=== PATIENT | female | born 1990 | race Caucasian/White ===

== ENCOUNTER 2020-03-07 17:12 | Emergency (ER) | payer MEDICAID, SELFPAY ==
--- OUTSIDE RECORDS SUMMARY | 2020-03-07 17:16 | XMS REPORT | Continuity of Care Document ---
:1990 Author Organization [employer] Care Team Providers Name Role Phone [employer] Unavailable Un available Problems Problem Status Onset Classification Date Comments Sourc e Date Reported Other specified 04/02/20 10/11/2018 [facility] diseases and 18 Medical conditions Center complicating , childbirth and the puerperium 24 WKS Active 03/24/20 [facility] /ABDOMINAL 18 M edical PAIN Center Unspecified 03/21/20 10/02/2018 infection of [address] urinary tract in , second trimester 23 weeks gestation 03/15/20 10/02/[address] Urinary tract 03/15/20 10/02/2018 infection, site 18 [place] not specified Patient currently Resolved 03/15/20 Problem 10/11/2018 M Amy [place] (finding) 18 M edical Center, [place] [place] CONTRACTIONS Active 03/15/20 18 [place] 22WKS Active 03/09/20 [facility] PREG-ANXIETY,BREAK 18 [place] DOWN Injury, poisoning 12/30/19 01/01/2018 Amy Swanson and certain other 18 consequences of external causes complicating , unspecified trimester BACK PAIN, 14 Active 12/30/19 [facility] WEEKS 18 [place] Threatened 12/19/19 12/21/2017 [place]a and 18 Other specified 12/19/19 12/21/2017 [place] disorders of 18 amniotic fluid and membranes, unspecified trimester, not applicable or unspecified OTHER Active 12/19/19 [facility] 18 [place] Complete or 10/13/19 01/11/2018 [place] unspecified 18 spontaneous without complication Incomplete 10/06/19 01/11/2018 [place] and spontaneous 18 without complication VAGINAL BLEEDING Active 10/05/19 [facility] orial 18 [place] Diseases of the 09/26/2018 [place] nervous system complicating , second trimester Insomnia, 09/26/[address] [place] unspecified 22 weeks gestation 09/26/2018 [facility] of Diseases of the 10/02/2018 digestive system [place] complicating , second trimester Noninfective 10/02/2018 gastroenteritis [place] and colitis, unspecified Anxiety disorder, 10/02/2018 M unspecified [place] ,[facility] Cannabis use, 10/02/2018 unspecified, [address] uncomplicated Smoking (tobacco) 10/02/2018 M complicating Juliana mejia, , second [place] trimester Nicotine 10/02/2018 dependence, [place] , cigarettes, [place] uncomplicated Bipolar disorder, 10/11/2018 [facility] [place] unspecified Medical Center,[facility] 24 weeks gestation 10/11/2018 [facility] of Medical Center Unspecified 10/11/[place] abdominal pain Medic al Center Other mental 10/11/2018 Leonardo as disorders Medical complicating Center, , second [place], trimester [facility] Bipolar I disorder Active Problem 10/11/2018 [facility] (disorder) [facility] Substance abuse Resolved Problem 10/11/2018 [facility] (disorder) Medical [place],[facility] Medications Medication Details Route Status Patient Ordering Order Source Instructions Provider Date multivitamin, 1 tab, Route: No Longer [facility] PO, Drug Form: Active 2018 Medical TAB, Dosing Center Weight 68.182, kg, Daily, Start date: 03/25/18 9:00:00 CDT, Duration: 30 day, Stop date: 04/23/18 9:00:00 CDT Protonix Notes: Tablet No Longer Leonardoa s should not be Active [facility] Medical chewed or Center crushed. (Same as: Protonix) Omeprazole 20 mg, Route: Inactive Leonardo as PO, Drug form: 2018 Medical CAP, ONCE, Center Dosing Weight 68.182, kg, Priority: STAT, Start date: 03/24/18 21:28:00 CDT, Stop date: 03/24/18 21:28:00 CDT Tylenol Notes: Do not Inactive [facility] exceed 4 2018 Medical gm/day. (Same Center as: Tylenol) Haldol Notes: (Same Inactive [facility] as: Haldol) [address] [place] [address] Center Nitrofurantoin 100 mg = 1 cap, No Longer 100 MG Oral PO, BID, take 2 Active 2018 [place] Capsule times a day, X [Macrobid] 7 day, # 14 cap, 0 Refill(s) Macrobid Notes: Not Inactive recommended for 2017 patients with CrCl<50 ml/min (Same as:Macrobid) With food. Ondansetron Notes: (Same Inactive as: Zofran) 2017 [facility] MEDICATION WASTE Product Size: 4 mg Product Wasted: ___ mg Famotidine Notes: (Same Inactive as: Pepcid) Can 2017 be dilute in 5-10cc NS IVP: Slow IV push over at least 2 minutes. Calcium Chloride 1,000 mL, 1000 Inactive 0.0014 MEQ/ML / ml/hr, Infuse 2017 [place] Potassium Over: 1 hr, Chloride 0.004 Route: IV, MEQ/ML / Sodium 1,000, Drug Chloride 0.103 form: INJ, MEQ/ML / Sodium ONCE, Dosing Lactate 0.028 Weight 80.455 MEQ/ML kg, Start date: Injectable 03/15/18 Solution 18:51:00 CDT, Stop date: 03/15/18 18:51:00 CDT Tylenol 650 mg, Route: Inactive PO, Drug form: 2018 [place] TAB, ONCE, Dosing Weight 81.818, kg, Priority: STAT, Start date: 12/29/17 20:46:00 CDT, Stop date: 12/29/17 20:46:00 CDT Acetaminophen 650 mg, Route: Inactive PO, Drug form: 2018 [place] TAB, ONCE, Dosing Weight 81.818, kg, Priority: STAT, Start date: 12/29/17 13:53:00 CDT, Stop date: 12/29/17 13:53:00 CDT Sodium Chloride 1,000 mL, 2,000 Inactive 0.9% (Bolus) IV ml/hr, Infuse 2017 [place] Over: 0.5 hr, Route: IV, 1,000, Drug form: INJ, ONCE, Priority: STAT, Dosing Weight 81.818 kg, Start date: 12/29/17 13:53:00 CDT, Stop date: 12/29/17 13:53:00 CDT Saline Flush Notes: (Same Inactive 0.9% as: BD 2017 [place] Posiflush) Tylenol 650 mg, Route: Inactive PO, Drug form: 2017 [place] TAB, ONCE, Dosing Weight 81.818, kg, Priority: STAT, Start date: 12/18/17 13:25:00 CDT, Stop date: 12/18/17 13:25:00 CDT Tylenol Notes: Max Inactive acetaminophen = 2018 [facility] 4000 mg/day (4 gm/day). (Same as: Tylenol) Zofran ODT 4 mg, Route: Inactive PO, Drug form: 2017 [place] TABDIS, ONCE, Dosing Weight 81.818, kg, Priority: STAT, Start date: 12/18/17 11:20:00 CDT, Stop date: 12/18/17 11:20:00 CDT Acetaminophen 1 tab, PO, Q6H, No Longer 300 MG / Codeine PRN Pain, X 3 Active 2017 [place] Phosphate 30 MG day, # 12 tab, Oral Tablet 0 Refill(s) [Tylenol with Codeine #3] Acetaminophen 1 tab, PO, Q6H, No Longer 300 MG / Codeine PRN Pain, X 7 Active 2017 [place] Phosphate 30 MG day, # 28 tab, Oral Tablet 0 Refill(s) [Tylenol with Codeine #3] Morphine Notes: (Same Inactive as:MORPhine 2018 [place] Sulfate) Cytotec Notes: (Same Inactive as:Cytotec) 2017 [place] Take with food Ondansetron 4 mg, Route: Inactive IVP, Drug form: 2017 [place] INJ, ONCE, Dosing Weight 81.818, kg, Priority: STAT, Start date: 10/04/17 23:47:00 CDT, Stop date: 10/04/17 23:47:00 CDT Morphine 4 mg, Route: Inactive IVP, ONCE, 2017 [place] Dosing Weight 81.818, kg, Priority: STAT, Start date: 10/04/17 23:15:00 CDT, Stop date: 10/04/17 23:15:00 CDT Saline Flush Notes: (Same No Longer 0.9% as: BD Active 2017 [place] Posiflush) Allergies, Adverse Reactions, Alerts No Known Medication Allergies Immunizations Immunization Date Site Status Last Updated Comments Sour ce Given RhoGam (Sep Right completed [facility] Charting) [facility], [facility] Results Order Name Results Value Reference Date Interpretation Comments Queenie rce Range DRUG LD Confirm Test 03/24 [place] SCREEN Result /2017 Medical Screen Center Cutoff Marijuana carboxy-t hc >400 ng/ml 20 ng/ml Test performed by [facility]. Laboratory DRUG U Propoxyph Negative Negative 03/24 [place] SCREEN Scr *NA* Medical (03/24/18 4:30 PM) Center DRUG U Methadone Negative Negative 03/24 [place] SCREEN Scr *NA Medical (03/24/18 4:30 PM) Center DRUG U Negative Negative 03/24 [place] SCREEN Phencyclidin *NA Medical e Scr (03/24/18 4:30 PM) Center DRUG UDS Note See Note 03/24 [place] SCREEN (03/24/18 4:30 PM) /2017 Medical Center DRUG U Opiate Scr Negative Negative 03/24 [place] SCREEN *NA* /2017 Medical (03/24/18 4:30 PM) Center DRUG U Cannab Scr Positive Negative 03/24 [place] SCREEN *ABN* /2017 Medical (03/24/18 4:30 PM) Center DRUG U Cocaine Negative Negative 03/24 [place] SCREEN Scr *NA Medical (03/24/18 4:30 PM) Center DRUG U Benzodiaz Negative Negative 03/24 [place] SCREEN Scr *NA* Medical (03/24/18 4:30 PM) Center DRUG U Ethanol Negative Negative 03/24 [place] SCREEN Scr *NA Medical (03/24/18 4:30 PM) Center DRUG U Alana Scr Negative Negative 03/24 [place] SCREEN *NA* Medical (03/24/18 4:30 PM) Center DRUG U Amph Scr Positive Negative 03/24 [place] SCREEN *ABN* Medical (03/24/18 4:30 PM) Center DRUG LD Confirm Tests 03/24 [facility] SCREEN Results /[address] [facility] Screen Cutoff Amphetamin e amphetamin e 3291 ng/ml 1000 ng/ml methamphet amine 8820 ng/ml 1000 ng/ml Tests performed by [facility]. Laboratory URINE AND UA Bacteria Few /HPF None Seen 03/[place] /HPF /[address] [facility] URINE AND UA Sq Epi Many /LPF Few /LPF 03/24 [facility] STOOL /[address] [place] [address] URINE AND UA RBC 1 0 - 2 03/24 [facility] STOOL /[address] [facility] URINE AND UA WBC 9 0 - 5 03/24 [facility] STOOL /[address] [place] [address] URINE AND UA Mucus Few /LPF None Seen 03/24 [facility] STOOL /LPF /[address] [facility] URINE AND UA Bili Negative Negative 03/24 [facility] *NA* /2017 [facility] (03/24/18 4:30 PM) [place] URINE AND UA Protein 10 mg/dL Negative 03/24 [facility] mg/dL /[address] [place] [address] URINE AND UA 2.0 0.1 - 1.0 03/24 [facility] Urobilinogen /[address] [place] [address] URINE AND UA Blood Negative Negative 03/24 [facility] (03/24/18 4:30 PM) /[address] [place] [address] URINE AND UA Leuk Est Moderate Negative 03/24 [facility] *ABN* /2017 [facility] (03/24/18 4:30 PM) [place] URINE AND UA Nitrite Negative Negative 03/24 [facility] (03/24/18 4:30 PM) /[address] [place] [address] URINE AND UA Glucose Negative Negative 03/24 [facility] mg/dL mg/dL /[address] [place] [address] URINE AND UA Ketones Negative Negative 03/24 [facility] mg/dL mg/dL /[address] [facility] URINE AND UA pH 6.0 5.0 - 8.0 03/24 [facility] /[address] [place] [address] URINE AND UA Spec Grav 1.013 <=1.030 03/24 [facility] /[address] [place] [address] URINE AND UA Turbidity Clear Clear 03/24 [facility] (03/24/18 4:30 PM) /[address] [place] [address] URINE AND UA Color Yellow Yellow 03/24 [facility] STOOL *NA* /2017 [facility] (03/24/18 4:30 PM) [place] Culture: <10,000 03/24 [facility] Urine CFU/mL /2017 [facility] Skin Jossie Center BLOOD BANK Antibody Negative 03/24 [facility] RESULTS Scrn (03/24/18 3:46 PM) /[address] [facility] BLOOD BANK ABO/Rh O NEG 03/24 [place] RESULTS /[address] [facility] HEMATOLOGY MPV 11.4 7.4 - 10.4 03/24 /[address] [facility] HEMATOLOGY MCHC 32.6 32.0 - 03/24 [place] 36.0 /[address] [facility] HEMATOLOGY MCH 27.4 27.0 - 03/24 [place] 31.0 /[address] [facility] HEMATOLOGY MCV 84.2 80.0 - 03/24 [place] 98.0 /[address] [facility] HEMATOLOGY RDW 15.1 11.5 - 03/24 [place] 14.5 /[address] [facility] HEMATOLOGY Platelet 150 133 - 450 03/24 /[address] [facility] HEMATOLOGY Hgb 10.3 12.0 - 03/24 [place] 16.0 /[address] [facility] HEMATOLOGY Hct 31.5 36.0 - 03/24 [place] 48.0 /[address] [facility] HEMATOLOGY WBC 9.5 3.7 - 10.4 03/[address] [facility] HEMATOLOGY RBC 3.74 4.20 - 03/24 [place] 5.40 /[address] [facility] HEMATOLOGY Segs 78.3 45.0 - 03/24 [place] 75.0 /[address] [facility] HEMATOLOGY Basophils 0.2 0.0 - 1.0 03/24 /[address] [facility] HEMATOLOGY Lymphocytes 1.5 1.0 - 5.5 03/24 [place] # /[address] [facility] HEMATOLOGY Neutrophils 7.4 1.5 - 8.1 03/24 [place] # /[address] [facility] HEMATOLOGY Monocytes # 0.5 0.0 - 0.8 03/[place] /[address] [facility] HEMATOLOGY Eosinophils 0.4 0.0 - 4.0 03/24 [place] /[address] [facility] HEMATOLOGY Monocytes 5.0 2.0 - 12.0 03/[address] [facility] HEMATOLOGY Lymphocytes 16.1 20.0 - 03/24 [place] 40.[address] [facility] IMMUNOLOGY Hep Bs Ag Negative Negative 03/24 [place] *NA* /2017 Medical (03/24/18 3:46 PM) Center IMMUNOLOGY Treponemal Non-Reactive Non 03/24 [place] *NA* Medical (03/24/18 3:46 PM) Center IMMUNOLOGY HIV. Negative Negative 03/24 [facility] *NA* /2017 Medical (03/24/18 3:46 PM) Center CHEM PANEL Amylase Lvl 53 25 - 115 03/15 [facility] CHEM PANEL Lipase Lvl 128 73 - 393 03/15 [facility] CHEM PANEL eGFR 131 03/15 Result Comment: The [facility] eGFR is calculated using the CKD-EPI formula. In most young, healthy individuals the eGFR will be >90 mL/min/1.73m2 . The eGFR declines with age. An eGFR of 60-89 may be normal in some populations, particularly the elderly, for whom the CKD-EPI formula has not been extensively validated. Use of the eGFR is not recommended in the following populations:< br/>
Kaela viduals with unstable creatinine concentration s, including patients and those with serious co-morbid conditions.<b r/>
Patie nts with extremes in muscle mass or diet.

The data above are obtained from the National Kidney Disease Education Program (NKDEP) which additionally recommends that when the eGFR is used in patients with extremes of body mass index for purposes of drug dosing, the eGFR should be multiplied by the estimated BMI. CHEM PANEL CO2 27 24 - 32 03/15 [facility] CHEM PANEL Chloride Lvl 107 95 - 109 03/15 [facility] CHEM PANEL Calcium Lvl 7.8 8.5 - 10.5 03/15 [facility] CHEM PANEL Total 6.6 6.4 - 8.4 03/[address] [facility] CHEM PANEL Creatinine 0.50 0.50 - 03/[address] [facility] CHEM PANEL BUN 6 7 - 22 03/15 [facility] CHEM PANEL Potassium 3.9 3.5 - 5.1 03/[address] [facility] CHEM PANEL Sodium Lvl 140 135 - 145 03/15 [facility] CHEM PANEL Albumin Lvl 2.7 3.5 - 5.0 03/15 [facility] CHEM PANEL ALANINE 18 0 - 65 03/[address] [facility] RASE CHEM PANEL Alk Phos 87 39 - 136 03/15 [facility] CHEM PANEL ASPARTATE 10 0 - 37 03/[address] [facility] CHEM PANEL Bili Total 0.2 0.2 - 1.3 03/15 [facility] CHEM PANEL Glucose Lvl 86 70 - 99 03/15 [facility] CHEM PANEL B/C Ratio 12 6 - 25 03/15 [facility] CHEM PANEL Globulin 3.9 2.7 - 4.2 03/15 [facility] CHEM PANEL A/G Ratio 0.7 0.7 - 1.6 03/15 [facility] CHEM PANEL AGAP 9.9 10.0 - 03/[address] [facility] HEMATOLOGY Platelet 155 133 - 450 03/15 [facility] HEMATOLOGY MPV 12.1 7.4 - 10.4 03/15 /2017 [facility] HEMATOLOGY RDW 15.6 11.5 - 03/15 MH 14.5 /2017 [facility] HEMATOLOGY MCHC 33.9 32.0 - 03/[address] [facility] HEMATOLOGY MCH 27.9 27.0 - 03/[address] [facility] HEMATOLOGY MCV 82.2 80.0 - 03/[address] [facility] HEMATOLOGY WBC 14.5 3.7 - 10.4 03/15 [facility] HEMATOLOGY RBC 3.80 4.20 - 03/[address] [facility] HEMATOLOGY Hgb 10.6 12.0 - 03/[address] [facility] HEMATOLOGY Hct 31.3 36.0 - 03/[address] [facility] HEMATOLOGY Lymphocytes 1.4 1.0 - 5.5 03/15 MH # /2017 [facility] HEMATOLOGY Monocytes # 0.4 0.0 - 0.8 03/15 [facility] HEMATOLOGY Eosinophils 0.0 0.0 - 0.5 03/15 # /2017 [facility] HEMATOLOGY Basophils # 0.0 0.0 - 0.2 03/15 [facility] HEMATOLOGY Segs 86.8 45.0 - 03/[address] [facility] HEMATOLOGY Monocytes 3.0 2.0 - 12.0 03/15 [facility] HEMATOLOGY Eosinophils 0.2 0.0 - 4.0 03/15 [facility] HEMATOLOGY Lymphocytes 9.9 20.0 - 03/[address] [facility] HEMATOLOGY Neutrophils 12.6 1.5 - 8.1 03/15 MH # /2017 [facility] HEMATOLOGY Basophils 0.1 0.0 - 1.0 03/15 [facility] HEMATOLOGY RBC Morph Normal 03/15 (03/15/18 6:56 PM) /2017 [facility] est HEMATOLOGY Plt Morph Normal 03/15 (03/15/18 6:56 PM) [facility] URINE AND UA Hyal Cast 1 0 - 2 03/15 STOOL /2017 [facility] URINE AND UA Color Yellow 03/[address] [facility] URINE AND UA Bacteria Few /HPF None Seen 03/15 STOOL /HPF /2017 [facility] URINE AND UA Mucus Few /LPF None Seen 03/15 STOOL /LPF /2017 [facility] URINE AND UA RBC 3 0 - 2 03/[address] [facility] URINE AND UA <=1.0 0.1 - 1.0 03/15 STOOL Urobilinogen /2017 [facility] URINE AND UA WBC 29 0 - 5 03/[address] [facility] URINE AND UA Leuk Est Moderate Negative 03/15 STOOL *ABN* /2017 [facility] (03/15/18 6:56 PM) URINE AND UA Sq Epi Many /LPF Few /LPF 03/[address] [facility] URINE AND UA Ketones Negative Negative 03/15 STO[place] mg/dL mg/dL [facility] URINE AND UA Bili Negative Negative 03/15 [place] *NA* /2017 [facility] (03/15/18 6:56 PM) URINE AND UA Blood Negative Negative 03/15 STO[place] (03/15/18 6:56 PM) [facility] est URINE AND UA Protein Negative Negative 03/15 STO[place] mg/dL mg/dL [facility] URINE AND UA Glucose Negative Negative 03/15 [place] mg/dL mg/dL [facility] URINE AND UA Nitrite Negative Negative 03/15 STOOL (03/15/18 6:56 PM) [facility] URINE AND UA pH 5.0 5.0 - 8.0 03/[address] [facility] URINE AND UA Spec Grav 1.015 <=1.030 03/[address] [facility] URINE AND UA Turbidity Marked Clear 03/15 STOOL *ABN* /2017 [facility] (03/15/18 6:56 PM) BLOOD BANK Antibody Negative 12/29 RESULTS Scrn (12/29/17 6:51 PM) [facility] BLOOD BANK ABO/Rh O NEG 12/29 RESULTS /2017 [place] BLOOD BANK Rhig Product available 12/29 RESULTS (12/29/17 6:31 PM) [facility] URINE AND UA <=1.0 0.1 - 1.0 12/29 STOOL Urobilinogen mg/dL [place] URINE AND UA Blood Negative Negative 12/29 [place] (12/29/17 4:58 PM) [place] URINE AND UA Leuk Est Large Negative 12/29 STOOL *ABN* /2017 [place] (12/29/17 4:58 PM) URINE AND UA Nitrite Negative Negative 12/29 [place] (12/29/17 4:58 PM) [place] URINE AND UA Ketones Negative Negative 12/29 [place] mg/dL mg/dL [place] URINE AND UA Glucose Negative Negative 12/29 [place] mg/dL mg/dL [place] URINE AND UA Bili Negative Negative 12/29 STOOL *NA* [place] (12/29/17 4:58 PM) URINE AND UA WBC 3 0 - 5 12/29 STOOL [facility] URINE AND UA Sq Epi Moderate Few /LPF 12/29 STOOL /LPF [facility] URINE AND UA Mucus Few /LPF None Seen 12/29 STOOL /LPF [place] URINE AND UA Bacteria Occasional None Seen 12/29 STOOL /HPF /HPF [facility] URINE AND UA RBC 3 0 - 2 12/29 STOOL [facility] URINE AND UA Protein Negative Negative 12/29 STOOL mg/dL mg/dL [facility] URINE AND UA pH 7.0 5.0 - 8.0 12/29 STOOL [facility] URINE AND UA Spec Grav 1.012 <=1.030 12/29 STOOL [facility] URINE AND UA Turbidity Slight Clear 12/29 STOOL *ABN* /2017 [place] (12/29/17 4:58 PM) URINE AND UA Color Yellow Yellow 12/29 STOOL *NA* [place] (12/29/17 4:58 PM) CHEM PANEL Lactic Acid 1.3 0.5 - 2.2 12/29 Lvl [facility] TOXICOLOGY Ethanol Lvl <3 12/29 [facility] TOXICOLOGY Etoh (%) <0.003 12/29 [facility] CHEM PANEL A/G Ratio 0.8 0.7 - 1.6 12/29 [facility] CHEM PANEL Globulin 3.7 2.7 - 4.2 12/29 [facility] CHEM PANEL B/C Ratio 8 6 - 25 12/29 [facility] CHEM PANEL AGAP 13.3 10.0 - 06 MH 20.0 /2017 [place] CHEM PANEL eGFR 120 12/29 [facility] Comment: The [facility] eGFR is calculated using the CKD-EPI formula. In most young, healthy individuals the eGFR will be >90 mL/min/1.73m2 . The eGFR declines with age. An eGFR of 60-89 may be normal in some populations, particularly the elderly, for whom the CKD-EPI formula has not been extensively validated. Use of the eGFR is not recommended in the following populations:< br/>
Kaela viduals with unstable creatinine concentration s, including patients and those with serious co-morbid conditions.<b r/>
Patie nts with extremes in muscle mass or diet.

The data above are obtained from the National Kidney Disease Education Program (NKDEP) which additionally recommends that when the eGFR is used in patients with extremes of body mass index for purposes of drug dosing, the eGFR should be multiplied by the estimated BMI. CHEM PANEL Bili Total 0.2 0.2 - 1.3 12/29 [facility] CHEM PANEL Alk Phos 71 39 - 136 12/29 [facility] CHEM PANEL AST 15 0 - 37 12/29 [facility] CHEM PANEL ALT 19 0 - 65 12/29 [facility] CHEM PANEL Creatinine 0.65 0.50 - 12/29 MH Lvl 1.40 /2017 [facility] CHEM PANEL Total 6.8 6.4 - 8.4 12/29 [facility] CHEM PANEL Chloride Lvl 110 95 - 109 12/29 [facility] CHEM PANEL Sodium Lvl 142 135 - 145 12/29 [facility] CHEM PANEL Potassium 3.3 3.5 - 5.1 12/29 MH Lvl [facility] CHEM PANEL Calcium Lvl 8.4 8.5 - 10.5 12/29 [facility] CHEM PANEL CO2 22 24 - 32 12/29 [facility] CHEM PANEL Albumin Lvl 3.1 3.5 - 5.0 12/29 [facility] CHEM PANEL Glucose Lvl 87 70 - 99 12/29 [facility] CHEM PANEL BUN 5 7 - 22 12/29 [facility] ENDOCRINOL S Preg Positive Negative 12/29 OGY *NA* /2017 [facility] (12/29/17 1:59 PM) HEMATOLOGY PTT 28.1 22.9 - 12/29 MH 35.8 [facility] HEMATOLOGY INR 1.00 0.85 - 12/29 MH 1.17 [facility] HEMATOLOGY PT 13.2 12.0 - 12/29 MH 14.7 [facility] HEMATOLOGY Hct 31.7 36.0 - 12/29 MH 48.0 [facility] HEMATOLOGY MCV 77.2 80.0 - 12/29 MH 98.0 [facility] HEMATOLOGY MCHC 33.7 32.0 - 12/29 MH 36.0 [facility] HEMATOLOGY MCH 26.0 27.0 - 12/29 MH 31.0 [facility] HEMATOLOGY RDW 17.6 11.5 - 12/29 MH 14.5 [facility] HEMATOLOGY Platelet 131 133 - 450 12/29 [facility] HEMATOLOGY WBC 17.4 3.7 - 10.4 12/29 [facility] HEMATOLOGY Hgb 10.7 12.0 - 12/29 MH 16.0 [facility] HEMATOLOGY RBC 4.10 4.20 - 12/29 MH 5.40 [facility] HEMATOLOGY MPV 11.4 7.4 - 10.4 12/29 [facility] HEMATOLOGY Segs 86.5 45.0 - 12/29 MH 75.0 [facility] HEMATOLOGY Lymphocytes 9.3 20.0 - 12/29 MH 40.0 [facility] HEMATOLOGY Monocytes 3.9 2.0 - 12.0 12/29 [facility] HEMATOLOGY Eosinophils 0.1 0.0 - 4.0 12/29 [facility] HEMATOLOGY Microcyte 1+ None Seen 12/29 MH *ABN* /2017 [facility] (12/29/17 1:59 PM) HEMATOLOGY Monocytes # 0.7 0.0 - 0.8 12/29 [facility] HEMATOLOGY Lymphocytes 1.6 1.0 - 5.5 12/29 MH [facility] HEMATOLOGY Segs-Bands # 15.0 1.5 - 8.1 12/29 [facility] HEMATOLOGY Basophils 0.2 0.0 - 1.0 12/29 [facility] BLOOD BANK ABO/Rh O NEG 05/31 MH RESULTS [facility] CHEM PANEL eGFR 119 12/18 Result Comment: The [facility] eGFR is calculated using the CKD-EPI formula. In most young, healthy individuals the eGFR will be >90 mL/min/1.73m2 . The eGFR declines with age. An eGFR of 60-89 may be normal in some populations, particularly the elderly, for whom the CKD-EPI formula has not been extensively validated. Use of the eGFR is not recommended in the following populations:< br/>
Kaela viduals with unstable creatinine concentration s, including patients and those with serious co-morbid conditions.<b r/>
Patie nts with extremes in muscle mass or diet.

The data above are obtained from the National Kidney Disease Education Program (NKDEP) which additionally recommends that when the eGFR is used in patients with extremes of body mass index for purposes of drug dosing, the eGFR should be multiplied by the estimated BMI. CHEM PANEL Total 6.9 6.4 - 8.4 12/18 [facility] CHEM PANEL Chloride Lvl 110 95 - 109 12/18 [facility] CHEM PANEL Calcium Lvl 8.7 8.5 - 10.5 12/18 [facility] CHEM PANEL CO2 24 24 - 32 12/18 [facility] CHEM PANEL Sodium Lvl 141 135 - 145 12/18 [facility] CHEM PANEL Creatinine 0.68 0.50 - 12/18 [facility] Lvl 1.40 [facility] CHEM PANEL Potassium 3.5 3.5 - 5.1 12/18 [facility] Lvl /2017 [facility] CHEM PANEL Alk Phos 69 39 - 136 12/18 [facility] CHEM PANEL Bili Total 0.2 0.2 - 1.3 12/18 [facility] CHEM PANEL Albumin Lvl 3.4 3.5 - 5.0 12/18 [facility] CHEM PANEL AST 10 0 - 37 12/18 [facility] CHEM PANEL ALT 20 0 - 65 12/18 [facility] CHEM PANEL BUN 4 7 - 22 12/18 [facility] CHEM PANEL Glucose Lvl 96 70 - 99 12/18 [facility] CHEM PANEL A/G Ratio 1.0 0.7 - 1.6 12/18 [facility] CHEM PANEL Globulin 3.5 2.7 - 4.2 12/18 /2017 [facility] CHEM PANEL B/C Ratio 6 6 - 25 12/18 /2017 [facility] CHEM PANEL AGAP 10.5 10.0 - 12/18 MH 20.0 [facility] [place]CR[place] [id number] 12/18 MH OGY /2017 [facility] HEMATOLOGY MCV 78.1 80.0 - 12/18 MH 98.0 [facility] HEMATOLOGY Hct 32.1 36.0 - 12/18 MH 48.0 [facility] HEMATOLOGY Hgb 10.8 12.0 - 12/18 MH 16.0 [facility] HEMATOLOGY MPV 11.1 7.4 - 10.4 12/18 [facility] HEMATOLOGY Platelet 114 133 - 450 12/18 [facility] HEMATOLOGY RBC 4.11 4.20 - 12/18 MH 5.40 [facility] HEMATOLOGY WBC 10.9 3.7 - 10.4 12/18 [facility] HEMATOLOGY RDW 17.6 11.5 - 12/18 MH 14.5 [facility] HEMATOLOGY MCHC 33.5 32.0 - 12/18 MH 36.0 [facility] HEMATOLOGY MCH 26.2 27.0 - 12/18 MH 31.0 [facility] HEMATOLOGY Segs 80.2 45.0 - 12/18 MH 75.0 [facility] HEMATOLOGY Lymphocytes 1.6 1.0 - 5.5 12/18 MH # /2017 [facility] HEMATOLOGY Segs-Bands # 8.7 1.5 - 8.1 12/18 [facility] HEMATOLOGY Eosinophils 0.3 0.0 - 4.0 12/18 [facility] HEMATOLOGY Monocytes 4.1 2.0 - 12.0 12/18 [facility] HEMATOLOGY Basophils 0.3 0.0 - 1.0 12/18 [facility] HEMATOLOGY Lymphocytes 15.1 20.0 - 12/18 MH 40.0 [facility] HEMATOLOGY Microcyte 1+ None Seen 12/18 *ABN* /2017 [facility] (12/18/17 1:14 PM) HEMATOLOGY Monocytes # 0.4 0.0 - 0.8 12/18 [facility] URINE AND UA <=1.0 0.1 - 1.0 12/18 STOOL Urobilinogen mg/dL [facility] URINE AND UA Sq Epi Many /LPF Few /LPF 12/18 [facility] URINE AND UA Bacteria Occasional None Seen 12/18 [facility] /HPF /HPF [facility] URINE AND UA Mucus Few /LPF None Seen 12/18 STOOL /LPF [facility] URINE AND UA RBC 11 0 - 2 12/18 [facility] URINE AND UA WBC 78 0 - 5 12/18 [facility] URINE AND UA Protein 30 mg/dL Negative 12/18 [facility] mg/dL [facility] URINE AND UA pH 5.0 5.0 - 8.0 12/18 [facility]OL [facility] URINE AND UA Spec Grav 1.021 <=1.030 12/18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
--- OUTSIDE RECORDS SUMMARY | 2020-03-07 17:17 | XMS REPORT | Continuity of Care Document ---
:[address] [facility] t Address [address] [place] [address] Care Team Providers Name Role Phone Betsy REINALDO Sandra Attending Clinician Belen eRed Attending Clinician Jenny Kruse Attending Clinician Daniel Miranda Attending Clinician Nicol Donohue Attending Clinician Fern Thacker Attending Clinician Deng Parrish Attending Clinician Kirstie Attending Clinician Jenny Kruse Admitting Clinician Payers Payer Name Policy Type Policy Number Effective Date Expiration Date S ource Problems Condition Condition Condition Status Onset Resolution Last Treating Co mments Source Name Details Category Date Date Treatment Clinician Date 24 WKS Diagnosis Active 2018-10-13 Mem oria /A - 18:30:00 l BDOMINAL 24 WKS 00:00: Alvaro june PAIN /A 00 BDOMINAL PAIN Active 03/24/2018 [facility] CONTRACTIO Diagnosis Active 2018-03-15 Memoria NS 8- 20:09:00 l 00:00: Tin CONTRACTIO 00 NS Active 8 [facility] 22WKS Diagnosis Active 2018-03-19 Mem oria PREG-ANXIE 8-20 08:24:00 l TY,BREAKDO 22WKS 00:00: Tiki nn WN PREG-ANXIE 00 TY,BREAKDO WN Active 8 [facility] [place] BACK PAIN, Diagnosis Active 2017-12-29 Memoria 14 WEEKS 6-11 15:04:00 l BACK 00:00: [place] PAIN, 14 00 WEEKS Active 12/29/2017 [facility] OTHER Diagnosis Active 2017-12-18 Mem oria - 11:37:00 l OTHER 00:00: [place] 00 Active 12/18/2017 [facility] Tin VAGINAL Diagnosis Active 2017-10-04 Me moria BLEEDING 3-17 23:49:00 l VAGINAL 00:00: Tin BLEEDING 00 Active 10/04/2017 [facility] [place] Diseases Problem 2018-09-26 Mem oria of the 15:18:23 l nervous Diseases Tiki nn system of the complicati nervous ng system , complicati second ng trimester , second trimester 09/26/2018 [facility] Insomnia, Problem 2018-09-26 Me moria unspecifie 15:18:23 l d [place] Insomnia, unspecifie d 09/26/2018 [facility] 22 weeks Problem 2018-09-26 Mem oria gestation 15:18:23 l of 22 weeks Alvaro n gestation of 09/26/2018 [facility] Diseases Problem 2018-10-02 Mem oria of the 11:54:19 l digestive Diseases Her chacko system of the complicati digestive ng system , complicati second ng trimester , second trimester 10/02/2018 [facility] Noninfecti Problem 2018-10-02 M emoria ve 11:54:19 l gastroente Alvaro n ritis and Noninfecti colitis, ve unspecifie gastroente d ritis and colitis, unspecifie d 10/02/2018 [facility] Anxiety Problem 2018-10-02 Baldo tez disorder, 11:54:19 l unspecifie Anxiety Her chacko d disorder, unspecifie d 10/02/2018 [facility] Cannabis Problem 2018-10-02 Mem oria use, 11:54:19 l unspecifie Cannabis He rmjenny d, use, uncomplica unspecifie fabian d, uncomplica fabian 10/02/2018 [facility] Smoking Problem 2018-10-02 Baldo tez (tobacco) 11:54:19 l complicati Smoking Her chacko ng (tobacco) , complicati second ng trimester , second trimester [facility] Nicotine Problem 2018-10-02 Mem oria dependence 11:54:19 l , Nicotine Alvaro n cigarettes dependence , , uncomplica cigarettes fabian , uncomplica fabian [facility] 2018-10-11 Baldo tez disorder, 14:07:22 l unspecifie Bipolar Her chacko d disorder, unspecifie d 10/11/2018 [facility] 24 weeks Problem 2018-10-11 Mem oria gestation 14:07:22 l of 24 weeks Alvaro n gestation of 10/11/2018 [facility] Unspecifie Problem 2018-10-11 M emoria d 14:07:22 l abdominal [place] pain Unspecifie d abdominal pain 9 [facility] Other Problem 2018-10-11 Memor ia mental 14:07:22 l disorders Other Alvaro n complicati mental ng disorders , complicati second ng trimester , second trimester 10/11/2018 [facility] Substance Problem Resolve 2018-10-11 M emoria abuse d 14:07:22 l (disorder) Alvaro n Substance abuse (disorder) Resolved Problem 10/11/2018 [facility] Bipolar I Problem Active 2018-10-11 Me moria disorder 14:07:22 l (disorder) Bipolar Her chacko I disorder (disorder) Active Problem 10/11/2018 [facility] Other Problem 2018-0 2018-10-11 2018-10-11 M emoria specified 9-13 14:07:22 14:07:22 l diseases Other 03:21: [place] and specified 06 conditions diseases complicati and ng conditions , complicati childbirth ng and the , puerperium childbirth and the puerperium 04/02/2018 10/11/2018 [facility] Unspecifie Problem 2018-10-02 2018-10-02 Memoria d 9- 11:54:19 11:54:19 l infection 04:00: Tin of urinary Unspecifie 44 tract in d , infection second of urinary trimester tract in , second trimester 03/21/2018 10/02/2018 [facility] 23 weeks Problem 2018-10-02 2018-10-02 Memoria gestation 03-15 11:54:19 11:54:19 l of 23 weeks 05:00: Alvaro june gestation 00 of 03/15/2018 10/02/2018 [facility] Urinary Problem 2018-10-02 2018-10-02 Memoria tract 03-15 11:54:19 11:54:19 l infection, Urinary 05:00: Her chacko site not tract 00 specified infection, site not specified 03/15/2018 10/02/2018 [facility] Complete Problem 2018-01-11 2018-01-11 Memoria or 10-12 11:25:58 11:25:58 l unspecifie Complete 02:43: He rmann d or 45 spontaneou unspecifie s d without spontaneou complicati s on without complicati on 10/12/2017 01/11/2018 [facility] Incomplete Problem 2017-2018-01-11 2018-01-11 Memoria spontaneou 10-05 11:25:58 11:25:58 l s 05:00: Alvaro june without Incomplete 00 complicati spontaneou on s without complicati on 10/05/2017 01/11/2018 [facility] Injury, Problem 2017-2018-01-01 2018-01-01 Memoria poisoning 6-11 02:33:12 02:33:12 l and Injury, 05:00: Tin certain poisoning 00 other and consequenc certain es of other external consequenc causes es of complicati external ng causes , complicati unspecifie ng d , trimester unspecifie d trimester 12/29/2017 01/01/2018 [facility] Threatened Problem 2017-12-21 2017-12-21 Memoria 5- 04:24:21 04:24:21 l 05:00: [place] Threatened 00 8 12/21/2017 [facility] Other Problem 2017-2017-12-21 2017-12-21 M emoria specified 12-18 04:24:21 04:24:21 l disorders Other 05:00: Alvaro n of specified 00 amniotic disorders fluid and of membranes, amniotic unspecifie fluid and d membranes, trimester, unspecifie not d applicable trimester, or not unspecifie applicable d or unspecifie d 12/18/2017 12/21/2017 [facility] History of Past Illness Condition Condition Condition Status Onset Resolution Last Treating Co mments Source Name Details Category Date Date Treatment Clinician Date Patient Problem Resolve 2018-10-11 2018-10-11 Memoria currently d 03-15 14:07:22 14:07:22 l Patient 00:00: Tiki nn (finding) currently 00 (finding) Resolved 03/15/2018 Problem 10/11/2018 [facility], [facility] Allergies, Adverse Reactions, Alerts Allergy Allergy Status Severity Reaction(s) Onset Inactive Treating Comm ents Source Name Type Date Date Clinician No Known DA Active U 2017-07 [facility] Allergie 0-04 Clear s 00:00: Alaniz 00 [place] No Known DA Active U 2013- [facility] Allergie 2-19 Clear s 00:00: Alaniz 00 [place] Social History Social Habit Start Date Stop Date Quantity Comments Source Social History 2018-03-24 2018-03-24 [facility] coleen 23:23:23 23:23:23 Medications Ordered Filled Start Stop Current Ordering Indication Dosage Frequency Signature Comments Components Source Medication Medication Date Date Medication? Clinician (SIG) Name Name multivitami No 1 tab, Baldo tez n, 03-25 Route: PO, l 14:00: Drug Form: Tin 00 TAB, Dosing Weight 68.182, kg, Daily, Start date: 03/25/18 9:00:00 CDT, Duration: 30 day, Stop date: 04/23/18 9:00:00 CDT Protonix No Notes: Memoria 03-25 Tablet l 02:48: should not Tin 00 be chewed or crushed. (Same as: Protonix) Omeprazole No 20 mg, Memor ia 03-25 Route: PO, l 02:28: Drug form: Tin 00 CAP, ONCE, Dosing Weight 68.182, kg, Priority: STAT, Start date: 03/24/18 21:28:00 CDT, Stop date: 03/24/18 21:28:00 CDT Tylenol No Notes: Do Memor ia 03-24 not exceed l 22:38: 4 gm/day. [place] 00 (Same as: Tylenol) Haldol No Notes: Memoria 03-24 (Same as: l 22:29: Haldol) Tin 00 Nitrofurant No 100 mg = 1 Memoria oin 100 MG 03-16 cap, PO, l Oral 00:44: BID, take [place] Capsule 00 2 times a [Macrobid] day, X 7 day, # 14 cap, 0 Refill(s) Macrobid No Notes: Not Mem oria 03-16 recommende l 00:42: d for [place] 00 patients with CrCl<50 ml/min (Same as:Macrobi d) With food. Ondansetron No Notes: Baldo tez 03-15 (Same as: l 23:51: Zofran) Tin MEDICATION WASTE Product Size: 4 mg Product Wasted: ___ mg Famotidine No Notes: Memor ia 03-15 (Same as: l 23:51: Pepcid) [place] 00 Can be dilute in 5-10cc NS IVP: Slow IV push over at least 2 minutes. Calcium No 1,000 mL, Memor ia Chloride 03-15 1000 l 0.0014 23:51: ml/hr, [place] MEQ/ML / 00 Infuse Potassium Over: 1 Chloride hr, Route: 0.004 IV, 1,000, MEQ/ML / Drug form: Sodium INJ, ONCE, Chloride Dosing 0.103 Weight MEQ/ML / 80.455 kg, Sodium Start Lactate date: 0.028 03/15/18 MEQ/ML 18:51:00 Injectable CDT, Stop Solution date: 03/15/18 18:51:00 CDT Tylenol No 650 mg, Memoria 612 Route: PO, l 01:46: Drug form: Tin 00 TAB, ONCE, Dosing Weight 81.818, kg, Priority: STAT, Start date: 12/29/17 20:46:00 CDT, Stop date: 12/29/17 20:46:00 CDT Acetaminoph 2017-0 No 650 mg, Mem oria en 12-29 Route: PO, l 18:53: Drug form: Tin 00 TAB, ONCE, Dosing Weight 81.818, kg, Priority: STAT, Start date: 12/29/17 13:53:00 CDT, Stop date: 12/29/17 13:53:00 CDT Sodium 2017-0 No 1,000 mL, Memori a Chloride 12-29 2,000 l 0.9% 18:53: ml/hr, Tin (Bolus) IV 00 Infuse Over: 0.5 hr, Route: IV, 1,000, Drug form: INJ, ONCE, Priority: STAT, Dosing Weight 81.818 kg, Start date: 12/29/17 13:53:00 CDT, Stop date: 12/29/17 13:53:00 CDT Saline 0 No Notes: Memoria Flush 0.9% 12-29 (Same as: l 18:53: BD Tin Posiflush) Tylenol 0 No 650 mg, Memoria 12-18 Route: PO, l 18:25: Drug form: Tin 00 TAB, ONCE, Dosing Weight 81.818, kg, Priority: STAT, Start date: 12/18/17 13:25:00 CDT, Stop date: 12/18/17 13:25:00 CDT Tylenol 0 No Notes: Max Baldo tez 12-18 acetaminop l 17:58: hen = 4000 [place] 00 mg/day (4 gm/day). (Same as: Tylenol) Zofran ODT 0 No 4 mg, Memori a 12-18 Route: PO, l 16:20: Drug form: [place] 00 TABDIS, ONCE, Dosing Weight 81.818, kg, Priority: STAT, Start date: 12/18/17 11:20:00 CDT, Stop date: 12/18/17 11:20:00 CDT Acetaminoph 2017-0 No 1 tab, PO, Memoria en 300 MG / 3-18 Q6H, PRN l Codeine 06:27: Pain, X 3 Tiki nn Phosphate 00 day, # 12 30 MG Oral tab, 0 Tablet Refill(s) [Tylenol with Codeine #3] Acetaminoph 0 No 1 tab, PO, Memoria en 300 MG / 3-18 Q6H, PRN l Codeine 06:25: Pain, X 7 Tiki nn Phosphate 00 day, # 28 30 MG Oral tab, 0 Tablet Refill(s) [Tylenol with Codeine #3] Morphine 2017-0 No Notes: Memoria 3-18 (Same l 06:05: as:MORPhin [place] e Sulfate) Cytotec No Notes: Memoria 3-18 (Same l 06:04: as:Cytotec Tin ) Take with food Ondansetron No 4 mg, Memor ia 18 Route: l 04:47: IVP, Drug form: INJ, ONCE, Dosing Weight 81.818, kg, Priority: STAT, Start date: 10/04/17 23:47:00 CDT, Stop date: 10/04/17 23:47:00 CDT Morphine 2017-0 No 4 mg, Memoria 18 Route: l 04:15: IVP, ONCE, Tin 00 Dosing Weight 81.818, kg, Priority: STAT, Start date: 10/04/17 23:15:00 CDT, Stop date: 10/04/17 23:15:00 CDT Saline No Notes: Memoria Flush 0.9% 10-05 (Same as: l 03:12: BD [place] Posiflush) Vital Signs Vital Name Observation Time Observation Value Comments Source [facility] 2018-03-24 15:34:00 [facility] Calculated 2018-03-24 15:34:00 Chaz Dillon Temperature Oral (F) 2018-03-24 15:34:00 97.9 F [facility] Respitory Rate 2018-03-24 15:34:00 Chaz Dillon Height 2018-03-24 15:34:00 149.86 cm Fatou [place] Systolic (mm Hg) 2018-03-24 15:34:00 Balod [place] Diastolic (mm Hg) 2018-03-24 15:34:00 Mem orial Tin Heart Rate 2018-03-24 15:34:00 [facility] [place] Weight 2018-03-24 15:24:00 [facility] Height 2018-03-24 15:24:00 149.86 cm [facility] BMI Calculated 2018-03-24 15:24:00 Memori al [place] Heart Rate 2018-03-24 15:03:00 [facility] [place] Systolic (mm Hg) 2018-03-24 15:03:00 Baldo rial [place] Diastolic (mm Hg) 2018-03-24 15:03:00 Mem orial [place] Systolic (mm Hg) 2018-03-16 00:44:00 Baldo rial [place] Diastolic (mm Hg) 2018-03-16 00:44:00 Mem orial Tin Systolic (mm Hg) 2018-03-15 23:30:00 Baldo rial [place] Diastolic (mm Hg) 2018-03-15 23:30:00 Mem orial [place] Weight 2018-03-15 23:08:00 [facility] [place] BMI Calculated 2018-03-15 23:08:00 Memori al Tin Height 2018-03-15 23:08:00 152.4 cm [facility] [place] Temperature Oral (F) 2018-03-15 23:08:00 98.1 F [facility] [place] Systolic (mm Hg) 2018-03-15 23:08:00 Baldo rial [place] Diastolic (mm Hg) 2018-03-15 23:08:00 Mem orial [place] Respitory Rate 2018-03-15 23:08:00 Memori al [place] Heart Rate 2018-03-15 23:08:00 [facility] Tin BMI Calculated 2018-03-10 00:47:00 Memori al Tin Weight 2018-03-10 00:47:00 [facility] [place] Systolic (mm Hg) 2018-03-10 00:47:00 Baldo rial [place] Diastolic (mm Hg) 2018-03-10 00:47:00 Mem orial Tin Respitory Rate 2018-03-10 00:47:00 Memori al [place] Heart Rate 2018-03-10 00:47:00 [facility] [place] Temperature Oral (F) 2018-03-10 00:47:00 99.0 F [facility] Height 2018-03-10 00:47:00 152.4 cm [facility] Heart Rate 2017-12-30 01:30:00 [facility] [place] Respitory Rate 2017-12-30 01:30:00 Memori al Itn Temperature Oral (F) 2017-12-30 01:30:00 98.3 F [facility] [place] Systolic (mm Hg) 2017-12-30 01:30:00 Baldo rial [place] Diastolic (mm Hg) 2017-12-30 01:30:00 Mem orial Tin Heart Rate 2017-12-30 00:19:00 [facility] [place] Respitory Rate 2017-12-30 00:19:00 Memori al Tin Temperature Oral (F) 2017-12-30 00:19:00 98.0 F [facility] [place] Systolic (mm Hg) 2017-12-30 00:19:00 Baldo rial Tin Diastolic (mm Hg) 2017-12-30 00:19:00 Mem orial [place] Respitory Rate 2017-12-29 22:14:00 Memori al Tin Heart Rate 2017-12-29 22:14:00 [facility] Temperature Oral (F) 2017-12-29 22:14:00 98.1 F [facility] [place] Systolic (mm Hg) 2017-12-29 22:14:00 Baldo rial Tin Diastolic (mm Hg) 2017-12-29 22:14:00 Mem orial Tin Height 2017-12-29 18:20:00 152.4 cm [facility] BMI Calculated 2017-12-29 18:20:00 Memori al [place] Weight 2017-12-29 18:20:00 [facility] [place] Heart Rate 2017-12-18 21:01:00 [facility] [place] Systolic (mm Hg) 2017-12-18 21:01:00 Baldo rial [place] Diastolic (mm Hg) 2017-12-18 21:01:00 Mem orial Tin Respitory Rate 2017-12-18 21:01:00 Memori al [place] Temperature Oral (F) 2017-12-18 21:01:00 98.1 F [facility] [place] Weight 2017-12-18 16:08:00 [facility] [place] Systolic (mm Hg) 2017-12-18 16:08:00 Baldo rial Tin Diastolic (mm Hg) 2017-12-18 16:08:00 Mem orial Tin Heart Rate 2017-12-18 16:08:00 [facility] Temperature Oral (F) 2017-12-18 16:08:00 98.1 F [facility] [place] Respitory Rate 2017-12-18 16:08:00 Memori al [place] Height 2017-10-05 03:02:00 152.4 cm [facility] [place] Weight 2017-10-05 03:02:00 [facility] [place] BMI Calculated 2017-10-05 03:02:00 Memori al Tin Systolic (mm Hg) 2017-10-05 03:02:00 Baldo rial Tin Diastolic (mm Hg) 2017-10-05 03:02:00 Mem orial Tin Temperature Oral (F) 2017-10-05 03:02:00 98.6 F [facility] [place] Heart Rate 2017-10-05 03:02:00 [facility] Respitory Rate 2017-10-05 03:02:00 Memori al [place] Procedures This patient has no known procedures. Encounters Start End Encounter Admission Attending Care Care Encounter Source Date/Time Date/Time Type Type Clinicians Facility Department ID 2019-08-25 2019-08-25 [place] [id number] 16:23:00 19:17:00 Lisa Flores Liliana [id number] [place] [id number] [place] [id number] 2019-04-03 2019-04-[id number] 18:43:45 19:09:00 Bernard Ford [id number] [place] [id number] [place] [id number] [facility] 2018-03-24 2018-03-24 Outpatient Aixa [facility] [id number] 10:02:00 22:45:00 Kyra 06 2018-03-15 2018-03-15 [id number] 17:53:00 19:51:00 Gunnar Daniel 2018-03-09 2018-03-[address] [id number] 19:20:00 21:17:00 R 04 2017-12-29 2017-12-29 Outpatient Kirstie [facility] [id number] 13:04:00 21:01:00 Hesham Hinson 2017-12-18 2017-12-18 Outpatient Francois, [facility] [id number] 11:03:00 16:03:00 Manjit Vilchis 2017-10-04 2017-10-05 Outpatient Kirstie, [facility] [id number] 22:00:00 00:49:00 Ambica 01 Results Test Description Test Time Test Comments Results Result Sourc e Comments DRUG SCREEN 2018-03-24 Negative [facility] 21:30:00 *NA*(03/24/18 [place] 4:30 PM) DRUG SCREEN 2018-03-24 Negative [facility] 21:30:00 *NA*(03/24/18 Tin 4:30 PM) DRUG SCREEN 2018-03-24 Negative [facility] 21:30:00 *NA*(03/24/18 [place] 4:30 PM) DRUG SCREEN 2018-03-24 See Note [facility] 21:30:00 (03/24/18 4:30 Tin PM) DRUG SCREEN 2018-03-24 Negative [facility] 21:30:00 *NA*(03/24/18 Tin 4:30 PM) DRUG SCREEN 2018-03-24 Positive [facility] 21:30:00 *ABN*(03/24/18 [place] 4:30 PM) DRUG SCREEN 2018-03-24 Negative [facility] 21:30:00 *NA*(03/24/18 [place] 4:30 PM) DRUG SCREEN 2018-03-24 Negative [facility] 21:30:00 *NA*(03/24/18 [place] 4:30 PM) DRUG SCREEN 2018-03-24 Negative [facility] 21:30:00 *NA*(03/24/18 [place] 4:30 PM) DRUG SCREEN 2018-03-24 Negative [facility] 21:30:00 *NA*(03/24/18 [place] 4:30 PM) DRUG SCREEN 2018-03-24 Positive [facility] 21:30:00 *ABN*(03/24/18 Tin 4:30 PM) URINE AND STOOL 2018-03-24 1 [facility] 21:30:00 Tin URINE AND STOOL 2018-03-24 9 [facility] 21:30:00 Tin URINE AND STOOL 2018-03-24 Negative [facility] 21:30:00 *NA*(03/24/18 [place] 4:30 PM) URINE AND STOOL 2018-03-24 2.0 [facility] 21:30:00 Tin URINE AND STOOL 2018-03-24 Negative [facility] 21:30:00 (03/24/18 4:30 Tin PM) URINE AND STOOL 2018-03-24 Moderate [facility] 21:30:00 *ABN*(03/24/18 Tin 4:30 PM) URINE AND STOOL 2018-03-24 Negative [facility] 21:30:00 (03/24/18 4:30 Tin PM) URINE AND STOOL 2018-03-24 21:30:00 Test Item Value Reference Range Interpretation Comme nts UA pH (test code = UA pH) 6.0 1 5.0-8.0 [facility] [id number] 21:30:00 Test Item Value Reference Range Interpretation Comments UA Spec Grav (test code = UA Spec 1.013 1 Grav) [facility] [id number] 21:30:00Clear (03/24/18 4:30 PM)[facility] [id number] 21:30:00Yellow *NA*(03/24/18 4:30 PM)[facility] HermannBLOOD BANK [id number] 20:46:00Negative (03/24/18 3:46 PM)[facility] CuvxbpoVNRORZDFOS3961-39-68 20:46:0011.4[facility] WxigrhjXXPUXYTUFH0254-47-17 20:46:0032.6[facility] DdnsxbgNPYCKKSIIU6662-48-24 20:46:00 Test Item Value Reference Range Interpretation Comments MCH (test code = MCH) 27.4 pg 27.0-31.0 Memorial RblvosxWVMKTBLFBL3990-43-79 20:46:0084.2[facility]ann[facility]MATOLOGY 2018-03-24 20:46:0015.1[facility] WcfoygpQCOCWNROGN8070-65-44 20:46:59414Ssefpijc WanzrvjKLRAOEHWUR4352-07-13 20:46:0010.3[facility] QxosiqtINHXVFJKJR8745-90-23 20:46:0031.5[facility] JczblweXJONMFQYPC6783-34-68 20:46:009.5[facility] [place] KENDAUBKXI0256-94-01 20:46:003.74[facility] VikberjXXWLBGDFGF7450-71-76 20:46:00 78.3[facility] FhyzcueSSEIZOHGAM3071-10-53 20:46:000.2[facility]annHEMATOLOGY 2018-03-24 20:46:001.5[facility] JdfvttsUTQBGWJTDP6580-75-00 20:46:007.4[facility] XtbedqaAMIQJKWCEF0940-70-12 20:46:000.5[facility] TjvaudrGVOBDZOPCL8598-07-51 20:46:000.4[facility] AwlgxdxKIENINRGBJ7216-17-81 20:46:005.0[facility] Tin UYTKEJFKPB9110-54-14 20:46:0016.1[facility] VaxpmoxOSIXGSTRWT4734-22-61 20:46:00 Negative *NA*(03/24/18 3:46 PM)[facility] GpesypyFRVZNMNSFH4732-76-71 20:46:00Non- Reactive *NA*(03/24/18 3:46 PM)[facility] MreheyrGSIKGTFVMW8228-76-56 20:46:00 Negative *NA*(03/24/18 3:46 PM)[facility]annCHEM XWLTF4087-53-36 23:56:0053 [facility]annCHEM XQSYX7659-15-62 23:56:47071Vvfzowyl HermannCHEM PANEL 2018-03-15 23:56:71577Qhuwjdta HermannCHEM FJDUU9004-12-31 23:56:0027[facility] HermannCHEM EBGQU9500-62-86 23:56:94411Vlclnslz HermannCHEM BOIHN5566-20-20 23:56:007.8[facility] HermannCHEM PTHUZ8317-05-56 23:56:006.6[facility] HermannCHEM GFGUK1070-65-45 23:56:000.50[facility] HermannCHEM XXZHW7972-25-39 23:56:006 [facility]annCHEM UWMGQ7220-04-94 23:56:003.9[facility] HermannCHEM PANEL 2018-03-15 23:56:16241Wipfyabo HermannCHEM YOBYY0181-16-89 23:56:002.7[facility] HermannCHEM KHDVT7581-86-27 23:56:0018[facility] HermannCHEM GTXBZ2862-54-59 23:56:0087[facility] HermannCHEM PCLVF2185-83-11 23:56:0010[facility] HermannCHEM WMALY4776-90-19 23:56:000.2[facility] HermannCHEM ZCUUD0546-24-86 23:56:0086 [facility]annCHE[facility] YZXZV9088-53-92 23:56:00 Test Item Value Reference Range Interpretation Comments B/C Ratio (test code = B/C Ratio) 12 1 6-25 [facility] [id number] 23:56:003.9[facility] HermannCHEM PANEL 2018-03-15 23:56:00 Test Item Value Reference Range Interpretation Comments A/G Ratio (test code = A/G Ratio) 0.7 1 0.7-1.6 [facility] HermannCHEM [id number] 23:56:009.9[facility]annHEMATOLOGY 2018-03-15 23:56:46096Ylfshzny XslwfxhMCLUWORNPB0558-03-78 23:56:0012.1[facility] ZeiwbgdTJNUZWWRWW4676-56-53 23:56:0015.6[facility] HcwfmfbUZDSRNKXPV9473-36-65 23:56:0033.9[facility] GkbfoloEMZAZERFED5980-35-88 23:56:00 Test Item Value Reference Range Interpretation Comments MCH (test code = MCH) 27.9 pg 27.0-31.0 [facility] YkorevyJUTBXFKMOX3802-99-76 23:56:0082.2[facility]annHEMATOLOGY 2018-03-15 23:56:0014.5[facility] TbohltuOBVXNHZFBL0631-71-42 23:56:003.80[facility] HgktifpWZZJAKGCBY9821-56-18 23:56:0010.6[facility] JexhnlaYWFMODPDHX2742-65-45 23:56:0031.3[facility] VbbuwecYWEPGXUWEU3434-98-43 23:56:001.4[facility] Tin GLFJKQWZSE3640-00-00 23:56:000.4[facility] AjsavfpKLLPUWGKVG4455-56-86 23:56:000.0 [facility] LyzdolmTSLLBYRGED6648-89-23 23:56:000.0[facility] HermannHEMATOLOGY 2018-03-15 23:56:0086.8[facility] UldkndaIRZPNHPZWG6365-48-33 23:56:003.0[facility] LnlizmnPOUBIQKDWL1524-03-85 23:56:000.2[facility] QzoqyseXMNTYJIGEI4160-61-24 23:56:009.9[facility] MyjnvvrZMORJWSQGB0621-10-91 23:56:0012.6[facility] Tin XJFNXMTXBX1723-43-64 23:56:000.1[facility] FckiipyNXWQKEEMPG5813-00-60 23:56:00 Normal (03/15/18 6:56 PM)[facility] AkstgimYFOONAZSXW0960-48-64 23:56:00Normal (03/15/18 6:56 PM)[facility] MBLHY7776-82-35 23:56:001[facility] YNUCW7655-53-03 23:56:003[facility] STOOL 2018-03-15 23:56:00<=1.0[facility] [id number] 23:56:0029 [facility] [id number] 23:56:00Moderate *ABN*(03/15/18 6:56 PM)[facility] [id number] 23:56:00Negative *NA*(03/15/18 6:56 PM)[facility] [id number] 23:56:00Negative (03/15/18 6:56 PM) [facility] [id number] 23:56:00Negative (03/15/18 6:56 PM) [facility] [id number] 23:56:00 Test Item Value Reference Range Interpretation Comments UA pH (test code = UA pH) 5.0 1 5.0-8.0 [facility] [id number] 23:56:00 Test Item Value Reference Range Interpretation Comments UA Spec Grav (test code = UA Spec 1.015 1 Grav) [facility] [id number] 23:56:00Marked *ABN*(03/15/18 6:56 PM) [facility] [id number] 23:51:00Negative (12/29/17 6:51 PM) [facility] [id number] 23:31:00Product available (12/29/17 6:31 PM)[facility] [id number] 21:58:00Negative (12/29/17 4:58 PM)[facility] [id number] 21:58:00Large *ABN*(12/29/17 4:58 PM)[facility] [id number] 21:58:00Negative (12/29/17 4:58 PM) [facility] [id number] 21:58:00Negative *NA*(12/29/17 4:58 PM) [facility] [id number] 21:58:003[facility] [id number] 21:58:003[facility] [id number] 21:58:00 Test Item Value Reference Range Interpretation Comments UA pH (test code = UA pH) 7.0 1 5.0-8.0 [facility] [id number] 21:58:00 Test Item Value Reference Range Interpretation Comments UA Spec Grav (test code = UA Spec 1.012 1 Grav) [facility] [id number] 21:58:00Slight *ABN*(12/29/17 4:58 PM) [facility] [id number] 21:58:00Yellow *NA*(12/29/17 4:58 PM) [facility] DOBKL7599-19-48 20:14:001.3[facility]annTOXICOLOGY 2017-12-29 20:14:00<3[facility] RpktqqyJUIGBDBCEG1338-74-17 20:14:00<0.003 [facility] LFUKN1398-02-19 18:59:00 Test Item Value Reference Range Interpretation Comments A/G Ratio (test code = A/G Ratio) 0.8 1 0.7-1.6 [facility] [id number] 18:59:003.7[facility] PANEL 2017-12-29 18:59:00 Test Item Value Reference Range Interpretation Comments B/C Ratio (test code = B/C Ratio) 8 1 -25 [facility]annCHEM XYWWB6962-26-48 18:59:0013.3[facility]annCHE[facility] PANEL 2017-12-29 18:59:52129Rndizgaf [facility]annCHEM UHITG8948-49-99 18:59:000.2[facility] NVGXJ5406-79-04 18:59:0071[facility] QNWYP0366-65-68 18:59:0015[facility] WWQVY8674-50-02 18:59:0019[facility] TZHUI7790-55-19 18:59:000.65[facility] EZRKB7934-56-46 18:59:006.8 [facility] FQZSK2797-17-20 18:59:80063Awauvtcx [facility]annCHEM PANEL 2017-12-29 18:59:03784Hineleib [facility]annCHE[facility] MTQIG7256-77-50 18:59:003.3[facility] YVYXV6536-15-25 18:59:008.4[facility] ROXGQ7331-37-48 18:59:0022[facility] MDZRO9968-23-07 18:59:003.1[facility] TFSSD5512-97-25 18:59:0087[facility] MZBWG9089-22-48 18:59:005[facility] UitraazAJPACIVKHQGPX4158-49-59 18:59:00Positive *NA*(12/29/17 1:59 PM)[facility]VIAMBFEKCC0183-47-47 18:59:00 Test Item Value Reference Range Interpretation Comments PTT (test code = PTT) 28.1 s 22.9-35.8 [facility]EedvoilXGVJXXWZDB3229-75-91 18:59:00 Test Item Value Reference Range Interpretation Comments INR (test code = INR) 1.00 1 0.85-1.17 [facility] FqejtwhMLTMZWTDXX1005-77-96 18:59:00 Test Item Value Reference Range Interpretation Comments PT (test code = PT) 13.2 s 12.0-14.7 [facility] ExsaaddUDNTXGYXWS7678-93-22 18:59:0031.7[facility]annHEMATOLOGY 2017-12-29 18:59:0077.2[facility] DhxhoxgWFXRNKKOSN4604-94-48 18:59:0033.7[facility] YcjwrxhRHCFEEOCAJ5851-85-59 18:59:00 Test Item Value Reference Range Interpretation Comments MCH (test code = MCH) 26.0 pg 27.0-31.0 [facility] FrhusouSNXWGJZMJD9296-19-03 18:59:0017.6[facility]annHEMATOLOGY 2017-12-29 18:59:23595Cpfxpwgh NatdykiLGEAKUCKDE5092-40-13 18:59:0017.4[facility] DgnnyhmFROBEMHSUT6158-39-37 18:59:0010.7[facility] NvnoddhWVAQEALIJV1168-61-91 18:59:004.10[facility] XhwpawqFMNSFZZIIG5401-56-99 18:59:0011.4[facility] Tin TOLOKDBEBI1380-58-80 18:59:0086.5[facility] UaqypvvTREUBVTYBK5109-63-85 18:59:00 9.3[facility] DfydxejCNMGLRRILI3879-89-09 18:59:003.9[facility]annHEMATOLOGY 2017-12-29 18:59:000.1[facility] IhwfsulMLFKYIPIMA3921-27-32 18:59:001+ *ABN*(12/29/17 1:59 PM)[facility] KshugtcXIHVDCUZCC2938-29-95 18:59:000.7[facility] RmoksxwGARHVWSDTW1160-14-28 18:59:001.6[facility] DhfdateQCWMNJXSQT0008-40-55 18:59:0015.0[facility] MxggwroAHWANXPYPC2801-41-02 18:59:000.2[facility]annCHE[facility] UIGHW1113-58-22 18:14:11501Erycwzxn [facility]annCHEM NBCTR4971-63-19 18:14:006.9 [facility] AOLHZ7458-41-83 18:14:29874Gxavwyoa HermannCHEM PANEL 2017-12-18 18:14:008.7[facility]annCHEM HIBRA6118-31-44 18:14:0024[facility]annCHEM CRUIZ4404-87-01 18:14:63871Idryuqbi [facility]annCHEM EPOEH3936-35-98 18:14:000.68[facility]annCHE[facility] QBNLA5164-69-06 18:14:003.5[facility]annCHE[facility] HKZKV1466-15-82 18:14:0069[facility] OTTHF7628-38-29 18:14:000.2 [facility] HermannCHEM FODBG3919-77-55 18:14:003.4[facility]annCHEM PANEL 2017-12-18 18:14:0010[facility]annCHE[facility] QVESF8268-85-03 18:14:0020[facility]CHE[facility] UCYNE7281-90-94 18:14:004[facility] KILFD1100-82-33 18:14:0096[facility] PXIMN6598-89-37 18:14:00 Test Item Value Reference Range Interpretation Comments A/G Ratio (test code = A/G Ratio) 1.0 1 0.7-1.6 [facility]CHEM SUQDZ1778-01-19 18:14:003.5[facility]annCHE[facility] PANEL 2017-12-18 18:14:00 Test Item Value Reference Range Interpretation Comments B/C Ratio (test code = B/C Ratio) 6 1 6-25 [facility]annCHEM CGOTT1967-08-25 18:14:0010.5[facility]annENDOCRINOLOGY 2017-12-18 18:14:0201642Bqfnicvf GvfaxstEWGKURDJCQ3072-57-59 18:14:0078.1 [facility] CtoouqqNHYTVPQSXX5386-38-03 18:14:0032.1[facility]annHEMATOLOGY 2017-12-18 18:14:0010.8[facility] MctiktkFDHQNMXVJB2309-96-06 18:14:0011.1[facility] TwjxegoYJERZGNDYA3606-81-59 18:14:19802Mhijdowu CqhaduaGIVLGEMVLN2201-95-62 18:14:004.11[facility] CmbvwfrTSSQHSKBBJ1443-77-42 18:14:0010.9[facility] Tin PNLBQIIQAL7511-45-03 18:14:0017.6[facility] JgjynaxTVVKZZLDJB7441-11-82 18:14:00 33.5[facility] VaobecnXPWUYUPNEG7116-87-93 18:14:00 Test Item Value Reference Range Interpretation Comments MCH (test code = MCH) 26.2 pg 27.0-31.0 [facility] OmgfvndJHNSIHIOKD5172-59-74 18:14:0080.2[facility]annHEMATOLOGY 2017-12-18 18:14:001.6[facility] PwdkatbWFSENYPGZX3669-39-17 18:14:008.7[facility] UgjibvnHTPVAJOCRM1730-35-77 18:14:000.3[facility] WupcgpbFCTFNLTYEJ0184-51-84 18:14:004.1[facility] CyehzlvKUKXFGNYXC1188-50-89 18:14:000.3[facility] NLDMTHTPMD0319-03-01 18:14:0015.1[facility] AytwgtuDCRQKWUEYC8455-52-72 18:14:001+ *ABN*(12/18/17 1:14 PM)[facility] XdskvhwUUIOIEYVPL7740-95-59 18:14:000.4[facility] QSDGB1607-95-42 17:28:0011[facility] STOOL 2017-12-18 17:28:0078[facility] FHWOV0202-13-77 17:28:00 Test Item Value Reference Range Interpretation Comments UA pH (test code = UA pH) 5.0 1 5.0-8.0 [facility] BOAJK0472-71-70 17:28:00 Test Item Value Reference Range Interpretation Comments UA Spec Grav (test code = UA Spec 1.021 1 Grav) [facility] XJRQT6514-72-34 17:28:00Yellow *NA*(12/18/17 12:28 PM) [facility] NLVUM2561-60-85 17:28:00Large *ABN*(12/18/17 12:28 PM) [facility] CLBXO7578-72-72 17:28:00Marked *ABN*(12/18/17 12:28 PM) [facility] SYLBA6904-92-44 17:28:00Negative (12/18/17 12:28 PM) [facility] IJTUW5766-50-41 17:28:00Small *ABN*(12/18/17 12:28 PM) [facility] FGWCR0464-49-45 17:28:00Negative *NA*(12/18/17 12:28 PM)[facility] EUYP6003-20-71 17:28:00Positive *ABN*(12/18/17 12:28 PM) [facility] SGCDP0429-01-29 04:42:70080Uxgvcppu [facility] MJKCM9842-98-78 04:42:00Large *ABN*(10/04/17 11:42 PM)[facility] SXZGY4033-46-14 04:42:00Negative (10/04/17 11:42 PM)[facility] JQCIA2452-74-21 04:42:00Negative (10/04/17 11:42 PM)[facility] FVUBH6947-39-92 04:42:00Negative *NA*(10/04/17 11:42 PM)[facility] LPYXN7698-67-76 04:42:00 Test Item Value Reference Range Interpretation Comments UA Spec Grav (test code = UA Spec 1.017 1 Grav) [facility] XAAZV7902-84-14 04:42:00 Test Item Value Reference Range Interpretation Comments UA pH (test code = UA pH) 6.0 1 5.0-8.0 [facility] IPKDO0824-57-56 04:42:00Yellow *NA*(10/04/17 11:42 PM) [facility] ASGTR3988-84-94 04:42:00Clear (10/04/17 11:42 PM) [facility] PYUEU2363-16-39 04:42:002[facility] HermannELECTROLYTES 2017-10-05 03:34:0010.5[facility] DvqkbogKRLBOTMGQRUQ3845-49-35 03:34:98554 [facility] IsxegvwQVTQVKAIUWST0761-88-07 03:34:008.3[facility] HermannELECTROLYTES 2017-10-05 03:34:003.5[facility] YpxiruzAWVBJKHIDPDQ7605-47-15 03:34:39028Sqkmqvsn AbozholEHCTACXVVPGD3858-40-71 03:34:0027[facility] GaivqhaYYGVWINXHSGH6271-88-03 03:34:008[facility] DwwrcszZSHELZISLCDN5002-16-02 03:34:36798Hfvjcbgp Tin FPNEHMMHMFKN9792-29-12 03:34:000.70[facility] IzelbppFNBKSTMCWWKO4658-94-49 03:34:0096[facility] SmgkmoxXJOUDTENMETAX5145-84-02 03:34:99944Aoebxbis [place] IEUOTEKKCR3975-16-66 03:34:00 Test Item Value Reference Range Interpretation Comments PT (test code = PT) 13.1 s 12.0-14.7 [facility] AvjvuaqSBCDNFCLYI0793-13-95 03:34:00 Test Item Value Reference Range Interpretation Comments INR (test code = INR) 0.99 1 0.85-1.17 [facility] CjobrhyXDRMGJXJVI9369-00-77 03:34:000.8[facility]annHEMATOLOGY 2017-10-05 03:34:0075.1[facility] KjwdobhUTUYUNMXLE9923-05-43 03:34:005.1[facility] WcminndWLHPDRRFJH9253-84-05 03:34:000.5[facility] OrranjdYTTTOELZDR4351-58-23 03:34:008.2[facility] WgpnvvrWYHHFFDZYP1530-43-91 03:34:0018.5[facility] AAUORZJANE0439-06-64 03:34:000.1[facility] NfwsldhANXASQJTDC7358-68-15 03:34:000.1 [facility] KwaqkhaGRCRPDVGQH1161-68-36 03:34:002.0[facility]annHEMATOLOGY 2017-10-05 03:34:000.6[facility] WmtmzkwZJMPDDPSET0301-12-01 03:34:00 Test Item Value Reference Range Interpretation Comments PTT (test code = PTT) 36.1 s 22.9-35.8 [facility] AotucypSOLBPKOMTQ0524-97-96 03:34:0030.6[facility]annHEMATOLOGY 2017-10-05 03:34:0010.9[facility] SnfddghNVYCSGDTZI2997-62-09 03:34:003.79[facility] PltbrjjWQPDRLTIYD9555-42-22 03:34:0080.7[facility] LzpyxofIPYNFKUKQK7568-21-50 03:34:00 Test Item Value Reference Range Interpretation Comments MCH (test code = MCH) 27.3 pg 27.0-31.0 [facility] YkknipkSLQBJFHDCJ8482-42-48 03:34:0010.4[facility]annHEMATOLOGY 2017-10-05 03:34:0010.6[facility] UwdegwnHINUCODNOF7455-49-83 03:34:59853Wshfefea VkwynhaLAUHZYRRII8738-88-00 03:34:0014.0[facility] ZzppcoeHRJYBRHHTF3940-15-45 03:34:0033.8[facility] Tin
--- NOTE | 2020-03-07 18:30 | EDPHYS ---
Physician Documentation [facility] Name: Alma Rosa Odonnell Age: 29 yrs Sex: Female : 1990 Arrival Date: 03/07/2020 Time: 17:13 Bed 5 Private MD: ED Physician Ryan Lewis HPI: 03/07 18:27 This 29 yrs old Female presents to ER via Ambulatory with complaints of jr8 Anxiety. 18:27 The patient presents to the emergency department with anxiety. Onset: The jr8 symptoms/episode began/occurred gradually, 2 week(s) ago, and became worse. Past psychiatric history: Prior diagnosis: bipolar disorder, depression, anxiety. Associated signs and symptoms: The patient has no apparent associated signs or symptoms. Severity of symptoms: At their worst the symptoms were mild in the emergency department the symptoms are unchanged. The patient has experienced similar episodes in the past, several times. The patient has not recently seen a physician. Patient stated that she has been off of her medications for at least a couple of months. Stated that she has not been able to f/u with [facility] yet who she normally sees. Stated that stress in general has been getting to her and now is anxious . Historical: - Allergies: 17:23 No Known Allergies; ca1 - PMHx: 17:23 Anxiety; Depression; Bipolar disorder; ca1 - PSHx: 17:23 None; ca1 - Immunization history:: Adult Immunizations up to date. - Social history:: Smoking status: Patient reports the use of cigarette tobacco products, smokes one pack cigarettes per day. Patient/guardian denies using alcohol, street drugs, IV drugs. ROS: 18:27 Eyes: Negative for injury, pain, redness, and discharge, ENT: Negative for injury, jr8 pain, and discharge, Neck: Negative for injury, pain, and swelling, Cardiovascular: Negative for chest pain, palpitations, and edema, Respiratory: Negative for shortness of breath, cough, wheezing, and pleuritic chest pain, Abdomen/GI: Negative for abdominal pain, nausea, vomiting, diarrhea, and constipation, Back: Negative for injury and pain, MS/Extremity: Negative for injury and deformity, Skin: Negative for injury, rash, and discoloration, Neuro: Negative for headache, weakness, numbness, tingling, and seizure. 18:27 Psych: Positive for anxiety. Exam: 18:27 Eyes: Pupils equal round and reactive to light, extra-ocular motions intact. Lids and jr8 lashes normal. Conjunctiva and sclera are non-icteric and not injected. Cornea within normal limits. Periorbital areas with no swelling, redness, or edema. ENT: Nares patent. No nasal discharge, no septal abnormalities noted. Tympanic membranes are normal and external auditory canals are clear. Oropharynx with no redness, swelling, or masses, exudates, or evidence of obstruction, uvula midline. Mucous membranes moist. Neck: Trachea midline, no thyromegaly or masses palpated, and no cervical lymphadenopathy. Supple, full range of motion without nuchal rigidity, or vertebral point tenderness. No Meningismus. Cardiovascular: Regular rate and rhythm with a normal S1 and S2. No gallops, murmurs, or rubs. Normal PMI, no JVD. No pulse deficits. Respiratory: Lungs have equal breath sounds bilaterally, clear to auscultation and percussion. No rales, rhonchi or wheezes noted. No increased work of breathing, no retractions or nasal flaring. Abdomen/GI: Soft, non-tender, with normal bowel sounds. No distension or tympany. No guarding or rebound. No evidence of tenderness throughout. Back: No spinal tenderness. No costovertebral tenderness. Full range of motion. Skin: Warm, dry with normal turgor. Normal color with no rashes, no lesions, and no evidence of cellulitis. MS/ Extremity: Pulses equal, no cyanosis. Neurovascular intact. Full, normal range of motion. Neuro: Awake and alert, GCS 15, oriented to person, place, time, and situation. Cranial nerves II-XII grossly intact. Motor strength 5/5 in all extremities. Sensory grossly intact. Cerebellar exam normal. Normal gait. Psych: Awake, alert, with orientation to person, place and time. Behavior, mood, and affect are within normal limits.No HI/SI present Vital Signs: 17:21 BP 109 / 86; Pulse 101; Resp 18 S; Temp 97.5(TE); Pulse Ox 100% on R/A; Weight 54.43 kg ca1 (R); Height 5 ft. 0 in. (152.40 cm) (R); 18:26 BP 110 / 75; Pulse 90; Resp 18; Pulse Ox 100% on R/A; Pain 0/10; jr10 17:21 Body Mass Index 23.44 (54.43 kg, 152.40 cm) ca1 MDM: 18:23 Patient medically screened. jr8 18:27 Data reviewed: vital signs, nurses notes, and as a result, I will discharge patient. jr8 Data interpreted: Pulse oximetry: on room air is 100 %. Interpretation: normal. Counseling: I had a detailed discussion with the patient and/or guardian regarding: the historical points, exam findings, and any diagnostic results supporting the discharge/admit diagnosis, the need for outpatient follow up, a psychiatrist, to return to the emergency department if symptoms worsen or persist or if there are any questions or concerns that arise at home. Administered Medications: 18:36 Drug: XANax Tablet 0.5 mg Route: PO; jr10 Disposition: 18:54 Co-signature as Attending Physician, Ryan Lewis MD. rn Disposition: 03/07/20 18:29 Discharged to Home. Impression: Anxiety disorder due to known physiological condition. - Condition is Stable. - Discharge Instructions: Panic Attacks. - Prescriptions for Hydroxyzine HCl 50 mg Oral Tablet - take 1 tablet by ORAL route every 8 hours As needed; 30 tablet. - Medication Reconciliation Form, Thank You Letter, Antibiotic Education, Prescription Opioid Use form. - Follow up: Private Physician; When: 1 - 2 days; Reason: Recheck today's complaints, Continuance of care, Re-evaluation by your physician. - Problem is new. - Symptoms have improved. Signatures: Ryan Lewis MD MD rn Roszak, Josh, PA PA jr8 Naa Pena RN RN [facility] Eliane Tse RN RN jr10 Corrections: (The following items were deleted from the chart) 18:28 18:27 Eyes: Pupils equal round and reactive to light, extra-ocular motions intact. Lids jr8 and lashes normal. Conjunctiva and sclera are non-icteric and not injected. Cornea within normal limits. Periorbital areas with no swelling, redness, or edema. ENT: Nares patent. No nasal discharge, no septal abnormalities noted. Tympanic membranes are normal and external auditory canals are clear. Oropharynx with no redness, swelling, or masses, exudates, or evidence of obstruction, uvula midline. Mucous membranes moist. Neck: Trachea midline, no thyromegaly or masses palpated, and no cervical lymphadenopathy. Supple, full range of motion without nuchal rigidity, or vertebral point tenderness. No Meningismus. Cardiovascular: Regular rate and rhythm with a normal S1 and S2. No gallops, murmurs, or rubs. Normal PMI, no JVD. No pulse deficits. Respiratory: Lungs have equal breath sounds bilaterally, clear to auscultation and percussion. No rales, rhonchi or wheezes noted. No increased work of breathing, no retractions or nasal flaring. Abdomen/GI: Soft, non-tender, with normal bowel sounds. No distension or tympany. No guarding or rebound. No evidence of tenderness throughout. Back: No spinal tenderness. No costovertebral tenderness. Full range of motion. Skin: Warm, dry with normal turgor. Normal color with no rashes, no lesions, and no evidence of cellulitis. MS/ Extremity: Pulses equal, no cyanosis. Neurovascular intact. Full, normal range of motion. Neuro: Awake and alert, GCS 15, oriented to person, place, time, and situation. Cranial nerves II-XII grossly intact. Motor strength 5/5 in all extremities. Sensory grossly intact. Cerebellar exam normal. Normal gait. Psych: Awake, alert, with orientation to person, place and time. Behavior, mood, and affect are within normal limits. jr8 18:38 18:29 03/07/2020 18:29 Discharged to Home. Impression: Anxiety disorder due to known jr10 physiological condition. Condition is Stable. Forms are Medication Reconciliation Form, Thank You Letter, Antibiotic Education, Prescription Opioid Use. Follow up: Private Physician; When: 1 - 2 days; Reason: Recheck today's complaints, Continuance of care, Re-evaluation by your physician. Problem is new. Symptoms have improved. jr8
--- NOTE | 2020-03-07 18:30 | ER ---
Nurse's Notes [facility] Name: Alma Rosa Odonnell Age: 29 yrs Sex: Female : 1990 Arrival Date: 03/07/2020 Time: 17:13 Bed 5 Private MD: Diagnosis: Anxiety disorder due to known physiological condition Presentation: 03/07 17:21 Chief complaint: Patient states: Anxiety since yesterday. Coronavirus screen: Client ca1 denies travel out of the [place] in the last 14 days. At this time, the client does not indicate any symptoms associated with coronavirus-19. Ebola Screen: Patient negative for fever greater than or equal to 101.5 degrees Fahrenheit, and additional compatible Ebola Virus Disease symptoms Patient denies exposure to infectious person. Patient denies travel to an Ebola-affected area in the 21 days before illness onset. No symptoms or risks identified at this time. Initial Sepsis Screen: Does the patient meet any 2 criteria? No. Patient's initial sepsis screen is negative. Does the patient have a suspected source of infection? No. Patient's initial sepsis screen is negative. Risk Assessment: Do you want to hurt yourself or someone else? Patient reports no desire to harm self or others. Onset of symptoms was March 07, 2020. 17:21 Method Of Arrival: Ambulatory ca1 17:21 Acuity: MANDO 3 ca1 17:23 Chief complaint: Patient states: "I am supposed to take anxiety medications but am not ca1 taking any". Historical: - Allergies: 17:23 No Known Allergies; ca1 - PMHx: 17:23 Anxiety; Depression; Bipolar disorder; ca1 - PSHx: 17:23 None; ca1 - Immunization history:: Adult Immunizations up to date. - Social history:: Smoking status: Patient reports the use of cigarette tobacco products, smokes one pack cigarettes per day. Patient/guardian denies using alcohol, street drugs, IV drugs. Screenin:26 Abuse screen: Denies threats or abuse. Denies injuries from another. Nutritional jr10 screening: No deficits noted. Tuberculosis screening: No symptoms or risk factors identified. Fall Risk None identified. Assessment: 18:24 General: Appears in no apparent distress. Behavior is calm, cooperative, appropriate jr10 for age. General: pt reports hx of anxiety, pt reports that she is supposed to be taking anxiolytics but has not. Pt denies any SI/HI, appears in NAD. Ambulatory from triage independently to room with stable and steady gait noted. Pain: Denies pain. Neuro: No deficits noted. Level of Consciousness is awake, alert, obeys commands, Oriented to person, place, time, situation, Appropriate for age. Cardiovascular: No deficits noted. Respiratory: No deficits noted. Airway is patent Respiratory effort is even, unlabored, Respiratory pattern is regular, symmetrical, Breath sounds are clear bilaterally. GI: No deficits noted. No signs and/or symptoms were reported involving the gastrointestinal system. : No deficits noted. No signs and/or symptoms were reported regarding the genitourinary system. EENT: No deficits noted. No signs and/or symptoms were reported regarding the EENT system. Derm: No deficits noted. No signs and/or symptoms reported regarding the dermatologic system. Musculoskeletal: No deficits noted. No signs and/or symptoms reported regarding the musculoskeletal system. Vital Signs: 17:21 BP 109 / 86; Pulse 101; Resp 18 S; Temp 97.5(TE); Pulse Ox 100% on R/A; Weight 54.43 kg ca1 (R); Height 5 ft. 0 in. (152.40 cm) (R); 18:26 BP 110 / 75; Pulse 90; Resp 18; Pulse Ox 100% on R/A; Pain 0/10; jr10 17:21 Body Mass Index 23.44 (54.43 kg, 152.40 cm) ca1 ED Course: 17:13 Patient arrived in ED. ds1 17:22 Triage completed. ca1 17:23 Arm band placed on right wrist. ca1 18:15 Eliane Tse, SONDRA is Primary Nurse. jr10 18:23 Silas Hightower PA is PHCP. jr8 18:23 Ryan eLwis MD is Attending Physician. jr8 18:26 Patient has correct armband on for positive identification. Bed in low position. Call jr10 light in reach. Side rails up X 1. Pulse ox on. NIBP on. 18:37 No provider procedures requiring assistance completed. Patient did not have IV access jr10 during this emergency room visit. Administered Medications: 18:36 Drug: XANax Tablet 0.5 mg Route: PO; jr10 Outcome: 18:29 Discharge ordered by . jr8 18:37 Discharged to home ambulatory. jr10 18:37 Condition: good 18:37 Discharge instructions given to patient, Instructed on discharge instructions, follow up and referral plans. Demonstrated understanding of instructions, follow-up care. 18:38 Patient left the ED. jr10 Signatures: Zeinab Blunt1 Silas Hightower PA PA jr8 aNa Pena RN RN ca1 Eliane Tse RN RN jr10
[2020-03-07] MEDS ORDERED: ALPRAZOLAM 0.5 MG TABLET ONE (18:42)
[2020-03-07 20:28] VITALS: TEMP 97.5; O2SAT 100
[2020-03-07 20:29] VITALS: BP 110/75
== END 2020-03-07 18:38 | disposition home or self-care (01) ==
LOC: ER 17:12
DX: F06.4 Anxiety disorder due to known physiological condition (principal); F31.9 Bipolar disorder, unspecified; F17.210 Nicotine dependence, cigarettes, uncomplicated
CPT/HCPCS: 99283

== ENCOUNTER 2020-04-07 17:39 | Emergency (ER) | payer SELFPAY ==
--- OUTSIDE RECORDS SUMMARY | 2020-04-07 17:42 | XMS REPORT | Continuity of Care Document ---
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 [facility] Center Diastolic (mm Hg) 86 03/24/2018 [facility] Systolic (mm Hg) 124 03/16/2018 [place] Diastolic (mm Hg) 65 03/16/[address] Systolic (mm Hg) 104 03/15/2018 [place] Diastolic (mm Hg) 58 03/15/[address] Weight 80.455 03/15/2018 [facility] BMI Calculated 34.64 03/15/2018 [facility] Height 152.4 cm 03/15/2018 [facility] Temperature Oral (F) 98.1 F 03/15/2018 [facility] Systolic (mm Hg) 104 03/15/2018 [place] Diastolic (mm Hg) 58 03/15/[address] [address] Respitory Rate 18 03/15/2018 [facility] Heart Rate 89 03/15/2018 [facility] BMI Calculated 34.45 [facility]2018 [place] Systolic (mm Hg) 134 03/10/2018 [place] Diastolic (mm Hg) 86 03/10/2018 [place] [facility] Respitory Rate 19 03/10/2018 [place] Heart Rate 133 03/10/2018 [place] Temperature Oral (F) 99.0 F 03/10/2018 [place] Height 152.4 cm 03/10/2018 [place] Heart Rate 79 12/30/2017 [place] Respitory Rate 18 12/30/2017 [place] Temperature Oral (F) 98.3 F 12/30/2017 [place] Systolic (mm Hg) 110 12/30/2017 [place] Diastolic (mm Hg) 64 12/30/2017 [place] Heart Rate 87 12/30/2017 [facility] [place] Respitory Rate 16 12/30/2017 [facility] [place] Temperature Oral (F) 98.0 F 12/30/2017 [facility] [place] Systolic (mm Hg) 112 12/30/2017 [facility] [place] Diastolic (mm Hg) 64 12/30/2017 [facility] [place] Respitory Rate 19 12/29/2017 [place] Heart Rate 86 12/29/2017 [place] Temperature Oral (F) 98.1 F 12/29/2017 [facility] [place] Systolic (mm Hg) 114 12/29/2017 [facility] [place] Diastolic (mm Hg) 81 12/29/2017 [facility] [place] Height 152.4 cm 12/29/[address] [facility] BMI Calculated 35.23 12/29/[address] [facility] Weight 81.818 12/29/2017 [place] Heart Rate 78 12/18/2017 [place] Systolic (mm Hg) 120 12/18/2017 [place] Diastolic (mm Hg) 70 12/18/2017 [place] Respitory Rate 18 12/18/2017 [place] Temperature Oral (F) 98.1 F 12/18/2017 [place] Weight 81.818 12/18/2017 [place] Systolic (mm Hg) 118 12/18/2017 [facility] [place] Diastolic (mm Hg) 71 12/18/2017 [place] Heart Rate 79 12/18/2017 [place] Temperature Oral (F) 98.1 F 12/18/2017 [place] Respitory Rate 18 12/18/[address] [facility] Height 152.4 cm 10/05/2017 [place] Weight 81.818 10/05/[address] [facility] BMI Calculated 35.23 10/05/2017 [place] Systolic (mm Hg) 125 10/05/2017 [place] Diastolic (mm Hg) 75 10/05/2017 [place] Temperature Oral (F) 98.6 F 10/05/2017 [place] Heart Rate 79 10/05/2017 [place] Respitory Rate 18 10/05/[address] [facility] Encounters Location Location Encounter Encounter Reason Attending ADM DC Stat us Source Details Type Number For Provider Date Date [facility] [id number] Guzman 10/05 10/05 Tin Thacker /2017 [facility] [id number] Manjit 12/18 12/18 Tin Parrish /2017 [facility] [id number] Hesham 12/29 12/30 Tin Thacker /2017 [facility] Emergency [id number] Josiah Donohue 03/10 03/10 Tin /2017 [facility] Emergency [id number] Gunnar 03/15 03/16 Tin Miranda /2017 [facility] Inpatient [id number] Kyra 03/24 03/25 Mayda Kruse /2017 [facility] Procedures No Data Provided for This Section Assessment and Plan Assessment and Plan Date Source Extracted from:Title: Clinical Document 03/25/2018 [facility] Author: Monty Pradhan MD Date: 03/25/18 [...] AM. She was also recently discharged from [facility] for a 7 day admission for monitoring after claiming that she had suicidal thoughts. She currently denie s ever having suicidal thoughts and stat es she faked it to get away from her current relationship. Currently denies SI/HI. She endorses FM Denies CTX, LOF, VB, Care: [facility] with regular visits Hospitalizations: None Sono: wnl per pt Labs: wnl pt OBHx: 2008 M TSVD 2010 M TSVD 2012 F TSVD 2016 M TSVD 2018 SAB medically managed [facility] History: / days; Reports h/o chlamydia denies [...] CTAB Abd: gravid SSE: deferred SVE: cl/th/hi [place]: no ctx EFM: 150 / mod / [...] Kruse MD, MPH, Assoc Professor, General Ob, director of programming, and reproductive sciences Extracted from:Title: Progress Note Complex * 12/30/2017 [facility] Author: Aron Fofana MD Date: 12/29/17 Impression and Plan Diagnosis: Traumatic injury during pregn rashad ([id number] O9A.219, Working, Medical), Anogenital herpes simplex virus (HSV) infection. ([id number] A60.9, Working, Medical). Course: Unchanged. Orders I [...] the room during physical exam. Extracted from:Title: [facility] Consult- Early loss 09/18 [facility] Author: Dina [...] with F/U in 2 wks i n [facility]. I explained normal expectations after SAB [...] entered on: 03/24/18 Social History TypeResponse 03/24/2018 [facility] Substance Abuse Use: Current. Type: Marijuana. Recreat ional Drug Route: Oral. Frequency: Daily. Smoking Status Never smoker; Lives with someone who smo kes; Cigarette Smoking Last 365 Days No; Reg Smoking Cessation Counseling Yes entered on: 03/24/18 Social History TypeResponse 03/24/2018 [facility] Substance Abuse Use: Current. Type: Marijuana. Recreat [...]
--- OUTSIDE RECORDS SUMMARY | 2020-04-07 17:45 | XMS REPORT | Summary of Care ---
:1990 Author Organization [facility] - Health Address [address] [place] [address] Care Team Providers Name Role Phone Belen Chan MSN Primary Care Provider Encounter Details Date Type Department Care Team Description 03/23/2020 Orders Only [facility] Doctor Unassigned, No [address] [facility] [place] [address] [address] [place] [address] Allergies No Known Allergiesdocumented as of this encounter (statuses as of 03/23/2020) Medications Medication Sig Dispensed Refills Start Date End Date Status vit Take 1 Packet by 30 Each 6 12/24/2017 Active 67-jaue-kfyhz-dha mouth daily. (SELECT-OB + DHA) 29 mg iron-1 mg -250 mg combo pack valACYclovir (VALTREX) Take 1 tablet by 30 tablet 1 03/06/2018 Active 500 mg tablet mouth 2 (two) times daily. SERTraline 50 mg Take 50 mg by 0 Active tablet mouth daily. vitamin w/FA Take 1 tablet by 100 tablet 3 07/04/2018 Active tablet mouth daily. docusate calcium 240 Take 1 capsule by 60 capsule 1 07/04/2018 Active mg capsule mouth once daily as needed for Constipation. ferrous sulfate 325 mg Take 1 tablet by 60 tablet 2 07/04/2018 Active (65 mg iron) tablet mouth 2 (two) times daily. ibuprofen 600 mg Take 1 tablet by 60 tablet 1 07/04/2018 Active tablet mouth every 6 (six) hours as needed for Pain (scale 1-3) or Pain (scale 4-6) (Pain). Take with food or milk. loratadine 10 mg Take 1 tablet by 30 tablet 0 04/03/2019 Active tabletIndications: mouth daily. Allergic rhinitis with postnasal drip sod Use 1 Bottle in 1 Each 0 04/03/2019 Act james yfkku-jszggk-stifgp each nostril 2 bottle (NEILMED SINUS (two) times RINSE COMPLETE) daily. Use in hot pkdvIndications: shower 1 hour Allergic rhinitis with before bedtime postnasal drip promethazine-codeine Take 5 mL by 60 mL 0 04/03/2019 Active 6.25-10 mg/5 mL mouth 4 (four) syrupIndications: times daily as Allergic rhinitis with needed for Cough. postnasal drip documented as of this encounter (statuses as of 03/23/2020) Active Problems Problem Noted Date Anemia, 07/04/2018 Headache in , antepartum, third trimester HSV-1 (herpes simplex virus 1) infection 12/25/2017 HSV-2 (herpes simplex virus 2) infection 12/25/2017 Supervision of high-risk 09/30/2017 Multiparity 09/30/2017 Morbid obesity 09/30/2017 Drug abuse and dependence 01/16/2017 Rh negative state in antepartum period 08/12/2016 History of depression 08/09/2016 Bipolar 1 disorder 08/09/2016 Overview: Not currently on medication, established with [facility] documented as of this encounter (statuses as of 03/23/2020) Resolved Problems Problem Noted Date Resolved Date Vaginal delivery 07/04/2018 08/04/2018 Shoulder dystocia, delivered 07/03/2018 08/03/2018 Normal (single liveborn) 07/03/2018 019 39 weeks gestation of 07/02/2018 08/04/19 19 Labor and delivery, indication for care 07/02/2018 08/03/2018 Premature cervical dilation in third trimester 06/11/2018 07/02/2018 Threatened labor, third trimester 06/09/2018 07/02/2018 35 weeks gestation of 06/09/2018 07/02/20 18 33 weeks gestation of 05/25/2018 06/01/20 18 Threatened premature labor affecting , less than 37 05/25/2018 07/02/2018 weeks in third trimester, antepartum Inmate in correctional facility 01/22/2018 07/02/20 18 Missed menses 09/30/2017 04/28/2018 Vaginal bleeding in patient at less than 20 weeks 0 09/30/2017 12/24/2017 gestation Vaginitis and vulvovaginitis 01/16/2017 09/30/2017 History of anemia 01/16/2017 09/30/2017 Family planning counseling 01/16/2017 09/30/2017 Normal labor and delivery 11/01/2016 12/27/2016 Obesity (BMI 30-39.9) 11/01/2016 11/06/2016 (spontaneous vaginal delivery) 11/01/201611/01 Placental abruption in third trimester 11/01/2016 0 11/01/2016 Liveborn infant, [place] , born in hospital by 11/01/2016 11/01/2016 vaginal delivery Fall 10/08/2016 11/06/2016 Flu 10/08/2016 11/06/2016 Supervision of high risk , antepartum 08/23/2016 11/06/2016 Chlamydia infection affecting 08/12/2016 11/06/2016 Overview: Needs felix at 29w and 38w Maternal varicella, non-immune 08/12/2016 7 HRP (high risk ) 08/09/2016 10/08/2016 Obesity in 08/09/2016 12/27/2016 Tobacco use affecting , antepartum 08/09/2016 01/16/2017 History of anemia 08/09/2016 01/16/2017 Drug abuse during 08/09/2016 01/16/2017 Ketonuria 08/09/2016 11/06/2016 Family history of congenital anomalies 08/09/2016 0 09/30/2017 documented as of this encounter (statuses as of 03/23/2020) Immunizations Name Administration Dates Next Due Rho (d) Immune Globulin 07/03/2018, 04/28/2018 TDAP 05/19/2018, 08/26/2016 Varicella (varivax)(chicken pox) 11/02/2016 documented as of this encounter Social History Tobacco Use Types Packs/Day Years Used Date Former Smoker Cigarettes 07/21/2004 - 0 11/27/2016 Smokeless Tobacco: Never Used Comments: smokes 1 x per week Alcohol Use Drinks/Week oz/Week Comments No 0 Standard drinks or equivalent 0.0 Sex Assigned at Date Recorded Not on file documented as of this encounter Last Filed Vital Signs Not on filedocumented in this encounter Plan of Treatment Health Maintenance Due Date Last Done Comments Depression Screening 2000 PAP SMEAR 08/09/2019 08/09/2016, 01/18/2010 INFLUENZA VACCINE (#1) 2020 DTaP,Tdap,and Td Vaccines (3 05/19/2028 05/19/2018, - Td) 08/26/2016 PNEUMOCOCCAL 0-64 YEARS Aged Out No longe r eligible based COMBINED SERIES on patient's age to complete this to [facility] documented as of this encounter Procedures Procedure Name Priority Date/Time Associated Diagnosis Comme nts NOTICE OF PRIVACY Routine 03/23/2020 4:27 PM CDT PRACTICES documented in this encounter Results Not on filedocumented in this encounter Insurance Payer Benefit Plan / Subscriber ID Effective Dates Phone Addre ss Type Group CMC-NON TDCJ CMC-NON TDCJ Effective for all [employer] dates documented as of this encounter Advance Directives Name Relationship Healthcare Agent Communication Relationship Randy Aguilera Significant Other Health Care Agent
--- OUTSIDE RECORDS SUMMARY | 2020-04-07 17:45 | XMS REPORT | Summary of Care ---
:1990 Author Organization [facility] - Health Address [address] [place] [address] Care Team Providers Name Role Phone Belen Chan Primary Care Provider Reason for Visit Reason Comments Anxiety Auth/Cert Status Reason Specialty Diagnoses / Referred By Referred To Procedures Contact Contact Emergency Medicine Ad[facility] Em ergency Dept [address] [place] [address] Fax: Encounter Details Date Type Department Care Team Description 03/24/2020 Emergency ADC-Emergency Depart ment Jenna Cook, DO [address] [facility] [address] [place], [place] [id number] [place] [address] [id number] Allergies No Known Allergiesdocumented as of this encounter (statuses as of 03/24/2020) Medications Medication Sig Dispensed Refills Start Date End Date Status vit Take 1 Packet 30 Each 6 12/24/2017 Ac tive 35-eaxt-zvypp-dha by mouth daily. (SELECT-OB + DHA) 29 mg iron-1 mg -250 mg combo pack valACYclovir (VALTREX) Take 1 tablet 30 tablet 1 03/06/2018 Active 500 mg tablet by mouth 2 (two) times daily. SERTraline 50 mg Take 50 mg by 0 Active tablet mouth daily. vitamin w/FA Take 1 tablet 100 tablet 3 07/04/2018 Active tablet by mouth daily. docusate calcium 240 Take 1 capsule 60 capsule 1 07/04/2018 Active mg capsule by mouth once daily as needed for Constipation. ferrous sulfate 325 mg Take 1 tablet 60 tablet 2 07/04/2018 Active (65 mg iron) tablet by mouth 2 (two) times daily. ibuprofen 600 mg Take 1 tablet 60 tablet 1 07/04/2018 Active tablet by mouth every 6 (six) hours as needed for Pain (scale 1-3) or Pain (scale 4-6) (Pain). Take with food or milk. loratadine 10 mg Take 1 tablet 30 tablet 0 04/03/2019 Active tabletIndications: by mouth daily. Allergic rhinitis with postnasal drip sod Use 1 Bottle in 1 Each 0 04/03/2019 Act james loevv-ecieoq-wvqovh each nostril 2 bottle (NEILMED SINUS (two) times RINSE COMPLETE) daily. Use in pkdvIndications: hot shower 1 Allergic rhinitis with hour before postnasal drip bedtime promethazine-codeine Take 5 mL by 60 mL 0 04/03/2019 Active 6.25-10 mg/5 mL mouth 4 (four) syrupIndications: times daily as Allergic rhinitis with needed for postnasal drip Cough. metroNIDAZOLE 500 mg Take 1 tablet 14 tablet 0 03/23/2020 Active tabletIndications: by mouth 2 Left adnexal (two) times tenderness, Urinary daily. tract infection in female cephALEXin 500 mg Take 1 capsule 28 capsule 0 03/23/202003/30 Active capsuleIndications: by mouth 4 Left adnexal (four) times tenderness, Urinary daily for 7 tract infection in days. female documented as of this encounter (statuses as of 03/24/2020) Active Problems Problem Noted Date Anemia, 07/04/2018 Headache in , antepartum, third trimester HSV-1 (herpes simplex virus 1) infection 12/25/2017 HSV-2 (herpes simplex virus 2) infection 12/25/2017 Supervision of high-risk 09/30/2017 Multiparity 09/30/2017 Morbid obesity 09/30/2017 Drug abuse and dependence 01/16/2017 Rh negative state in antepartum period 08/12/2016 History of depression 08/09/2016 Bipolar 1 disorder 08/09/2016 Overview: Not currently on medication, established with [facility] documented as of this encounter (statuses as of 03/24/2020) Resolved Problems Problem Noted Date Resolved Date [...] in third trimester 11/01/2016 0 11/01/2016 Liveborn , [place] , born in hospital by [...] as of this encounter (statuses as of 03/24/2020) Immunizations Name Administration Dates Next Due Rho [...] Assigned at Date Recorded Not on file COVID-19 Exposure Response Date Recorded In the last month, have you been in contact with No / Unsure 03/24/2020 7:35 AM CDT someone who was confirmed or suspected to have Coronavirus / COVID-19? documented as of this encounter Last Filed Vital Signs Vital Sign Reading Time Taken Comments Blood Pressure 116/73 03/24/2020 7:45 AM CDT Pulse 78 03/24/2020 7:45 AM CDT Temperature 36.1 C (96.9 F) 03/24/2020 7:45 AM CDT Respiratory Rate 18 03/24/2020 7:45 AM CDT Oxygen Saturation 100% 03/24/2020 7:45 AM CDT Inhaled Oxygen Concentration - - Weight 59 kg (130 lb) 03/24/2020 7:45 AM CDT Height 149.9 cm (4' 11") 03/24/2020 7:45 AM CDT Body Mass Index 26.26 03/24/2020 7:45 AM CDT documented in this encounter ED Notes Carlota Giordano RN - 03/24/2020 7:43 AM CDTPatient states she has been having anxiety attacks x3 days. She was here for same symptoms yesterdayand discharged. States she made an appointment with [facility] to refill her medications. documented in this encounter Miscellaneous Notes ED Nurse Note - Carlota Giordano RN - 03/24/2020 8:17 AM CDTPt seen by provider and deemed non-emergent. Medical screening completed. Pt declined to stay. Vital signs stable, AO4, no ataxia, gait steady on departure and appears in no distress. Patient given handouts and information on homeless shelters. [place] [employer] accompanying patient out of department as patient "just wanted to sleep in the room". D Provider Screening Note - Jenna Cook DO - 03/24/2020 8:03 AM CDT Patient presents for eval for anxiety and pain to her entire body. Seen here yesterday and had work-up completed. Falls asleep during my examination. Abdomen soft and not tender. Has been drinking and denies being hungry. States she is homeless. BP 116/73 | Pulse 78 | Temp 36.1 C (96.9 F) (Oral) | Resp 18 | Ht 1.499 m (4' 11") | Wt 59 kg (130 lb) | SpO2 100% | BMI 26.26 kg/m Follows with [facility] for [facility] health. Will need to make an appointment for f/u. No emergent medical condition exists. Ok for PCP f/u. documented in this encounter Plan of Treatment Health Maintenance Due Date Last Done Comments Depression Screening 2000 PAP SMEAR 08/09/2019 08/09/2016, 01/18/2010 INFLUENZA VACCINE (#1) 2020 DTaP,Tdap,and Td Vaccines (3 05/19/2028 05/19/2018, - Td) 08/26/2016 PNEUMOCOCCAL 0-64 YEARS Aged Out No longe r eligible based COMBINED SERIES on patient's age to complete this to [facility] documented as of this encounter Procedures Procedure Name Priority Date/Time Associated Diagnosis Comme nts CONSENT/REFUSAL FOR Routine 03/24/2020 7:36 AM CDT DIAGNOSIS AND TREATMENT documented in this encounter Results Not on filedocumented in this encounter
--- OUTSIDE RECORDS SUMMARY | 2020-04-07 17:45 | XMS REPORT | Continuity of Care Document ---
:1990 Author Organization [facility] t Address [address] [place] [address] Care Team Providers Name Role Phone Jean Stone Attending Clinician Doctor Unassigned, Name Attending Clinician Unavailable Adia Cook DO Attending Clinician Nicol Marion Attending Clinician Sandra Quintanilla Attending Clinician Belen Reed Attending Clinician Krupa Kruse Attending Clinician Daniel Miranda Attending Clinician Nicol Donohue Attending Clinician Fern Thacker Attending Clinician Deng Parrish Attending Clinician Kirstie Attending Clinician Krupa Kruse Admitting Clinician Payers Payer Name Policy Type Policy Number Effective Date Expiration Date S ource Problems Condition Condition Condition Status Onset Resolution Last Treating Co mments Source Name Details Category Date Date Treatment Clinician Date 24 WKS Diagnosis Active 2018-10-13 Mem oria /A 9-04 18:30:00 l BDOMINAL 24 WKS 00:00: Alvaro n PAIN /A 00 BDOMINAL PAIN Active 03/24/2018 [facility] CONTRACTIO Diagnosis Active 2018-03-15 Memoria NS 8- 20:09:00 l 00:00: Tin CONTRACTIO 00 NS Active 8 [facility] 22WKS Diagnosis Active 2018-03-19 Mem oria PREG-ANXIE 8- 08:24:00 l TY,BREAKDO 22WKS 00:00: Tiki nn WN PREG-ANXIE 00 TY,BREAKDO WN Active 8 [facility] [place] BACK PAIN, Diagnosis Active 2017-12-29 Memoria 14 WEEKS 6-11 15:04:00 l BACK 00:00: Tin PAIN, 14 00 WEEKS Active 12/29/2017 [facility] [place] OTHER Diagnosis Active 2017-12-18 Mem oria 5-31 11:37:00 l OTHER 00:00: Tin 00 Active 12/18/2017 [facility] [place] VAGINAL Diagnosis Active 2017-10-04 Me moria BLEEDING 3-17 23:49:00 l VAGINAL 00:00: Tin BLEEDING 00 Active 10/04/2017 [facility] [place] Diseases Problem 2018-09-26 Mem oria of the 15:18:23 l nervous Diseases Tiki nn system of the complicati nervous ng system , complicati second ng trimester , second trimester 09/26/2018 [facility] Insomnia, Problem 2018-09-26 Me moria unspecifie 15:18:23 l d Tin Insomnia, unspecifie d 09/26/2018 [place] 22 weeks Problem 2018-09-26 Mem oria gestation 15:18:23 l of 22 weeks Alvaro n gestation of 09/26/2018 [place] Diseases Problem 2018-10-02 Mem oria of the 11:54:19 l digestive Diseases Her chacko system of the complicati digestive ng system , complicati second ng trimester , second trimester 10/02/2018 [facility] Noninfecti Problem 2018-10-02 M emoria ve 11:54:19 l gastroente Alvaro n ritis and Noninfecti colitis, ve unspecifie gastroente d ritis and colitis, unspecifie d 10/02/2018 [facility] Anxiety Problem 2018-10-02 Baldo tez disorder, 11:54:19 l unspecifie Anxiety Her chacko d disorder, unspecifie d 10/02/[facility] Cannabis Problem 2018-10-02 Mem oria use, 11:54:19 l unspecifie Cannabis He rmann d, use, uncomplica unspecifie fabian d, uncomplica fabian 10/02/2018 [facility] Smoking Problem 2018-10-02 Balod tez (tobacco) 11:54:19 l complicati Smoking Her chacko ng (tobacco) , complicati second ng trimester , second trimester 10/02/2018 [facility] Nicotine Problem 2018-10-02 Mem oria dependence 11:54:19 l , Nicotine Alvaro n cigarettes dependence , , uncomplica cigarettes fabian , uncomplica fabian 10/02/2018 [facility] Bipolar Problem 2018-10-11 Baldo tez disorder, 14:07:22 l unspecifie Bipolar Her chacko d disorder, unspecifie d 10/11/2018 [facility] 24 weeks Problem 2018-10-11 Mem oria gestation 14:07:22 l of 24 weeks Alvaro n gestation of 10/11/2018 [facility] Unspecifie Problem 2018-10-11 M emoria d 14:07:22 l abdominal [place] pain Unspecifie d abdominal pain 9 [facility] Other Problem 2018-10-11 Memor ia mental 14:07:22 l disorders Other Alvaro n complicati mental ng disorders , complicati second ng trimester , second trimester 10/11/2018 [facility], [facility] Substance Problem Resolve 2018-10-11 M emoria abuse d 14:07:22 l (disorder) Alvaro n Substance abuse (disorder) Resolved Problem 10/11/2018 [facility], [facility] Bipolar I Problem Active 2018-10-11 Me moria disorder 14:07:22 l (disorder) Bipolar Her chacko I disorder (disorder) Active Problem 10/11/2018 [facility], Kel[facility] Sw[facility] Other Problem 2018-10-11 2018-10-11 M emoria specified 04-02 14:07:22 14:07:22 l diseases Other 03:21: Tin and specified 06 conditions diseases complicati and ng conditions , complicati childbirth ng and the , puerperium childbirth and the puerperium 04/02/2018 10/11/2018 [facility] Unspecifie Problem 2018-10-02 2018-10-02 Memoria d 9 11:54:19 11:54:19 l infection 04:00: Tin of urinary Unspecifie 44 tract in d , infection second of urinary trimester tract in , second trimester 03/21/2018 10/02/2018 [facility] 23 weeks Problem 2018-10-02 2018-10-02 Memoria gestation 03-15 11:54:19 11:54:19 l of 23 weeks 05:00: Alvaro june gestation 00 of 03/15/2018 10/02/2018 [facility] Urinary Problem 2018-10-02 2018-10-02 Memoria tract 03-15 11:54:19 11:54:19 l infection, Urinary 05:00: Her chacko site not tract 00 specified infection, site not specified 03/15/2018 10/02/2018 [facility] Complete Problem 2018-01-11 2018-01-11 Memoria or 10-12 11:25:58 11:25:58 l unspecifie Complete 02:43: He rmann d or 45 spontaneou unspecifie s d without spontaneou complicati s on without complicati on 10/12/2017 01/11/2018 [facility] Incomplete Problem 2018-01-11 2018-01-11 Memoria spontaneou 10-05 11:25:58 11:25:58 l s 05:00: Alvaro june without Incomplete 00 complicati spontaneou on s without complicati on 10/05/2017 01/11/2018 [facility] Injury, Problem 2017-2018-01-01 2018-01-01 Memoria poisoning 6-11 02:33:12 02:33:12 l and Injury, 05:00: Tin certain poisoning 00 other and consequenc certain es of other external consequenc causes es of complicati external ng causes , complicati unspecifie ng d , trimester unspecifie d trimester 12/29/2017 01/01/2018 [place] Threatened Problem 2017-12-21 2017-12-21 Memoria 12-18 04:24:21 04:24:21 l 05:00: [place] Threatened 00 8 12/21/2017 [place] Other Problem 2017-12-21 2017-12-21 M emoria specified 12-18 04:24:21 04:24:21 l disorders Other 05:00: Alvaro n of specified 00 amniotic disorders fluid and of membranes, amniotic unspecifie fluid and d membranes, trimester, unspecifie not d applicable trimester, or not unspecifie applicable d or unspecifie d 12/18/2017 12/21/2017 [place] History of Past Illness Condition Condition Condition Status Onset Resolution Last Treating Co mments Source Name Details Category Date Date Treatment Clinician Date Patient Problem Resolve 2018-10-11 2018-10-11 Memoria currently d 03-15 14:07:22 14:07:22 l Patient 00:00: Tiki nn (finding) currently 00 (finding) Resolved 03/15/2018 Problem 10/11/2018 [facility], Kelton [facility] Allergies, Adverse Reactions, Alerts Allergy Allergy Status Severity Reaction(s) Onset Inactive Treating Comm ents Source Name Type Date Date Clinician No Known DA Active U 2017-07 [facility] Allergie 0-04 Clear s 00:00: Alaniz 00 [facility] No Known DA Active U [facility] Allergie 2-19 Clear s 00:00: Alaniz 00 [facility] Social History Social Habit Start Date Stop Date Quantity Comments Source Social History 2018-03-24 2018-03-24 [facility] Amy horne 23:23:23 23:23:23 Medications Ordered Filled Start Stop Current Ordering Indication Dosage Frequency Signature Comments Components Source Medication Medication Date Date Medication? Clinician (SIG) Name Name multivitami No 1 tab, Baldo tez n, 03-25 Route: PO, l 14:00: Drug Form: [place] 00 TAB, Dosing Weight 68.182, kg, Daily, Start date: 03/25/18 9:00:00 CDT, Duration: 30 day, Stop date: 04/23/18 9:00:00 CDT Protonix No Notes: Memoria 03-25 Tablet l 02:48: should not [place] 00 be chewed or crushed. (Same as: Protonix) Omeprazole No 20 mg, Memor ia 03-25 Route: PO, l 02:28: Drug form: [place] 00 CAP, ONCE, Dosing Weight 68.182, kg, Priority: STAT, Start date: 03/24/18 21:28:00 CDT, Stop date: 03/24/18 21:28:00 CDT Tylenol No Notes: Do Memor ia 03-24 not exceed l 22:38: 4 gm/day. [place] 00 (Same as: Tylenol) Haldol No Notes: Memoria 03-24 (Same as: l 22:29: Haldol) [place] 00 Nitrofurant No 100 mg = 1 Memoria oin 100 MG 03-16 cap, PO, l Oral 00:44: BID, take Tin Capsule 00 2 times a [Macrobid] day, X 7 day, # 14 cap, 0 Refill(s) Macrobid No Notes: Not Mem oria 03-16 recommende l 00:42: d for [place] 00 patients with CrCl<50 ml/min (Same as:Macrobi d) With food. Ondansetron No Notes: Baldo tez 03-15 (Same as: l 23:51: Zofran) [place] 00 MEDICATION WASTE Product Size: 4 mg Product Wasted: ___ mg Famotidine No Notes: Memor ia 03-15 (Same as: l 23:51: Pepcid) [place] 00 Can be dilute in 5-10cc NS IVP: Slow IV push over at least 2 minutes. Calcium 2018 No 1,000 mL, Memor ia Chloride 03-15 1000 l 0.0014 23:51: ml/hr, [place] MEQ/ML / 00 Infuse Potassium Over: 1 Chloride hr, Route: 0.004 IV, 1,000, MEQ/ML / Drug form: Sodium INJ, ONCE, Chloride Dosing 0.103 Weight MEQ/ML / 80.455 kg, Sodium Start Lactate date: 0.028 03/15/18 MEQ/ML 18:51:00 Injectable CDT, Stop Solution date: 03/15/18 18:51:00 CDT Tylenol 2018-0 No 650 mg, Memoria 612 Route: PO, l 01:46: Drug form: [place] 00 TAB, ONCE, Dosing Weight 81.818, kg, [...] Chloride 12-29 2,000 l 0.9% 18:53: ml/hr, [place] (Bolus) IV 00 Infuse Over: 0.5 hr, Route: IV, 1,000, Drug form: INJ, ONCE, Priority: STAT, Dosing Weight 81.818 kg, Start date: 12/29/17 13:53:00 CDT, Stop date: 12/29/17 13:53:00 CDT Saline 2017-0 No Notes: Memoria Flush 0.9% 12-29 (Same as: l 18:53: BD [place] 00 Posiflush) Tylenol 2017-0 No 650 mg, Memoria 12-18 Route: PO, l 18:25: Drug form: [place] 00 TAB, ONCE, Dosing Weight 81.818, kg, Priority: STAT, Start date: 12/18/17 13:25:00 CDT, Stop date: 12/18/17 13:25:00 CDT Tylenol 2017-0 No Notes: Max Baldo tez 12-18 acetaminop l 17:58: hen = 4000 [place] 00 mg/day (4 gm/day). (Same as: Tylenol) Zofran ODT 0 No 4 mg, Memori a 12-18 Route: PO, l 16:20: Drug form: [place] 00 TABDIS, ONCE, Dosing Weight 81.818, kg, [...] Tablet Refill(s) [Tylenol with Codeine #3] Morphine 0 No Notes: Memoria 3-18 (Same l 06:05: as:MORPhin e Sulfate) Cytotec No Notes: Memoria 3-18 (Same l 06:04: as:Cytotec Tin 00 ) Take with food Ondansetron 2018-0 No 4 mg, Memor ia 3-18 Route: l 04:47: IVP, Drug form: INJ, ONCE, Dosing Weight 81.818, kg, Priority: STAT, Start date: 10/04/17 23:47:00 CDT, Stop date: 10/04/17 23:47:00 CDT Morphine 2017-0 No 4 mg, Memoria 3-18 Route: l 04:15: IVP, ONCE, Dosing Weight 81.818, kg, Priority: STAT, Start date: 10/04/17 23:15:00 CDT, Stop date: 10/04/17 23:15:00 CDT Saline 0 No Notes: Memoria Flush 0.9% -18 (Same as: l 03:12: BD [place] 00 Posiflush) Vital Signs Vital Name Observation Time Observation Value Comments Source [facility]24 [facility] 2018-03-24 15:34:00 Chaz Dillon Temperature Oral (F) 2018-03-24 15:34:00 97.9 F [facility] [place] Respitory Rate 2018-03-24 15:34:00 Memori al [place] Height 2018-03-24 15:34:00 149.86 cm [facility] [place] Systolic (mm Hg) 2018-03-24 15:34:00 Baldo rial [place] Diastolic (mm Hg) 2018-03-24 15:34:00 Mem orial Tin Heart Rate 2018-03-24 15:34:00 [facility] [place] Weight 2018-03-24 15:24:00 [facility] [place] Height 2018-03-24 15:24:00 149.86 cm [facility] [place] BMI Calculated 2018-03-24 15:24:00 Memori al [place] Heart Rate 2018-03-24 15:03:00 [facility] [place] Systolic (mm Hg) 2018-03-24 15:03:00 Baldo rial Tin Diastolic (mm Hg) 2018-03-24 15:03:00 Mem orial [place] Systolic (mm Hg) 2018-03-16 00:44:00 Baldo rial Tin Diastolic (mm Hg) 2018-03-16 00:44:00 Mem orial [place] Systolic (mm Hg) 2018-03-15 23:30:00 Baldo rial Tin Diastolic (mm Hg) 2018-03-15 23:30:00 Mem orial [place] Weight 2018-03-15 23:08:00 [facility] [place] BMI Calculated 2018-03-15 23:08:00 Memori al [place] Height 2018-03-15 23:08:00 152.4 cm [facility] [place] Temperature Oral (F) 2018-03-15 23:08:00 98.1 F [facility] [place] Systolic (mm Hg) 2018-03-15 23:08:00 Baldo rial [place] Diastolic (mm Hg) 2018-03-15 23:08:00 Mem orial [place] Respitory Rate 2018-03-15 23:08:00 Memori al [place] Heart Rate 2018-03-15 23:08:00 [facility] [place] BMI Calculated 2018-03-10 00:47:00 Memori al [place] Weight 2018-03-10 00:47:00 [facility] [place] Systolic (mm Hg) 2018-03-10 00:47:00 Baldo rial Tin Diastolic (mm Hg) 2018-03-10 00:47:00 Mem orial [place] Respitory Rate 2018-03-10 00:47:00 Memori al [place] Heart Rate 2018-03-10 00:47:00 [facility] [place] Temperature Oral (F) 2018-03-10 00:47:00 99.0 F [facility] [place] Height 2018-03-10 00:47:00 152.4 cm [facility] [place] Heart Rate 2017-12-30 01:30:00 [facility] [place] Respitory Rate 2017-12-30 01:30:00 Memori al [place] Temperature Oral (F) 2017-12-30 01:30:00 98.3 F [facility] [place] Systolic (mm Hg) 2017-12-30 01:30:00 Baldo rial [place] Diastolic (mm Hg) 2017-12-30 01:30:00 Mem orial [place] Heart Rate 2017-12-30 00:19:00 [facility] [place] Respitory Rate 2017-12-30 00:19:00 Memori al Tin Temperature Oral (F) 2017-12-30 00:19:00 98.0 F [facility] [place] Systolic (mm Hg) 2017-12-30 00:19:00 Baldo rial [place] Diastolic (mm Hg) 2017-12-30 00:19:00 Mem orial [place] Respitory Rate 2017-12-29 22:14:00 Memori al [place] Heart Rate 2017-12-29 22:14:00 [facility] [place] Temperature Oral (F) 2017-12-29 22:14:00 98.1 F [facility] [place] Systolic (mm Hg) 2017-12-29 22:14:00 Baldo rial Tin Diastolic (mm Hg) 2017-12-29 22:14:00 Mem orial [place] Height 2017-12-29 18:20:00 152.4 cm [facility] [place] BMI Calculated 2017-12-29 18:20:00 Memori al [place] Weight 2017-12-29 18:20:00 [facility] [place] Heart Rate 2017-12-18 21:01:00 [facility] [place] Systolic (mm Hg) 2017-12-18 21:01:00 Baldo rial Tin Diastolic (mm Hg) 2017-12-18 21:01:00 Mem orial [place] Respitory Rate 2017-12-18 21:01:00 Memori al [place] Temperature Oral (F) 2017-12-18 21:01:00 98.1 F [facility] [place] Weight 2017-12-18 16:08:00 [facility] [place] Systolic (mm Hg) 2017-12-18 16:08:00 Baldo rial Tin Diastolic (mm Hg) 2017-12-18 16:08:00 Mem orial [place] Heart Rate 2017-12-18 16:08:00 [facility] [place] Temperature Oral (F) 2017-12-18 16:08:00 98.1 F [facility] [place] Respitory Rate 2017-12-18 16:08:00 Memori al [place] Height 2017-10-05 03:02:00 152.4 cm [facility] [place] Weight 2017-10-05 03:02:00 [facility] [place] BMI Calculated 2017-10-05 03:02:00 Memori al [place] Systolic (mm Hg) 2017-10-05 03:02:00 Baldo rial [place] Diastolic (mm Hg) 2017-10-05 03:02:00 Mem orial [place] Temperature Oral (F) 2017-10-05 03:02:00 98.6 F [facility] [place] Heart Rate 2017-10-05 03:02:00 [facility] [place] Respitory Rate 2017-10-05 03:02:00 Memori al [place] Procedures This patient has no known procedures. Encounters Start End Encounter Admission Attending Care Care Encounter Source Date/Time Date/Time Type Type Clinicians Facility Department ID 2020-03-28 2020-03-28 Emergency Griselda [facility] [id number] 20:05:00 20:52:00 Lydia Ford [id number] [place] 4.2.7.2.686 [place] [id number] 2020-03-28 2020-03-28 Orders Doctor FLETCHER [id number] 00:00:00 00:00:00 Only Unassigned, LUIS [id number] [place] [facility] [id number] [id number] 2020-03-24 2020-03-24 Emergency Joey [facility] [id number] 07:46:00 08:18:00 Jenna Ford [id number] [place] 4.2.7.2.686 [place] [id number] 2020-03-23 2020-03-23 Emergency Cop[place], [facility] [id number] 16:33:00 20:42:00 Susan Ford [id number] [place] 4.2.7.2.686 [place] [id number] 2020-03-23 2020-03-23 Orders Doctor FLETCHER [id number] 00:00:00 00:00:00 Only Unassigned, LUIS [id number] [place] [facility] 4.2.7.2.686 [id number] 2019-08-25 2019-08-25 Emergency [facility], [facility] [id number] 16:23:00 19:17:00 Lisa Sandra Liliana [id number] [place] 4.2.7.2.686 [place] [id number] 2019-04-03 2019-04-03 Emergency Marino, [facility] [id number] 18:43:45 19:09:00 Bernard Ford 350.1.13.10 [place] 4.2.7.2.686 [place] [id number] 2018-03-24 2018-03-24 Outpatient Aixa [facility] [id number] 10:02:00 22:45:00 Kyra Luis Krupa 2018-03-15 2018-03-15 Outpatient Ruben [facility] [id number] 17:53:00 19:51:00 Gunnar Sanchez 2018-03-09 2018-03-09 Outpatient Josiah Donohue [facility] [id number] 19:20:00 21:17:00 Nicol 04 2017-12-29 2017-12-29 Outpatient Kirstie, [facility] [id number] 13:04:00 21:01:00 Hesham Shirley 03 2017-12-18 2017-12-18 Outpatient Francois, [facility] [id number] 11:03:00 16:03:00 Manjit Vilchis 2017-10-04 2017-10-05 Outpatient Kirstie, [facility] [id number] 22:00:00 00:49:00 Ambica 01 Results Test Description Test Time Test Comments Results Result Sourc e Comments DRUG SCREEN 2018-03-24 Negative [facility] 21:30:00 *NA*(03/24/18 Tin 4:30 PM) DRUG SCREEN 2018-03-24 Negative [facility] 21:30:00 *NA*(03/24/18 Tin 4:30 PM) DRUG SCREEN 2018-03-24 Negative [facility] 21:30:00 *NA*(03/24/18 [place] 4:30 PM) DRUG SCREEN 2018-03-24 See Note [facility] 21:30:00 (03/24/18 4:30 Tin PM) DRUG SCREEN 2018-03-24 Negative [facility] 21:30:00 *NA*(03/24/18 [place] 4:30 PM) DRUG SCREEN 2018-03-24 Positive [facility] 21:30:00 *ABN*(03/24/18 Tin 4:30 PM) DRUG SCREEN 2018-03-24 Negative [facility] 21:30:00 *NA*(03/24/18 Tin 4:30 PM) DRUG SCREEN 2018-03-24 Negative [facility] 21:30:00 *NA*(03/24/18 [place] 4:30 PM) DRUG SCREEN 2018-03-24 Negative [facility] 21:30:00 *NA*(03/24/18 Tin 4:30 PM) DRUG SCREEN 2018-03-24 Negative [facility] 21:30:00 *NA*(03/24/18 [place] 4:30 PM) DRUG SCREEN 2018-03-24 Positive [facility] 21:30:00 *ABN*(03/24/18 [place] 4:30 PM) URINE AND STOOL 2018-03-24 1 [facility] 21:30:00 [place] URINE AND STOOL 2018-03-24 9 [facility] 21:30:00 Tin URINE AND STOOL 2018-03-24 Negative [facility] 21:30:00 *NA*(03/24/18 Tin 4:30 PM) URINE AND STOOL 2018-03-24 2.0 [facility] 21:30:00 Tin URINE AND STOOL 2018-03-24 Negative [facility] 21:30:00 (03/24/18 4:30 [place] PM) URINE AND STOOL 2018-03-24 Moderate [facility] 21:30:00 *ABN*(03/24/18 Tin 4:30 PM) URINE AND STOOL 2018-03-24 Negative [facility] 21:30:00 (03/24/18 4:30 Tin PM) URINE AND STOOL 2018-03-24 21:30:00 Test Item Value Reference Range Interpretation Comme nts UA pH (test code = UA pH) 6.0 1 5.0-8.0 [facility] [id number] 21:30:00 Test Item Value Reference Range Interpretation Comments UA Spec Grav (test code = UA Spec 1.013 1 Grav) [facility] [id number] 21:30:00Clear (03/24/18 4:30 PM)[facility] [id number] 21:30:00Yellow *NA*(03/24/18 4:30 PM)[id number] 20:46:00Negative (03/24/18 3:46 PM)[facility] PnmyrpzQLKZFQSMYX0849-17-31 20:46:0011.4[facility] SmkhcuaLRIQHUKBNV9563-67-36 20:46:0032.6[facility] OegxmvyFFDCECSZJQ5795-22-86 20:46:00 Test Item Value Reference Range Interpretation Comments MCH (test code = MCH) 27.4 pg 27.0-31.0 [facility] CaigjetFCUEGZGPYJ3262-67-54 20:46:0084.2[facility]annHEMATOLOGY 2018-03-24 20:46:0015.1[facility] HmcbwntOMYOXUSNWV2005-79-15 20:46:55153Hoiyxfpg LglxkzvCUIEYBKSAS3660-10-60 20:46:0010.3[facility] CywutjjAVIWTOMKBX6135-19-92 20:46:0031.5[facility] KwhdaekSWPVYCVPQC5199-69-60 20:46:009.5[facility] Tin DTNCPPRHBS2941-52-31 20:46:003.74[facility] AvcqxayROSCAPMFLT7295-20-93 20:46:00 78.3[facility] BfxqqypLLETYAGRGA8998-51-67 20:46:000.2[facility]annHEMATOLOGY 2018-03-24 20:46:001.5[facility] EdeqvzhNYLSVDRYRR2707-06-51 20:46:007.4[facility] ScasheeDIZOXPCZFV2419-20-32 20:46:000.5[facility] PcashinWRVODVJSZU3153-49-28 20:46:000.4[facility] OxmoqlyKMKZTDIGSX5999-25-42 20:46:005.0[facility] Tin VBBIYYVOYH3983-35-96 20:46:0016.1[facility] FlbjfrzSRCOCTKQPO8287-51-43 20:46:00 Negative *NA*(03/24/18 3:46 PM)[facility] SkafruzKLDLVBHEPF5219-72-85 20:46:00Non- Reactive *NA*(03/24/18 3:46 PM)[facility] NbrpifgVNZSAPAYCA2360-03-66 20:46:00 Negative *NA*(03/24/18 3:46 PM)[facility]annCHEM KYJGX6908-45-09 23:56:0053 [facility]annCHEM SITQL8644-76-55 23:56:53532Zxmrdjag HermannCHEM PANEL 2018-03-15 23:56:09237Fimawirs HermannCHEM PVGMM5045-20-34 23:56:0027[facility] HermannCHEM MRNRR9889-76-00 23:56:00633Euxolbwv HermannCHEM QKHBE1208-56-35 23:56:007.8[facility] HermannCHEM ISWSB4250-96-88 23:56:006.6[facility] HermannCHEM PBQLD2949-96-36 23:56:000.50[facility] HermannCHEM HLNTG0147-72-23 23:56:006 [facility]annCHEM BVGKL9168-27-06 23:56:003.9[facility] HermannCHEM PANEL 2018-03-15 23:56:30499Cegxzphm HermannCHEM NFRHS1234-12-04 23:56:002.7[facility] HermannCHEM KCTHP1744-97-80 23:56:0018[facility] HermannCHEM XLJEE5485-86-85 23:56:0087[facility] HermannCHEM ONQNI5740-47-15 23:56:0010[facility] HermannCHEM XQXDP9842-68-55 23:56:000.2[facility] HermannCHEM GOBUC8609-58-16 23:56:0086 [facility]annCHEM KJJFX2108-58-78 23:56:00 Test Item Value Reference Range Interpretation Comments B/C Ratio (test code = B/C Ratio) 12 1 6-25 [facility]ann[facility] KCDQF8424-58-01 23:56:003.9[facility] HermannCHEM PANEL 2018-03-15 23:56:00 Test Item Value Reference Range Interpretation Comments A/G Ratio (test code = A/G Ratio) 0.7 1 0.7-1.6 [facility]annCHEM [id number] 23:56:009.9[facility] HermannHEMATOLOGY 2018-03-15 23:56:12982Ntkzwyjw HctprfbZSLKWJJEEN1639-53-24 23:56:0012.1[facility] ZegwqdzICJOAWLWVF3074-22-40 23:56:0015.6[facility] AhzrbkyOKABYVODRP2828-24-59 23:56:0033.9[facility] RecodxhLMPSOBBKFQ8600-47-89 23:56:00 Test Item Value Reference Range Interpretation Comments MCH (test code = MCH) 27.9 pg 27.0-31.0 [facility] TesphtfHTPRVRZDGC2011-88-06 23:56:0082.2[facility] HermannHEMATOLOGY 2018-03-15 23:56:0014.5[facility] YsmtvsfOJSQHSQMIC2829-92-94 23:56:003.80[facility] PziwpgwRNGAVGTYWA1668-97-36 23:56:0010.6[facility] ZmhdxufKEBHIDWRFU6000-39-84 23:56:0031.3[facility] NbufjmhLCKYQYUQUK0083-71-93 23:56:001.4[facility] Tin USKMCFWAYR8681-71-90 23:56:000.4[facility] FednlfwAXNTXFUSEG7329-42-02 23:56:000.0 [facility] WfrtqagJVSEIHJXMU1028-21-40 23:56:000.0[facility] HermannHEMATOLOGY 2018-03-15 23:56:0086.8[facility] TrosibaZDNSISHXCX5887-15-29 23:56:003.0[facility] FgziebqGIXEUHTWZH9811-17-59 23:56:000.2[facility] GgvbrqcNQVVFFSWJQ7825-55-43 23:56:009.9[facility] KhxfeluEXPBQXCCRV7196-44-52 23:56:0012.6[facility] Tin VOXTXJTQLB4132-59-34 23:56:000.1[facility] TufblujAWJJYRFQSO8012-36-93 23:56:00 Normal (03/15/18 6:56 PM)[facility] CbvdfmqKEZYRCVOPL6143-76-78 23:56:00Normal (03/15/18 6:56 PM)[facility] [id number] 23:56:001[facility] [id number] 23:56:003[facility] STOOL 2018-03-15 23:56:00<=1.0[facility] [id number] 23:56:0029 [facility] [id number] 23:56:00Moderate *ABN*(03/15/18 6:56 PM)[facility] [id number] 23:56:00Negative *NA*(03/15/18 6:56 PM)[facility] [id number] 23:56:00Negative (03/15/18 6:56 PM) [facility] [id number] 23:56:00Negative (03/15/18 6:56 PM) [facility] [id number] 23:56:00 Test Item Value Reference Range Interpretation Comments UA pH (test code = UA pH) 5.0 1 5.0-8.0 [facility] [id number] 23:56:00 Test Item Value Reference Range Interpretation Comments UA Spec Grav (test code = UA Spec 1.015 1 Grav) [facility] [id number] 23:56:00Marked *ABN*(03/15/18 6:56 PM) [facility] [id number] 23:51:00Negative (12/29/17 6:51 PM) [facility] [id number] 23:31:00Product available (12/29/17 6:31 PM)[facility] [facility] [id number] 21:58:00Negative (12/29/17 4:58 PM)[facility] ADAWK8387-86-73 21:58:00Large *ABN*(12/29/17 4:58 PM)[facility] GJVMR0566-40-30 21:58:00Negative (12/29/17 4:58 PM) [facility] IHJSD3274-46-69 21:58:00Negative *NA*(12/29/17 4:58 PM) [facility] GFYEP5990-38-04 21:58:003[facility] XXHOH5167-28-82 21:58:003[facility] USBHB4642-00-22 21:58:00 Test Item Value Reference Range Interpretation Comments UA pH (test code = UA pH) 7.0 1 5.0-8.0 [facility] DHIEG9902-05-73 21:58:00 Test Item Value Reference Range Interpretation Comments UA Spec Grav (test code = UA Spec 1.012 1 Grav) [facility] DIOVB2850-86-13 21:58:00Slight *ABN*(12/29/17 4:58 PM) [facility] TVKRC2041-84-94 21:58:00Yellow *NA*(12/29/17 4:58 PM) [facility] ISOFY9192-97-68 20:14:001.3[facility]annTOXICOLOGY 2017-12-29 20:14:00<3[facility] VchzpzwVLUUSKCMKL6642-21-88 20:14:00<0.003 [facility]CHE[facility] ZLXSD4469-02-79 18:59:00 Test Item Value Reference Range Interpretation Comments A/G Ratio (test code = A/G Ratio) 0.8 1 0.7-1.6 [facility] TNJKX9290-64-22 18:59:003.7[facility]annCHEM PANEL 2017-12-29 18:59:00 Test Item Value Reference Range Interpretation Comments B/C Ratio (test code = B/C Ratio) 8 1 6-25 [facility] VGDYZ7729-17-94 18:59:0013.3[facility]annCHE[facility] PANEL 2017-12-29 18:59:79238Gtruvsox [facility]CHE[facility] VTUGX2779-43-92 18:59:000.2[facility]annCHE[facility] CCCLF4011-83-30 18:59:0071[facility] ZPNSQ1980-50-22 18:59:0015[facility]CHE[facility] KACWC1041-88-34 18:59:0019[facility]CHE[facility] DMCAJ7945-39-90 18:59:000.65[facility] EMHXV4172-91-77 18:59:006.8 [facility] OTTPZ4285-52-74 18:59:86273Fdebiywx [facility]CHE[facility] PANEL 2017-12-29 18:59:00843Zwdsgsmn [facility] FZGEV6297-10-92 18:59:003.3[facility] BGXVV5458-10-91 18:59:008.4[facility] UIZFT9230-33-45 18:59:0022[facility] NGEJZ5273-00-83 18:59:003.1[facility]CHE[facility] BQZDR8229-54-74 18:59:0087[facility] IEMDX9899-81-69 18:59:005[facility] MkwfrkhWEFYXAPJNWKPE0961-88-09 18:59:00Positive *NA*(12/29/17 1:59 PM)[facility]cxoxzmDBSWAGXFWW0476-20-25 18:59:00 Test Item Value Reference Range Interpretation Comments PTT (test code = PTT) 28.1 s 22.9-35.8 [facility] CenterAavqgfpUXVCVGBRLA0015-28-52 18:59:00 Test Item Value Reference Range Interpretation Comments INR (test code = INR) 1.00 1 0.85-1.17 [facility]HOIJP4464[facility]31-67 18:59:00 Test Item Value Reference Range Interpretation Comments PT (test code = PT) 13.2 s 12.0-14.7 [facility]JpbjsezEDEFEKGAPH4159-91-54 18:59:0031.7[facility]annHEMATOLOGY 2017-12-29 18:59:0077.2[facility] TllyjfrMWCKQFLSVW0721-19-16 18:59:0033.7[facility] VloqgkxSDEZUKXQAE3774-37-17 18:59:00 Test Item Value Reference Range Interpretation Comments MCH (test code = MCH) 26.0 pg 27.0-31.0 [facility] FojpbvhPHGEBDIDVC1441-12-57 18:59:0017.6[facility]annHEMATOLOGY 2017-12-29 18:59:79223Pxwbtsbw KdqjgygLFDUDWUKYW7985-86-23 18:59:0017.4[facility] KgeavqxXPPFIKKSEP8462-26-23 18:59:0010.7[facility] RybewwvSSTBIOGFOV0542-21-35 18:59:004.10[facility] SsbvsuyUSJBZYZDUI9007-27-29 18:59:0011.4[facility] Tin YMIFVFKKAQ8933-73-68 18:59:0086.5[facility] GdasmhcCRSTNDPRLQ7856-33-18 18:59:00 9.3[facility] EcotowkPLWXGYJDOH7819-12-78 18:59:003.9[facility]annHEMATOLOGY 2017-12-29 18:59:000.1[facility] UfwnvggALKJCXIVJH0932-84-39 18:59:001+ *ABN*(12/29/17 1:59 PM)[facility] HutkiwqTSLDLSTOVF2315-44-35 18:59:000.7[facility] GcsefanPXETPFDCPM5283-40-34 18:59:001.6[facility] BqwpqxdQZJYHBJANL6591-32-12 18:59:0015.0[facility] VhwzsmqXKMLNDBWRY3168-70-05 18:59:000.2[facility]annCHEM ZPBUU2593-88-48 18:14:54958Hnsyigpj [facility]CHEM TGSOM6738-73-40 18:14:006.9 [facility]CHE[facility] ZVUWS3406-43-42 18:14:55409Ppvcuuou [facility]annCHEM PANEL 2017-12-18 18:14:008.7[facility]annCHEM MEAAN8517-50-95 18:14:0024[facility]CHE[facility] SXJMW5958-26-77 18:14:66597Ymgrenzm [facility]CHE[facility] QRPWG8579-65-17 18:14:000.68[facility]CHE[facility] YANQV5364-37-22 18:14:003.5[facility]annCHE[facility] GMUFN1679-72-50 18:14:0069[facility]CHE[facility] YEBEG9421-85-60 18:14:000.2 [facility] NBVOB6442-62-15 18:14:003.4[facility]annCHEM PANEL 2017-12-18 18:14:0010[facility]annCHE[facility] SNFZT9476-41-79 18:14:0020[facility]annCHE[facility] NMGFD6063-83-05 18:14:004[facility]CHE[facility] WTCKH3865-47-06 18:14:0096[facility] IBSFY0081-59-61 18:14:00 Test Item Value Reference Range Interpretation Comments A/G Ratio (test code = A/G Ratio) 1.0 1 0.7-1.6 [facility]CHE[facility] XJEWR0255-72-62 18:14:003.5[facility]annCHEM PANEL 2017-12-18 18:14:00 Test Item Value Reference Range Interpretation Comments B/C Ratio (test code = B/C Ratio) 6 1 6-25 [facility]CHEM IINAK9965-62-43 18:14:0010.5[facility]annENDOCRINOLOGY 2017-12-18 18:14:5782902Bgleqlcm WskusgbMRRSYMDFLT5477-20-74 18:14:0078.1 [facility] IbeglhrDUOWRBCJWP1408-85-66 18:14:0032.1[facility]annHEMATOLOGY 2017-12-18 18:14:0010.8[facility] HxxhkabRCUVRPMYTT1021-11-30 18:14:0011.1[facility] GbnmuhuSTPYLEMYON1822-25-90 18:14:07396Esfyyosp CnfohwrGRMCQPOTZH4015-75-32 18:14:004.11[facility] TutrktnPLVDFMWBOL0333-07-88 18:14:0010.9[facility] VQMNLRNOWZ2300-61-18 18:14:0017.6[facility] KmhjhdiKIFXLDTOPN6770-27-19 18:14:00 33.5[facility] MisggehIKAJBCDKPX1248-32-05 18:14:00 Test Item Value Reference Range Interpretation Comments MCH (test code = MCH) 26.2 pg 27.0-31.0 [facility] LgxnjgxTDSKHIWSDK4242-96-12 18:14:0080.2[facility]annHEMATOLOGY 2017-12-18 18:14:001.6[facility] IoobwnxVEJKVSRIED2030-34-14 18:14:008.7[facility] DmigutbCRDDZSYLKC3070-45-91 18:14:000.3[facility] FnedoyrQRXQLFSMKO3603-39-15 18:14:004.1[facility] CdklrifMANJHHRGTI7929-18-78 18:14:000.3[facility] Tin SXESDCCCBY4163-95-69 18:14:0015.1[facility] CkgbsbxFECSFUAJHI3903-51-95 18:14:001+ *ABN*(12/18/17 1:14 PM)[facility] RnagfzbNWOZJQSQFC8083-84-74 18:14:000.4[facility] KGCAT8087-04-90 17:28:0011[facility] STOOL 2017-12-18 17:28:0078[facility] KXNHJ7865-85-98 17:28:00 Test Item Value Reference Range Interpretation Comments UA pH (test code = UA pH) 5.0 1 5.0-8.0 [facility] VTROU3478-59-89 17:28:00 Test Item Value Reference Range Interpretation Comments UA Spec Grav (test code = UA Spec 1.021 1 Grav) [facility] KVWJC6646-59-65 17:28:00Yellow *NA*(12/18/17 12:28 PM) [facility] FRVOH9572-18-60 17:28:00Large *ABN*(12/18/17 12:28 PM) [facility] KNVMF1126-38-34 17:28:00Marked *ABN*(12/18/17 12:28 PM) [facility] SALBZ3264-03-05 17:28:00Negative (12/18/17 12:28 PM) [facility] DZVEY5338-63-09 17:28:00Small *ABN*(12/18/17 12:28 PM) [facility] DKECF5377-74-94 17:28:00Negative *NA*(12/18/17 12:28 PM)[facility] YPCW6774-77-14 17:28:00Positive *ABN*(12/18/17 12:28 PM) [facility] TMRSF8171-39-35 04:42:66109Jjjgsgny [facility] KYZIC8286-01-13 04:42:00Large *ABN*(10/04/17 11:42 PM)[facility] BVPFG7570-85-69 04:42:00Negative (10/04/17 11:42 PM)[facility] JTMRT4438-03-09 04:42:00Negative (10/04/17 11:42 PM)[facility] LHVMH8409-97-58 04:42:00Negative *NA*(10/04/17 11:42 PM)[facility] WKQBZ4772-40-65 04:42:00 Test Item Value Reference Range Interpretation Comments UA Spec Grav (test code = UA Spec 1.017 1 Grav) [facility] KVKUZ8101-53-42 04:42:00 Test Item Value Reference Range Interpretation Comments UA pH (test code = UA pH) 6.0 1 5.0-8.0 [facility] FWDRA4352-51-17 04:42:00Yellow *NA*(10/04/17 11:42 PM) [facility] ISPHH5216-46-84 04:42:00Clear (10/04/17 11:42 PM) [facility] IBRYA2780-02-61 04:42:002[facility] HermannELECTROLYTES 2017-10-05 03:34:0010.5[facility] WygfzjiSLOKPJEPJLWZ0756-86-21 03:34:62300 [facility] BemdxaoHYIVORIKKKRP9955-96-30 03:34:008.3[facility] HermannELECTROLYTES 2017-10-05 03:34:003.5[facility] AobuognYSFIIGNQNJRX5430-85-10 03:34:15336Dvavcybd PiofhasONHWSZKGPXBT4786-97-12 03:34:0027[facility] OgzrrnbPNWGZYOEUAPY0094-99-13 03:34:008[facility] JmpxcpbRVFTJIOHHSOO8971-48-34 03:34:75715Dsioqrxr [place] YFLEUROIUWKN5529-10-16 03:34:000.70[facility] LmlhzcwAWDOWZYCYGOG8173-88-62 03:34:0096[facility] MryvzpxKRNULHBCZNQDT3860-68-45 03:34:73625Omirfcee [place] CXXXVOILEP1240-45-22 03:34:00 Test Item Value Reference Range Interpretation Comments PT (test code = PT) 13.1 s 12.0-14.7 [facility] DyvvcsiUOJCNULHNO9630-07-74 03:34:00 Test Item Value Reference Range Interpretation Comments INR (test code = INR) 0.99 1 0.85-1.17 [facility] InyanxlCJCASPEAWT2569-63-90 03:34:000.8[facility]annHEMATOLOGY 2017-10-05 03:34:0075.1[facility] OxxdntnLJLQTGNIZW6170-68-50 03:34:005.1[facility] ZdglycvNBRUFOMVMB1404-15-01 03:34:000.5[facility] SvmgbhkMRDOVABBWS9628-14-08 03:34:008.2[facility] CncitvlZKGDOXEKAD3776-43-90 03:34:0018.5[facility] VEXABCAJOV9574-75-82 03:34:000.1[facility] NhifpppAGCLEFOYQG5951-40-72 03:34:000.1 [facility] AynmmzgNJHBCFCNJK8750-89-19 03:34:002.0[facility]annHEMATOLOGY 2017-10-05 03:34:000.6[facility] KxwzascBVWGOJDAPP3833-48-46 03:34:00 Test Item Value Reference Range Interpretation Comments PTT (test code = PTT) 36.1 s 22.9-35.8 [facility] KglrbmvIJMIINAXXJ9370-57-41 03:34:0030.6[facility]annHEMATOLOGY 2017-10-05 03:34:0010.9[facility] ZqqwhitYEPNGQXKKN5552-86-05 03:34:003.79[facility] TalfeeyFLUQHYTMGC5943-88-20 03:34:0080.7[facility] VugzaxfZPTMVCYKJZ0246-13-66 03:34:00 Test Item Value Reference Range Interpretation Comments MCH (test code = MCH) 27.3 pg 27.0-31.0 [facility] BkechhrYNDMARJQFN0299-82-80 03:34:0010.4[facility]annHEMATOLOGY 2017-10-05 03:34:0010.6[facility] CqcvysbGBOYVWHUZH1888-92-25 03:34:72801Xtwrjeyb KkmkmasIEXRXUZRBD6311-90-20 03:34:0014.0[facility] MncbvyfGHZTLSXUPG8293-74-66 03:34:0033.8[facility] Tin
--- OUTSIDE RECORDS SUMMARY | 2020-04-07 17:45 | XMS REPORT | Summary of Care ---
:1990 Author Organization [facility] - [facility] Address [address] [place] [address] Care Team Providers Name Role Phone Belen Chan Primary Care Provider Reason for Referral Radiology Services (STAT) Status Reason Specialty Diagnoses / Referred By Referred To Procedures Contact Contact New Request Diagnostic Diagnoses Left adnexal tenderness Susan Copeland Radiology Procedures US PELVIS COMPLETE WITH TRANSVAGINAL R, EMNP [address] [facility] [id number] [place] [address] Reason for Visit Reason Comments Anxiety Abdominal Pain Back Pain Auth/Cert Status Reason Specialty Diagnoses / Referred By Referred To Procedures Contact Contact Emergency Medicine Adc Em ergency Dept [address] [place] [address] Fax: Encounter Details Date Type Department Care Team Description 03/23/2020 Emergency ADC-Emergency Susan Copeland R, Lower abdo noemi pain (Primary Dx); Department EMNP Left adnexal tenderness; [address] [place] [address] Dr ramirez [address] Urinary tract infection in [facility]; [place] [address] [id number] Anxiety; [phone] [place], [place] Anemia, unspec ified type [address] Allergies No Known Allergiesdocumented as of this encounter (statuses as of 03/23/2020) Medications Medication Sig Dispensed Refills Start Date End Date Status vit Take 1 Packet 30 Each 6 12/24/2017 Ac tive 15-tvye-odust-dha by mouth daily. (SELECT-OB + DHA) 29 [...] in 1 Each 0 04/03/2019 Act james ipexg-rrwwwn-iptrxd each nostril 2 bottle (NEILMED SINUS (two) [...] Overview: Not currently on medication, established with [facility] documented as of this encounter (statuses [...] been in contact with No / Unsure 03/23/2020 4:36 PM CDT someone who was confirmed or suspected to have Coronavirus / COVID-19? documented as of this encounter Last Filed Vital Signs Vital Sign Reading Time Taken Comments Blood Pressure 138/87 03/23/2020 6:34 PM CDT Pulse 106 03/23/2020 6:34 PM CDT Temperature 37.2 C (98.9 F) 03/23/2020 4:47 PM CDT Respiratory Rate 18 03/23/2020 6:34 PM CDT Oxygen Saturation 98% 03/23/2020 6:34 PM CDT Inhaled Oxygen Concentration - - Weight 59 kg (130 lb) 03/23/2020 4:51 PM CDT Height 137.2 cm (4' 6") 03/23/2020 4:47 PM CDT Body Mass Index 31.34 03/23/2020 4:47 PM CDT documented in this encounter Discharge Instructions Susan Mathis, ISABELLE - 03/23/2020NO LIFE-THREATENING FINDINGS ON TODAY'S EXAM. SPECIAL INSTRUCTIONS: 1. Increase fluids 2. Follow up with tip cementer for well woman exam 3. Take all antibiotics 4. See attached information FOLLOW-UP RECOMMENDATIONS: RECOMMEND FOLLOW-UP WITH A PRIMARY CARE PROVIDER OR SPECIALIST IN 2-5 DAYS, ESPECIALLY IF NO IMPROVEMENT IN SYMPTOMS. TO FOLLOW-UP WITHIN THE [facility], TRY THESE OPTIONS (CLINIC APPOINTMENTS AVAILABLE ON [id number] BASIS): 1. SCHEDULE AN APPOINTMENT ONLINE AT [email or web address] 2. OR CALL THE [facility]ESS CENTER AT OR 3. OR CALL YOUR [facility] PHYSICIAN'S OFFICE DIRECTLY IF YOU ARE ALREADY AN ESTABLISHED [facility] PATIENT. OR, YOU MAY FOLLOW-UP WITH A PROVIDER OF YOUR CHOICE, SUCH : 1. A PHYSICIAN OF YOUR CHOICE 2. [facility], . LOCATIONS IN [facility] 3. [facility], [address] [place] [address]; [phone] RETURN TO ER FOR WORSENING OF SYMPTOMS. AttachmentsThe following attachments cannot be sent through Care Everywhere. Abdominal Pain, Adult (Mongolian)Pelvic Pain, Unknown Cause (Mongolian)Anemia, Iron- Deficiency (Adult) (Mongolian)Generalized Anxiety Disorder (ELIECER), Understanding (Mongolian)Metronidazole tablets or capsules (Mongolian)Cephalexin tablets or capsules (Mongolian)documented in this encounter ED Notes Chelsey Holley RN - 03/23/2020 4:42 PM CDTPt shown to room two patient states " aren't you suppose to take my vital signs first?" patient informed that VS machine is in the room. Patient states " I am here because of my anxiety" when asking more questions about patient's anxiety patient states " I'm off my meds but that is alright my psychologist can deal with it. I've also have lower stomach pain and back pain for three days. 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 I also have a history of anemia and i haven't been taking my iron pills so I need that checked." Ariela AMARO primary nurse of patient arrived and introduced himself patient states " I don't need two nurses in here I need the doctor in here." patient given a a cup and instructed to on how to give a urinalysis patient states " you can give me as much ativan as you can." At tempted to show patient to the bathroom patient states " I've had three babies I don't need to be shown to the bathroom I can figure it out." documented in this encounter Miscellaneous Notes ED Nurse Note - Ariela Andrew, RN - 03/23/2020 9:01 PM CDTPt given printed and verbal discharge instructions regarding UTI, encouraged hydration. Prescriptions provided. Discussed antibiotic therapy and to take until all completed unless adverse reaction occurs - if occurs, discontinue medication and follow up with pcp/seek medical attention Pt verbalized understanding of instructions, pt awake alert oriented, resp reg unlabored, skin w/d, color appropriate for race, moves all ext well,pt encouraged to follow up with PCP. Advised to seek medical attention for new/prolonged/worsening of symptoms. No adverse reaction to meds given in ER noted upon discharge. PIV d'cd, dressing to site, catheter in tact. Awake, alert oriented, resp reg unlabored, skin w/d, pt leaving amb with steady gait, in no apparent distress. documented in this encounter Plan of Treatment Name Type Priority Associated Diagnoses Date/Ti me GC & CHLAMYDIA AMPLIFIED LAB STAT Lower abdominal pain 03/23/2020 5:16 PM CDT ASSAY Name Type Priority Associated Diagnoses Order S chedule GC & CHLAMYDIA AMPLIFIED LAB Routine Lower abdominal pain ONCE for 1 Occurrences ASSAY starting 2019 until 03/23/2020 Health Maintenance Due Date Last Done Comments Depression Screening 2000 PAP SMEAR 08/09/2019 08/09/2016, 01/18/2010 INFLUENZA VACCINE (#1) 2020 DTaP,Tdap,and Td Vaccines (3 05/19/2028 05/19/2018, - Td) 08/26/2016 PNEUMOCOCCAL 0-64 YEARS Aged Out No longe r eligible based COMBINED SERIES on patient's age to complete this to pic documented as of this encounter Procedures Procedure Name Priority Date/Time Associated Comments Diagnosis US PELVIS COMPLETE STAT 03/23/2020 7:09 Left adnexal Resul ts for this WITH TRANSVAGINAL PM CDT tenderness procedure are in the results section. ADC CLC OR LCC ONLY - STAT 03/23/2020 5:17 Lower abdominal Results for this WET PREP PM CDT pain procedure are i n the results section. CBC WITH DIFF STAT 03/23/2020 5:17 Lower abdominal Results for this PM CDT pain procedure are i n the results section. COMP. METABOLIC PANEL STAT 03/23/2020 5:17 Lower abdominal Results for this (83637) PM CDT pain procedure are i n the results section. URINALYSIS STAT 03/23/2020 5:16 Lower abdominal Results for this PM CDT pain procedure are i n the results section. POCT TEST MARY GRACE 03/23/2020 5:04 Lower abdominal R esults for this PM CDT pain procedure are i n the results section. CONSENT/REFUSAL FOR Routine 03/23/2020 4:28 DIAGNOSIS AND PM CDT TREATMENT documented in this encounter Results US PELVIS COMPLETE WITH TRANSVAGINAL (03/23/2020 7:09 PM CDT) Specimen Impressions Performed At PACS/VR/DOSE Small suspected fibroid in the anterior lower uterine segment. Prominent nabothian cysts. Right ovarian cyst measuring 2.6 cm. Preliminary Report Dictated by Resident: Álvaro Gold I, Deep Laws MD., have review ed this study and agree with the above report. Narrative Performed At EXAM: US PELVIS COMPLETE WITH TRANSVAGIN AL PACS/VR/DOSE HISTORY: 29 years -old Female with tende rness and fullness left adnexa . LMP = 03/04/2020 TECHNIQUE: Transabdominal and transvaginal ultrasound imaging of the pelvis was performed including color Doppler ev aluation. Plant Safety Engineer images were obtained for the record. COMPARISON: None FINDINGS: Uterus: Retroflexed uterus measures 9.5 x 5.0 x 7.7 cm. A hete rogeneous area within the anterior lower uterine segment probably represents a 1.7 cm fibroid. No focal lesion is detected. The endometriu m is trilaminar in appearance. Endometrial thickness measures 13 mm. Na bothian cysts are present at the cervix. Right Adnexa: Ovary size: 3.9 x 2.8 x 3.3 cm Ovary appearance: Few small follicles. Right ovarian s imple cyst measuring 2.6 x 2.6 x 2.3 cm. Other: No mass. Left Adnexa: Ovary size: 3.4 x 3.1 x 2.0 cm Ovary appearance: Few small follicles. Other: No mass. Cul-de-sac: No free fluid. Procedure Note [facility], Radiant Results Inft User - 2019 8:17 PM CDT EXAM: US PELVIS COMPLETE WITH TRANSVAGINAL HISTORY: 29 years -old Female with tende rness and fullness left adnexa . LMP = 03/04/2020 TECHNIQUE: Transabdominal and transvagin al ultrasound imaging of the pelvis was performed including color Doppler ev aluation. Plant Safety Engineer images were obtained for the record. COMPARISON: None FINDINGS: Uterus: Retroflexed uterus measures 9.5 x 5.0 x 7.7 cm. A heterogeneous area within the anterior lower uterine segment proba bert represents a 1.7 cm fibroid. No focal lesion is detected. The endometriu m is trilaminar in appearance. Endometrial thickness measures 13 mm. Na bothian cysts are present at the cervix. Right Adnexa: Ovary size: 3.9 x 2.8 x 3.3 cm Ovary appearance: Few small follicles. R ight ovarian simple cyst measuring 2.6 x 2.6 x 2.3 cm. Other: No mass. Left Adnexa: Ovary size: 3.4 x 3.1 x 2.0 cm Ovary appearance: Few small follicles. Other: No mass. Cul-de-sac: No free fluid. IMPRESSION Small suspected fibroid in the anterior lower uterine segment. Prominent nabothian cysts. Right ovarian cyst measuring 2.6 cm. Preliminary Report Dictated by Resident: Álvaro Gold I, Deep Laws MD., have reviewe d this study and agree with the above report. Performing Organization Address City/State/Zipcode Phone Number PACS/VR/DOSE ADC CLC OR LCC ONLY - WET PREP (03/23/2020 5:17 PM CDT) Pathologist Sig nature Wet Prep No Trichomonas [facility] vaginalis present [facility] Wet Prep No Yeast [facility] Wet Prep No Clue cells present [facility] Wet Prep Numerous WBC per [facility] high-power field [facility] Wet Prep Occasional (Rare) Red [facility] blood cells [facility] Wet Prep Occasional (Rare) [facility] Epithelial cells [facility] Wet Prep Moderate Organisms [facility] seen [facility] Specimen Fluid - CERVIX Performing Organization Address City/State/Zipcode Phone Number [facility] CLIA: [id number] [place] [address] COMP. METABOLIC PANEL ([id number]) (03/23/2020 5:17 PM CDT) Pathologist [facility] nature NA 138 135 - 145 mmol/L [facility] K 3.6 3.5 - 5.0 mmol/L [facility] CL 104 98 - 108 mmol/L [facility] CO2 TOTAL 26 23 - 31 mmol/L [facility] AGAP 8 2 - 16 [facility] BUN 13 7 - 23 mg/dL [facility] GLUCOSE 89 70 - 110 mg/dL [facility] CREATININE 0.86 0.50 - 1.04 [facility] mg/dL [facility] TOTAL BILI 0.4 0.1 - 1.1 mg/dL [facility] CALCIUM 9.3 8.6 - 10.6 mg/dL [facility] T PROTEIN 6.7 6.3 - 8.2 g/dL [facility] ALBUMIN 4.4 3.5 - 5.0 g/dL [facility] ALK PHOS 61 34 - 122 U/L [facility] ALTv 9 5 - 35 U/L [facility] AST(SGOT) 17 13 - 40 U/L [facility] eGFR Calculation 77.0 mL/min/1.73m2 [facility] (Non-) [facility] LABORATOR Y eGFR Calculation 93.3 mL/min/1.73m2 [facility] () [facility] Specimen Blood - VENOUS Narrative Performed At Association of Glomerular Filtration Rate (GFR) [facility] and Staging of Kidney Disease* + + +- + | GFR (mL/min/1.73 m2) | With Kidney Damage | Without Kidney Damage + + +- + | >90 | Stage one | Normal + + +- + | 60-89 | Stage two | Decreased GFR + + +- + | 30-59 | Stage three | Stage three + + +- + | 15-29 | Stage four | Stage four + + +- + | <15 (or dialysis) | Stage five | Stage five + + +- + *Each stage assumes the associated GFR level has been in effect for at least three months. Stages 1 to 5, with or without kidney disease, indicate chronic kidney disease. Notes: Determination of stages one and two (with eGFR >59mL/min/1.73 m2) requires estimation of kidney damage for at least three months as defined by structural or functional abnormalities of the kidney, manifested by either: Pathological abnormalities or Markers of kidney damage (including abnormalities in the composition of the blood or urine or abnormalities in imaging tests). Performing Organization Address City/State/Zipcode Phone Number [facility] CLIA: [id number] [place] [address] CBC WITH DIFF (03/23/2020 5:17 PM CDT) WBC 15.61 (H) 4.30 - 11.10 [facility] 10*3/L [facility] RBC 3.98 3.93 - 5.25 [facility] 10*6/L [facility] HGB 8.2 (L) 11.6 - 15.0 [facility] g/dL [facility] HCT 27.7 (L) 35.7 - 45.2 % [facility] MCV 69.6 (L) 80.6 - 95.5 [facility] MCH 20.6 (L) 25.9 - 32.8 [facility] pg [facility] MCHC 29.6 (L) 31.6 - 35.1 [facility] g/dL [facility] RDW-SD 51.3 (H) 39.0 - 49.9 [facility] RDW-CV 21.0 (H) 12.0 - 15.5 % [facility] PLT 260 166 - 358 [facility] 10*3/L [facility] MPV Comment: Not [facility] Measured [facility] IPF % 10.2 (H)Comment: 1.3 - 7.7 % [facility] Platelet count HOSPITAL measured by LABORATORY fluorescence method. NRBC/100 WBC 0.0 0.0 - 10.0 [facility] /100 WBCs [facility] NRBC x10^3 <0.01 10*3/L [facility] GRAN MAT (NEUT) % 73.3 % [facility] IMM GRAN % 0.40 % [facility] LYMPH % 18.8 % [facility] MONO % 6.5 % [facility] EOS % 0.6 % [facility] BASO % 0.4 % [facility] GRAN MAT 11.45 (H) 1.88 - 7.09 [facility] x10^3(ANC) 10*3/uL [facility] IMM GRAN x10^3 0.07 (H) 0.00 - 0.06 [facility] 10*3/uL [facility] LYMPH x10^3 2.93 1.32 - 3.29 [facility] 10*3/uL [facility] MONO x10^3 1.01 (H) 0.33 - 0.92 [facility] 10*3/uL [facility] EOS x10^3 0.09 0.03 - 0.39 [facility] 10*3/uL [facility] BASO x10^3 0.06 0.01 - 0.07 [facility] 10*3/uL [facility] Specimen Blood - VENOUS Performing Organization Address City/State/Zipcode Phone Number [facility] CLIA: [id number] [place] [address] LABORATORY [address] [facility] URINALYSIS (03/23/2020 5:16 PM CDT) APPEARANCE Hazy (A) Clear [facility] COLOR Jazmin (A) Yellow [facility] PH 5.0 4.8 - 8.0 [facility] SP GRAVITY 1.034 (H) 1.003 - 1.030 [facility] GLU U QUAL Normal Normal [facility] BLOOD NegativeComment: Negative [facility] INTERFERENCE FROM HOSPITAL LABORATORY ASCORBIC ACID MAY CAUSE FALSE NEGATIVE RESULT KETONES 5 mg/dL (A) Negative [facility] PROTEIN 30 mg/dL (A) Negative [facility] UROBILIN 4.0 mg/dL (A) Normal [facility] BILIRUBIN 2 mg/dL (A) Negative [facility] NITRITE Negative Negative [facility] LEUK NORRIS Negative Negative [facility] RBC/HPF 2 0 - 3 HPF [facility] WBC/HPF 9 (H) 0 - 5 HPF [facility] BACTERIA Moderate (A) Negative [facility] MUCOUS Marked (A) Negative LPF [facility] SQ EPITH 15 HPF [facility] HYAL CAST 20 (H) <=2 LPF [facility] Ictotest Positive [facility] Specimen Urine - URINE, CLEAN CATCH Performing Organization Address City/State/Zipcode Phone Number [facility] CLIA: [id number] [place] [address] POCT TEST (03/23/2020 5:04 PM CDT) Pathologist Sig nature POCT PREG negative On board controls acceptable positive with C Line POCT PREG LOT # [id number] POCT PREG TEST DATE 02-17-2021 Specimen Urine - URINE, CLEAN CATCH documented in this encounter Visit Diagnoses Diagnosis Lower abdominal pain - Primary Abdominal pain, other specified site Left adnexal tenderness Unspecified symptom associated with fema le genital organs Urinary tract infection in female Anxiety Anxiety state, unspecified Anemia, unspecified type documented in this encounter Administered Medications Medication Order SEP Action Action Date Dose Rate Site cefTRIAXone (ROCEPHIN) Given 03/23/2020 7:47 PM 250 mg Left Deltoid-IM injection 250 mg CDT 250 mg, Intramuscular, Q24H, First dose on Dena 03/23/20 at 2030, Until Discontinued, MARY GRACE, Reason for Anti-Infective: Documented Infection, Documented Infection Site: Pelvic, Duration of Therapy: Other (see Comments) Medication Order MAR Action Action Date Dose Rate Site azithromycin (ZITHROMAX) tablet Given 03/23/2020 7:45 PM CDT 1, 000 mg 1,000 mg 1,000 mg, Oral, ONCE, 1 dose, Dena 03/23/20 at 2030, MARY GRACE, Reason for Anti-Infective: Documented Infection, Documented Infection Site: Pelvic, Duration of Therapy: Other (see Comments) LORazepam (ATIVAN) tablet 1 mg Given 03/23/2020 5:08 PM CDT 1 mg 1 mg, Oral, ONCE, 1 dose, Dena 03/23/20 at 1800, MARY GRACE documented in this encounter
--- OUTSIDE RECORDS SUMMARY | 2020-04-07 17:46 | XMS REPORT | Summary of Care ---
:1990 Author Organization [facility] - Health Address [address] [place] [address] Care Team Providers Name Role Phone Belen Chan Primary Care Provider Encounter Details Date Type Department Care Team Description 03/28/2020 Orders Only [facility] Doctor Unassigned, No [address] [facility] [place] [address] [address] [place] [address] Allergies No Known Allergiesdocumented as of this encounter (statuses as of 03/28/2020) Medications Medication Sig Dispensed Refills Start Date End Date Status vit Take 1 Packet 30 Each 6 12/24/2017 Ac tive 05-chva-rezri-dha by mouth daily. (SELECT-OB + DHA) 29 [...] in 1 Each 0 04/03/2019 Act james bsvqm-lelmvx-gggrnx each nostril 2 bottle (NEILMED SINUS (two) [...] as of this encounter (statuses as of 03/28/2020) Active Problems Problem Noted Date Anemia, 07/04/2018 [...] currently on medication, established with [facility] documented as of this encounter (statuses as of 03/28/2020) Resolved Problems Problem Noted Date Resolved Date [...] as of this encounter (statuses as of 03/28/2020) Immunizations Name Administration Dates Next Due Rho [...] on patient's age to complete [facility] to [facility] documented as of this encounter Procedures Procedure Name Priority Date/Time Associated Diagnosis Comme nts CONSENT/REFUSAL FOR Routine 03/28/2020 7:26 PM CDT DIAGNOSIS AND TREATMENT documented in this encounter Results Not on filedocumented in this encounter Insurance Payer Benefit Plan / Subscriber ID Effective Dates Phone Addre ss Type Group CMC-NON TDCJ CMC-NON TDCJ Effective for all [employer] dates documented as of this encounter
--- OUTSIDE RECORDS SUMMARY | 2020-04-07 17:46 | XMS REPORT | Summary of Care ---
:1990 Author Organization [facility] - Health Address [address] [place] [address] Care Team Providers Name Role Phone Belen Chan Primary Care Provider Reason for Visit Reason Comments Anxiety Auth/Cert Status Reason Specialty Diagnoses / Referred By Referred To Procedures Contact Contact Emergency Medicine Adc Em ergency Dept [address] [place] [address] Fax: Encounter Details Date Type Department Care Team Description 03/28/2020 Emergency ADC-Emergency Depart ment Lydia Villalobos, PAC [address] [facility] [address] ramirez [address] [facility] [place] [id number] [place] [address] [phone] Allergies No Known Allergiesdocumented as of this encounter (statuses as of 03/28/2020) Medications Medication Sig Dispensed Refills Start Date End Date Status vit Take 1 Packet 30 Each 6 12/24/2017 Ac tive 63-qajb-bzgdb-dha by mouth daily. (SELECT-OB + DHA) 29 [...] in 1 Each 0 04/03/2019 Act james jlpjh-ujfrvq-xmsvuy each nostril 2 bottle (NEILMED SINUS (two) [...] Overview: Not currently on medication, established with [facility] documented as of this encounter (statuses as [...] been in contact with No / Unsure 03/28/2020 7:35 PM CDT someone who was confirmed or suspected to have Coronavirus / COVID-19? documented as of this encounter Last Filed Vital Signs Vital Sign Reading Time Taken Comments Blood Pressure 134/93 03/28/2020 7:38 PM CDT Pulse 78 03/28/2020 7:38 PM CDT Temperature 37.2 C (98.9 F) 03/28/2020 7:38 PM CDT Respiratory Rate 14 03/28/2020 7:38 PM CDT Oxygen Saturation 100% 03/28/2020 7:38 PM CDT Inhaled Oxygen Concentration - - Weight 59 kg (130 lb) 03/28/2020 7:38 PM CDT Height 152.4 cm (5') 03/28/2020 7:38 PM CDT Body Mass Index 25.39 03/28/2020 7:38 PM CDT documented in this encounter ED Notes Eliane Frost, SONDRA - 03/28/2020 7:36 PM CDTCC: Patient states that she has been having anxiety turning into anger. She is not cooperating during triage, using derogatory terms about having to keep her mask on and laughing. PMHx: Anxiety and anger PSH: none MEDS: none LMP: unk (refuses to answer Tetanus: yes Awake, alert, oriented, resp reg unlabored, skin warm and dry, color appropriate for race, moves allext without difficulty, amb with no assistance Appears in no distress documented in this encounter Miscellaneous Notes ED Nurse Note - Eliane Frost RN - 03/28/2020 8:50 PM CDTPT LEFT AMA. AMA PAPERS not signed due to patient leaving from the [facility]. LEFT ambulatory. Patient notified PFS that she was leaving, NO ATAXIA, GCS 15, AO4. D Nurse Note - Eliane Frost RN - 03/28/2020 8:47 PM CDTPatient called from [facility] no answer. D Nurse Note - Thelma Rodriguez RN - 03/28/2020 8:24 PM CDTPt called from [facility],no answer documented in this encounter Plan of Treatment Health Maintenance Due Date Last Done Comments Depression Screening 2000 PAP SMEAR 08/09/2019 08/09/2016, 01/18/2010 INFLUENZA VACCINE (#1) 2020 DTaP,Tdap,and Td Vaccines (3 05/19/2028 05/19/2018, - Td) 08/26/2016 PNEUMOCOCCAL 0-64 YEARS Aged Out No longe r eligible based COMBINED SERIES on patient's age to complete this to pic documented as of this encounter Results Not on filedocumented in this encounter
[2020-04-07] MEDS ORDERED: NA CHLORIDE 0.9% 1,000 ML ONE (20:12)
[2020-04-07] MEDS ORDERED: FENTANYL CITR 100 MCG/2 ML ONE (20:12)
[2020-04-07 20:13] LABS: Absolute Lymphocytes (CBC) 2.1 K/uL (0.7-4.9); Basophils % 1.1 % (0-1.3); Lymphocytes % 22.6 % (15.3-44.8); MPV 10.3 fL (7.6-11.3); RBC Red Blood Cell Count 3.88 M/uL (3.86-4.86)
[2020-04-07 20:16] LABS: Protime INR 1.11
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
[2020-04-07 20:41] LABS: Platelet Estimate ADEQ; White Blood Cell Scan OK (OK)
[2020-04-07 20:42] LABS: Anisocytosis 1+; Blood Morphology Comment NOTED (NOT SEEN); Hypochromasia 1+; Platelets, Giant PRESENT
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
[2020-04-07] MEDS ORDERED: POTASSIUM 25 MEQ EFFERV TAB ONE (21:13)
[2020-04-07 21:28] LABS: Urine Blood NEGATIVE (NEG); Urine Glucose NEGATIVE (NEG); Urine Protein NEGATIVE (NEG)
[2020-04-07] MEDS ORDERED: CYCLOBENZAPRINE 10 MG TAB ONE (21:37)
[2020-04-07] MEDS ORDERED: HYDROCODONE/APAP 5/325 MG TAB ONE (21:37)
[2020-04-07 22:14] VITALS: BP 121/76; TEMP 98.5; O2SAT 99
== END 2020-04-07 21:39 | disposition home or self-care (01) ==
LOC: ER 17:39
DX: E87.6 Hypokalemia (principal); D50.9 Iron deficiency anemia, unspecified; Y04.2XXA Assault by strike against or bumped into by another person, initial encounter; Y93.9 Activity, unspecified; Y92.009 Unspecified place in unspecified non-institutional (private) residence as the place of occurrence of the external cause
CPT/HCPCS: 36415; 70450; 71046; 72125; 80048; 81003; 81025; 85025; 85610; 85730; 86850; 86900; 86901; 96361; 96374; 99284; J3010; J7030

== ENCOUNTER 2020-09-09 13:27 | Emergency (ER) | payer SELFPAY ==
--- OUTSIDE RECORDS SUMMARY | 2020-09-09 13:30 | XMS REPORT | Continuity of Care Document ---
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 BMI Calculated 30.36 03/24/2018 [facility] Temperature Oral (F) 97.9 F 03/24/2018 [facility] Respitory Rate 20 03/24/2018 [facility] Height 149.86 cm 03/24/2018 [facility] Systolic (mm Hg) 122 03/24/2018 [facility] Diastolic (mm Hg) 82 03/24/2018 [facility] Heart Rate 116 03/24/2018 [facility] Weight 68.182 03/24/2018 [facility] Height 149.86 cm 03/24/2018 [facility] BMI Calculated 30.36 03/24/2018 [facility] Heart Rate 122 03/24/2018 [facility] Systolic (mm Hg) 123 03/24/2018 [facility] Diastolic (mm Hg) 86 03/24/2018 [facility] Systolic (mm Hg) 124 03/16/2018 [place] Diastolic (mm Hg) 65 03/16/[address] Systolic (mm Hg) 104 03/15/2018 [place] Diastolic (mm Hg) 58 03/15/[address] Weight 80.455 03/15/2018 [facility] BMI Calculated 34.64 03/15/2018 [facility] Height 152.4 cm 03/15/2018 [facility] Temperature Oral (F) 98.1 F 03/15/2018 [place] Systolic (mm Hg) 104 03/15/2018 [place] Diastolic (mm Hg) 58 03/15/[address] [place] [address] Respitory Rate 18 03/15/2018 [facility] Heart Rate 89 03/15/2018 [facility] BMI Calculated 34.45 03/10/2018 [facility] Weight 80.006 03/10/2018 [place] Systolic (mm Hg) 134 03/10/2018 [place] Diastolic (mm Hg) 86 03/10/2018 [place] Respitory Rate 19 03/10/2018 [place] Heart Rate 133 03/10/2018 [place] Temperature Oral (F) 99.0 F 03/10/2018 [place] Height 152.4 cm 03/10/2018 [place] Heart Rate 79 12/30/2017 [place] Respitory Rate 18 12/30/2017 [place] Temperature Oral (F) 98.3 F 12/30/2017 [place] Systolic (mm Hg) 110 12/30/2017 [place] Diastolic (mm Hg) 64 12/30/2017 [place] Heart Rate 87 12/30/2017 [facility] [place] Respitory Rate 16 12/30/2017 [place] Temperature Oral (F) 98.0 F 12/30/2017 [facility] [place] Systolic (mm Hg) 112 12/30/2017 [facility] [place] Diastolic (mm Hg) 64 12/30/2017 [facility] [place] Respitory Rate 19 12/29/2017 [place] Heart Rate 86 12/29/2017 [place] Temperature Oral (F) 98.1 F 12/29/2017 [facility] [place] Systolic (mm Hg) 114 12/29/2017 [facility] [place] Diastolic (mm Hg) 81 12/29/2017 [facility] [place] Height 152.4 cm 12/29/2017 [facility] BMI Calculated 35.23 12/29/2017 [facility] Weight 81.818 12/29/2017 [place] Heart Rate 78 12/18/2017 [place] Systolic (mm Hg) 120 12/18/2017 [place] Diastolic (mm Hg) 70 12/18/2017 [place] Respitory Rate 18 12/18/2017 [place] Temperature Oral (F) 98.1 F 12/18/2017 [place] Weight 81.818 12/18/2017 [place] Systolic (mm Hg) 118 12/18/2017 [facility] [place] Diastolic (mm Hg) 71 12/18/2017 [place] Heart Rate 79 12/18/2017 [place] Temperature Oral (F) 98.1 F 12/18/2017 [place] Respitory Rate 18 12/18/2017 [facility] Height 152.4 cm 10/05/2017 [place] Weight 81.818 10/05/2017 [facility] BMI Calculated 35.23 10/05/2017 [place] Systolic (mm Hg) 125 10/05/2017 [place] Diastolic (mm Hg) 75 10/05/2017 [place] Temperature Oral (F) 98.6 F 10/05/2017 [place] Heart Rate 79 10/05/2017 [place] Respitory Rate 18 10/05/2017 [facility] Encounters Location Location Encounter Encounter Reason Attending ADM DC Stat us Source Details Type Number For Provider Date Date [facility] [id number] Guzman 10/05 10/05 Tin Wagonermar /2017 [facility] Emergency [id number] Manjit 12/18 12/18 Tin Parrish /2017 [facility] Emergency [id number] Hesham 12/29 12/30 Tin Thacker /2017 [facility] Emergency [id number] Josiah Donohue 03/10 03/10 Tin /2017 [facility] Emergency [id number] Gunnar 03/15 03/16 Tin Miranda /2017 [facility] Inpatient [id number] Kyra 03/24 03/25 Mayda Kruse /2017 [facility] Procedures No Data Provided for This Section Assessment and Plan Assessment and Plan Date Source Extracted from:Title: Clinical Document 03/25/2018 [facility] Author: Monty Pradhan MD Date: 03/25/18 R3 [...] AM. She was also recently discharged from [facility] for a 7 day admission for monitoring after claiming that she had suicidal thoughts. She currently denie s ever having suicidal thoughts and stat es she faked it to get away from her current relationship. Currently denies SI/HI. She endorses FM Denies CTX, LOF, VB, Care: [facility] with regular visits Hospitalizations: None Sono: wnl per pt Labs: wnl pt OBHx: 2008 M TSVD 2010 M TSVD 2012 F TSVD 2016 M TSVD 2018 SAB medically managed [employer] History: k/6 days; Reports h/o chlamydia denies h/o Abn [...] CTAB Abd: gravid SSE: deferred SVE: cl/th/hi [place]: no ctx EFM: 150 / mod / [...] saw and evaluated the patient - patien t is hysterically crying, shouting, irate. Psych response called given her previous statement of SI and her current state. Samia Lombardi M.D. Maternal Medicine Addendum by Kyra Kruse MD on 04/06/2018 17:28 Staff. I also saw pt who was calm when I saw her but agreed to psychiatric evaluation. reassuring status and no evidence of labor. ALEXANDRE Kruse MD, MPH, Assoc Professor, General Ob, obstetrics gyn physician, and reproductive sciences Extracted from:Title: Progress Note Complex * 12/30/2017 [place] Author: Aron Fofana MD Date: 12/29/17 Impression and Plan Diagnosis: Traumatic injury during pregn rashad ([id number] O9A.219, Working, Medical), Anogenital herpes simplex virus (HSV) infection. ([id number] A60.9, Working, Medical). Course: Unchanged. Orders I [...] Counseled: Patient. Discharge Planning: Plan to dischar jim ( To home ), RN was in the room during physical exam. Extracted from:Title: Scaffold Setter Consult- Early loss 09/18 [place] Author: Dina [...] with F/U in 2 wks i n [facility]. I explained normal expectations after SAB [...] entered on: 03/24/18 Social History TypeResponse 03/24/2018 [facility] Substance Abuse Use: Current. Type: Marijuana. Recreat ional Drug Route: Oral. Frequency: Daily. Smoking Status Never smoker; Lives with someone who smo kes; Cigarette Smoking Last 365 Days No; Reg Smoking Cessation Counseling Yes entered on: 03/24/18 Social History TypeResponse 03/24/2018 [facility] Substance Abuse Use: Current. Type: Marijuana. Recreat [...]
--- OUTSIDE RECORDS SUMMARY | 2020-09-09 13:33 | XMS REPORT | Continuity of Care Document ---
:1990 Author Organization [facility] t Address [address] [place] [address] [place] [address] Care Team Providers Name Role Phone Kelton Carrillo Attending Clinician Unavailable Kelton Carrillo Attending Clinician Unavailable Kelton Carrillo MD Attending Clinician Doctor Unassigned, Name Attending Clinician Unavailable Griselda RAMON S Attending Clinician Adia Cook DO Attending Clinician Nicol Marion Attending Clinician Sandra Quintanilla Attending Clinician Belen Reed Attending Clinician Krupa Kruse Attending Clinician Daniel Miranda Attending Clinician Nicol Donohue Attending Clinician Fern Thacker Attending Clinician Deng Parrish Attending Clinician Kirstie Attending Clinician Kelton Carrillo Admitting Clinician Unavailable Krupa Kruse Admitting Clinician Payers Payer Name Policy Type Policy Number Effective Date Expiration Date S silverio Problems Condition Condition Condition Status Onset Resolution Last Treating Co mments Source Name Details Category Date Date Treatment Clinician Date 24 WKS Diagnosis Active 2018-10-13 Mem oria /A 9-04 18:30:00 l BDOMINAL 24 WKS 00:00: Alvaro n PAIN /A 00 BDOMINAL PAIN Active 03/24/2018 [facility] CONTRACTIO Diagnosis Active 2018-03-15 Memoria NS 8- 20:09:00 l 00:00: [place] CONTRACTIO 00 NS Active 8 [facility] 22WKS Diagnosis Active 2018-03-19 Mem oria PREG-ANXIE 8- 08:24:00 l TY,BREAKDO 22WKS 00:00: Tiki nn WN PREG-ANXIE 00 TY,BREAKDO WN Active 8 [facility] Tin BACK PAIN, Diagnosis Active 2017-12-29 Memoria 14 WEEKS 6-11 15:04:00 l BACK 00:00: [place] PAIN, 14 00 WEEKS Active 12/29/2017 [facility] [place] OTHER Diagnosis Active 2017-12-18 Mem oria 5-31 11:37:00 l OTHER 00:00: [place] 00 Active 12/18/2017 [facility] [place] VAGINAL Diagnosis Active 2017-10-04 Me moria BLEEDING 3-17 23:49:00 l VAGINAL 00:00: Tin BLEEDING 00 Active 10/04/2017 [facility] Tin Diseases Problem 2018-09-26 Mem oria of the 15:18:23 l nervous Diseases Tiki nn system of the complicati nervous ng system , complicati second ng trimester , second trimester 09/26/2018 [facility] Insomnia, Problem 2018-09-26 Me moria unspecifie 15:18:23 l d [place] Insomnia, unspecifie d 09/26/2018 [place] 22 weeks Problem 2018-09-26 Mem oria gestation 15:18:23 l of 22 weeks Alvaro n gestation of [facility] 2018[facility]02 Mem [facility] of the 11:54:19 l digestive Diseases Her chacko system of the complicati digestive ng system , complicati second ng trimester , second trimester 10/02/2018 [facility] Noninfecti Problem 2018-10-02 M emoria ve 11:54:19 l gastroente Alvaro n ritis and Noninfecti colitis, ve unspecifie gastroente d ritis and colitis, unspecifie d 10/02/2018 [facility] Anxiety Problem 2018-10-02 Baldo tez disorder, 11:54:19 l unspecifie Anxiety Her chacko d disorder, unspecifie d 10/02/2018 [facility] Cannabis Problem 2018-10-02 Mem oria use, 11:54:19 l unspecifie Cannabis He rmann d, use, uncomplica unspecifie fabian d, uncomplica fabian 10/02/2018 [facility] Smoking Problem 2018-10-02 Baldo tez (tobacco) 11:54:19 l complicati Smoking Her chakco ng (tobacco) , complicati second ng trimester , second trimester 10/02/2018 [facility] Nicotine Problem 2018-10-02 Mem oria dependence 11:54:19 l , Nicotine Alvaro n cigarettes dependence , , uncomplica cigarettes fabian , uncomplica fabian 10/02/2018 [facility] Bipolar Problem 2018-10-11 Baldo tez disorder, 14:07:22 l unspecifie Bipolar Her chacko d disorder, unspecifie d 10/11/2018 [facility] 24 weeks Problem 2018-10-11 Mem oria gestation 14:07:22 l of 24 weeks Alvaro n gestation of 10/11/2018 [facility] Unspecifie Problem 2018-10-11 M emoria d 14:07:22 l abdominal Tin pain Unspecifie d abdominal pain 9 [facility] Other Problem 2018-10-11 Memor ia mental 14:07:22 l disorders Other Alvaro n complicati mental ng disorders , complicati second ng trimester , second trimester 10/11/2018 [facility], [facility] Substance Problem Resolve 2018-10-11 M emoria abuse d 14:07:22 l (disorder) Alvaro n Substance abuse (disorder) Resolved Problem 10/11/2018 [facility], [facility] Bipolar I Problem Active 2018-10-11 Me moria disorder 14:07:22 l (disorder) Bipolar Her chacko I disorder (disorder) Active Problem 10/11/2018 [facility], Kelton Swanson [facility] Patient Problem Resolve 2018-10-11 2018-10-11 Memoria currently d 03-15 14:07:22 14:07:22 l Patient 00:00: Tiki nn (finding) currently 00 (finding) Resolved 03/15/2018 Problem 10/11/2018 [facility], Ketlon Swanson [facility] History of Past Illness Condition Condition Condition Status Onset Resolution Last Treating Co mments Source Name Details Category Date Date Treatment Clinician Date Other Problem 2018-10-11 2018-10-11 M emoria specified 04-02 14:07:22 14:07:22 l diseases Other 03:21: Tin and specified 06 conditions diseases complicati and ng conditions , complicati childbirth ng and the , puerperium childbirth and the puerperium 04/02/2018 10/11/2018 [facility] Unspecifie Problem 2018-10-02 2018-10-02 Memoria d 03-21 11:54:19 11:54:19 l infection 04:00: Tin of urinary Unspecifie 44 tract in d , infection second of urinary trimester tract in , second trimester 03/21/2018 10/02/2018 [facility] 23 weeks Problem 2018-10-02 2018-10-02 Memoria gestation 8 11:54:19 11:54:19 l of 23 weeks 05:00: Alvaro n gestation 00 of 03/15/2018 10/02/2018 [facility] Urinary Problem 2018-10-02 2018-10-02 Memoria tract 03-15 11:54:19 11:54:19 l infection, Urinary 05:00: Her chacok site not tract 00 specified infection, site not specified 03/15/2018 10/02/2018 [facility] Complete Problem 2018-01-11 2018-01-11 Memoria or 10-12 11:25:58 11:25:58 l unspecifie Complete 02:43: He rmann d or 45 spontaneou unspecifie s d without spontaneou complicati s on without complicati on 10/12/2017 01/11/2018 [facility] Incomplete Problem 2017-2018-01-11 2018-01-11 Memoria spontaneou 3-18 11:25:58 11:25:58 l s 05:00: Alvaro n without Incomplete 00 complicati spontaneou on s without complicati on 10/05/2017 01/11/2018 [facility] Injury, Problem 2017-2018-01-01 2018-01-01 Memoria poisoning 6-11 02:33:12 02:33:12 l and Injury, 05:00: Tin certain poisoning 00 other and consequenc certain es of other external consequenc causes es of complicati external ng causes , complicati unspecifie ng d , trimester unspecifie d trimester 12/29/2017 01/01/2018 [facility] Threatened Problem 2017-12-21 2017-12-21 Memoria 12-18 04:24:21 04:24:21 l 05:00: Tin Threatened 00 8 12/21/2017 [facility] Other Problem 2017-12-21 2017-12-21 M emoria specified 12-18 04:24:21 04:24:21 l disorders Other 05:00: Alvaro n of specified 00 amniotic disorders fluid and of membranes, amniotic unspecifie fluid and d membranes, trimester, unspecifie not d applicable trimester, or not unspecifie applicable d or unspecifie d 12/18/2017 12/21/2017 [facility] Allergies, Adverse Reactions, Alerts Allergy Allergy Status Severity Reaction(s) Onset Inactive Treating Comm ents Source Name Type Date Date Clinician No Known DA Active U 2017-07 [facility] Allergie 0-04 Clear s 00:00: Alaniz 00 [facility] No Known DA Active U [facility] Allergie 2- Clear s 00:00: Alaniz 00 [facility] Social History Social Habit Start Date Stop Date Quantity Comments Source Social History 2018-03-24 2018-03-24 Fatou horne 23:23:23 23:23:23 Medications Ordered Filled Start [...] 04/23/18 9:00:00 CDT Protonix No Notes: Memoria 9-05 Tablet l 02:48: should not Tin 00 be chewed or crushed. (Same as: Protonix) Omeprazole No 20 mg, Memor ia 03-25 Route: PO, l 02:28: Drug form: Tin 00 CAP, ONCE, Dosing Weight 68.182, kg, Priority: STAT, Start date: 03/24/18 21:28:00 CDT, Stop date: 03/24/18 21:28:00 CDT Tylenol No Notes: Do Memor ia - not exceed l 22:38: 4 gm/day. Tin 00 (Same as: Tylenol) Haldol No Notes: Memoria 9-04 (Same as: l 22:29: Haldol) [place] 00 Nitrofurant No 100 mg = 1 Memoria oin 100 MG 03-16 cap, PO, l Oral 00:44: BID, take [place] Capsule 00 2 times a [Macrobid] day, X 7 day, # 14 cap, 0 Refill(s) Macrobid No Notes: Not Mem oria 8-27 recommende l 00:42: d for Tin 00 patients with CrCl<50 ml/min (Same as:Macrobi d) With food. Ondansetron No Notes: Baldo tez 8- (Same as: l 23:51: Zofran) [place] 00 MEDICATION WASTE Product Size: 4 mg Product Wasted: ___ mg Famotidine No Notes: Memor ia 8-26 (Same as: l 23:51: Pepcid) [place] 00 Can be dilute in 5-10cc NS IVP: Slow IV push over at least 2 minutes. Calcium No 1,000 mL, Memor ia Chloride 8-26 1000 l 0.0014 23:51: ml/hr, [place] MEQ/ML / 00 Infuse Potassium Over: 1 Chloride hr, Route: 0.004 IV, 1,000, MEQ/ML / Drug form: Sodium INJ, ONCE, Chloride Dosing 0.103 Weight MEQ/ML / 80.455 kg, Sodium Start Lactate date: 0.028 03/15/18 MEQ/ML 18:51:00 Injectable CDT, Stop Solution date: 03/15/18 18:51:00 CDT Tylenol 2017-0 No 650 mg, Memoria 12-30 Route: PO, l 01:46: Drug form: Tin [...] Chloride 12-29 2,000 l 0.9% 18:53: ml/hr, [place] (Bolus) IV 00 Infuse Over: 0.5 hr, Route: IV, 1,000, Drug form: INJ, ONCE, Priority: STAT, Dosing Weight 81.818 kg, Start date: 12/29/17 13:53:00 CDT, Stop date: 12/29/17 13:53:00 CDT Saline 0 No Notes: Memoria Flush 0.9% 12-29 (Same as: l 18:53: BD Tin 00 Posiflush) Tylenol 0 No 650 mg, Memoria 12-18 Route: PO, l 18:25: Drug form: [place] 00 TAB, ONCE, Dosing Weight 81.818, kg, Priority: STAT, Start date: 12/18/17 13:25:00 CDT, Stop date: 12/18/17 13:25:00 CDT Tylenol 2017-0 No Notes: Max Baldo tez 12-18 acetaminop l 17:58: hen = 4000 Tin 00 mg/day (4 gm/day). (Same as: Tylenol) Leta ODT 0 No 4 mg, Memori a 5-31 Route: PO, l 16:20: Drug form: [place] 00 TABDIS, ONCE, Dosing Weight 81.818, kg, [...] Tablet Refill(s) [Tylenol with Codeine #3] Morphine No Notes: Memoria 3-18 (Same l 06:05: as:MORPhin e Sulfate) Cytotec No Notes: Memoria 3-18 (Same l 06:04: as:Cytotec ) Take with food Ondansetron 2017-0 No 4 mg, Memor ia 3-18 Route: [...] CDT Saline No Notes: Memoria Flush 0.9% 3-18 (Same as: l 03:12: BD Posiflush) Vital Signs Vital Name Observation Time Observation Value Comments Source Weight 2018-03-24 15:34:00 [facility] BMI Calculated 2018-03-24 15:34:00 Memori al Tin Temperature Oral (F) 2018-03-24 15:34:00 97.9 F [facility] [place] Respitory Rate 2018-03-24 15:34:00 Memori al [place] Height 2018-03-24 15:34:00 149.86 cm [facility] [place] Systolic (mm Hg) 2018-03-24 15:34:00 Baldo rial Tin Diastolic (mm Hg) 2018-03-24 15:34:00 Mem orial [place] Heart Rate 2018-03-24 15:34:00 [facility] [place] Weight 2018-03-24 15:24:00 [facility] [place] Height 2018-03-24 15:24:00 149.86 cm [facility] [place] BMI Calculated 2018-03-24 15:24:00 Memori al [place] Heart Rate 2018-03-24 15:03:00 [facility] [place] Systolic (mm Hg) 2018-03-24 15:03:00 Baldo rial [place] Diastolic (mm Hg) 2018-03-24 15:03:00 Mem orial [place] Systolic (mm Hg) 2018-03-16 00:44:00 Baldo rial Tin Diastolic (mm Hg) 2018-03-16 00:44:00 Mem orial [place] Systolic (mm Hg) 2018-03-15 23:30:00 Baldo rial [place] Diastolic (mm Hg) 2018-03-15 23:30:00 Mem orial [place] Weight 2018-03-15 23:08:00 [facility] [place] BMI Calculated 2018-03-15 23:08:00 Memori al [place] Height 2018-03-15 23:08:00 152.4 cm [facility] [place] Temperature Oral (F) 2018-03-15 23:08:00 98.1 F [facility] [place] Systolic (mm Hg) 2018-03-15 23:08:00 Baldo rial [place] Diastolic (mm Hg) 2018-03-15 23:08:00 Mem orial [place] Respitory Rate 2018-03-15 23:08:00 Memori al [place] Heart Rate 2018-03-15 23:08:00 [facility] [place] BMI Calculated 2018-03-10 00:47:00 Memori al [place] Weight 2018-03-10 00:47:00 [facility] [place] Systolic (mm Hg) 2018-03-10 00:47:00 Baldo rial [place] Diastolic (mm Hg) 2018-03-10 00:47:00 Mem orial [place] Respitory Rate 2018-03-10 00:47:00 Memori al [place] Heart Rate 2018-03-10 00:47:00 [facility] [place] Temperature Oral (F) 2018-03-10 00:47:00 99.0 F [facility] [place] Height 2018-03-10 00:47:00 152.4 cm [facility] [place] Heart Rate 2017-12-30 01:30:00 [facility] [place] Respitory Rate 2017-12-30 01:30:00 Memori al [place] Temperature Oral (F) 2017-12-30 01:30:00 98.3 F [facility] [place] Systolic (mm Hg) 2017-12-30 01:30:00 Baldo rial [place] Diastolic (mm Hg) 2017-12-30 01:30:00 Mem orial [place] Heart Rate 2017-12-30 00:19:00 [facility] [place] Respitory Rate 2017-12-30 00:19:00 Memori al Tin Temperature Oral (F) 2017-12-30 00:19:00 98.0 F [facility] [place] Systolic (mm Hg) 2017-12-30 00:19:00 Baldo rial [place] Diastolic (mm Hg) 2017-12-30 00:19:00 Mem orial [place] Respitory Rate 2017-12-29 22:14:00 Memori al [place] Heart Rate 2017-12-29 22:14:00 [facility] [place] Temperature Oral (F) 2017-12-29 22:14:00 98.1 F [facility] [place] Systolic (mm Hg) 2017-12-29 22:14:00 Baldo rial [place] Diastolic (mm Hg) 2017-12-29 22:14:00 Mem orial [place] Height 2017-12-29 18:20:00 152.4 cm [facility] [place] BMI Calculated 2017-12-29 18:20:00 Memori al [place] Weight 2017-12-29 18:20:00 [facility] [place] Heart Rate 2017-12-18 21:01:00 [facility] [place] Systolic (mm Hg) 2017-12-18 21:01:00 Baldo rial [place] Diastolic (mm Hg) 2017-12-18 21:01:00 Mem orial [place] Respitory Rate 2017-12-18 21:01:00 Memori al Tin Temperature Oral (F) 2017-12-18 21:01:00 98.1 F [facility] [place] Weight 2017-12-18 16:08:00 [facility] [place] Systolic (mm Hg) 2017-12-18 16:08:00 Baldo rial [place] Diastolic (mm Hg) 2017-12-18 16:08:00 Mem orial [place] Heart Rate 2017-12-18 16:08:00 [facility] [place] Temperature Oral (F) 2017-12-18 16:08:00 98.1 F [facility] [place] Respitory Rate 2017-12-18 16:08:00 Memori al Tin Height 2017-10-05 03:02:00 152.4 cm [facility] [place] Weight 2017-10-05 03:02:00 [facility] [place] BMI Calculated 2017-10-05 03:02:00 Memori al [place] Systolic (mm Hg) 2017-10-05 03:02:00 Baldo rial [place] Diastolic (mm Hg) 2017-10-05 03:02:00 Mem orial [place] Temperature Oral (F) 2017-10-05 03:02:00 98.6 F [facility] [place] Heart Rate 2017-10-05 03:02:00 [facility] [place] Respitory Rate 2017-10-05 03:02:00 Memori al [place] Procedures This patient has no known procedures. Encounters Start End Encounter Admission Attending Care Care Encounter Source Date/Time Date/Time Type Type Clinicians Facility Department ID 2020-04-27 Inpatient Sunday Carrillo [facility] PSY [id number] [facility] 10:43:00 Sunday Carrillo -[id number] 2020-04-27 2020-05-24 Inpatient 3 Sunday Carrillo [facility] PSY 1 [id number] [facility] 10:43:00 13:30:00 Sunday Carrillo 2020-04-27 2020-04-27 [facility] Gerardo [facility] [id number] 11:31:00 23:59:00 Encounter Sunday KWAN [id number] [facility] [id number] [place] [id number] 2020-04-27 2020-04-27 Orders Doctor FLETCHER [id number] 00:00:00 00:00:00 Only UnassignedLUIS [id number] [facility] [id number] [id number] 2020-03-28 2020-03-28 Emergency Reagan, [facility] [id number] 20:05:00 20:52:00 Lydia Ford [id number] [place] [id number] [place] [id number] 2020-03-28 2020-03-28 Orders Doctor FLETCHER [id number] 00:00:00 00:00:00 Only Unassigned, LUIS [id number] [facility] [id number] [id number] 2020-03-24 2020-03-24 Emergency [facility] [id number] 07:46:00 08:18:00 Jenna Ford [id number] [place] [id number] [place] [id number] 2020-03-23 2020-03-23 Emergency [facility] [id number] 16:33:00 20:42:00 Susan Ford [id number] [place] 4.2.7.2.686 [place] [id number] 2020-03-23 2020-03-23 Orders Doctor BYNUM [id number] 00:00:00 00:00:00 Only Unassigned, LUIS [id number] [facility] 4.2.7.2.686 [id number] 2019-08-25 2019-08-25 Emergency [facility] [id number] 16:23:00 19:17:00 Lisa Ford [id number] [place] [id number] [place] [id number] 2019-04-03 2019-04-03 Emergency [facility] [id number] 18:43:45 19:09:00 Bernard Ford [id number] [place] [id number] [place] [id number] 2018-03-24 2018-03-24 Outpatient Aixa [facility] [id number] 10:02:00 22:45:00 Kyra 06 Krupa 2018-03-15 2018-03-15 Outpatient Ruben, [facility] [id number] 17:53:00 19:51:00 Gunnar Sanchez 2018-03-09 2018-03-09 Outpatient Josiah Donohue [facility] [id number] 19:20:00 21:17:00 R 2017-12-29 2017-12-29 Outpatient Kirstie, [facility] [id number] 13:04:00 21:01:00 Hesham Fern 2017-12-18 2017-12-18 Outpatient Francois, [facility] [id number] 11:03:00 16:03:00 Manjitpaula Vilchis 2017-10-04 2017-10-05 Outpatient Kirstie, [facility] [id number] 22:00:00 00:49:00 Ambica 01 Results Test Description Test Time Test Comments Results Result Comments Source Lipid 2020-05-12 09:56:39 Test Item Value Reference Range Interpretation Comme nts Cholesterol Total (test code = 124 mg/dL N Low-risk level (desirable) - <200 Cholesterol Total) mg/dlMode rate-risk level (borderline) - 200-239 mg/dlHigh-risk level - ?240 mg/dl Triglycerides (test code = 59 mg/dL N N ormal - <150 mg/dlBorderline high Triglycerides) - 150-199 mg/ dlHigh - 200-499 mg/dlVery high - ?500 mg/dl HDL (test code = HDL) 51.20 mg/dL N Low-ri sk level (desirable) - ?60 mg/dlHigh-risk level (undesirable) - <40 mg/dl LDL (test code = LDL) 61 mg/dL N The eq uation being used in this calculation is LDL = (Chol - HDL) - (Trig / 5) VLDL (test code = VLDL) 12 mg/dL 5-40 The equation being used in this calculation is VLDL = Trig / 5 Chol/HDL (test code = 2.4 ratio <=5.0 Chol/HDL) LDL/HDL Ratio (test code = 2 N T he equation being used in this LDL/HDL Ratio) calculation i s LDL/HDL Ratio=LDL Calc/HDL Chol [id number] 09:56:39 Test Item Value Reference Range Interpretation Comments TSH (test code = TSH) 1.610 mcIU/mL 0.550-4.780 HCG Ql [id number] 09:56:39 Test Item Value Reference Range Interpretation Comments HCG, Serum Qual (test code = HCG, Negative Negative Serum Qual) DRUG [id number] 21:30:00Negative *NA*(03/24/18 4:30 PM)[facility] [id number] 21:30:00Negative *NA*(03/24/18 4:30 PM)[facility] [id number] 21:30:00Negative *NA*(03/24/18 4:30 PM)[facility] [id number] 21:30:00See Note (03/24/18 4:30 PM)[facility] S[facility]EN 2018-03-24 21:30:00Negative *NA*(03/24/18 4:30 PM)[facility] 2018-03-24 21:30:00Positive *ABN*(03/24/18 4:30 PM)[facility] 2018-03-24 21:30:00Negative *NA*(03/24/18 4:30 PM)[facility] 2018-03-24 21:30:00Negative *NA*(03/24/18 4:30 PM)[facility] 2018-03-24 21:30:00Negative *NA*(03/24/18 4:30 PM)[facility] 2018-03-24 21:30:00Negative *NA*(03/24/18 4:30 PM)[facility] 2018-03-24 21:30:00Positive *ABN*(03/24/18 4:30 PM)[facility] 2018-03-24 21:30:001[facility] [id number] 21:30:009[facility] [id number] 21:30:00Negative *NA*(03/24/18 4:30 PM)[facility] [id number] 21:30:002.0[facility] ST[facility]OL 2018-03-24 21:30:00Negative (03/24/18 4:30 PM)[facility] 2018-03-24 21:30:00Moderate *ABN*(03/24/18 4:30 PM)[facility] 2018-03-24 21:30:00Negative (03/24/18 4:30 PM)[facility] 2018-03-24 21:30:00 Test Item Value Reference Range Interpretation Comments UA pH (test code = UA pH) 6.0 1 5.0-8.0 [facility] [id number] 21:30:00 Test Item Value Reference Range Interpretation Comments UA Spec Grav (test code = UA Spec 1.013 1 Grav) [facility] [id number] 21:30:00Clear (03/24/18 4:30 PM)[facility] [id number] 21:30:00Yellow *NA*(03/24/18 4:30 PM)[facility] HfuumzwKWJDRNCEPT9987-93-25 20:46:0032.6[facility] IldlzfdNIJGUEIMOA0381-26-15 20:46:00 Test Item Value Reference Range Interpretation Comments MCH (test code = MCH) 27.4 pg 27.0-31.0 [facility] [id number] 20:46:0084.2[facility] 2018-03-24 20:46:0015.1[facility] [id number] 20:46:83756Zxtikbqm LrlpsyfRBDPZDMOFQ6671-03-48 20:46:0010.3[facility] TjgvhmnMOOLNUADYH2772-26-43 20:46:0031.5[facility] XytevloURSAKYOKPU8908-38-23 20:46:009.5[facility] [place] NRJXLKKHCL3440-76-84 20:46:003.74[facility] JcsqvrsDCRBNNSMGR8791-12-38 20:46:00 78.3[facility] IiidpnxZAQDVGXMXE9332-60-83 20:46:000.2[facility] 2018-03-24 20:46:001.5[facility] QmmqtsjXXDKMQJQUQ6488-25-46 20:46:007.4[facility] MjadfxiAKXUUQEEBY5070-26-78 20:46:000.5[facility] LnvxguaENCBQRIWCT7352-78-02 20:46:000.4[facility] XtefmzqQDUTRUPFWB6614-86-00 20:46:005.0[facility] Tin LJODOBIWZP4798-45-96 20:46:0016.1[facility] XmthmtlEZTHCPBSQX0572-56-25 20:46:00 Negative *NA*(03/24/18 3:46 PM)[facility] AqrwnnhLWNBQVWRYL3218-52-24 20:46:00Non- Reactive *NA*(03/24/18 3:46 PM)[facility] LvokcrlCXLCUOUJOD6810-68-73 20:46:00 Negative *NA*(03/24/18 3:46 PM)[facility] HermannBLOOD BANK [id number] 20:46:00Negative (03/24/18 3:46 PM)[facility] VfhxtseDKYOKDTTQJ0552-71-56 20:46:00 11.4[facility]annCHEM [id number] 23:56:0053[facility]annCHEM PANEL 2018-03-15 23:56:89798Aefzpoqc HermannCHEM [id number] 23:56:49173Hiivthib HermannCHEM VYSHJ2188-83-15 23:56:0027[facility]annCHEM [id number] 23:56:17345Uwbrahfq HermannCHEM BVHOX4109-03-00 23:56:007.8[facility]annCHEM XXWIJ0572-17-97 23:56:006.6[facility]annCHEM [id number] 23:56:000.50 [facility]ann[facility] [id number] 23:56:006[facility]annCHEM PANEL 2018-03-15 23:56:003.9[facility] HermannCHEM [id number] 23:56:59409Tnfkoddf HermannCHEM HGQGT0267-34-11 23:56:002.7[facility] HermannCHEM [id number] 23:56:0018[facility]annCHEM [id number] 23:56:0087[facility]annCHEM WMJWI1735-54-01 23:56:0010[facility]annCHE[facility] [id number] 23:56:000.2 [facility]annCHE[facility] [id number] 23:56:0086[facility]annCHEM PANEL 2018-03-15 23:56:00 Test Item Value Reference Range Interpretation Comments B/C Ratio (test code = B/C Ratio) 12 1 6-25 [facility] HermannCHEM [id number] 23:56:003.9[facility]annCHEM PANEL 2018-03-15 23:56:00 Test Item Value Reference Range Interpretation Comments A/G Ratio (test code = A/G Ratio) 0.7 1 0.7-1.6 [facility] HermannCHEM [id number] 23:56:009.9[facility]annHEMATOLOGY 2018-03-15 23:56:25372Iqjxdrzx FpvykixLOYORWLHDA8913-48-65 23:56:0012.1[facility] VvpzteyBDDHZKUIPP8640-95-71 23:56:0015.6[facility] ZdjseiuVOLLQTUHLT6213-06-78 23:56:0033.9[facility] MfurpxrSLUKFQJDJT1011-83-08 23:56:00 Test Item Value Reference Range Interpretation Comments MCH (test code = MCH) 27.9 pg 27.0-31.0 [facility] DvrdldqIQPVCLXAGE4812-15-48 23:56:0082.2[facility]annHEMATOLOGY 2018-03-15 23:56:0014.5[facility] JhhweehVSEIBCSLDA1537-49-78 23:56:003.80[facility] YvcltyfACGUCZYRSU2560-72-18 23:56:0010.6[facility] ZvcvdycFYTWEWQXNK6385-07-59 23:56:0031.3[facility] NdrplpwLDPRUSFELX1547-63-99 23:56:001.4[facility] [place] ISQZLXZKMQ1677-50-13 23:56:000.4[facility] AdfbjbuARHOQNGBUV6404-90-95 23:56:000.0 [facility] SvenyllCCDSPUBBPH1835-30-94 23:56:000.0[facility]annHEMATOLOGY 2018-03-15 23:56:0086.8[facility] OjfikcpVFDXRPHKAO6891-16-06 23:56:003.0[facility] HmndbgmUBTNECNEAF8471-42-08 23:56:000.2[facility] BczjtsaGYTFIMLFJE6664-82-98 23:56:009.9[facility] AhesvzlBJKPXOJOCS4489-36-91 23:56:0012.6[facility] Tin OAWOSYTQRS6434-13-18 23:56:000.1[facility] XibkqnhKHQSAIUASH5930-51-86 23:56:00 Normal (03/15/18 6:56 PM)[facility] QbjwgxhUKMQKABQXC0314-73-82 23:56:00Normal (03/15/18 6:56 PM)[facility] OFCOG8006-20-40 23:56:001[facility] AARCE4668-04-83 23:56:003[facility] STOOL 2018-03-15 23:56:00<=1.0[facility] JUVBW3331-52-86 23:56:0029 [facility] RLNDL5300-67-96 23:56:00Moderate *ABN*(03/15/18 6:56 PM)[facility] TANOF7186-86-65 23:56:00Negative *NA*(03/15/18 6:56 PM)[facility] VNWJO5561-96-51 23:56:00Negative (03/15/18 6:56 PM) [facility] CFNLB1227-55-60 23:56:00Negative (03/15/18 6:56 PM) [facility] BTSIK4813-02-65 23:56:00 Test Item Value Reference Range Interpretation Comments UA pH (test code = UA pH) 5.0 1 5.0-8.0 [facility] XMQTB5616-80-27 23:56:00 Test Item Value Reference Range Interpretation Comments UA Spec Grav (test code = UA Spec 1.015 1 Grav) [facility] MNNKX1372-44-84 23:56:00Marked *ABN*(03/15/18 6:56 PM) [facility] OJUKQGM2031-32-70 23:51:00Negative (12/29/17 6:51 PM) [facility] ZCQMRHO5763-52-76 23:31:00Product available (12/29/17 6:31 PM)[facility] QKHUY7954-69-09 21:58:00Negative (12/29/17 4:58 PM)[facility] TTJNR7537-14-57 21:58:00Large *ABN*(12/29/17 4:58 PM)[facility] RWSSO6381-61-62 21:58:00Negative (12/29/17 4:58 PM) [facility] SFWFD5657-19-71 21:58:00Negative *NA*(12/29/17 4:58 PM) [facility] JAPLN8351-14-44 21:58:003[facility] ORUWL1693-10-08 21:58:003[facility] XEOKZ9507-39-47 21:58:00 Test Item Value Reference Range Interpretation Comments UA pH (test code = UA pH) 7.0 1 5.0-8.0 [facility] [id number] 21:58:00 Test Item Value Reference Range Interpretation Comments UA Spec Grav (test code = UA Spec 1.012 1 Grav) [facility] JJQJH1239-20-50 21:58:00Slight *ABN*(12/29/17 4:58 PM) [facility] RVSZJ6553-15-02 21:58:00Yellow *NA*(12/29/17 4:58 PM) [facility]annCHE[facility] EDNBS2542-27-73 20:14:001.3[facility] HermannTOXICOLOGY 2017-12-29 20:14:00<3[facility] UerefheKLZMLRLGVF7146-39-41 20:14:00<0.003 [facility]annCHEM QWVVH1217-40-63 18:59:00 Test Item Value Reference Range Interpretation Comments A/G Ratio (test code = A/G Ratio) 0.8 1 0.7-1.6 [facility]annCHE[facility] QOLRD3585-53-15 18:59:003.7[facility] HermannCHEM PANEL 2017-12-29 18:59:00 Test Item Value Reference Range Interpretation Comments B/C Ratio (test code = B/C Ratio) 8 1 6-25 [facility]annCHE[facility] CQQRN7292-69-55 18:59:0013.3[facility] HermannCHEM PANEL 2017-12-29 18:59:76023Mlnenefw HermannCHEM NDQDI7016-33-99 18:59:000.2[facility]annCHEM CGVPR3253-29-88 18:59:0071[facility]annCHE[facility] ZQPJJ4225-90-09 18:59:0015[facility]annCHEM ZUOKQ4984-69-66 18:59:0019[facility] HermannCHEM EDGOP1290-79-93 18:59:000.65[facility]annCHEM WAGYK4992-38-62 18:59:006.8 [facility]annCHE[facility] ZHMTO0763-67-62 18:59:04602Cgvmppdk HermannCHEM PANEL 2017-12-29 18:59:42606Cyvgldtz HermannCHEM QNSHD5956-70-30 18:59:003.3[facility]annCHE[facility] YPASG2423-49-68 18:59:008.4[facility]annCHEM GCRIR6127-22-15 18:59:0022[facility]annCHEM ZBIHI1284-82-09 18:59:003.1[facility]annCHEM QIHXW6436-54-49 18:59:0087[facility]annCHEM KQDHY2335-90-82 18:59:005[facility] NdhocriXKIWPNQMMDWJV7027-00-90 18:59:00Positive *NA*(12/29/17 1:59 PM)[facility] ChildrenYhnfnciNYWCCMAMRI9531-87-94 18:59:00 Test Item Value Reference Range Interpretation Comments PTT (test code = PTT) 28.1 s 22.9-35.8 [facility] DwurzmdNPNWJXUZVR3029-65-11 18:59:00 Test Item Value Reference Range Interpretation Comments INR (test code = INR) 1.00 1 0.85-1.17 [facility] WmqadjjKKIAJOYPXJ4750-91-93 18:59:00 Test Item Value Reference Range Interpretation Comments PT (test code = PT) 13.2 s 12.0-14.7 [facility] ZbehdixDPOCMPVLJB4095-75-61 18:59:0031.7[facility] HermannHEMATOLOGY 2017-12-29 18:59:0077.2[facility] WirzaryHOFQYCGYAS9366-39-45 18:59:0033.7[facility] ZwfvcodPJTVOXZEHR0667-26-41 18:59:00 Test Item Value Reference Range Interpretation Comments MCH (test code = MCH) 26.0 pg 27.0-31.0 [facility] LcwvfvvIHRTYJPNMA1502-08-46 18:59:0017.6[facility] HermannHEMATOLOGY 2017-12-29 18:59:61369Urzhqpnt QcfxzpmZTFJZTRLOU9339-56-96 18:59:0017.4[facility] DlbhulwCQFXADQVWF0299-78-07 18:59:0010.7[facility] UufnkqmAFXPTFDZVQ3750-97-60 18:59:004.10[facility] HfzrldlDXEKAVFLDZ2787-54-00 18:59:0011.4[facility] [place] UWGSVVBDRG8392-64-15 18:59:0086.5[facility] TwvjmsjMMHJNTHPRN2997-29-56 18:59:00 9.3[facility] ZbtwkbgMRPANDZGFI7436-44-97 18:59:003.9[facility] HermannHEMATOLOGY 2017-12-29 18:59:000.1[facility] CrrmpyuIDTJLIXQCI9107-82-09 18:59:001+ *ABN*(12/29/17 1:59 PM)[facility] LubrfvmVYEMAOUMYI0680-59-61 18:59:000.7[facility] OcaznqkYGSTRQCNVI0110-16-80 18:59:001.6[facility] KgyuazqAILIRYORHV7237-69-42 18:59:0015.0[facility] XbotuyeQVEFLVEMPP0538-90-04 18:59:000.2[facility] HermannCHEM FWRPZ1821-65-66 18:14:89600Irtrhzjw HermannCHEM ZESCP0708-81-84 18:14:006.9 [facility]annCHEM TKSZL6231-96-05 18:14:84028Zioiyyrh HermannCHEM PANEL 2017-12-18 18:14:008.7[facility] HermannCHEM NMKVK6640-15-33 18:14:0024[facility] HermannCHEM GMUWD3702-39-48 18:14:35723Ylzehbmv HermannCHEM HEHZN2059-52-94 18:14:000.68[facility] HermannCHEM GYVJL2798-25-61 18:14:003.5[facility] HermannCHEM DFIAG3381-61-14 18:14:0069[facility] HermannCHEM LTVPD1303-43-52 18:14:000.2 [facility]annCHEM LPZXD4282-32-79 18:14:003.4[facility] HermannCHEM PANEL 2017-12-18 18:14:0010[facility] HermannCHEM CJBJU4494-91-88 18:14:0020[facility] HermannCHEM OIJUE4447-47-72 18:14:004[facility] HermannCHEM BSDXZ2359-71-14 18:14:0096[facility] HermannCHEM FNSMR8171-28-91 18:14:00 Test Item Value Reference Range Interpretation Comments A/G Ratio (test code = A/G Ratio) 1.0 1 0.7-1.6 [facility] HermannCHEM AICBN5581-09-29 18:14:003.5[facility] HermannCHEM PANEL 2017-12-18 18:14:00 Test Item Value Reference Range Interpretation Comments B/C Ratio (test code = B/C Ratio) 6 1 6-25 [facility] HermannCHEM TDKDG4632-22-68 18:14:0010.5[facility] HermannENDOCRINOLOGY 2017-12-18 18:14:5624726Skordnpt UjzqosjDMMCKEHCCY5039-35-22 18:14:0078.1 [facility] UvzplnzXMYFSPOXYI3785-26-05 18:14:0032.1[facility] HermannHEMATOLOGY 2017-12-18 18:14:0010.8[facility] LwkzzuhFUKMTSHGGJ0212-20-83 18:14:0011.1[facility] EylyanuLMWJFRIFHL2883-10-67 18:14:25835Ekwvqywx KzxfyxaXPXAWZVQFY5416-98-01 18:14:004.11[facility] JzuqdjgCREVLCQGBI1884-40-99 18:14:0010.9[facility] [place] USHRNWTOHQ0878-10-30 18:14:0017.6[facility] BvtffwoFAKBHIVKND1389-86-12 18:14:00 33.5[facility] NkwrykaZRPDWRZSLV4155-06-18 18:14:00 Test Item Value Reference Range Interpretation Comments MCH (test code = MCH) 26.2 pg 27.0-31.0 [facility] BgjpmxqXBFEWPZZLI9205-42-85 18:14:0080.2[facility] HermannHEMATOLOGY 2017-12-18 18:14:001.6[facility] TqyuzeuHTFFPDHVJY8647-94-48 18:14:008.7[facility] TdyloyhOPQVTRPRAE0883-05-58 18:14:000.3[facility] LwemlltMLOETNLGLB1535-12-65 18:14:004.1[facility] BjclkgjLQGURRWUKF9977-34-88 18:14:000.3[facility] Tin KMCTREKYRX2024-30-36 18:14:0015.1[facility] WuklbdyBLQNHGCCMH8588-47-93 18:14:001+ *ABN*(12/18/17 1:14 PM)[facility] VaeduyaLOJSLNZDJZ7158-03-91 18:14:000.4[facility] WHIIO8484-18-86 17:28:0011[facility] STOOL 2017-12-18 17:28:0078[facility] HLGEP9995-35-77 17:28:00 Test Item Value Reference Range Interpretation Comments UA pH (test code = UA pH) 5.0 1 5.0-8.0 [facility] BZIRD1417-33-21 17:28:00 Test Item Value Reference Range Interpretation Comments UA Spec Grav (test code = UA Spec 1.021 1 Grav) [facility] FMGVK5507-62-97 17:28:00Yellow *NA*(12/18/17 12:28 PM) [facility] TAOVY8086-70-80 17:28:00Large *ABN*(12/18/17 12:28 PM) [facility] TLGIN3217-87-31 17:28:00Marked *ABN*(12/18/17 12:28 PM) [facility] OLLLY2891-61-31 17:28:00Negative (12/18/17 12:28 PM) [facility] CGIYX0297-28-09 17:28:00Small *ABN*(12/18/17 12:28 PM) [facility] JUGJY4460-87-54 17:28:00Negative *NA*(12/18/17 12:28 PM)[facility] UGKY2949-92-88 17:28:00Positive *ABN*(12/18/17 12:28 PM) [facility] VLHUC1173-99-07 04:42:46365Thcnmvhv HermannUR[facility] AND QUNTQ1431-06-13 04:42:00Large *ABN*(10/04/17 11:42 PM)[facility] BFDWW4569-61-22 04:42:00Negative (10/04/17 11:42 PM)[facility] VXWYH4701-69-52 04:42:00Negative (10/04/17 11:42 PM)[facility] BJELU1048-27-43 04:42:00Negative *NA*(10/04/17 11:42 PM)[facility] XNGUI1314-10-36 04:42:00 Test Item Value Reference Range Interpretation Comments UA Spec Grav (test code = UA Spec 1.017 1 Grav) [facility] UCRBR5101-45-76 04:42:00 Test Item Value Reference Range Interpretation Comments UA pH (test code = UA pH) 6.0 1 5.0-8.0 [facility] FKLJF9793-63-29 04:42:00Yellow *NA*(10/04/17 11:42 PM) [facility] GROLR0426-66-98 04:42:00Clear (10/04/17 11:42 PM) [facility] IYMBO9879-50-86 04:42:002[facility] HermannELECTROLYTES 2017-10-05 03:34:0010.5[facility] SmpgrpsDLNDHCQGJVFF8515-70-77 03:34:67491 [facility] FeidozsVOZXSIWTMMNS9533-68-97 03:34:008.3[facility] HermannELECTROLYTES 2017-10-05 03:34:003.5[facility] WthjxolFAGWCVJPTFDG2007-50-98 03:34:93121Bnjmmicp CpshixeAKNYVKGTFIWD8523-92-10 03:34:0027[facility] FqlabnkZHYMQAWCLEXH6820-96-30 03:34:008[facility] ClriaedDUSPSYBPYKPX5460-32-79 03:34:55572Uigbjmhp Tin NABKRUFAPUSC9592-80-35 03:34:000.70[facility] LfsiuxnNUACEHYBHJGI9091-59-83 03:34:0096[facility] BkpjodnFVZNPSEVOVNAB3476-83-63 03:34:86125Jzicaxvt [place] NFKMAGFVBT1933-25-71 03:34:00 Test Item Value Reference Range Interpretation Comments PT (test code = PT) 13.1 s 12.0-14.7 [facility] WkzqyakZJXRCZOCZR8112-96-22 03:34:00 Test Item Value Reference Range Interpretation Comments INR (test code = INR) 0.99 1 0.85-1.17 [facility] XysqleuJLLAAAPXAG5982-31-75 03:34:000.8[facility] HermannHEMATOLOGY 2017-10-05 03:34:0075.1[facility] BjokpvfJKIRBGBEDX7198-81-78 03:34:005.1[facility] GkeiqdbOYOVYDVLYB5958-66-81 03:34:000.5[facility] BanicfbCQPKYGOHMZ9013-44-96 03:34:008.2[facility] YcxytlbAZCVGKOEOE4512-93-59 03:34:0018.5[facility] Tin HIPAYTQQYO3971-30-79 03:34:000.1[facility] OqkiwheVDAAEUYUMM9212-72-98 03:34:000.1 [facility] WgjhssbVSZGEBYHEC2183-21-54 03:34:002.0[facility] HermannHEMATOLOGY 2017-10-05 03:34:000.6[facility] KslbhchLJCWOAAVPU1380-87-84 03:34:00 Test Item Value Reference Range Interpretation Comments PTT (test code = PTT) 36.1 s 22.9-35.8 [facility] UdmluznMSMUDKKQPF7549-11-88 03:34:0030.6[facility] HermannHEMATOLOGY 2017-10-05 03:34:0010.9[facility] RzvpcusEKFJNATKLO2441-63-99 03:34:003.79[facility] JmqbdqxCWZQZUJXLI4758-33-17 03:34:0080.7[facility] YzpzkukYLLQTWACII3219-48-61 03:34:00 Test Item Value Reference Range Interpretation Comments MCH (test code = MCH) 27.3 pg 27.0-31.0 [facility] LbcaocrCWEYMBRGQY7794-91-68 03:34:0010.4[facility] HermannHEMATOLOGY 2017-10-05 03:34:0010.6[facility] PpknuncLKNOARZVLD2217-21-52 03:34:65943Eupiryxq HrrilnnPUTYMPASVH9220-94-04 03:34:0014.0[facility] EmrcrtyLLYFDNRIAN6158-89-28 03:34:0033.8[facility] Tin
[2020-09-09] MEDS ORDERED: LORAZEPAM 1 MG TABLET ONE (14:47)
--- NOTE | 2020-09-09 15:01 | ER ---
Nurse's Notes [facility] Name: Alma Rosa Odonnell Age: 29 yrs Sex: Female : 1990 Arrival Date: 09/09/2020 Time: 13:28 Bed 14 Private MD: Diagnosis: Anxiety disorder, unspecified Presentation: 09/09 13:32 Chief complaint: Patient states: "I am having some anxiety and depression. I am having jd3 thoughts of suicide.". Coronavirus screen: At this time, the client does not indicate any symptoms associated with coronavirus-19. Ebola Screen: Patient negative for fever greater than or equal to 101.5 degrees Fahrenheit, and additional compatible Ebola Virus Disease symptoms. Initial Sepsis Screen: Does the patient meet any 2 criteria? No. Patient's initial sepsis screen is negative. Does the patient have a suspected source of infection? No. Patient's initial sepsis screen is negative. Risk Assessment: Do you want to hurt yourself or someone else? Patient reports desire/thoughts of hurting themselves or someone else. Provider notified. Onset of symptoms was September 07, 2020. 13:32 Method Of Arrival: Ambulatory jd3 13:32 Acuity: MANOD 2 jd3 14:20 Risk Assessment: Do you want to hurt yourself or someone else? Patient reports no bp desire to harm self or others. Triage Assessment: 13:34 General: Appears in no apparent distress. comfortable, Behavior is cooperative, bp appropriate for age, agitated, anxious. Pain: Denies pain. EENT: No deficits noted. Neuro: Level of Consciousness is awake, alert, obeys commands, Oriented to person, place, time, situation, Appropriate for age. Cardiovascular: No deficits noted. Respiratory: No deficits noted. GI: No signs and/or symptoms were reported involving the gastrointestinal system. : No signs and/or symptoms were reported regarding the genitourinary system. Derm: No deficits noted. Musculoskeletal: No deficits noted. 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 - Social history:: Smoking status: Patient denies any tobacco usage or history of. Screenin:45 Abuse screen: Denies threats or abuse. Denies injuries from another. Nutritional bp screening: No deficits noted. Tuberculosis screening: No symptoms or risk factors identified. Fall Risk None identified. Assessment: 13:35 General: SEE TRIAGE NOTE. bp 14:19 Reassessment: PT RE-EVAL BY PROVIDER. PT DENIES SI, REFUSING MEDICAL TREATMENT. bp 15:12 Reassessment: UNABLE TO OBTAIN PT HOME MEDICATION INFORMATION, MX ATTEMPTS BY STAFF AND bp PROVIDER. 15:37 Reassessment: PT D/C AMBULATORY, DX WITH ANXIETY. bp Psych: 13:37 [place] Suicide Severity Screening: In the past month, have you wished you were jd3 or wished you could go to sleep and not wake up? Patient responds "yes." "In the past month, have you actually had any thoughts of killing yourself?" Patient responds "yes." "In your lifetime, have you ever done anything, started to do anything, or prepared to do anything to end your life?" Patient responds "yes." Patient reports suicidal intent within 3 past months. Subjective: Patient's mood is sad, Delusions are denied, Hallucinations are denied Having thoughts of suicide. Denies suicidal plan. Objective: Patient is cooperative, Speech is soft, Affect is appropriate. Vital Signs: 13:35 BP 131 / 91; Pulse 101; Resp 18 S; Temp 98.6(TE); Pulse Ox 99% on R/A; Pain 10/10; jd3 15:13 bp 15:13 REFUSED bp ED Course: 13:28 Patient arrived in ED. as 13:34 Triage completed. jd3 13:36 [facility] King [facility]-C [facility] kb 13:36 Ryan Lewis MD is Attending Physician. kb 13:37 Arm band placed on. jd3 13:50 Patient has correct armband on for positive identification. Bed in low position. Call [facility] light in reach. Side rails up X 1. Warm blanket given. Pulse ox on. NIBP on. 14:16 Michael Boyd, RN is Primary Nurse. bp 14:23 PATIENT REFUSED ANY DIAGNOSTICS . 5 14:36 called the [facility] Crisis Line at [phone]/ Romina from dispatch will page out eb the screener office assistant receptionist and someone will call us back. 14:52 Jc from [facility] returned call/ he says the client had an appointment with them the eb first week of July and never showed up or called to reschedule. According to his records the patient was prescribed Buspirone then discontinued it in 2017/ She then was prescribed Zoloft in 2019/ She may receive her meds from their clinic but he does not have access to their records to obtain a med list for us. 15:13 No provider procedures requiring assistance completed. Patient did not have IV access bp during this emergency room visit. Administered Medications: 14:21 CANCELLED (Other Intervention Used): Ativan 1 mg IVP once kb 14:31 Drug: Ativan 1 mg Route: PO; bp 15:12 Follow up: Response: Anxiety decreased bp Outcome: 15:00 Discharge ordered by . kb 15:37 Discharged to home ambulatory. bp 15:37 Condition: stable 15:37 Discharge instructions given to patient, Instructed on discharge instructions, follow up and referral plans. Demonstrated understanding of instructions, follow-up care. 15:38 Patient left the ED. bp Signatures: Anai King, REFLESHER-C REFLESHER-Janet Edwards Maria [facility] Stalin Gomes RN RN Michael Delaney RN RN Radha Villarreal
--- NOTE | 2020-09-09 15:01 | EDPHYS ---
Physician Documentation [facility] Name: Alma Rosa Odonnell Age: 29 yrs Sex: Female : 1990 Arrival Date: 09/09/2020 Time: 13:28 Bed 14 Private MD: ED Physician Ryan Lewis HPI: 09/09 14:36 This 29 yrs old Female presents to ER via Ambulatory with complaints of kb Anxiety, Depression. 14:36 The patient presents to the emergency department with anxiety, over unknown kb circumstances, depression, over unknown circumstances. Onset: The symptoms/episode began/occurred chronic. Past psychiatric history: Prior diagnosis: depression. Associated signs and symptoms: Pertinent positives; anxiety, depression, Pertinent negatives: abdominal pain, chest pain, homicidal ideation, shortness of breath, substance abuse, suicide ideation. Severity of symptoms: At their worst the symptoms were moderate in the emergency department the symptoms are unchanged. The patient has experienced similar episodes in the past, chronically. The patient has not recently seen a physician. Pt states she has anxiety and depression. States she has been out of her meds for a few months and needs some ativan. Denies suicidal and homicidal ideations. States she normally gets her medications from [facility], but hasn't called them. . CASER IN: 13:35 LMP 09/09/2020 jd3 Historical: - Allergies: 13:34 No Known Allergies; jd3 - Home Meds: 13:34 None [Active]; jd3 - PMHx: 13:34 Anxiety; Bipolar disorder; Depression; jd3 - PSHx: 13:34 None; jd3 - Immunization history:: Adult Immunizations up to date. - Social history:: Smoking status: Patient denies any tobacco usage or history of. ROS: 14:34 Constitutional: Negative for fever, chills, and weight loss, Cardiovascular: Negative kb for chest pain, palpitations, and edema, Respiratory: Negative for shortness of breath, cough, wheezing, and pleuritic chest pain, Abdomen/GI: Negative for abdominal pain, nausea, vomiting, diarrhea, and constipation, MS/Extremity: Negative for injury and deformity, Skin: Negative for injury, rash, and discoloration, Neuro: Negative for headache, weakness, numbness, tingling, and seizure. 14:34 Psych: Positive for anxiety, depression, Negative for drug dependence, alcohol dependence, auditory hallucinations, visual hallucinations, homicidal ideation, suicide gesture, suicidal ideation. Exam: 14:35 Constitutional: This is a well developed, well nourished patient who is awake, alert, kb and in no acute distress. Head/Face: Normocephalic, atraumatic. Skin: Warm, dry with normal turgor. Normal color with no rashes, no lesions, and no evidence of cellulitis. MS/ Extremity: Pulses equal, no cyanosis. Neurovascular intact. Full, normal range of motion. 14:35 Psych: Behavior/mood is angry, Affect is calm, Oriented to person, place, time, Patient has no thoughts/intents to harm self or others. Judgement / Insight is normal. Memory is normal. Delusions/hallucinations are not present. Vital Signs: 13:35 BP 131 / 91; Pulse 101; Resp 18 S; Temp 98.6(TE); Pulse Ox 99% on R/A; Pain 10/10; jd3 15:13 bp 15:13 REFUSED bp MDM: 13:37 Patient medically screened. kb 14:30 Data reviewed: vital signs, nurses notes. Data interpreted: Pulse oximetry: on room air kb is 99 %. Interpretation: normal. Counseling: I had a detailed discussion with the patient and/or guardian regarding: the historical points, exam findings, and any diagnostic results supporting the discharge/admit diagnosis, the need for outpatient follow up, a psychiatrist, to return to the emergency department if symptoms worsen or persist or if there are any questions or concerns that arise at home. ED course: Pt continues to deny SI or HI. States she does not want to hurt herself or anyone else. . 14:59 ED course: Unable to obtain most recent medication that pt was given at [facility]. gudelia Discussed follow up with pt. She will call [facility] on Friday for appt to get back on regular medication. 09/09 13:36 Order name: Acetaminophen gudelia 09/09 13:36 Order name: EKG; Complete Time: 13:37 gudelia Administered Medications: 14:21 CANCELLED (Other Intervention Used): Ativan 1 mg IVP once kb 14:31 Drug: Ativan 1 mg Route: PO; bp 15:12 Follow up: Response: Anxiety decreased bp Disposition: 16:21 Co-signature as Attending Physician, Ryan Lewis MD. rn Disposition: 09/09/20 15:00 Discharged to Home. Impression: Anxiety disorder, unspecified. - Condition is Stable. - Discharge Instructions: Panic Attacks, Xfzr-hj-Dkky, Generalized Anxiety Disorder. - Prescriptions for Hydroxyzine HCl 25 mg Oral Tablet - take 1 tablet by ORAL route every 6 hours As needed; 10 tablet. - Medication Reconciliation Form, Thank You Letter, Antibiotic Education, Prescription Opioid Use form. - Follow up: Emergency Department; When: As needed; Reason: Worsening of condition. Follow up: Private Physician; When: 2 - 3 days; Reason: Recheck today's complaints, Continuance of care, Re-evaluation by your physician. Signatures: Dispatcher [employer] EDAnai Mccracken, REINALDO-Susie NAJERA-Ryan Taylor MD MD rn Davies, Jonathon, RN RN Michael Delaney RN RN bp Corrections: (The following items were deleted from the chart) 14:21 13:52 Ativan 1 mg IVP once ordered. kb kb 14:24 13:36 Urine Test ordered. kb kb 14:24 13:37 EKG - Nurse/Tech ordered. kb kb 14:24 13:37 IV Saline Lock ordered. kb kb 14:24 13:37 Labs collected and sent ordered. kb kb 14:24 13:37 Urine Dipstick-Ancillary ordered. kb kb 14:32 13:37 PROTIME (+INR)+COAG.LAB.BRZ ordered. EDMS EDMS 14:32 13:37 PTT, ACTIVATED+COAG.LAB.BRZ ordered. EDMS EDMS 14:32 13:37 URINE DRUG SCREEN+CHEM UR.LAB.BRZ ordered. EDMS EDMS 14:33 13:37 Acetaminophen Level ordered. EDMS EDMS 14:33 13:37 BASIC METABOLIC PANEL+C.LAB.BRZ ordered. EDMS EDMS 14:33 13:37 CBC+H.LAB.BRZ ordered. EDMS EDMS 14:33 13:37 ETHANOL+C.LAB.BRZ ordered. EDMS EDMS 14:33 13:37 HEPATIC FUNCTION+C.LAB.BRZ ordered. EDMS EDMS 14:33 13:37 SALICYLATE+C.LAB.BRZ ordered. EDMS EDMS 15:38 15:00 09/09/2020 15:00 Discharged to Home. Impression: Anxiety disorder, unspecified. bp Condition is Stable. Forms are Medication Reconciliation Form, Thank You Letter, Antibiotic Education, Prescription Opioid Use. Follow up: Emergency Department; When: As needed; Reason: Worsening of condition. Follow up: Private Physician; When: 2 - 3 days; Reason: Recheck today's complaints, Continuance of care, Re-evaluation by your physician. kb
[2020-09-09 15:53] VITALS: BP 131/91; TEMP 98.6; O2SAT 99
== END 2020-09-09 15:38 | disposition home or self-care (01) ==
LOC: ER 13:27
DX: F41.8 Other specified anxiety disorders (principal)
CPT/HCPCS: 99284

== ENCOUNTER 2020-10-30 16:38 | Emergency (ER) | payer SELFPAY ==
--- OUTSIDE RECORDS SUMMARY | 2020-10-30 16:43 | XMS REPORT | Continuity of Care Document ---
:1990 Author Organization [facility] t Address [address] [place] [address] Care Team Providers Name Role Phone Kelton [...] PAIN /A 00 BDOMINAL PAIN Active 03/24/2018 [facility] CONTRACTIO Diagnosis Active 2018-03-15 Memoria NS 8- 20:09:00 l 00:00: Ladd CONTRACTIO 00 NS Active 8 [facility] 22WKS Diagnosis Active 2018-03-19 Mem oria PREG-ANXIE 8- 08:24:00 l TY,BREAKDO 22WKS 00:00: Tiki nn WN PREG-ANXIE 00 TY,BREAKDO WN Active 8 [facility] Tin BACK PAIN, Diagnosis Active 2017-12-29 Memoria 14 WEEKS 6-11 15:04:00 l BACK 00:00: Ladd PAIN, 14 00 WEEKS Active 12/29/2017 [facility] Tin OTHER Diagnosis Active 2017-12-18 Mem oria 5-31 [...] second ng trimester , second trimester 09/26/2018 [facility] Insomnia, Problem 2018-09-26 Me moria unspecifie 15:18:23 l d Ladd Insomnia, unspecifie d 09/26/2018 [place] 22 weeks Problem 2018-09-26 Mem oria gestation 15:18:23 l of 22 weeks Alvaro n gestation of [facility] Problem 2018-10-02 Mem oria of the 11:54:19 l digestive Diseases Her chacko system of the complicati digestive ng system , complicati second ng trimester , second trimester 10/02/2018 [facility] Noninfecti Problem 2018-10-02 M emoria ve 11:54:19 l gastroente Alvaro n ritis and Noninfecti colitis, ve unspecifie gastroente d ritis and colitis, unspecifie d 10/02/2018 [facility] Anxiety Problem 2018-10-02 Baldo tez disorder, 11:54:19 l unspecifie Anxiety Her chacko d disorder, unspecifie d 10/02/2018 [facility] Cannabis Problem 2018-10-02 Mem oria use, 11:54:19 l unspecifie Cannabis He rmann d, use, uncomplica unspecifie fabian d, uncomplica fabian 10/02/2018 [facility] Smoking Problem 2018-10-02 Baldo tez (tobacco) 11:54:19 l complicati Smoking Her chacko ng (tobacco) , complicati second ng trimester , second trimester 10/02/2018 [facility] Nicotine Problem 2018-10-02 Mem oria dependence 11:54:19 l , Nicotine Alvaro n cigarettes dependence , , uncomplica cigarettes fabian , uncomplica fabian 10/02/2018 [facility] Bipolar Problem 2018-10-11 Baldo tez disorder, 14:07:22 l unspecifie Bipolar Her chacko d disorder, unspecifie d 10/11/2018 [facility] 24 weeks Problem 2018-10-11 Mem oria gestation 14:07:22 l of 24 weeks Alvaro n gestation of 10/11/2018 [facility] Unspecifie Problem 2018-10-11 M emoria d 14:07:22 l abdominal Ladd pain Unspecifie d abdominal pain 9 [facility] Other Problem 2018-10-11 Memor ia mental 14:07:22 l disorders Other Alvaro n complicati mental ng disorders , complicati second ng trimester , second trimester 10/11/2018 [facility], [facility] Substance Problem Resolve 2018-10-11 M emoria abuse d 14:07:22 l (disorder) Alvaro n Substance abuse (disorder) Resolved Problem 10/11/2018 [facility], [facility] Bipolar I Problem Active 2018-10-11 Me moria disorder 14:07:22 l (disorder) Bipolar Her chacko I disorder (disorder) Active Problem 10/11/2018 [facility], Kelton Swanson [facility] Patient Problem Resolve 2018-10-11 2018-10-11 Memoria currently d 03-15 14:07:22 14:07:22 l Patient 00:00: Tiki nn (finding) currently 00 (finding) Resolved 03/15/2018 Problem 10/11/2018 [facility], Kelton Swanson [facility] History of Past Illness Condition Condition Condition Status Onset Resolution Last Treating Co mments Source Name Details Category Date Date Treatment Clinician Date Other Problem 2018-10-11 2018-10-11 M emoria specified 04-02 14:07:22 14:07:22 l diseases Other 03:21: Ladd and specified 06 conditions diseases complicati and ng conditions , complicati childbirth ng and the , puerperium childbirth and the puerperium 04/02/2018 10/11/2018 [facility] Unspecifie Problem 2018-10-02 2018-10-02 Memoria d 03-21 11:54:19 11:54:19 l infection 04:00: Tin of urinary Unspecifie 44 tract in d , infection second of urinary trimester tract in , second trimester 03/21/2018 10/02/2018 [facility] 23 weeks Problem 2018-10-02 2018-10-02 Memoria gestation 8 11:54:19 11:54:19 l of 23 weeks 05:00: Alvaro n gestation 00 of 03/15/2018 10/02/2018 [facility] Urinary Problem 2018-10-02 2018-10-02 Memoria tract 03-15 11:54:19 11:54:19 l infection, Urinary 05:00: Her chacko site not tract 00 specified infection, site not specified 03/15/2018 10/02/2018 [facility] Complete Problem 2018-01-11 2018-01-11 Memoria or 10-12 11:25:58 11:25:58 l unspecifie Complete 02:43: He rmann d or 45 spontaneou unspecifie s d without spontaneou complicati s on without complicati on 10/12/2017 01/11/2018 [facility] Incomplete Problem 2017-2018-01-11 2018-01-11 Memoria spontaneou 3-18 11:25:58 11:25:58 l s 05:00: Alvaro n without Incomplete 00 complicati spontaneou on s without complicati on 10/05/2017 01/11/2018 [facility] Injury, Problem 2017-2018-01-01 2018-01-01 Memoria poisoning 6-11 02:33:12 02:33:12 l and Injury, 05:00: Tin certain poisoning 00 other and consequenc certain es of other external consequenc causes es of complicati external ng causes , complicati unspecifie ng d , trimester unspecifie d trimester 12/29/2017 01/01/2018 [facility] Threatened Problem 2017-12-21 2017-12-21 Memoria 12-18 04:24:21 04:24:21 l 05:00: Tin Threatened 00 8 12/21/2017 [facility] Other Problem 2017-12-21 2017-12-21 M emoria specified 12-18 04:24:21 04:24:21 l disorders Other 05:00: Alvaro n of specified 00 amniotic disorders fluid and of membranes, amniotic unspecifie fluid and d membranes, trimester, unspecifie not d applicable trimester, or not unspecifie applicable d or unspecifie d 12/18/2017 12/21/2017 [facility] Allergies, Adverse Reactions, Alerts Allergy Allergy Status Severity Reaction(s) Onset Inactive Treating Comm ents Source Name Type Date Date Clinician No Known DA Active U 2017-07 [facility] 0-04 Clear s 00:00: Alaniz 00 [facility] No Known DA Active U [facility] Allergie 2- Clear s 00:00: Alaniz 00 [facility] Social History Social Habit Start Date Stop Date Quantity Comments Source Social History 2018-03-24 2018-03-24 Fatou horne 23:23:23 23:23:23 Medications Ordered Filled Start Stop Current Ordering Indication Dosage Frequency Signature Comments Components Source Medication Medication Date Date Medication? Clinician (SIG) Name Name multivitami No 1 tab, Baldo tez n, 03-25 Route: PO, l 14:00: Drug Form: Ladd 00 TAB, Dosing Weight 68.182, kg, Daily, Start date: 03/25/18 9:00:00 CDT, Duration: 30 day, Stop date: 04/23/18 9:00:00 CDT Protonix No Notes: Memoria 9-05 Tablet l 02:48: should not Ladd 00 be chewed or crushed. (Same as: [...] Memoria 9-04 (Same as: l 22:29: Haldol) Ladd 00 Nitrofurant No 100 mg = 1 Memoria oin 100 MG 03-16 cap, PO, l Oral 00:44: BID, take Ladd Capsule 00 2 times a [Macrobid] day, X 7 day, # 14 cap, 0 Refill(s) Macrobid No Notes: Not Mem oria 8-27 recommende l 00:42: d for Ladd 00 patients with CrCl<50 ml/min (Same as:Macrobi d) With food. Ondansetron No Notes: Baldo tez 8- (Same as: l 23:51: Zofran) Tin 00 MEDICATION WASTE Product Size: 4 mg Product Wasted: ___ mg Famotidine No Notes: Memor ia 8-26 (Same as: l 23:51: Pepcid) Tin 00 Can be dilute in 5-10cc NS IVP: Slow IV push over at least 2 minutes. Calcium No 1,000 mL, Memor ia Chloride 8-26 1000 l 0.0014 23:51: ml/hr, Tin MEQ/ML / 00 Infuse Potassium Over: 1 Chloride hr, Route: 0.004 IV, 1,000, MEQ/ML / Drug form: Sodium INJ, ONCE, Chloride Dosing 0.103 Weight MEQ/ML / 80.455 kg, Sodium Start Lactate date: 0.028 03/15/18 MEQ/ML 18:51:00 Injectable CDT, Stop Solution date: 03/15/18 18:51:00 CDT Tylenol 2017-0 No 650 mg, Memoria 12-30 Route: PO, l 01:46: Drug form: Ladd 00 TAB, ONCE, Dosing Weight 81.818, kg, [...] 0.9% 12-29 (Same as: l 18:53: BD Ladd 00 Posiflush) Tylenol 0 No 650 mg, Memoria 12-18 Route: PO, l 18:25: Drug form: Ladd 00 TAB, ONCE, Dosing Weight 81.818, kg, Priority: STAT, Start date: 12/18/17 13:25:00 CDT, Stop date: 12/18/17 13:25:00 CDT Tylenol 2017-0 No Notes: Max Baldo tez 12-18 acetaminop l 17:58: hen = 4000 Ladd 00 mg/day (4 gm/day). (Same as: Tylenol) Leta ODT 0 No 4 mg, Memori a 5-31 Route: PO, l 16:20: Drug form: Tin 00 TABDIS, ONCE, Dosing Weight 81.818, kg, [...] Observation Value Comments Source Weight 2018-03-24 15:34:00 [facility] BMI Calculated 2018-03-24 15:34:00 Memori al Tin Temperature Oral (F) 2018-03-24 15:34:00 97.9 F [facility] Tin Respitory Rate 2018-03-24 15:34:00 Memori al Tin Height 2018-03-24 15:34:00 149.86 cm [facility] [place] Systolic (mm Hg) 2018-03-24 15:34:00 Baldo rial Tin Diastolic (mm Hg) 2018-03-24 15:34:00 Mem orial Tin Heart Rate 2018-03-24 15:34:00 [facility] Tin Weight 2018-03-24 15:24:00 [facility] [place] Height 2018-03-24 15:24:00 149.86 cm [facility] Tin BMI Calculated 2018-03-24 15:24:00 Memori al Tin Heart Rate 2018-03-24 15:03:00 Memorial Tni Systolic (mm Hg) 2018-03-24 15:03:00 Baldo rial Ladd Diastolic (mm Hg) 2018-03-24 15:03:00 Mem orial [place]add Systolic (mm Hg) 2018-03-16 00:44:00 Baldo rial Ladd Diastolic (mm Hg) 2018-03-16 00:44:00 Mem orial Tin Systolic (mm Hg) 2018-03-15 23:30:00 Baldo rial Tin Diastolic (mm Hg) 2018-03-15 23:30:00 Mem orial Ladd Weight 2018-03-15 23:08:00 [facility] Tin BMI Calculated 2018-03-15 23:08:00 Memori al Tin Height 2018-03-15 23:08:00 152.4 cm [facility] Tin Temperature Oral (F) 2018-03-15 23:08:00 98.1 F [facility] Tin Systolic (mm Hg) 2018-03-15 23:08:00 Baldo rial Ladd Diastolic (mm Hg) 2018-03-15 23:08:00 Mem orial Ladd Respitory Rate 2018-03-15 23:08:00 Memori al Ladd Heart Rate 2018-03-15 23:08:00 [facility] BMI Calculated 2018-03-10 00:47:00 Memori al Tin Weight 2018-03-10 00:47:00 [facility] Systolic (mm Hg) 2018-03-10 00:47:00 Baldo rial Ladd Diastolic (mm Hg) 2018-03-10 00:47:00 Mem orial Tin Respitory Rate 2018-03-10 00:47:00 Memori al Tin Heart Rate 2018-03-10 00:47:00 [facility] Tin Temperature Oral (F) 2018-03-10 00:47:00 99.0 F [facility] Tin Height 2018-03-10 00:47:00 152.4 cm [facility] Heart Rate 2017-12-30 01:30:00 [facility] Tin Respitory Rate 2017-12-30 01:30:00 Memori al Ladd Temperature Oral (F) 2017-12-30 01:30:00 98.3 F [facility] Tin Systolic (mm Hg) 2017-12-30 01:30:00 Baldo rial Ladd Diastolic (mm Hg) 2017-12-30 01:30:00 Mem orial Tin Heart Rate 2017-12-30 00:19:00 [facility] Respitory Rate 2017-12-30 00:19:00 Memori al Ladd Temperature Oral (F) 2017-12-30 00:19:00 98.0 F [facility] Systolic (mm Hg) 2017-12-30 00:19:00 Baldo rial Ladd Diastolic (mm Hg) 2017-12-30 00:19:00 Mem orial Tin Respitory Rate 2017-12-29 22:14:00 Memori al Tin Heart Rate 2017-12-29 22:14:00 [facility] [place] Temperature Oral (F) 2017-12-29 22:14:00 98.1 F [facility] Tin Systolic (mm Hg) 2017-12-29 22:14:00 Baldo rial Tin Diastolic (mm Hg) 2017-12-29 22:14:00 Mem orial Ladd Height 2017-12-29 18:20:00 152.4 cm [facility] Tin BMI Calculated 2017-12-29 18:20:00 Memori al Tin Weight 2017-12-29 18:20:00 [facility] Heart Rate 2017-12-18 21:01:00 [facility] Tin Systolic (mm Hg) 2017-12-18 21:01:00 Baldo rial Tin Diastolic (mm Hg) 2017-12-18 21:01:00 Mem orial Ladd Respitory Rate 2017-12-18 21:01:00 Memori al Ladd Temperature Oral (F) 2017-12-18 21:01:00 98.1 F [facility] Tin Weight 2017-12-18 16:08:00 [facility] [place] Systolic (mm Hg) 2017-12-18 16:08:00 Baldo rial Ladd Diastolic (mm Hg) 2017-12-18 16:08:00 Mem orial Tin Heart Rate 2017-12-18 16:08:00 [facility] Tin Temperature Oral (F) 2017-12-18 16:08:00 98.1 F [facility] Tin Respitory Rate 2017-12-18 16:08:00 Memori al Tin Height 2017-10-05 03:02:00 152.4 cm [facility] [place] Weight 2017-10-05 03:02:00 [facility] Tin BMI Calculated 2017-10-05 03:02:00 Memori al Tin Systolic (mm Hg) 2017-10-05 03:02:00 Baldo rial Tin Diastolic (mm Hg) 2017-10-05 03:02:00 Mem orial Tin Temperature Oral (F) 2017-10-05 03:02:00 98.6 F [facility] Tin Heart Rate 2017-10-05 03:02:00 [facility] Tin Respitory Rate 2017-10-05 03:02:00 Memori al L[place] Procedures This patient has no known procedures. Encounters Start End Encounter Admission Attending Care Care Encounter Source Date/Time Date/Time Type Type Clinicians Facility Department ID 2020-04-27 Inpatient Sunday Carrillo [facility] [id number] 10:43:00 Sunday Carrillo -[id number] [facility] 2020-04-27 2020-05-24 Inpatient 3 Sunday Carrillo [facility] [id number] 10:43:00 13:30:00 Sunday Carrillo [facility] 2020-04-27 2020-04-27 [facility] [id number] 11:31:00 23:59:00 Encounter Sunday [facility].1.13.10 MEDICAL 4.2.7.2.686 [place] [id number] 2020-04-27 2020-04-27 Orders Doctor BYNUM [id number] 00:00:00 00:00:00 Only Unassigned, LUIS [id number] [facility] .2.7.2.686 [id number] 2020-03-28 2020-03-28 Emergency Villalobos, [facility] [id number] 20:05:00 20:52:00 Lydia Ford [id number] [place] 4.2.7.2.686 [place] [address] [id number] 2020-03-28 2020-03-28 Orders Doctor FLETCHER [id number] 00:00:00 00:00:00 Only Unassigned, LUIS [id number] [facility] .2.7.2.686 [id number] 2020-03-24 2020-03-24 Emergency [facility] [id number] 07:46:00 08:18:00 Jenna Ford [id number] [place] 4.2.7.2.686 [place] [id number] 2020-03-23 2020-03-23 Emergency [facility] [id number] 16:33:00 20:42:00 Susan Ford [id number] [place] 4.2.7.2.686 [place] [address] [id number] 2020-03-23 2020-03-23 Orders Doctor BYNUM 1.2.840.114 [id number] 00:00:00 00:00:00 Only Unassigned, LUIS [id number] [place] 4.2.7.2.686 [id number] 2019-08-25 2019-08-25 Emergency [facility], [facility] [id number] 16:23:00 19:17:00 Lisa Ford [id number] [place] 4.2.7.2.686 [place] [id number] 2019-04-03 2019-04-03 Emergency [place], [facility] [id number] 18:43:45 19:09:00 Bernard Ford [id number] [place] 4.2.7.2.686 [place] [id number] 2018-03-24 2018-03-24 Outpatient Aixa [facility] [id number] 10:02:00 22:45:00 Kyra Smith Krupa 2018-03-15 2018-03-15 Outpatient Ruben, [facility] [id number] 17:53:00 19:51:00 Gunnarslade Sanchez 2018-03-09 2018-03-09 Outpatient Josiah Donohue [facility] [id number] 19:20:00 21:17:00 R 2017-12-29 2017-12-29 Outpatient Kirstie, [facility] [id number] 13:04:00 21:01:00 Hesham P 2017-12-18 2017-12-18 Outpatient Francois, [facility] [id number] 11:03:00 16:03:00 Manjit Josesito Deng 2017-10-04 2017-10-05 Outpatient Kirstie, [facility] [id number] 22:00:00 00:49:00 Ambica 01 Results Test [...] calculation i s LDL/HDL Ratio=LDL Calc/HDL Chol [id number] 09:56:39 Test Item Value Reference Range Interpretation Comments TSH (test code = TSH) 1.610 mcIU/mL 0.550-4.780 HCG Ql [id number] 09:56:39 Test Item Value Reference Range Interpretation Comments HCG, Serum Qual (test code = HCG, Negative Negative Serum Qual) DRUG [id number] 21:30:00Negative *NA*(03/24/18 4:30 PM)[facility] [id number] 21:30:00Negative *NA*(03/24/18 4:30 PM)[facility] [id number] 21:30:00Negative *NA*(03/24/18 4:30 PM)[facility] [id number] 21:30:00See Note (03/24/18 4:30 PM)[facility] 2018-03-24 21:30:00Negative *NA*(03/24/18 4:30 PM)[facility] 2018-03-24 21:30:00Positive *ABN*(03/24/18 4:30 PM)[facility] 2018-03-24 21:30:00Negative *NA*(03/24/18 4:30 PM)[facility] 2018-03-24 21:30:00Negative *NA*(03/24/18 4:30 PM)[facility] 2018-03-24 21:30:00Negative *NA*(03/24/18 4:30 PM)[facility] 2018-03-24 21:30:00Negative *NA*(03/24/18 4:30 PM)[facility] 2018-03-24 21:30:00Positive *ABN*(03/24/18 4:30 PM)[facility] 2018-03-24 21:30:001[facility] [id number] 21:30:009[facility] [id number] 21:30:00Negative *NA*(03/24/18 4:30 PM)[facility] [id number] 21:30:002.0[facility] STOOL 2018-03-24 21:30:00Negative (03/24/18 4:30 PM)[facility] 2018-03-24 21:30:00Moderate *ABN*(03/24/18 4:30 PM)[facility] 2018-03-24 21:30:00Negative (03/24/18 4:30 PM)[facility] 2018-03-24 21:30:00 Test Item Value Reference Range Interpretation Comments UA pH (test code = UA pH) 6.0 1 5.0-8.0 [facility] [id number] 21:30:00 Test Item Value Reference Range Interpretation Comments UA Spec Grav (test code = UA Spec 1.013 1 Grav) [facility] [id number] 21:30:00Clear (03/24/18 4:30 PM)[facility] [id number] 21:30:00Yellow *NA*(03/24/18 4:30 PM)[facility] OllscrnOSBFHNPUOU6106-95-39 20:46:0032.6[facility] BzweyxvLQQCGVEEXP7819-31-91 20:46:00 Test Item Value Reference Range Interpretation Comments MCH (test code = MCH) 27.4 pg 27.0-31.0 Memorial IqbtjxwXCQHLRAMHX5499-94-84 20:46:0084.2[facility]OLOG[facility] 2018-03-24 20:46:0015.1[facility] BhfddsjGRCAVJWGPM2339-25-96 20:46:51791Bvmkyliw EwhezfvGFNOXPNDVP1688-67-11 20:46:0010.3[facility] UjuvgoaXHROAJCRSD0983-60-84 20:46:0031.5[facility] LkdszoiTUYMHAOUXP1942-99-85 20:46:009.5[facility] Tin OZOQBWOVJE0997-36-05 20:46:003.74[facility] XapzhzqSJVLQIFAXK4438-39-10 20:46:00 78.3[facility] QfpygsiJEJRZFUORF6456-94-27 20:46:000.2[facility]ann[facility]OLOGY 2018-03-24 20:46:001.5[facility] ZrfgozrNQAPCSWYFZ2999-62-05 20:46:007.4[facility] JyekhjbVHLATGBXJB2532-48-68 20:46:000.5[facility] TeqtdpyMZADYHCOCG9591-45-20 20:46:000.4[facility] SwiluhrQTRUAEQWWH5057-45-28 20:46:005.0[facility] FKQUOPRBNQ2041-48-61 20:46:0016.1[facility] IlsjhyvYULKJSDTUU9716-23-34 20:46:00 Negative *NA*(03/24/18 3:46 PM)[facility] XpiubxvTHOCHXEQJL3110-96-32 20:46:00Non- Reactive *NA*(03/24/18 3:46 PM)[facility] PpcnigeLRJVCVGZDR4997-53-24 20:46:00 Negative *NA*(03/24/18 3:46 PM)[facility]ann[facility] BANK [id number] 20:46:00Negative (03/24/18 3:46 PM)[facility] XbxqgzhHYEMUOLOEL7717-92-31 20:46:00 11.4[facility] HermannCHEM IEGBK9334-93-66 23:56:0053[facility] HermannCHEM PANEL 2018-03-15 23:56:64674Lmhiooxv HermannCHEM DDXCE9230-78-56 23:56:62759Jasrzuoc HermannCHEM NFKOP3284-03-91 23:56:0027[facility] HermannCHEM JYQCK7112-59-01 23:56:99709Hjuomnrp HermannCHEM WENXM2089-55-61 23:56:007.8[facility] HermannCHEM BZMSM3387-29-71 23:56:006.6[facility] HermannCHEM WNLHC8768-07-91 23:56:000.50 [facility]annCHE[facility] LPEUB8145-53-48 23:56:006[facility] HermannCHEM PANEL 2018-03-15 23:56:003.9[facility] HermannCHEM PEFHH3447-21-43 23:56:67219Aemmgzoc HermannCHEM HXXES0588-01-30 23:56:002.7[facility] HermannCHEM IYFCI1126-24-04 23:56:0018[facility] HermannCHEM DLLNJ0717-76-75 23:56:0087[facility]annCHEM QVZPG4992-39-93 23:56:0010[facility]annCHE[facility] BFNAQ1646-39-48 23:56:000.2 [facility] HermannCHEM CZWVI0651-20-16 23:56:0086[facility]annCHEM PANEL 2018-03-15 23:56:00 Test Item Value Reference Range Interpretation Comments B/C Ratio (test code = B/C Ratio) 12 1 6-25 [facility] HermannCHEM [id number] 23:56:003.9[facility]annCHE[facility] PANEL 2018-03-15 23:56:00 Test Item Value Reference Range Interpretation Comments A/G Ratio (test code = A/G Ratio) 0.7 1 0.7-1.6 [facility] HermannCHEM [id number] 23:56:009.9[facility]annHEMATOLOGY 2018-03-15 23:56:57743Ilntrxvu RedzizxPHNUGZOXPB8946-72-78 23:56:0012.1[facility] NlljlfnUEULDDVZFC2212-64-16 23:56:0015.6[facility] AghvuymHPNGMYVVEY5485-48-23 23:56:0033.9[facility] LvvwlkeSWKZSGVCJB7815-71-57 23:56:00 Test Item Value Reference Range Interpretation Comments MCH (test code = MCH) 27.9 pg 27.0-31.0 [facility] EaveqqdFKQWSMFZKX0403-90-47 23:56:0082.2[facility]annHEMATOLOGY 2018-03-15 23:56:0014.5[facility] IovhdxyRNRALRJZKK7775-85-14 23:56:003.80[facility] PuttqyvVKDUYAHCDP8711-04-17 23:56:0010.6[facility] HrtlmkbSXOGCUVXQX4674-92-63 23:56:0031.3[facility] EhrnsrjDASCVOOJBD4135-21-42 23:56:001.4[facility] BDMNYFDTXF0486-56-30 23:56:000.4[facility] TjqojilFHMEYPSEFZ1663-72-90 23:56:000.0 [facility] MntxeigBPPQJNTSEV4072-22-35 23:56:000.0[facility]annHEMATOLOGY 2018-03-15 23:56:0086.8[facility] DwdhoceIZZHTBRVLT5221-75-70 23:56:003.0[facility] JqevwqxAOPUHWDIJJ6042-06-38 23:56:000.2[facility] YtqncqfWKYPUKQKCU4952-73-17 23:56:009.9[facility] FfiqypwMSGKYMEJYN4821-01-87 23:56:0012.6[facility] RKJLUENVMU1119-11-10 23:56:000.1[facility] DlnwcsbKNLRPNTOTU6630-98-73 23:56:00 Normal (03/15/18 6:56 PM)[facility] XvquklyFSNXHIJZOI8288-82-91 23:56:00Normal (03/15/18 6:56 PM)[facility] TVUBA7874-24-27 23:56:001[facility] AYCYT4564-63-48 23:56:003[facility] STOOL 2018-03-15 23:56:00<=1.0[facility] PJUNE9858-17-38 23:56:0029 [facility] ACUXK2577-85-38 23:56:00Moderate *ABN*(03/15/18 6:56 PM)[facility] [id number] 23:56:00Negative *NA*(03/15/18 6:56 PM)[facility] [id number] 23:56:00Negative (03/15/18 6:56 PM) [facility] [id number] 23:56:00Negative (03/15/18 6:56 PM) [facility] [id number] 23:56:00 Test Item Value Reference Range Interpretation Comments UA pH (test code = UA pH) 5.0 1 5.0-8.0 [facility] [id number] 23:56:00 Test Item Value Reference Range Interpretation Comments UA Spec Grav (test code = UA Spec 1.015 1 Grav) [facility] [id number] 23:56:00Marked *ABN*(03/15/18 6:56 PM) [facility] [id number] 23:51:00Negative (12/29/17 6:51 PM) [facility] [id number] 23:31:00Product available (12/29/17 6:31 PM)[facility] [id number] 21:58:00Negative (12/29/17 4:58 PM)[facility] [id number] 21:58:00Large *ABN*(12/29/17 4:58 PM)[facility] [id number] 21:58:00Negative (12/29/17 4:58 PM) [facility] [id number] 21:58:00Negative *NA*(12/29/17 4:58 PM) [facility] [id number] 21:58:003[facility] [id number] 21:58:003[facility] [id number] 21:58:00 Test Item Value Reference Range Interpretation Comments UA pH (test code = UA pH) 7.0 1 5.0-8.0 [facility] [id number] 21:58:00 Test Item Value Reference Range Interpretation Comments UA Spec Grav (test code = UA Spec 1.012 1 Grav) [facility] [id number] 21:58:00Slight *ABN*(12/29/17 4:58 PM) [facility] [id number] 21:58:00Yellow *NA*(12/29/17 4:58 PM) [facility] [id number] 20:14:001.3[facility]annTOXICOLOG[facility] 2017-12-29 20:14:00<3[facility] [id number] 20:14:00<0.003 [facility] HermannCHE[facility] [id number] 18:59:00 Test Item Value Reference Range Interpretation Comments A/G Ratio (test code = A/G Ratio) 0.8 1 0.7-1.6 [facility] [id number] 18:59:003.7[facility] PAN[facility] 2017-12-29 18:59:00 Test Item Value Reference Range Interpretation Comments B/C Ratio (test code = B/C Ratio) 8 1 6-25 [facility]CHE[facility] [id number] 18:59:0013.3[facility]ann[facility] PANEL 2017-12-29 18:59:23516[facility]zyhxtek HermannCHEM [id number] 18:59:000.2[facility]annCHEM WJCQZ4030-77-95 18:59:0071[facility]annCHEM RUAKW8418-35-09 18:59:0015[facility]annCHE[facility] FRAYG0005-55-27 18:59:0019[facility]annCHEM LQAZW9105-15-79 18:59:000.65[facility]annCHE[facility] BKHEQ7574-13-81 18:59:006.8 [facility] HermannCHEM BZKGN1693-57-26 18:59:06231Yunbwmoe HermannCHEM PANEL 2017-12-29 18:59:61579Yoosglxw HermannCHEM PRJLG2491-22-33 18:59:003.3[facility]ann[facility] HJSKU4706-43-63 18:59:008.4[facility]ann[facility] JBOYC1162-28-30 18:59:0022[facility]annCHEM QEOCE8246-28-48 18:59:003.1[facility]annCHE[facility] BTYSD7414-55-97 18:59:0087[facility]annCHEM TSVIG4996-93-96 18:59:005[facility] VbmrykiUVERUPFXMUPCC6432-37-91 18:59:00Positive *NA*(12/29/17 1:59 PM)[facility]98[facility]62-66 18:59:00 Test Item Value Reference Range Interpretation Comments PTT (test code = PTT) 28.1 s 22.9-35.8 [facility] KwsfuaiKGYHRVZXOB7260-29-85 18:59:00 Test Item Value Reference Range Interpretation Comments INR (test code = INR) 1.00 1 0.85-1.17 [facility] NvmvidpYRAQMOIVVA6185-09-97 18:59:00 Test Item Value Reference Range Interpretation Comments PT (test code = PT) 13.2 s 12.0-14.7 [facility] PqamytkAAIUCDPKQR4096-07-80 18:59:0031.7[facility]annHEMATOLOGY 2017-12-29 18:59:0077.2[facility] JmdqxgbNHESOXYRRY2014-30-20 18:59:0033.7[facility] GqfvzyqSZDAEAKLGO1096-10-55 18:59:00 Test Item Value Reference Range Interpretation Comments MCH (test code = MCH) 26.0 pg 27.0-31.0 [facility] RkvyoduGDZTKWJEII8302-04-91 18:59:0017.6[facility]annHEMATOLOGY 2017-12-29 18:59:13772Gbkmtowj QkmfpjrDWRLBHAKAO3144-34-61 18:59:0017.4[facility] UnvvvidPDHFAHGXDH7316-62-97 18:59:0010.7[facility] FhyhojrJJKAZUNLPZ2795-83-48 18:59:004.10[facility] ChiokhaYLCLAHWLIX6301-63-18 18:59:0011.4[facility] UMSICDCYFT8613-86-88 18:59:0086.5[facility] RmeqnzlVROMHSETFZ9945-90-66 18:59:00 9.3[facility] OumgowqFHJODGVQHL8692-95-21 18:59:003.9[facility]annHEMATOLOGY 2017-12-29 18:59:000.1[facility] EsxupskFUIZVBPLEE0265-68-23 18:59:001+ *ABN*(12/29/17 1:59 PM)[facility] XmcqkldQFACSJRDQQ3005-93-40 18:59:000.7[facility] BorrabnLYJKHJWANF5800-07-79 18:59:001.6[facility] CjizrvjJLGCSOZKCQ3270-33-10 18:59:0015.0[facility] NganjgdQJDANITSKV4521-49-05 18:59:000.2[facility]annCHEM HHZPM4291-78-34 18:14:64088Hvibsmrb HermannCHEM ZWFVC5042-51-37 18:14:006.9 [facility] JPBJD1010-92-69 18:14:74385Fbvchjjv HermannCHEM PANEL 2017-12-18 18:14:008.7[facility]annCHEM LTOOK9926-86-50 18:14:0024[facility]annCHE[facility] DQTTE1324-84-92 18:14:79128Bfrxlefv HermannCHEM WDTYT7221-19-81 18:14:000.68[facility]annCHE[facility] NZRRP9203-05-64 18:14:003.5[facility] YCYAV9850-05-88 18:14:0069[facility]annCHE[facility] DBKVR5004-54-11 18:14:000.2 [facility] JOAWU4458-64-46 18:14:003.4[facility]annCHEM PANEL 2017-12-18 18:14:0010[facility]annCHEM JGRYB6451-36-72 18:14:0020[facility]annCHE[facility] DICHE0428-61-24 18:14:004[facility]CHE[facility] WYWMS9849-00-99 18:14:0096[facility]annCHE[facility] QONEK8338-77-06 18:14:00 Test Item Value Reference Range Interpretation Comments A/G Ratio (test code = A/G Ratio) 1.0 1 0.7-1.6 [facility] HermannCHEM QJADC4117-99-15 18:14:003.5[facility]annCHEM PANEL 2017-12-18 18:14:00 Test Item Value Reference Range Interpretation Comments B/C Ratio (test code = B/C Ratio) 6 1 6-25 [facility] HermannCHEM SITXR5068-19-70 18:14:0010.5[facility] HermannENDOCRINOLOGY 2017-12-18 18:14:9632746Qonxnjyn OkbxesvXXQBHULQLZ4734-88-88 18:14:0078.1 [facility] UfpqjkwFIHTIVRLLZ7056-81-47 18:14:0032.1[facility] HermannHEMATOLOGY 2017-12-18 18:14:0010.8[facility] WvmscdtLFXLVHRIEM2149-18-46 18:14:0011.1[facility] TbzpbahJUKZKKKWWU1047-40-60 18:14:35574Fxhpamfe BkcwqutFRBDOOHGGI0709-97-00 18:14:004.11[facility] UnzkfkkZVXZJCGTQH1196-33-81 18:14:0010.9[facility] Tin SRQQMCTHVI3742-06-51 18:14:0017.6[facility] ZjagobxOKHDCFVNVY8477-67-47 18:14:00 33.5[facility] PhdjtjaBBXSXJDXUJ4011-30-46 18:14:00 Test Item Value Reference Range Interpretation Comments MCH (test code = MCH) 26.2 pg 27.0-31.0 [facility] UneydsqFIXYALMCFG0298-22-08 18:14:0080.2[facility] HermannHEMATOLOGY 2017-12-18 18:14:001.6[facility] JrdvsfgRHDDTSNUKU4246-48-75 18:14:008.7[facility] TrxvqglUIBPQTUYWB6948-24-44 18:14:000.3[facility] VvshawcHIFNBWBVYH1904-12-51 18:14:004.1[facility] TclwgfvTBXHEOZAYY4654-79-75 18:14:000.3[facility] Tin PWZDHOQZDY5709-27-77 18:14:0015.1[facility] XnjdobhWVNODJMIBX8780-39-70 18:14:001+ *ABN*(12/18/17 1:14 PM)[facility] VapnpyzEFGTLBHDKX2969-54-72 18:14:000.4[facility]annURINE AND EPSEI2172-13-57 17:28:0011[facility] AND STOOL 2017-12-18 17:28:0078[facility] CHTXX0010-23-76 17:28:00 Test Item Value Reference Range Interpretation Comments UA pH (test code = UA pH) 5.0 1 5.0-8.0 [facility] GIVAZ8024-69-73 17:28:00 Test Item Value Reference Range Interpretation Comments UA Spec Grav (test code = UA Spec 1.021 1 Grav) [facility] FSEXL5362-94-33 17:28:00Yellow *NA*(12/18/17 12:28 PM) [facility] HTQIF8043-54-77 17:28:00Large *ABN*(12/18/17 12:28 PM) [facility] QWEZI7521-09-72 17:28:00Marked *ABN*(12/18/17 12:28 PM) [facility] MAFTH6972-68-44 17:28:00Negative (12/18/17 12:28 PM) [facility] LQFJP9177-16-88 17:28:00Small *ABN*(12/18/17 12:28 PM) [facility] QOAUZ0829-69-59 17:28:00Negative *NA*(12/18/17 12:28 PM)[facility] CZIX3587-74-25 17:28:00Positive *ABN*(12/18/17 12:28 PM) [facility] LATUC1181-99-94 04:42:68917Oisgqevu HermannURINE AND DDZGL9084-29-55 04:42:00Large *ABN*(10/04/17 11:42 PM)[facility] ZTRNS6987-78-41 04:42:00Negative (10/04/17 11:42 PM)[facility] PWWRQ9709-06-36 04:42:00Negative (10/04/17 11:42 PM)[facility] XXOTC3648-30-55 04:42:00Negative *NA*(10/04/17 11:42 PM)[facility] HHAWR5036-91-22 04:42:00 Test Item Value Reference Range Interpretation Comments UA Spec Grav (test code = UA Spec 1.017 1 Grav) [facility] MVGHH4697-93-40 04:42:00 Test Item Value Reference Range Interpretation Comments UA pH (test code = UA pH) 6.0 1 5.0-8.0 [facility] FRODR0773-51-87 04:42:00Yellow *NA*(10/04/17 11:42 PM) [facility] LLNLP6527-79-85 04:42:00Clear (10/04/17 11:42 PM) [facility] CQJKD5917-79-59 04:42:002[facility] HermannELECTROLYTES 2017-10-05 03:34:0010.5[facility] QhqcstvBUVDQGJOMDZZ2704-40-22 03:34:11452 [facility] IkcafakHRRZEIJZSTUA9763-35-09 03:34:008.3[facility] HermannELECTROLYTES 2017-10-05 03:34:003.5[facility] UwcvaazMKFUHILFUDKZ6194-72-60 03:34:02300Bdarfmaq QojncpmCIWIHNKPCDAH4236-80-50 03:34:0027[facility] RpelzweNJBRPWFETAZZ5562-25-62 03:34:008[facility] OqzzzfnTBCSOAEWVXOR4328-92-26 03:34:36833Seknkwdd Tin VCTCNKIYFQMZ4501-31-86 03:34:000.70[facility] GtpiouvHHUVQHVXJRVU8362-95-16 03:34:0096[facility] UxqgiuiGDQZVKIQBWSAX6299-89-10 03:34:34709Tnmwzulb Tin FIVUIUZEQP2593-05-69 03:34:00 Test Item Value Reference Range Interpretation Comments PT (test code = PT) 13.1 s 12.0-14.7 [facility] AjpkqglJMHMIHVYJR0076-97-23 03:34:00 Test Item Value Reference Range Interpretation Comments INR (test code = INR) 0.99 1 0.85-1.17 [facility] HggrvhcOYXPRAXDYM9025-09-92 03:34:000.8[facility] HermannHEMATOLOGY 2017-10-05 03:34:0075.1[facility] TrvkeuqHGJWOCHMCO3822-03-79 03:34:005.1[facility] CqfzineMBBDPXKDBR7896-33-64 03:34:000.5[facility] XbvikfuTHPYPUOEZZ3443-52-72 03:34:008.2[facility] QzjpaxvOKDBUALGKZ7015-39-72 03:34:0018.5[facility] Tin MJNWCUCKAN6474-77-18 03:34:000.1[facility] MzmauwuTGPGBYIDNO3652-07-05 03:34:000.1 [facility] JecyhvsLIOPJUOGSP0299-90-04 03:34:002.0[facility]annHEMATOLOGY 2017-10-05 03:34:000.6[facility] RhfnvsuNDFERRFGLE4158-88-15 03:34:00 Test Item Value Reference Range Interpretation Comments PTT (test code = PTT) 36.1 s 22.9-35.8 [facility] UpemsxiNQHKCSCUWL4126-55-19 03:34:0030.6[facility]annHEMATOLOGY 2017-10-05 03:34:0010.9[facility] IypcvaaOKQXDTONSI6513-24-59 03:34:003.79[facility] YchynkwATBCLTDRMR6836-04-75 03:34:0080.7[facility] GxdxjanNOCMPCFEPV3461-17-42 03:34:00 Test Item Value Reference Range Interpretation Comments MCH (test code = MCH) 27.3 pg 27.0-31.0 [facility] QwtljswKBTQQIBUMN2843-04-45 03:34:0010.4[facility]annHEMATOLOGY 2017-10-05 03:34:0010.6[facility] BfymktmSYNEQSNTXR0046-20-44 03:34:67105Uhrhiqpv OcwtckoVNQMIFYCTB6538-17-08 03:34:0014.0[facility] EsiyliyWCHRJORKWU5435-31-93 03:34:0033.8[facility]
--- NOTE | 2020-10-30 18:50 | ER ---
Nurse's Notes [facility] Name: Alma Rosa Odonnell Age: 29 yrs Sex: Female : 1990 Arrival Date: 10/30/2020 Time: 16:39 Bed 16 Private MD: Diagnosis: Anxiety disorder, unspecified Presentation: 10/30 17:12 Chief complaint: Spouse and/or significant other states: Anxiety x 1 week. ca1 uncontrollable crying for 1 week. Coronavirus screen: Client denies travel out of the [place] in the last 14 days. At this time, the client does not indicate any symptoms associated with coronavirus-19. Ebola Screen: Patient negative for fever greater than or equal to 101.5 degrees Fahrenheit, and additional compatible Ebola Virus Disease symptoms Patient denies exposure to infectious person. Patient denies travel to an Ebola-affected area in the 21 days before illness onset. No symptoms or risks identified at this time. Initial Sepsis Screen: Does the patient meet any 2 criteria? No. Patient's initial sepsis screen is negative. Does the patient have a suspected source of infection? No. Patient's initial sepsis screen is negative. Risk Assessment: Do you want to hurt yourself or someone else? Patient reports no desire to harm self or others. Onset of symptoms was October 30, 2020. 17:12 Method Of Arrival: Ambulatory ca1 17:12 Acuity: MANDO 3 ca1 Triage Assessment: 18:20 General: Appears in no apparent distress. comfortable, Behavior is cooperative, bp appropriate for age, flat. Pain: Denies pain. EENT: No deficits noted. Neuro: No deficits noted. Cardiovascular: No deficits noted. Respiratory: No deficits noted. GI: No signs and/or symptoms were reported involving the gastrointestinal system. : No signs and/or symptoms were reported regarding the genitourinary system. Derm: No deficits noted. Musculoskeletal: No deficits noted. 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 - Social history:: Smoking status: Patient denies any tobacco usage or history of. Screenin:21 Abuse screen: Denies threats or abuse. Denies injuries from another. Nutritional bp screening: No deficits noted. Tuberculosis screening: No symptoms or risk factors identified. Fall Risk None identified. Assessment: 18:21 General: SEE TRIAGE NOTE. bp 18:55 Reassessment: PT D/C HOME AMBULATORY, DX WITH ANXIETY D/O. bp Vital Signs: 17:12 BP 111 / 88; Pulse 67; Resp 18 S; Temp 97.4(TE); Pulse Ox 97% on R/A; Height 4 ft. 11 ca1 in. (149.86 cm); Pain 0/10; 18:54 BP 117 / 81; Pulse 72; Resp 17; Temp 97.5; Pulse Ox 98% ; bp ED Course: 16:39 Patient arrived in ED. as 17:14 Triage completed. ca1 17:15 Arm band placed on right wrist. ca1 18:19 Michael Boyd, RN is Primary Nurse. bp 18:20 Zachariah Hayden MD is Attending Physician. rodrigo 18:21 Patient has correct armband on for positive identification. Bed in low position. Call bp light in reach. Side rails up X2. Adult w/ patient. 18:50 Jak Lentz MD is Referral Physician. rodrigo 18:55 No provider procedures requiring assistance completed. Patient did not have IV access bp during this emergency room visit. Administered Medications: 18:50 Drug: Ativan 1 mg Route: IM; Site: right gluteus; bp 18:54 Follow up: Response: Anxiety decreased bp 18:50 Drug: Atarax (hydrOXYzine) 25 mg Route: PO; bp 18:54 Follow up: Response: Anxiety decreased bp Outcome: 18:50 Discharge ordered by . rodrigo 18:55 Discharged to home ambulatory, with family. bp 18:55 Condition: stable 18:55 Discharge instructions given to patient, family, Instructed on discharge instructions, follow up and referral plans. medication usage, Demonstrated understanding of instructions, follow-up care, medications, Prescriptions given X 1. 19:00 Patient left the ED. bp Signatures: Zachariah Hayden MD MD cha Martinez, Amelia as Michael Boyd, RN RN bp AcNaa vidal RN RN ca1 Corrections: (The following items were deleted from the chart) 18:56 18:55 Discharge instructions given to patient, family, Instructed on discharge bp instructions, follow up and referral plans. medication usage, Demonstrated understanding of instructions, follow-up care, medications, Prescriptions given X 2, bp
--- NOTE | 2020-10-30 18:51 | EDPHYS ---
Physician Documentation [facility] Name: Alma Rosa Odonnell Age: 29 yrs Sex: Female : 1990 Arrival Date: 10/30/2020 Time: 16:39 Bed 16 Private MD: ED Physician Zachariah Hayden HPI: 10/30 18:44 This 29 yrs old Female presents to ER via Ambulatory with complaints of rodrigo Anxiety. 18:44 The patient presents to the emergency department with anxiety, over unknown rodrigo circumstances. Onset: The symptoms/episode began/occurred 2 day(s) ago. Past psychiatric history: Prior diagnosis: bipolar disorder, depression. Associated signs and symptoms: Pertinent positives; anxiety. Severity of symptoms: At their worst the symptoms were mild in the emergency department the symptoms are unchanged. The patient has not experienced similar symptoms in the past. 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 - Social history:: Smoking status: Patient denies any tobacco usage or history of. ROS: 18:46 Constitutional: Negative for fever, chills, and weight loss, Eyes: Negative for injury, rodrigo pain, redness, and discharge, ENT: Negative for injury, pain, and discharge, Neck: Negative for injury, pain, and swelling, Cardiovascular: Negative for chest pain, palpitations, and edema, Respiratory: Negative for shortness of breath, cough, wheezing, and pleuritic chest pain, Abdomen/GI: Negative for abdominal pain, nausea, vomiting, diarrhea, and constipation, Back: Negative for injury and pain, : Negative for injury, bleeding, discharge, and swelling, MS/Extremity: Negative for injury and deformity, Skin: Negative for injury, rash, and discoloration, Neuro: Negative for headache, weakness, numbness, tingling, and seizure, Allergy/Immunology: Negative for hives, rash, and allergies, Endocrine: Negative for neck swelling, polydipsia, polyuria, polyphagia, and marked weight changes. 18:46 Psych: Positive for anxiety, depression. Exam: 18:46 Constitutional: This is a well developed, well nourished patient who is awake, alert, rodrigo and in no acute distress. Head/Face: Normocephalic, atraumatic. Eyes: Pupils equal round and reactive to light, extra-ocular motions intact. Lids and lashes normal. Conjunctiva and sclera are non-icteric and not injected. Cornea within normal limits. Periorbital areas with no swelling, redness, or edema. ENT: Nares patent. No nasal discharge, no septal abnormalities noted. Tympanic membranes are normal and external auditory canals are clear. Oropharynx with no redness, swelling, or masses, exudates, or evidence of obstruction, uvula midline. Mucous membranes moist. Neck: Trachea midline, no thyromegaly or masses palpated, and no cervical lymphadenopathy. Supple, full range of motion without nuchal rigidity, or vertebral point tenderness. No Meningismus. Chest/axilla: Normal chest wall appearance and motion. Nontender with no deformity. No lesions are appreciated. Cardiovascular: Regular rate and rhythm with a normal S1 and S2. No gallops, murmurs, or rubs. Normal PMI, no JVD. No pulse deficits. Respiratory: Lungs have equal breath sounds bilaterally, clear to auscultation and percussion. No rales, rhonchi or wheezes noted. No increased work of breathing, no retractions or nasal flaring. Abdomen/GI: Soft, non-tender, with normal bowel sounds. No distension or tympany. No guarding or rebound. No evidence of tenderness throughout. Back: No spinal tenderness. No costovertebral tenderness. Full range of motion. Skin: Warm, dry with normal turgor. Normal color with no rashes, no lesions, and no evidence of cellulitis. MS/ Extremity: Pulses equal, no cyanosis. Neurovascular intact. Full, normal range of motion. Neuro: Awake and alert, GCS 15, oriented to person, place, time, and situation. Cranial nerves II-XII grossly intact. Motor strength 5/5 in all extremities. Sensory grossly intact. Cerebellar exam normal. Normal gait. Psych: Awake, alert, with orientation to person, place and time. Behavior, mood, and affect are within normal limits. Vital Signs: 17:12 BP 111 / 88; Pulse 67; Resp 18 S; Temp 97.4(TE); Pulse Ox 97% on R/A; Height 4 ft. 11 ca1 in. (149.86 cm); Pain 0/10; 18:54 BP 117 / 81; Pulse 72; Resp 17; Temp 97.5; Pulse Ox 98% ; bp MDM: 18:20 Patient medically screened. rodrigo 18:48 Differential diagnosis: acute psychotic break, depression, psychosis secondary to rodrigo non-compliance. Data reviewed: vital signs, nurses notes. Data interpreted: quality assurance monitor chassis: not applicable for this patient encounter. rate is 67 beats/min, rhythm is regular, Pulse oximetry: on room air is 97 %. Counseling: I had a detailed discussion with the patient and/or guardian regarding: the historical points, exam findings, and any diagnostic results supporting the discharge/admit diagnosis, lab results. Administered Medications: 18:50 Drug: Ativan 1 mg Route: IM; Site: right gluteus; bp 18:54 Follow up: Response: Anxiety decreased bp 18:50 Drug: Atarax (hydrOXYzine) 25 mg Route: PO; bp 18:54 Follow up: Response: Anxiety decreased bp Disposition: 10/30/20 18:50 Discharged to Home. Impression: Anxiety disorder, unspecified. - Condition is Stable. - Discharge Instructions: Generalized Anxiety Disorder. - Prescriptions for Hydroxyzine HCl 25 mg Oral Tablet - take 2 tablet by ORAL route every 6 hours As needed; 35 tablet. - Medication Reconciliation Form, Thank You Letter, Antibiotic Education, Prescription Opioid Use form. - Follow up: Private Physician; When: 2 - 3 days; Reason: Recheck today's complaints, Continuance of care, Re-evaluation by your physician. Follow up: Jak Lentz MD; When: 2 - 3 days; Reason: Recheck today's complaints, Re-evaluation by your physician. - Problem is new. - Symptoms have improved. Signatures: Zachariah Hayden MD MD cha Peltier, Brian, RN RN bp Naa Pena RN RN ca1 Corrections: (The following items were deleted from the chart) 19:00 18:50 10/30/2020 18:50 Discharged to Home. Impression: Anxiety disorder, unspecified. bp Condition is Stable. Forms are Medication Reconciliation Form, Thank You Letter, Antibiotic Education, Prescription Opioid Use. Follow up: Private Physician; When: 2 - 3 days; Reason: Recheck today's complaints, Continuance of care, Re-evaluation by your physician. Follow up: Jak Lentz; When: 2 - 3 days; Reason: Recheck today's complaints, Re-evaluation by your physician. Problem is new. Symptoms have improved. rodrigo
[2020-10-30] MEDS ORDERED: hydrOXYzine HCL 25 MG TAB ONE (19:07)
[2020-10-30] MEDS ORDERED: LORazepam 2 MG/ML VIAL ONE (19:07)
[2020-10-30 19:20] VITALS: BP 117/81; TEMP 97.5; O2SAT 98
== END 2020-10-30 19:00 | disposition home or self-care (01) ==
LOC: ER 16:38
DX: F41.8 Other specified anxiety disorders (principal)
CPT/HCPCS: 96372; 99283

== ENCOUNTER 2021-01-01 23:02 | Emergency (ER) | payer SELFPAY ==
[2021-01-01 23:54] LABS: Urine Blood Negative (Negative); Urine Glucose Negative (Negative); Urine Protein Negative (Negative); Urine Specific Gravity >=1.030 (1.005-1.030); Urine pH 5.5 (5.0-7.0)
[2021-01-02 00:25] LABS: Absolute Lymphocytes (CBC) 2.2 K/uL (0.7-4.9); Basophils % 0.6 % (0-1.3); Hematocrit 22.4 % (36.0-45.0); Lymphocytes % 19.6 % (15.3-44.8); MPV 9.9 fL (7.6-11.3); RBC Red Blood Cell Count 3.79 M/uL (3.86-4.86)
[2021-01-02 00:34] LABS: ALT/SGPT 13 U/L (12-78); AST/SGOT 8 U/L (15-37); Albumin 3.1 g/dL (3.4-5.0); Alkaline Phosphatase 57 U/L (45-117); BUN Blood Urea Nitrogen 5 mg/dL (7-18); Bicarbonate 21 mmol/L (21-32); Bilirubin Direct < 0.1 mg/dL (0-0.2); Bilirubin Total 0.1 mg/dL (0.2-1.0); Glucose Level 96 mg/dL (74-106); Lipase 68 U/L (73-393); Potassium 3.6 mmol/L (3.5-5.1); Protein, Total 6.6 g/dL (6.4-8.2); Sodium Level 141 mmol/L (136-145)
[2021-01-02 01:22] LABS: Urine Specific Gravity/Preg >1.030 (1.005-1.030)
[2021-01-02 01:30] LABS: Anisocytosis 2+; Blood Morphology Comment NOTED (NOT SEEN); Hypochromasia 2+; Ovalocytes 2+; Platelet Estimate ADEQ; White Blood Cell Scan OK (OK)
[2021-01-02 04:00] LABS: Barbiturates NEGATIVE (NEGATIVE); Benzodiazepines NEGATIVE (NEGATIVE); Cocaine NEGATIVE (NEGATIVE); METHAMPHETAM NEGATIVE (NEGATIVE); Methadone NEGATIVE (NEGATIVE); Opiates NEGATIVE (NEGATIVE); Phencyclidine NEGATIVE (NEGATIVE); THC Cannibis NEGATIVE (NEGATIVE)
[2021-01-02 04:15] LABS: Protime INR 1.03
[2021-01-02] MEDS ORDERED: NA CHLORIDE 0.9% 250 ML ONE ×2 (04:59→08:00)
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
--- NOTE | 2021-01-02 08:13 | EDPHYS ---
Physician Documentation [facility] Name: Alma Rosa Odonnell Age: 30 yrs Sex: Female : 1990 Arrival Date: 01/01/2021 Time: 23:04 Bed 16 Private MD: ED Physician Zachariah Hayden HPI: 01/02 00:57 This 30 yrs old Female presents to ER via EMS with complaints of Abdominal tw4 Cramping, Abdominal Pain, Vaginal Bleeding, + Preg <12wks. 00:57 The patient presents to the emergency department with vaginal bleeding, that is light. tw4 course: care: none. Previous pregnancies: in previous pregnancies patient has had. Associated signs and symptoms: The patient has no apparent associated signs or symptoms. 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 - Social history:: Smoking status: Patient denies any tobacco usage or history of. ROS: 01/02 00:57 Constitutional: Negative for fever, chills, and weight loss, Eyes: Negative for injury, tw4 pain, redness, and discharge, Cardiovascular: Negative for chest pain, palpitations, and edema, Respiratory: Negative for shortness of breath, cough, wheezing, and pleuritic chest pain, Abdomen/GI: Negative for abdominal pain, nausea, vomiting, diarrhea, and constipation, Back: Negative for injury and pain, Skin: Negative for injury, rash, and discoloration, Neuro: Negative for headache, weakness, numbness, tingling, and seizure. : Positive for vaginal bleeding. Exam: 00:57 Constitutional: This is a well developed, well nourished patient who is awake, alert, tw4 and in no acute distress. Head/Face: Normocephalic, atraumatic. Chest/axilla: Normal chest wall appearance and motion. Nontender with no deformity. No lesions are appreciated. Cardiovascular: Regular rate and rhythm with a normal S1 and S2. No gallops, murmurs, or rubs. Normal PMI, no JVD. No pulse deficits. Respiratory: Lungs have equal breath sounds bilaterally, clear to auscultation and percussion. No rales, rhonchi or wheezes noted. No increased work of breathing, no retractions or nasal flaring. Abdomen/GI: Soft, non-tender, with normal bowel sounds. No distension or tympany. No guarding or rebound. No evidence of tenderness throughout. Back: No spinal tenderness. No costovertebral tenderness. Full range of motion. Skin: Warm, dry with normal turgor. Normal color with no rashes, no lesions, and no evidence of cellulitis. MS/ Extremity: Pulses equal, no cyanosis. Neurovascular intact. Full, normal range of motion. Neuro: Awake and alert, GCS 15, oriented to person, place, time, and situation. Cranial nerves II-XII grossly intact. Motor strength 5/5 in all extremities. Sensory grossly intact. Cerebellar exam normal. Normal gait. 07:17 : Pelvic Exam: External exam: is normal, Speculum exam: no bleeding is noted, no tw4 cervicitis, os that is closed, Gravid exam: 08:18 ECG was reviewed by the Attending Physician. rodrigo Vital Signs: 01/01 23:22 BP 119 / 68; Pulse 80; Resp 16 S; Temp 98.3(O); Pulse Ox 97% on R/A; Weight 70.31 kg bb (R); Height 4 ft. 11 in. (149.86 cm) (R); Pain 8/10; 01/02 00:48 BP 121 / 61; Pulse 79; Resp 16 S; Pulse Ox 98% on R/A; ad5 01:58 BP 102 / 70; Pulse 76; Resp 16 S; Pulse Ox 100% on R/A; ad5 03:18 BP 118 / 73; Pulse 86; Resp 16 S; Pulse Ox 100% on R/A; ad5 04:03 BP 127 / 74; Pulse 77; Resp 16 S; Pulse Ox 100% on R/A; ad5 05:33 BP 117 / 79; Pulse 90; Resp 18 S; Pulse Ox 100% on R/A; ad5 01/01 23:22 Body Mass Index 31.31 (70.31 kg, 149.86 cm) bb MDM: 01/01 23:35 Patient medically screened. tw01/02 08:17 Differential diagnosis: retained Ab. Data reviewed: vital signs, nurses notes, lab test rodrigo result(s), EKG, radiologic studies, ultrasound. 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 rate is 90 beats/min, Pulse oximetry: is not applicable for this patient encounter. Counseling: I had a detailed discussion with the patient and/or guardian regarding: the historical points, exam findings, and any diagnostic results supporting the discharge/admit diagnosis, lab results, radiology results, the need for outpatient follow up, for definitive care, a family practitioner, an OB/Gyne specialist, a psychiatrist. 01/01 23:17 Order name: Basic Metabolic Panel; Complete Time: 07:28 4 01/01 23:17 Order name: CBC with Diff; Complete Time: 07:28 [facility] 01/01 23:17 Order name: Hepatic Function; Complete Time: 07:28 [facility] 01/01 23:17 Order name: Lipase; Complete Time: 07:28 [facility] 01/01 23:55 Order name: Urine Dipstick-Ancillary; Complete Time: 07:28 [facility] 01/02 00:13 Order name: Urine --Ancillary (enter results); Complete Time: 07:28 [facility] 01/02 00:29 Order name: CBC Smear Scan; Complete Time: 07:28 [facility] 01/02 00:39 Order name: Type And Screen 01/02 01:35 Order name: Packed RBC Leukored [facility]OR 01/02 03:35 Order name: Acetaminophen; Complete Time: 07:28 01/02 03:35 Order name: ETOH Level; Complete Time: 07:28 01/02 03:35 Order name: PT-INR; Complete Time: 07:28 01/02 03:35 Order name: Ptt, Activated; Complete Time: 07:28 01/02 03:35 Order name: Salicylate; Complete Time: 07:28 [facility] 01/01 23:17 Order name: IV Saline Lock; Complete Time: 23:57 4 01/01 23:17 Order name: Labs collected and sent; Complete Time: 23:57 4 01/02 00:43 Order name: Transvaginal OB [facility]OR 01/02 03:35 Order name: Urine Drug Screen; Complete Time: 07:28 4 01/02 03:35 Order name: EKG; Complete Time: 03:35 01/02 07:14 Order name: Diet Finger Food; Complete Time: 07:14 jd3 01/02 08:30 Order name: Rh Typing EDOR 01/02 08:30 Order name: Rhogam [facility] 01/01 23:20 Order name: Urine Dipstick-Ancillary (obtain specimen); Complete Time: 23:57 01/01 23:20 Order name: Urine Test (obtain specimen); Complete Time: 23:57 4 01/02 01:27 Order name: Transfuse; Complete Time: 09:48 01/02 03:35 Order name: EKG - Nurse/Tech; Complete Time: 04:01 01/02 03:35 Order name: Suicide Screening ([place]); Complete Time: 03:36 tw4 EC:50 Rate is 66 beats/min. Rhythm is regular. QRS [place] is Normal. FL interval is normal. QRS tw4 interval is normal. QT interval is normal. No Q waves. T waves are Normal. No ST changes noted. Clinical impression: Normal ECG. Interpreted by me. Reviewed by me. 08:18 Rate is 66 beats/min. Rhythm is regular. QRS [place] is Normal. FL interval is normal. QRS rodrigo interval is normal. QT interval is normal. No Q waves. T waves are Normal. No ST changes noted. Clinical impression: Normal ECG and No evidence of ischemia. Interpreted by me. Reviewed by me. Administered Medications: 09:47 Not Given (Patient Refused; aware. pt educated. ): RhoGAM (Human) 300 mcg IM once tr6 Disposition: 01/02/21 08:11 Discharged to Home. Impression: Missed - 9 weeks, Anemia, unspecified, Iron deficiency anemia, Bipolar disorder. - Condition is Stable. - Discharge Instructions: Iron Deficiency Anemia, Adult, Anemia, Nonspecific, Blood Transfusion, Adult, Iron-Rich Diet, Bipolar Disorder, Miscarriage, Blood Transfusion, [id number], Miscarriage, [id number], Blood Transfusion, Care After, Epcd-[id number]-[id number], Blood Transfusion, Adult, Care After. - Prescriptions for Ferrous Sulfate 325 mg (65 mg Iron) Oral Tablet - take 1 tablet by ORAL route every 8 hours; 90 tablet. - Medication Reconciliation Form, Thank You Letter, Antibiotic Education, Prescription Opioid Use form. - Follow up: Private Physician; When: 2 - 3 days; Reason: Recheck today's complaints, Continuance of care, Re-evaluation by your physician. Follow up: Santiago Finch MD; When: 2 - 3 days; Reason: Recheck today's complaints, Continuance of care, Re-evaluation by your physician. Follow up: Jak Lentz MD; When: 2 - 3 days; Reason: Recheck today's complaints, Re-evaluation by your physician. - Problem is new. - Symptoms have improved. Signatures: Dispatcher [employer] [facility] Zachariah Hayden MD MD cha Ballard, Brenda, RN RN bb Dilip Saunders MD MD tw4 Samra Osorio RN RN tr6 Corrections: (The following items were deleted from the chart) 00:43 00:08 OB Limited+US.RAD.BRZ ordered. [facility] 08:12 08:11 01/02/2021 08:11 Discharged to Home. Impression: Missed - 9 weeks; rodrigo Anemia, unspecified; Iron deficiency anemia. Condition is Stable. Forms are Medication Reconciliation Form, Thank You Letter, Antibiotic Education, Prescription Opioid Use. Follow up: Private Physician; When: 2 - 3 days; Reason: Recheck today's complaints, Continuance of care, Re-evaluation by your physician. Follow up: Santiago Finch; When: 2 - 3 days; Reason: Recheck today's complaints, Continuance of care, Re-evaluation by your physician. Problem is new. Symptoms have improved. rodrigo 08:12 08:12 01/02/2021 08:11 Discharged to Home. Impression: Missed - 9 weeks; rodrigo Anemia, unspecified; Iron deficiency anemia; Bipolar disorder. Condition is Stable. Forms are Medication Reconciliation Form, Thank You Letter, Antibiotic Education, Prescription Opioid Use. Follow up: Private Physician; When: 2 - 3 days; Reason: Recheck today's complaints, Continuance of care, Re-evaluation by your physician. Follow up: Santiago Finch; When: 2 - 3 days; Reason: Recheck today's complaints, Continuance of care, Re-evaluation by your physician. Problem is new. Symptoms have improved. [facility] 08:31 07:30 ABO/RH TYPING+BB.LAB.BRZ ordered. [facility] 08:31 08:15 RHOGAM+BB.LAB.BRZ ordered. [facility] 08:31 08:15 Rh Typing ordered. [facility] 08:31 08:15 Antibody Screen ordered. [facility] 08:31 08:15 Fetalscreen ordered. [facility] 08:31 08:15 Cord Rh type ordered. [facility] 12:29 08:12 01/02/2021 08:11 Discharged to Home. Impression: Missed - 9 weeks; tr6 Anemia, unspecified; Iron deficiency anemia; Bipolar disorder. Condition is Stable. Forms are Medication Reconciliation Form, Thank You Letter, Antibiotic Education, Prescription Opioid Use. Follow up: Private Physician; When: 2 - 3 days; Reason: Recheck today's complaints, Continuance of care, Re-evaluation by your physician. Follow up: Santiago Finch; When: 2 - 3 days; Reason: Recheck today's complaints, Continuance of care, Re-evaluation by your physician. Follow up: Jak Lentz; When: 2 - 3 days; Reason: Recheck today's complaints, Re-evaluation by your physician. Problem is new. Symptoms have improved. rodrigo
--- NOTE | 2021-01-02 10:26 | EKG ---
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
[2021-01-02 12:34] VITALS: TEMP 98.3
[2021-01-02 12:38] VITALS: O2SAT 100
[2021-01-02 12:43] VITALS: BP 117/79
--- NOTE | 2021-01-02 12:58 | RAD REPORT ---
EXAM DESCRIPTION: US - Transvaginal OB - 01/02/2021 12:44 am CLINICAL HISTORY: VAGINAL BLEEDING, Preliminary findings provided at the time of the study. COMPARISON: OB Complete dated 08/06/2016 FINDINGS: A slightly misshaped single intrauterine gestational sac is identified. A pole measu ring 9 weeks 0 days is identified. However, prolonged evaluation failed to identify any cardiac activ ity. Yolk sac is visible. A small amount of hemorrhagic debris is seen within the endometrial cavity. Both ovaries are identified and show normal blood flow in the stroma. No adnexal abnormality. IMPRESSION: Intrauterine demise.
== END 2021-01-02 12:29 | disposition home or self-care (01) ==
LOC: ER 23:02
DX: O02.1 Missed abortion (principal); O99.011 Anemia complicating pregnancy, first trimester; O99.341 Other mental disorders complicating pregnancy, first trimester; F31.9 Bipolar disorder, unspecified; Z3A.09 9 weeks gestation of pregnancy
CPT/HCPCS: 36415; 76817; 80048; 80076; 80307; 80320; 80329; 81003; 81025; 83690; 85025; 85610; 85730; 86850; 86900; 86901; 93005; J2790; J7050; P9016

== ENCOUNTER 2021-10-29 06:35 | Emergency (ER) | payer OTHER ==
--- OUTSIDE RECORDS SUMMARY | 2021-10-29 06:38 | XMS REPORT | Continuity of Care Document ---
:1990 Author Organization [facility] t Address [address] [place] [address] Care Team Providers Name Role Phone Asked, Pcp Primary Care Physician Unavailable Kelton Carrillo Attending Clinician Unavailable Kelton Carrillo Attending Clinician Unavailable Yas BREAUX Attending Clinician Clint Randall DO Attending Clinician Reggie Mckinney MD Attending Clinician Maddie BREAUX Attending Clinician Kelton Carrillo MD Attending Clinician Kelton CARRILLO Attending Clinician Unavailable Doctor Unassigned, Name Attending Clinician Unavailable Griselda RAMON S Attending Clinician Adia Cook DO Attending Clinician Nicol Marion Attending Clinician Sandra Quintanilla Attending Clinician Belen Reed Attending Clinician Kelton Carrillo Admitting Clinician Unavailable Payers Payer Name Policy Type Policy Number Effective Date Expiration Date S ource [employer] [place] [id number] 2020 00:00:00 Problems This patient has no known problems. Allergies, Adverse Reactions, Alerts Allergy Allergy Status Severity Reaction(s) Onset Inactive Treating Comm ents Source Name Type Date Date Clinician No Known DA Active U 2017-07 [facility] 0-04 Clear s 00:00: Alaniz 00 [facility] No Known DA Active U [facility] Allergie 2-19 Clear s 00:00: Alaniz 00 [facility] NO KNOWN Drug Active [facility]ERG Class [facility] No Known Drug Active [facility] Social History Social Habit Start Date Stop Date Quantity Comments Source Sex Assigned At [birth year] [facility] 00:00:00 00:00:00 Smoking Status Start Date Stop Date Source Tobacco smoking consumption unknown [facility] Medications Ordered Filled Start Stop Current Ordering Indication Dosage Frequency Signature Comments Components Source Medication Medication Date Date Medication? Clinician (SIG) Name Name citalopram 2020-07 No 10mg QD Take 1 Meth sacha (CeleXA) 11-15 tablet (10 s t MG tablet 00:00: 05:59 mg total) Ho spita 00 :00 by mouth l daily for 14 days. propranoloL Yes 20mg Q.5D Take 1 Meth sacha (INDERAL) 03-16 tablet (20 st 20 MG 00:00: mg total) [facility]osp[facility] tablet 00 by mouth 2 l (two) times a day. sertraline No 1/2 tab po [facility] (Zoloft) 03-[address] 100 MG 00:00: 00:00 days, then Hosp tk tablet 00 :00 1 tab po l qam ARIPiprazol 2020- No 2mg QD Take 1 Met hodi e (Abilify) 03-16 tablet (2 st 2 MG tablet 00:00: 04:59 mg total) [facility]ospita 00 :00 by mouth l daily for 30 days. doxepin No 25mg QD Take 1 [facility] (SINEquan) 03-[address] 25 MG 00:00: 04:59 (25 mg [facility]osp[facility] capsule 00 :00 total) by l mouth nightly for 30 days. Vital Signs Vital Name Observation Time Observation Value Comments Source Height/Length Dosing 2020-04-27 10:46:44 Height/Length 2021-08-07 13:15:25 152 cm Measured Height/Length Dosing 2021-08-07 13:15:25 149.8 cm Weight Dosing 2021-08-07 13:15:25 61.00 kg Height/Length 2021-08-07 13:13:35 152 cm Measured Height/Length Dosing 2021-08-07 13:13:35 149.8 cm Weight Dosing 2021-08-07 13:13:35 61.00 kg Height/Length 2021-08-07 13:08:53 152 cm Measured Height/Length Dosing 2021-08-07 13:08:53 149.8 cm Weight Dosing 2021-08-07 13:08:53 61.00 kg Height/Length 2021-08-07 13:06:36 152 cm Measured Height/Length Dosing 2021-08-07 13:06:36 149.8 cm Weight Dosing 2021-08-07 13:06:36 61.00 kg Height/Length 2021-08-07 12:56:02 152 cm Measured Height/Length Dosing 2021-08-07 12:56:02 149.8 cm Weight Dosing 2021-08-07 12:56:02 61.00 kg Height/Length 2021-08-07 12:51:40 152 cm Measured Height/Length Dosing 2021-08-07 12:51:40 149.8 cm Weight Dosing 2021-08-07 12:51:40 61.00 kg Height/Length 2021-08-07 12:50:15 152 cm Measured Height/Length Dosing 2021-08-07 12:50:15 149.8 cm Weight Dosing 2021-08-07 12:50:15 61.00 kg Height/Length 2021-08-07 12:48:21 152 cm Measured Height/Length Dosing 2021-08-07 12:48:21 149.8 cm Weight Dosing 2021-08-07 12:48:21 61.00 kg Height/Length 2021-08-07 12:48:12 152 cm Measured Height/Length Dosing 2021-08-07 12:48:12 149.8 cm Weight Dosing 2021-08-07 12:48:12 61.00 kg Height/Length 2021-08-07 12:47:22 152 cm Measured Height/Length Dosing 2021-08-07 12:47:22 149.8 cm Weight Dosing 2021-08-07 12:47:22 61.00 kg Height/Length 2021-08-07 12:47:14 152 cm Measured Height/Length Dosing 2021-08-07 12:47:14 149.8 cm Weight Dosing 2021-08-07 12:47:14 61.00 kg Height/Length 2021-08-07 12:47:09 152 cm Measured Height/Length Dosing 2021-08-07 12:47:09 149.8 cm Weight Dosing 2021-08-07 12:47:09 61.00 kg Height/Length 2021-08-07 12:47:08 152 cm Measured Height/Length Dosing 2021-08-07 12:47:08 149.8 cm Weight Dosing 2021-08-07 12:47:08 61.00 kg Systolic blood 2021-05-20 23:20:54 118 mm[Hg] [facility] pressure Diastolic blood 2021-05-20 23:20:54 75 mm[Hg] [facility] pressure Heart rate 2021-05-20 23:20:54 89 /min [facility] Body temperature 2021-05-20 23:20:54 36.67 Makenna [facility] Respiratory rate 2021-05-20 23:20:54 20 /min [facility] Oxygen saturation in 2021-05-20 23:20:54 100 /min [facility] Arterial blood by Pulse oximetry Body height 2021-03-16 01:44:00 154.9 cm [facility] Body weight 2021-03-16 01:44:00 63.504 kg [facility] BMI 2021-03-16 01:44:00 26.45 kg/m2 [facility] Procedures Procedure Date / Time Performing Clinician Source Performed URINE DRUGS OF ABUSE 2021-03-16 06:14:[address] [facility] SCREEN URINALYSIS SCREEN AND 2021-03-16 06:14:00 Michael Walker [facility] MICROSCOPY, WITH REFLEX TO CULTURE COVID-19 QUALITATIVE 2021-03-16 06:13:00 [facility] RT-PCR ECG ED PRELIMINARY 2021-03-16 06:05:54 Dalton Randall [facility] INTERPRETATION Clint [facility] COMPLETE BLD COUNT 2021-03-16 03:42:00 [place] [facility] W/AUTO DIFF COMPREHENSIVE METABOLIC 2021-03-16 03:42:00 [facility] PANEL CREATINE KINASE, TOTAL 2021-03-16 03:42:00 [facility] ([facility]) THYROID STIMULATING 2021-03-16 03:42:00 [facility] HORMONE T4, FREE 2021-03-16 03:42[facility] AL[facility]HOL LEV[facility], BLOOD 2021-03-16 03:42:00 [facility] ACETAMINOPHEN LEVEL 2021-03-16 03:42:00 [facility] SALICYLATE LEVEL 2021-03-16 03:42:00 [facility] ESTIMATED GFR 2021-03-16 03:42[facility] ECG 12-LEAD 2021-03-16 03:23:09 [facility] HC COMPLETE BLD COUNT 2021-03-15 05:54:00 Torres Mckinney [facility] W/AUTO DIFF COMPREHENSIVE METABOLIC 2021-03-15 05:54:00 Torres Mckinney [facility] PANEL CREATINE KINASE, TOTAL 2021-03-15 05:54:00 Torres Mckinney [facility] ([facility]) THYROID STIMULATING 2021-03-15 05:54:00 Torres Mckinney [facility] HORMONE T4, FREE 2021-03-15 05:54:00 Torres Mckinney [facility] ALCOHOL LEVEL, BLOOD 2021-03-15 05:54:00 Torres Mckinney [facility] ACETAMINOPHEN LEVEL 2021-03-15 05:54:00 Torres Mckinney [facility] SALICYLATE LEVEL 2021-03-15 05:54:[address] [facility] ESTIMATED GFR 2021-03-15 05:54:00 Torres Mckinney [facility] ECG ED PRELIMINARY 2021-03-15 05:39:48 Torres Mckinney [facility] INTERPRETATION ECG 12-LEAD 2021-03-15 05:12:19 Torres Mckinney [facility] Encounters Start End Encounter Admission Attending Care Care Encounter Source Date/Time Date/Time Type Type Clinicians Facility Department ID 2021-05-20 Emergency [facility] [id number] Univers 20:09:23 ity [facility] 2021-05-18 Emergency [facility] [id number] Univers 16:29:02 ity [facility] 2021-05-18 Emergency [facility] [id number] Univers 15:53:57 ity [facility] 2021-05-18 Emergency [facility] [id number] [facility] Inpatient Chan Carrillo [facility] PSY [id number] 10:43:00 Chan Carrillo -[id number] [facility] 2021-05-20 2021-05-20 Emergency Malik Sorenson 1.2.840.1 [id number] [facility] 18:56:00 19:37:[address] 3.430.2.7 Hospit a .3.524084 l .8 2021-05-20 2021-05-20 Travel 1.2.840.1 1.2.413.021 [id number] [facility] 00:00:00 00:00:[address] 3.430.2.7 0.2.7.3.698 Ho spita .3.644341 084.8 l .8 2021-03-15 2021-03-16 Emergency Prakash, 1.2.840.1 [id number] [facility] 23:48:00 06:39:[address] Clint 3.430.2.7 Hosp tk .3.702694 l .8 2021-03-15 2021-03-15 Emergency Hank, 1.2.840.1 [id number] [facility] 00:15:00 05:29:[address] Reggie 3.430.2.7 Hospit a .3.371510 l .8 2021-03-15 2021-03-15 Travel 1.2.840.1 1.2.318.873 [id number] [facility] 00:00:00 00:00:[address] 3.430.2.7 0.2.7.3.698 Ho spita .3.469408 084.8 l .8 2021-01-18 2021-01-18 EXT [facility] OP [place], EXT MSRDP 1.2.840.114 1 [id number] [place] 00:00:00 00:00:00 Vicente LOCATION 350.1.13.58 Health 9.2.7.2.686 [id number] 2021-01-08 2021-01-08 Outpatient R [facility] [id number] Univers 12:30:00 12:30:00 [id number] [facility] 2021-01-08 2021-01-08 Outpatient R [facility] [id number] Univers 12:30:00 12:30:00 [facility] 2021-01-03 2021-01-03 Outpatient R [facility] [id number] Univers 12:45:00 12:45:00 [id number] [facility] 2020-04-27 2020-05-24 Inpatient 3 Chan Carrillo [facility] PSY [id number] 10:43:00 13:30:00 [facility] 2020-04-27 2020-04-27 [facility] Stone, ST. 1.2.840.114 [id number] 11:31:00 23:59:00 Encounter Chan ROSAS 350.1.13.10 MEDICAL 4.2.7.2.686 [place] [id number] 2020-04-27 2020-04-27 [id number] Univers 00:00:00 00:00:00 CHAN [facility] 2020-04-27 2020-04-27 Orders Doctor BYNUM 1.2.840.114 [id number] 00:00:00 00:00:00 Only Unassigned, LUIS 350.1.13.10 [facility] .2.7.2.686 [id number] [id number] 2020-03-28 2020-03-28 Emergency Villalobos, [facility] 1.2.672.862 [id number] 20:05:00 20:52:00 Lydia Ford 350.1.13.10 [place] 4.2.7.2.686 [place] [id number] 2020-03-28 2020-03-28 Orders Doctor BYNUM 1.2.840.114 [id number] 00:00:00 00:00:00 Only Unassigned, LUIS 350.1.13.10 [facility] 4.2.7.2.686 [id number] 2020-03-24 2020-03-24 Emergency [facility] 1.2.840.114 [id number] 07:46:00 08:18:00 Jenna Ford 350.1.13.10 [place] 4.2.7.2.686 [place] [id number] 2020-03-23 2020-03-23 Emergency [facility] 1.2.880.817 [id number] 16:33:00 20:42:00 Susan Ford 350.1.13.10 [place] 4.2.7.2.686 [place] [id number] 2020-03-23 2020-03-23 Orders Doctor BYNUM 1.2.840.114 [id number] 00:00:00 00:00:00 Only Unassigned, LUIS 350.1.13.10 [facility] 4.2.7.2.686 [id number] 2019-08-25 2019-08-25 [facility] 1.2.840.114 [id number] 16:23:00 19:17:00 Lisa Ford 350.1.13.10 [place] 4.2.7.2.686 [place] [id number] 2019-04-03 2019-04-03 Emergency [facility] 1.2.526.351 [id number] 18:43:45 19:09:00 Bernard Ford 350.1.13.10 [place] 4.2.7.2.686 [place] [id number] [id number] Results Test Description Test Time Test Comments Results Result Comments Source ECG 12 lead 2021-04-24 20:37:17 Test Item Value Reference Range Interpretation Comme nts Ventricular rate (test code = 253) Atrial rate (test code = 255) NV interval (test code = 266) QRSD interval (test code = 260) QT interval (test code = 264) QTC interval (test code = 265) P axis 1 (test code = 267) QRS axis 1 (test code = 268) T wave axis (test code = 270) EKG impression (test code = 273) Normal sinus rhythm with sinus arr hythmia-In automated comparison with ECG of 15-MAR-2021 00:12,-No significant change was found- [facility]2020-10-23 09:56:39 Test Item Value Reference Range Interpretation Comments Cholesterol Total 124 mg/dL N Low-risk l evel (test code = (desirable) - < 200 Cholesterol Total) mg/dlMode rate-risk level (borderli ne) - 200-239 mg/dlHigh-risk level - ?240 mg/dl Triglycerides (test 59 mg/dL N Normal - <150 code = Triglycerides) mg/dlB orderline high - 150-199 mg/dl High - 200-499 mg/dl Very high - ?500 mg/ dl HDL (test code = HDL) 51.20 mg/dL N Low-ri sk level (desirable) - ? 60 mg/dlHigh-risk level (undesirable) - <40 mg/dl LDL (test code = LDL) 61 mg/dL N The eq uation being used in this calculation is LDL = (Chol - HDL) - (Trig / 5) VLDL (test code = 12 mg/dL 5-40 The equati on being VLDL) used in this calculation is VLDL = Trig / 5 Chol/HDL (test code = 2.4 ratio <=5.0 Chol/HDL) LDL/HDL Ratio (test 2 N The equa tion being code = LDL/HDL Ratio) used i n this calculation is LDL/HDL Ratio=L DL Calc/HDL Chol [id number] 09:56:39 Test Item Value Reference Range Interpretation Comments TSH (test code = TSH) 1.610 mcIU/mL 0.550-4.780 HCG Ql [id number] 09:56:39 Test Item Value Reference Range Interpretation Comments HCG, Serum Qual (test code = HCG, Negative Negative Serum Qual)
--- NOTE | 2021-10-29 07:45 | ER ---
Nurse's Notes [facility] Name: Alma Rosa Odonnell Age: 30 yrs Sex: Female : 1990 Arrival Date: 10/29/2021 Time: 06:36 Bed 14 Private MD: Diagnosis: Major depressive disorder, recurrent, moderate;Dehydration Presentation: 10/29 06:49 Chief complaint: Patient states: Reports feeling weak, nausea, anxious, cannot breathe; lp1 "I'm not here for a mental health evaluation, I have [facility]"; Reports feeling generalized weakness, feels like she is going to pass out, reports recent life stressors, has not eaten in 2 days; Reports homelessness since May. Coronavirus screen: At this time, the client does not indicate any symptoms associated with coronavirus-19. Ebola Screen: No symptoms or risks identified at this time. Note Reports [facility]. Onset of symptoms was October 29, 2021. 06:49 Method Of Arrival: Ambulatory lp1 06:50 Acuity: MANDO 3 lp1 06:54 Risk Assessment: Do you want to hurt yourself or someone else? Patient reports no lp1 desire to harm self or others. 06:54 Initial Sepsis Screen: Does the patient meet any 2 criteria? No. Patient's initial lp1 sepsis screen is negative. Does the patient have a suspected source of infection? No. Patient's initial sepsis screen is negative. Triage Assessment: 07:00 General: Appears in no apparent distress. comfortable, Behavior is calm, cooperative, bp appropriate for age. General: PT STATES DEPRESSION 2/2 HOMELESSNESS. DENIES SI/HI. Pain: Denies pain. EENT: No deficits noted. Neuro: Level of Consciousness is awake, alert, obeys commands, Oriented to Appropriate for age. Cardiovascular: No deficits noted. Respiratory: Reports shortness of breath Onset: The symptoms/episode began/occurred at an unknown time. the patient reports symptoms have resolved. GI: No signs and/or symptoms were reported involving the gastrointestinal system. : No signs and/or symptoms were reported regarding the genitourinary system. Derm: No deficits noted. Musculoskeletal: No deficits noted. 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 - Social history:: Smoking status: Patient reports the use of cigarette tobacco products, smokes one pack cigarettes per day. Patient/guardian denies using alcohol, street drugs. - Family history:: not pertinent. - Hospitalizations: : No recent hospitalization is reported. Screenin:00 Abuse screen: Denies threats or abuse. Denies injuries from another. Nutritional bp screening: No deficits noted. Tuberculosis screening: No symptoms or risk factors identified. Fall Risk None identified. Assessment: 07:00 General: SEE TRIAGE NOTE. bp 08:00 Reassessment: D/C ON HOLD FOR FOOD FROM [place]. bp 08:27 Reassessment: MEAL TRAY AT B/S. bp 09:36 Reassessment: PT D/C WITH BUS PASS. DX WITH DEHYDRATION. bp Vital Signs: 06:54 BP 117 / 91; Pulse 103; Resp 18; Temp 98.9(O); Pulse Ox 98% on R/A; Weight 77.11 kg; lp1 Height 5 ft. 1 in. (154.94 cm); Pain 7/10; 06:54 Body Mass Index 32.12 (77.11 kg, 154.94 cm) lp1 ED Course: 06:36 Patient arrived in ED. kz 06:49 Arm band placed on left wrist. lp1 06:52 Triage completed. lp1 07:00 Patient has correct armband on for positive identification. Bed in low position. Call bp light in reach. Side rails up X2. 07:08 Ryan Lewis MD is Attending Physician. rn 08:00 No provider procedures requiring assistance completed. Patient did not have IV access bp during this emergency room visit. 08:05 Michael Boyd, SONDRA is Primary Nurse. bp Administered Medications: No medications were administered Outcome: 07:44 Discharge ordered by . rn 09:36 Discharged to home ambulatory. bp 09:36 Condition: stable 09:36 Discharge instructions given to patient, Instructed on discharge instructions, follow up and referral plans. Demonstrated understanding of instructions, follow-up care. 09:37 Patient left the ED. bp Signatures: Ryan Lewis MD MD rn Pena, Laura, RN RN lp1 Michael Boyd RN RN bp Gail Auguste Corrections: (The following items were deleted from the chart) 06:53 06:49 Chief complaint: Patient states: Reports feeling weak, nausea, anxious, cannot lp1 breathe lp1 06:58 06:49 Chief complaint: Patient states: Reports feeling weak, nausea, anxious, cannot lp1 breathe; "I'm not here for a mental health evaluation, [facility] have [facility]"; Reports feeling generalized weakness, feels like she is going to pass out, reports recent life stressors lp1
--- NOTE | 2021-10-29 07:45 | EDPHYS ---
Physician Documentation [facility] Name: Alma Rosa Odonnell Age: 30 yrs Sex: Female : 1990 Arrival Date: 10/29/2021 Time: 06:36 Bed 14 Private MD: ED Physician Ryan Lewis HPI: 10/29 07:38 This 30 yrs old Female presents to ER via Ambulatory with complaints of Depression. rn 07:38 The patient presents to the emergency department with depression. Onset: The rn symptoms/episode began/occurred at an unknown time. Associated signs and symptoms: Pertinent positives; anxiety, depression, Pertinent negatives: hallucinations, homicidal ideation, substance abuse, suicide ideation. Severity of symptoms: At their worst the symptoms were moderate in the emergency department the symptoms are unchanged. The patient has experienced similar episodes in the past, chronically. The patient has not recently seen a physician. Pt reports long-standing depression and anxiety, is homeless, staying with friends and going from place to place lately, not on meds, has [facility] appointment this next week. Denies suicidal/homicidal ideations. Reports tired of staying with friends and can't get into group home so came here. No fever. Does not feel ill. No drug use. . 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 - Social history:: Smoking status: Patient reports the use of cigarette tobacco products, smokes one pack cigarettes per day. Patient/guardian denies using alcohol, street drugs. - Family history:: not pertinent. - Hospitalizations: : No recent hospitalization is reported. ROS: 07:38 Constitutional: Negative for fever, chills, and weight loss, Eyes: Negative for injury, rn pain, redness, and discharge, Neck: Negative for injury, pain, and swelling, Cardiovascular: Negative for chest pain, palpitations, and edema, Respiratory: Negative for shortness of breath, cough, wheezing, and pleuritic chest pain, Abdomen/GI: Negative for abdominal pain, nausea, vomiting, diarrhea, and constipation, Back: Negative for injury and pain, MS/Extremity: Negative for injury and deformity, Skin: Negative for injury, rash, and discoloration, Neuro: Negative for headache, weakness, numbness, tingling, and seizure, Psych: Negative for suicide ideation, homicidal ideation, and hallucinations. Exam: 07:38 Constitutional: This is a well developed, well nourished patient who is awake, alert, rn and in no acute distress. Head/Face: Normocephalic, atraumatic. Eyes: Periorbital areas with no swelling, redness, or edema. ENT: dry MM Respiratory: No increased work of breathing, no retractions or nasal flaring. Skin: No rash MS/ Extremity: No cyanosis. Neuro: Awake and alert, GCS 15 Psych: Awake, alert, with orientation to person, place and time. Vital Signs: 06:54 BP 117 / 91; Pulse 103; Resp 18; Temp 98.9(O); Pulse Ox 98% on R/A; Weight 77.11 kg; lp1 Height 5 ft. 1 in. (154.94 cm); Pain 7/10; 06:54 Body Mass Index 32.12 (77.11 kg, 154.94 cm) lp1 MDM: 07:08 Patient medically screened. rn 07:42 Differential diagnosis: depression. Data reviewed: vital signs, nurses notes, and as a rn result, I will discharge patient. Counseling: I had a detailed discussion with the patient and/or guardian regarding: the historical points, exam findings, and any diagnostic results supporting the discharge/admit diagnosis, the need for outpatient follow up, to return to the emergency department if symptoms worsen or persist or if there are any questions or concerns that arise at home. Special discussion: I discussed with the patient/guardian in detail that at this point there is no indication for admission to the hospital. It is understood, however, that if the symptoms persist or worsen the patient needs to return immediately for re-evaluation. Based on the history and exam findings, there is no indication for further emergent testing or inpatient evaluation. I discussed with the patient/guardian the need to see the psychiatrist for further evaluation of the symptoms. ED course: Pt with depression, long-standing, but denies suicidal or homicidal ideations. Patient states has not had anything to eat lately and is thirsty, has appt with [facility] coming up, no acute medical complaints. Gave information for shelters, food, and water. She is thankful.. 10/29 07:52 Order name: Diet Regular; Complete Time: 07:52 aa5 10/29 07:19 Order name: PO challenge; Complete Time: 08:27 rn Administered Medications: No medications were administered Disposition Summary: 10/29/21 07:44 Discharge Ordered Location: Home rn Problem: chronic rn Symptoms: are unchanged rn Condition: Stable rn Diagnosis - Major depressive disorder, recurrent, moderate rn - Dehydration rn Followup: rn - With: Private Physician - When: As needed - Reason: Recheck today's complaints, Re-evaluation by your physician Discharge Instructions: - Discharge Summary Sheet rn - Dehydration, Adult rn - Managing Depression, Adult rn Forms: - Medication Reconciliation Form rn - Thank You Letter rn - Antibiotic furnace converter - Prescription Opioid Use rn Signatures: Ryan Lewis MD MD rn Pena, Laura, RN RN lp1
[2021-10-29 09:58] VITALS: BP 117/91; TEMP 98.9; O2SAT 98
== END 2021-10-29 09:37 | disposition home or self-care (01) ==
LOC: ER 06:35
DX: F33.1 Major depressive disorder, recurrent, moderate (principal); E86.0 Dehydration; F17.210 Nicotine dependence, cigarettes, uncomplicated
CPT/HCPCS: 99281

== ENCOUNTER 2022-01-08 20:23 | Inpatient (IN) | payer OTHER ==
--- OUTSIDE RECORDS SUMMARY | 2022-01-08 20:26 | XMS REPORT | Continuity of Care Document ---
:[address] [facility] t Address [address] [place] [address] Care Team Providers Name Role Phone Asked, Pcp Primary Care Physician Unavailable Kelton Carrillo Attending Clinician Unavailable Kelton Carrillo Attending Clinician Unavailable Yas BREAUX Attending Clinician Isrrael Randall DO Attending Clinician DO ISRRAEL RANDALL Attending Clinician Unavailable Reggie Mckinney MD Attending Clinician Maddie BREAUX Attending Clinician Kelton Carrillo MD Attending Clinician Kelton CARRILLO Attending Clinician Unavailable Doctor Unassigned, Name Attending Clinician Unavailable Jean Stone Attending Clinician Adia Cook DO Attending Clinician Nicol Marion Attending Clinician Sandra Quintanilla Attending Clinician Belen Reed Attending Clinician Kelton Carrillo Admitting Clinician Unavailable MD PJ Admitting Clinician Unavailable Payers Payer Name Policy Type Policy Number Effective Date Expiration Date Jean sawyer [employer] [place] [id number] 2020 00:00:00 Problems This patient has no known problems. Allergies, Adverse Reactions, Alerts Allergy Allergy Status Severity Reaction(s) Onset Inactive Treating Comm ents Source Name Type Date Date Clinician No Known DA Active U 2017-07 [facility]-04 Clear s 00:00: Alaniz 00 [facility] No Known DA Active U [facility] Allergie 2-19 Clear s 00:00: Alaniz 00 [facility] No Known Drug Active [facility] NO KNOWN Drug Active [facility] Social History Social Habit Start Date Stop Date Quantity Comments Source Sex Assigned At [birth year] [facility] 00:00:00 00:00:00 Smoking Status Start Date Stop Date Source Tobacco smoking consumption unknown [facility] Medications Ordered Filled Start Stop Current Ordering Indication Dosage Frequency Signature Comments Components Source Medication Medication Date Date Medication? Clinician (SIG) Name Name citalopram 2020-07 No 10mg QD Take 1 Meth sacha (CeleXA) 10 0-31 11-15 tablet (10 s t MG tablet 00:00: 05:59 mg total) Ho spita 00 :00 by mouth l daily for 14 days. citalopram 2020-07 No 10mg QD Take 1 Meth sacha (CeleXA) 10 0-31 11-15 tablet (10 s t MG tablet 00:00: 05:59 mg total) Ho spita 00 :00 by mouth l daily for 14 days. propranoloL Yes 20mg Q.5D Take 1 Meth sacha (INDERAL) 8-27 tablet (20 st 20 MG 00:00: mg total) [facility]osp[facility] tablet 00 by mouth 2 l (two) times a day. propranoloL 0 Yes 20mg Q.5D Take 1 Meth sacha (INDERAL) 8-27 tablet (20 st 20 MG 00:00: mg total) [facility]osp[facility] tablet 00 by mouth 2 l (two) times a day. sertraline No 1/2 tab po [facility] (Zoloft) - 10-[address] 100 MG 00:00: 00:00 days, then Hosp tk tablet 00 :00 1 tab po l qam sertraline No 1/2 tab po [facility] (Zoloft) [...] by l mouth nightly for 30 days. ARIPiprazol No 2mg QD Take 1 Met hodi [...] kg Systolic blood 2021-05-20 23:20:54 118 mm[Hg] [facility] pressure Diastolic blood 2021-05-20 23:20:54 75 mm[Hg] [facility] pressure Heart rate 2021-05-20 23:20:54 89 /min [facility] Body temperature 2021-05-20 23:20:54 36.67 Makenna [facility] Respiratory rate 2021-05-20 23:20:54 20 /min [facility] Oxygen saturation in 2021-05-20 23:20:54 100 /min [facility] Arterial blood by Pulse oximetry Body height 2021-03-16 01:44:00 154.9 cm [facility] Body weight 2021-03-16 01:44:00 63.504 kg [facility] BMI 2021-03-16 01:44:00 26.45 kg/m2 [facility] Procedures Procedure Date / Time Performing Clinician Source Performed URINE DRUGS OF ABUSE 2021-03-16 06:14:00 [facility] SCREEN URINALYSIS SCREEN AND 2021-03-16 06:14:00 [facility] MICROSCOPY, WITH REFLEX TO CULTURE COVID-19 QUALITATIVE 2021-03-16 06:13:00 [facility] RT-PCR ECG ED PRELIMINARY 2021-03-16 06:05:54 Dalton Randall [facility] INTERPRETATION Isrrael HC COMPLETE BLD COUNT 2021-03-16 03:42:00 [facility] W/AUTO DIFF COMPREHENSIVE METABOLIC 2021-03-16 03:42:00 [facility] PANEL CREATINE KINASE, TOTAL 2021-03-16 03:42:00 [facility] ([facility] THYROID STIMULATING 2021-03-16 03:42:00 [facility] HORMONE T4, FREE 2021-03-16 03:42:00 [facility] spital ALCOHOL LEVEL, BLOOD 2021-03-16 03:42:00 [facility] 2021-03-16 03:42:00 Walker Michael [facility] SALICYLATE LEVEL 2021-03-16 03:42:00 Michael Walker H ospital ESTIMATED GFR 2021-03-16 03:42:00 Michael Walker Ho spital ECG 12-LEAD 2021-03-16 03:23:09 Michael Walker spital ACETAMINOPHEN LEVEL 2021-03-15 05:54:00 Torres Mckinney [facility] SALICYLATE LEVEL 2021-03-15 05:54:00 Torres Mckinney [facility] ESTIMATED GFR 2021-03-15 05:54:00 Torres Mckinney [facility] HC COMPLETE BLD COUNT 2021-03-15 05:54:00 Torres Mckinney [facility] W/AUTO DIFF COMPREHENSIVE METABOLIC 2021-03-15 05:54:00 [facility] PAN[facility] CREATINE KINASE, TOTAL 2021-03-15 05:54:00 Torres Mckinney [facility] ([facility]) THYROID STIMULATING 2021-03-15 05:54:00 Torres Mckinney [facility] HORMONE T4, FREE 2021-03-15 05:54:00 Torres Mckinney [facility] ALCOHOL LEVEL, BLOOD 2021-03-15 05:54:00 Torres Mckinney [facility] ECG ED PRELIMINARY 2021-03-15 05:39:48 Torres Mckinney [facility] INTERPRETATION ECG 12-LEAD 2021-03-15 05:12:19 Torres Mckinney [facility] Encounters Start End Encounter Admission Attending Care Care Encounter Source Date/Time Date/Time Type Type Clinicians Facility Department ID 2021-05-[address] [facility] [id number] [facility] [facility] [id number] Univers 16:29:02 ity [facility] 2021-05-[address] [facility] [id number] [facility] 15:53[facility]57 [facility] [facility] [id number] [facility]:51[facility]-04-27 Inpatient Chan Carrillo [facility] PSY [id number] 10:43:00 Chan Carrillo -[id number] [facility] 2021-05-20 2021-05-20 Emergency Malik Sorenson 1.2.840.1 [id number] [facility] 18:56:00 19:37:[address] 3.430.2.7 Hospit a .3.318754 l .8 2021-05-20 2021-05-20 Travel 1.2.840.1 1.2.783.741 [id number] [facility] 00:00:00 00:00:[address] 3.430.2.7 0.2.7.3.698 Ho spita .3.128008 084.8 l .8 2021-03-15 2021-03-16 Emergency Prakash, 1.2.840.1 [id number] Methodi 23:48:00 06:39:[address] Isrrael 3.430.2.7 Hosp tk .3.407370 l .8 2021-03-15 2021-03-15 Emergency Hank, 1.2.840.1 [id number] Method[facility] 00:15:00 05:29:[address] Reggie 3.430.2.7 Hospit a .3.146252 l .8 2021-03-15 2021-03-15 Travel 1.2.840.1 1.2.047.355 [id number] Methodi 00:00:00 00:00:[address] 3.430.2.7 0.2.7.3.698 Ho spita .3.674596 084.8 l .8 2021-01-18 2021-01-18 EXT [facility] OP [place], EXT MSRDP 1.2.840.114 1 [id number] [place] 00:00:00 00:00:00 Vicente LOCATION 350.1.13.58 [facility] 9.2.7.2.686 [id number] 2021-01-08 2021-01-[address] [facility] [id number] Univers 12:30:00 12:30:00 [id number] [facility] 2021-01-08 2021-01-[address] [facility] [id number] Univers 12:30:00 12:30:00 ity [facility] 2021-01-03 2021-01-[address] [facility] [id number] Univers 12:45:00 12:45:00 [id number] [facility] 2020-04-27 2020-05-24 Inpatient 3 Chan Carrillo [facility] PSY [id number] 10:43:00 13:30:00 Stone Chan [facility] 2020-04-27 2020-04-27 [facility] Stone, ST 1.2.840.114 [id number] 11:31:00 23:59:00 Encounter Chan Kelton KATIA 350.1.13.10 [facility] 4.2.7.2.686 [place] [id number] 2020-04-27 2020-04-27 Outpatient R DEMETRIA [facility] NUT [id number] Univers 00:00:00 00:00:00 CHAN mingo [facility] 2020-04-27 2020-04-27 Orders Doctor BYNUM 1.2.840.114 [id number] 00:00:00 00:00:00 Only UnassignedLUIS 350.1.13.10 [place] [facility] 4.2.7.2.686 [id number] 2020-03-28 2020-03-28 [facility] 1.2.135.635 [id number] 20:05:00 20:52:00 Lydia Ford 350.1.13.10 [place] 4.2.7.2.686 Dora [id number] 2020-03-28 2020-03-28 Orders Doctor BYNUM 1.2.840.114 [id number] 00:00:00 00:00:00 Only UnassignedLUIS 350.1.13.10 [place] [facility] 4.2.7.2.686 [id number] 2020-03-24 2020-03-24 Emergency [facility] 1.2.840.114 [id number] 07:46:00 08:18:00 Jenna Adia Ford 350.1.13.10 [place] 4.2.7.2.686 Dora [id number] 2020-03-23 2020-03-23 Emergency [facility] 1.2.624.830 [id number] 16:33:00 20:42:00 Susan Ford 350.1.13.10 [place] 4.2.7.2.686 Dora [id number] 2020-03-23 2020-03-23 Orders Doctor FLETCHER 1.2.840.114 [id number] 00:00:00 00:00:00 Only Unassigned, LUIS 350.1.13.10 [place] [facility] 4.2.7.2.686 [id number] 2019-08-25 2019-08-25 [facility] 1.2.840.114 [id number] 16:23:00 19:17:00 Lisa Flores Liliana 350.1.13.10 [place] 4.2.7.2.686 Dora [id number] 2019-04-03 2019-04-03 [facility] 1.2.853.464 [id number] 18:43:45 19:09:00 Bernard Belen Liliana 350.1.13.10 [place] 4.2.7.2.686 [place] [address] [id number] Results Test Description Test Time Test Comments Results Result Comments Source ECG 12 lead 2021-04-24 20:37:17 Test Item Value Reference Range Interpretation Comme nts Ventricular rate (test code = 253) Atrial rate (test code = 255) MA interval (test code = 266) QRSD interval [...] of 15-MAR-2021 00:12,-No significant change was found- [facility] 12 [id number] 20:37:17 Test Item Value Reference Range Interpretation Comments Ventricular rate (test code = 253) Atrial rate (test code = 255) MA interval (test code = 266) QRSD interval (test code = 260) QT interval (test code = 264) QTC interval (test code = 265) P axis 1 (test code = 267) QRS axis 1 (test code = 268) T wave axis (test code = 270) EKG impression (test Normal sinus rhythm code = 273) with sinus arrhythmia-In automated comparison with ECG of 15-MAR-2021 00:12,-No significant change was found- [facility] [Presence] in Respiratory specimen by SAIGE with probe [id number] 06:16:38 Test Item Value Reference Range Interpretation Comments SARS-CoV-2 (COVID-19) RNA Not detected Not-Detected [Presence] in Respiratory specimen by SAIGE with probe detection (test code = 25371-1) Whether patient is employed in a healthcare setting (test code = 93973-1) Whether the patient has symptoms related to condition of interest (test code = 65404-0) Patient was hospitalized because of this condition (test code = 93628-5) Whether the patient was admitted to intensive care unit (ICU) for condition of interest (test code = 30050-0) Whether patient resides in a congregate care setting (test code = 28834-6) [id number] 09:56:39 Test Item Value Reference Range Interpretation [...] calculation is LDL/HDL Ratio=L DL Calc/HDL Chol [id number] 09:56:39 Test Item Value Reference Range Interpretation Comments TSH (test code = TSH) 1.610 mcIU/mL 0.550-4.780 HCG Ql [id number] 09:56:39 Test Item Value Reference Range Interpretation Comments HCG, Serum Qual (test code = HCG, Negative Negative Serum Qual)
[2022-01-08] MEDS ORDERED: NA CHLORIDE 0.9% 1,000 ML ONE (21:32)
[2022-01-08] MEDS ORDERED: MORPHINE 4 MG/ML SYR ONE (21:32)
[2022-01-08] MEDS ORDERED: ONDANSETRON 4 MG/2 ML VIAL ONE (21:32)
[2022-01-08 22:03] LABS: Albumin 3.5 g/dL (3.4-5.0); Alkaline Phosphatase 69 U/L (45-117); BUN Blood Urea Nitrogen 11 mg/dL (7-18); Bicarbonate 27 mmol/L (21-32); Bilirubin Total 0.4 mg/dL (0.2-1.0); Glomerular Filtration Rate 91 ml/min (=/>90); Glucose Level 98 mg/dL (74-106); Lipase 69 U/L (73-393); Protein, Total 6.9 g/dL (6.4-8.2); Sodium Level 141 mmol/L (136-145)
[2022-01-08 22:04] LABS: ALT/SGPT < 10 U/L (12-78); AST/SGOT < 3 U/L (15-37)
[2022-01-08 22:33] LABS: Urine Blood 2+ (Negative); Urine Glucose Negative (Negative); Urine Protein Negative (Negative); Urine Specific Gravity 1.025 (1.005-1.030)
[2022-01-08] MEDS ORDERED: MORPHINE 2 MG/ML SYR ONE (22:45)
[2022-01-08 22:59] LABS: Absolute Lymphocytes (CBC) 1.5 K/uL (0.7-4.9); Lymphocytes % 20.1 % (15.3-44.8); MCV < 50.0 fL (80-100); MPV 9.8 fL (7.6-11.3); RBC Red Blood Cell Count 3.58 M/uL (3.86-4.86)
[2022-01-08 23:04] LABS: Hematocrit 17.8 % (36.0-45.0)
[2022-01-08 23:16] LABS: Urine Specific Gravity/Preg 1.025 (1.005-1.030)
[2022-01-08 23:18] LABS: Urine Bacteria <20 /HPF (<20); Urine RBC 20-50 /HPF (NONE SEEN)
[2022-01-08] MEDS ORDERED: POTASSIUM 25 MEQ EFFERV TAB ONE (23:39)
[2022-01-08] MEDS ORDERED: FENTANYL CITR 100 MCG/2 ML ONE (23:39)
[2022-01-08 23:43] LABS: Blood Morphology Comment NOTED (NOT SEEN); Hypochromasia 3+; Platelet Estimate ADEQ; Polychromasia 1+; White Blood Cell Scan OK (OK)
[2022-01-09] MEDS ORDERED: DIPHENHYDRAMINE 50 MG/ML VIAL ONE (00:12)
--- NOTE | 2022-01-09 00:25 | EDPHYS ---
Physician Documentation [facility] Name: Alma Rosa Odonnell Age: 31 yrs Sex: Female : 1990 Arrival Date: 01/08/2022 Time: 20:25 Bed 15 Private MD: ED Physician Ant Ceron HPI: 01/08 21:05 This 31 yrs old Female presents to ER via EMS with complaints of Abdominal cp Pain. 21:05 The patient presents with abdominal pain in the lower abdomen. cp 21:05 Onset: The symptoms/episode began/occurred today. cp 21:05 The symptoms radiate to low back. Associated signs and symptoms: Pertinent positives: cp vaginal bleeding, Pertinent negatives: nausea and vomiting, blood in stools, chest pain, constipation, diarrhea, dysuria, fever, hematuria. The symptoms are described as constant. 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 - Social history:: Smoking status: Patient denies any tobacco usage or history of. ROS: 21:10 Constitutional: Negative for body aches, chills, fever, poor PO intake. cp 21:10 Eyes: Negative for injury, pain, redness, and discharge. cp 21:10 ENT: Positive for dental pain, Negative for drainage from ear(s), ear pain, sore throat, difficulty swallowing, difficulty handling secretions. 21:10 Abdomen/GI: Positive for abdominal pain, of the right lower quadrant and left lower quadrant, Negative for vomiting, diarrhea, constipation. 21:10 : Positive for vaginal bleeding. 21:10 Neuro: Negative for altered mental status, dizziness, headache, syncope, weakness. cp 21:10 All other systems are negative. Exam: 21:15 Constitutional: The patient appears in no acute distress, alert, awake, non-toxic, well cp developed, well nourished. 21:15 Head/Face: Normocephalic, atraumatic. cp 21:15 Eyes: Periorbital structures: appear normal, Conjunctiva: normal, no exudate, no injection, Sclera: no appreciated abnormality, Lids and lashes: appear normal, bilaterally. 21:15 ENT: External ear(s): are unremarkable, Nose: is normal, Mouth: Lips: moist, Oral mucosa: pink and intact, moist, Posterior pharynx: Airway: no evidence of obstruction, patent, Tonsils: are normal in appearance, swelling, is not appreciated, erythema, is not appreciated, exudate, is not appreciated, Dental exam: abscess, is not appreciated, dental caries, that is mild, diffusely, fractured teeth are noted, specifically the upper right third molar (#1), gum swelling, not appreciated, pain, that is moderate, specifically in the upper right third molar (#1). 21:15 Neck: ROM/movement: is normal, is supple, without pain, no range of motions limitations. 23:00 : Pelvic Exam: External exam: is normal, Speculum exam: mild bleeding, no cervicitis, cp os that is closed, no tissue in cervix is seen, no tissue in vagina is seen, no blood clots observed. Vital Signs: 20:45 BP 110 / 74; Pulse 89; Resp 20 S; Temp 98.4(TE); Pulse Ox 100% on R/A; Weight 72.57 kg as6 (R); Height 4 ft. 11 in. (149.86 cm) (R); Pain 10/10; 23:46 BP 117 / 67; ke1 01/09 02:23 BP 99 / 55; Pulse 69; Resp 15; Pulse Ox 100% ; ke1 01/08 20:45 Body Mass Index 32.32 (72.57 kg, 149.86 cm) as6 MDM: 01/08 20:50 Patient medically screened. cp 23:35 Physician consultation: Santiago Finch MD was called at 23:35, was contacted at 23:35, regarding admission, to labor and delivery, patient's condition. 01/09 00:30 Data reviewed: vital signs, nurses notes, lab test result(s), radiologic studies, CT cp scan. 00:30 Counseling: I had a detailed discussion with the patient and/or guardian regarding: the cp historical points, exam findings, and any diagnostic results supporting the discharge/admit diagnosis, lab results, radiology results, the need for further work-up and treatment in the hospital. 01/08 21:00 Order name: CBC with Diff 01/08 23:10 Interpretation: Normal except: RBC 3.58; HGB 4.7; HCT 17.8; MCV < 50.0; MCH 13.0; MCHC cp 26.1; RDW 21.0. 01/08 21:00 Order name: CMP; Complete Time: 22:15 01/08 22:15 Interpretation: Normal except: K 3.0; CL 108; AST < 3; ALT < 10; A/G 1.0. cp 01/08 21:00 Order name: Lipase; Complete Time: 22:15 cp 01/08 22:15 Interpretation: Abnormal: LIP 69. 01/08 21:00 Order name: Urine Microscopic Only; Complete Time: 23:26 01/08 23:26 Interpretation: URBC 20-50; Reviewed. 01/08 22:34 Order name: Urine Dipstick-Ancillary; Complete Time: 23:04 EDWY 01/08 22:36 Order name: Urine --Ancillary (enter results); Complete Time: 23:26 [facility] 01/08 23:06 Order name: CBC Smear Scan EDWY 01/08 23:28 Order name: Type And Screen 01/08 23:28 Order name: PT-INR 01/08 23:38 Order name: COVID-19 SARS RT PCR (Document "Date of Onset" if Symptomatic) 01/09 00:23 Order name: Ferritin: please draw prior to transfusion 01/09 00:23 Order name: TIBC: please draw prior to transfusion 01/09 00:23 Order name: Iron Level: please draw prior to transfusion 01/09 00:36 Order name: Packed RBC Leukored EDWY 01/08 21:00 Order name: CT Abd/Pelvis - IV Contrast Only cp 01/09 00:36 Order name: Hematocrit EDWY 01/09 00:36 Order name: Hemoglobin EDWY 01/09 00:36 Order name: Basic Metabolic Panel EDWY 01/09 00:36 Order name: Basic Metabolic Panel EDWY 01/09 00:36 Order name: Basic Metabolic Panel EDMS 01/09 00:36 Order name: CBC with Automated Diff EDWY 01/09 00:36 Order name: CBC with Automated Diff EDMS 01/09 00:36 Order name: CBC with Automated Diff EDMS 01/09 00:37 Order name: ABO/RH typing EDMS 01/09 00:37 Order name: Antibody Screen EDMS 01/08 21:00 Order name: IV Saline Lock; Complete Time: 21:26 cp 01/08 21:01 Order name: Labs collected and sent; Complete Time: 21:26 cp 01/08 21:01 Order name: Urine Dipstick-Ancillary (obtain specimen); Complete Time: 22:36 cp 01/08 21:01 Order name: Urine Test (obtain specimen); Complete Time: 22:36 cp 01/08 21:01 Order name: NPO; Complete Time: 21:37 cp 01/09 00:36 Order name: Regular EDMS Administered Medications: 01/08 21:36 Drug: NS 0.9% 1000 ml Route: IV; Rate: 1 bolus; Site: right antecubital; ke1 22:40 Follow up: IV Status: Completed infusion ke1 21:36 Drug: Zofran (Ondansetron) 4 mg Route: IVP; Site: right antecubital; ke1 21:50 Follow up: Response: Marked relief of symptoms ke1 21:36 Drug: morphine 2 mg Route: IVP; Infused Over: 4 mins; Site: right antecubital; ke1 21:45 Follow up: Response: Marked relief of symptoms ke1 22:50 Drug: morphine 2 mg Route: IVP; Infused Over: 4 mins; Site: right antecubital; ke1 23:05 Follow up: Response: Marked relief of symptoms ke1 23:11 CANCELLED (Physician Discretion): Tylenol 1000 mg PO once cp 23:13 Not Given (Physician Discretion): HYDROcodone-acetaminophen 5 mg-325 mg 1 tabs PO once cp 23:13 CANCELLED (Physician Discretion): HYDROcodone-acetaminophen 5 mg-325 mg 1 tabs PO once cp 23:47 Drug: Potassium Effervescent Tablet 50 mEq Route: PO; ke1 01/09 00:30 Follow up: Response: No adverse reaction ke1 01/08 23:47 Drug: fentaNYL (PF) 25 mcg Route: IVP; Site: left antecubital; ke1 01/09 00:30 Follow up: Response: Marked relief of symptoms ke1 00:13 Drug: Benadryl (diphenhydrAMINE) 25 mg Route: IVP; Site: right antecubital; ke1 00:20 Follow up: Response: Marked relief of symptoms ke1 Disposition: 02:25 Co-signature as Attending Physician, Ant Ceron MD I agree with the assessment and kdr plan of care. Disposition Summary: 01/09/22 00:24 Hospitalization Ordered Hospitalization Status: Observation cp Provider: Santiago Finch cp [facility] cp Condition: Stable cp Problem: new cp Symptoms: are unchanged cp Bed/Room Type: Standard Room Assignment: [facility]-(01/09/22 01:58) Diagnosis - Iron deficiency anemia secondary to blood loss (chronic) cp - Abnormal uterine and vaginal bleeding, unspecified cp Discharge Instructions: - Discharge Summary Sheet cp Forms: - Medication Reconciliation Form cp - SBAR form cp Prescriptions: - Amoxicillin 875 mg Oral Tablet - take 1 tablet by ORAL route every 12 hours for 10 days; 20 tablet; Refills: 0, cp Product Selection Permitted Signatures: Dispatcher [employer] EDWY Iwona Snyder RN RN Ant Ceron MD MD [facility] Zachariah Blake PA PA cp Vincent Iglesias RN RN as6 Chris Randle RN RN ke1 Corrections: (The following items were deleted from the chart) 01/08 23:11 23:10 Tylenol 1000 mg PO once ordered. cp cp 23:13 23:12 HYDROcodone-acetaminophen 5 mg-325 mg 1 tabs PO once ordered. cp cp 01/09 01:58 00:24 cp mw
--- NOTE | 2022-01-09 00:25 | ER ---
Nurse's Notes [facility] Name: Alma Rosa Odonnell Age: 31 yrs Sex: Female : 1990 Arrival Date: 01/08/2022 Time: 20:25 Bed 15 Private MD: Diagnosis: Iron deficiency anemia secondary to blood loss (chronic);Abnormal uterine and vaginal bleeding, unspecified Presentation: 01/08 20:45 Chief complaint: Patient states: "My tooth hurts and it's making my whole body hurt". as6 Coronavirus screen: At this time, the client does not indicate any symptoms associated with coronavirus-19. Ebola Screen: No symptoms or risks identified at this time. Initial Sepsis Screen: Does the patient meet any 2 criteria? No. Patient's initial sepsis screen is negative. Does the patient have a suspected source of infection? No. Patient's initial sepsis screen is negative. Risk Assessment: Do you want to hurt yourself or someone else? Patient reports no desire to harm self or others. Onset of symptoms was January 07, 2022. 20:45 Method Of Arrival: EMS: [facility] as6 20:45 Acuity: MANDO 4 as6 Triage Assessment: 21:27 General: Appears in no apparent distress. Behavior is fussy, patient very disrespectful ke1 using words like " I need strong pain meds, i don;t need shit like tylenol". Pain: Complains of pain in tooth. 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 - Social history:: Smoking status: Patient denies any tobacco usage or history of. Screenin:26 Abuse screen: Denies threats or abuse. Nutritional screening: No deficits noted. ke1 Tuberculosis screening: No symptoms or risk factors identified. Fall Risk None identified. Assessment: 21:30 Reassessment: Patient very disrespectful and aggressive communication style. ke1 22:18 Reassessment: Patient states symptoms have not improved. c/o tooth pain . GI: Bowel ke1 sounds present X 4 quads. Abd is soft and non tender. 23:46 Pain: Complains of pain in tooth right side of mouth Quality of pain is described as ke1 aching. 23:55 Neuro: Reports itching post fentanyl administration. ke1 01/09 02:22 Reassessment: report given to wilberto AMARO. ke1 Vital Signs: 01/08 20:45 BP 110 / 74; Pulse 89; Resp 20 S; Temp 98.4(TE); Pulse Ox 100% on R/A; Weight 72.57 kg as6 (R); Height 4 ft. 11 in. (149.86 cm) (R); Pain 10/10; 23:46 BP 117 / 67; ke1 01/09 02:23 BP 99 / 55; Pulse 69; Resp 15; Pulse Ox 100% ; ke1 01/08 20:45 Body Mass Index 32.32 (72.57 kg, 149.86 cm) as6 ED Course: 01/08 20:25 Patient arrived in ED. bp1 20:36 Zachariah Blake PA is PHCP. cp 20:36 Ant Ceron MD is Attending Physician. cp 20:47 Triage completed. as6 20:47 Arm band placed on. as6 20:48 Vincent Iglesias RN is Primary Nurse. as6 21:26 Bed in low position. Call light in reach. Side rails up X2. ke1 21:26 Inserted saline lock: 20 gauge in right antecubital area, using aseptic technique. ke1 21:26 No provider procedures requiring assistance completed. ke1 23:00 CT Abd/Pelvis - IV Contrast Only In Process Unspecified. EDMS 01/09 00:24 Santiago Finch MD is Hospitalizing Provider. cp 02:50 Patient admitted, IV remains in place. ke1 Administered Medications: 01/08 21:36 Drug: NS 0.9% 1000 ml Route: IV; Rate: 1 bolus; Site: right antecubital; ke1 22:40 Follow up: IV Status: Completed infusion ke1 21:36 Drug: Zofran (Ondansetron) 4 mg Route: IVP; Site: right antecubital; ke1 21:50 Follow up: Response: Marked relief of symptoms ke1 21:36 Drug: morphine 2 mg Route: IVP; Infused Over: 4 mins; Site: right antecubital; ke1 21:45 Follow up: Response: Marked relief of symptoms ke1 22:50 Drug: morphine 2 mg Route: IVP; Infused Over: 4 mins; Site: right antecubital; ke1 23:05 Follow up: Response: Marked relief of symptoms ke1 23:11 CANCELLED (Physician Discretion): Tylenol 1000 mg PO once cp 23:13 Not Given (Physician Discretion): HYDROcodone-acetaminophen 5 mg-325 mg 1 tabs PO once cp 23:13 CANCELLED (Physician Discretion): HYDROcodone-acetaminophen 5 mg-325 mg 1 tabs PO once cp 23:47 Drug: Potassium Effervescent Tablet 50 mEq Route: PO; ke1 01/09 00:30 Follow up: Response: No adverse reaction ke1 01/08 23:47 Drug: fentaNYL (PF) 25 mcg Route: IVP; Site: left antecubital; ke1 01/09 00:30 Follow up: Response: Marked relief of symptoms ke1 00:13 Drug: Benadryl (diphenhydrAMINE) 25 mg Route: IVP; Site: right antecubital; ke1 00:20 Follow up: Response: Marked relief of symptoms ke1 Outcome: 00:24 Decision to Hospitalize by Provider. cp 02:23 Admitted to L \\T\\ D, accompanied by tech. ke1 02:23 Condition: stable 02:23 Instructed on the need for admit. 02:50 Patient left the ED. ke1 Signatures: Dispatcher [employer] EDMS Zachariah Blake PA PA cp Paniauga, Brittany bp1 Slawson, Ashby, RN RN as6 Chris Randle RN RN ke1 Corrections: (The following items were deleted from the chart) 01/08 23:11 21:27 General: Appears in no apparent distress. Behavior is fussy, ke1 ke1
[2022-01-09 00:28] LABS: Protime INR 1.25
[2022-01-09] MEDS ORDERED: ONDANSETRON 4 MG (ODT) TAB PO PRN (00:28)
[2022-01-09] MEDS ORDERED: DIPHENHYDRAMINE 50 MG/ML VIAL IV ONE (00:28)
[2022-01-09] MEDS ORDERED: ACETAMINOPHEN 500 MG TAB PO ONE (00:28)
[2022-01-09 00:55] LABS: Ferritin 1.2 ng/mL (8-388)
[2022-01-09] MEDS ORDERED: MEDROXYPROGEST ACET 150 MG/ML IM SCH (01:00)
[2022-01-09] MEDS: HYDROCODONE/APAP 5/325 MG TAB PO PRN ×3 (03:23→18:41)
[2022-01-09 03:36] VITALS: BMI 33.3
[2022-01-09 04:20] LABS: Absolute Lymphocytes (CBC) 2.1 K/uL (0.7-4.9); Lymphocytes % 25.9 % (15.3-44.8); MPV 9.4 fL (7.6-11.3); RBC Red Blood Cell Count 3.77 M/uL (3.86-4.86)
[2022-01-09 04:27] LABS: Hematocrit 18.7 % (36.0-45.0); MCV 49.5 fL (80-100)
[2022-01-09 04:35] LABS: Potassium 3.3 mmol/L (3.5-5.1)
--- NOTE | 2022-01-09 08:12 | PREOPHP ---
Date of Admission: 01/09/2022 History Of Present Illness: A 31-year-old female, came into the emergency room for toothaches. She is noted to have a hemoglobin of 4.8, hematocrit of 18. Her bipolar apparently extremely argumentati ve and very uncooperative. I was told last night she would be admitted and given blood. This mornin g, the patient still has not had blood. Apparently, she has antibody that prevents the blood we have from being given. Now, timeframe that we are aware of when we will get the blood. When I initially spoke to the patient, she says she is not leaving the hospital. She is not letting me transfer her to another facility because she will get stuck there. I told her she could even from the blood l oss. She has DICTATION ENDS HERE FALGUNI/RICCO Voice ID: [id number]
[2022-01-09] MEDS ORDERED: ZIPRASIDONE MESYLA 20 MG/VIAL IM PRN ×2 (08:14→17:51)
[2022-01-09] MEDS ORDERED: WATER FOR INJ,STERILE 10 ML IM PRN ×2 (08:14→18:00)
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
--- NOTE | 2022-01-09 08:48 | PREOPHP ---
Date of Admission: 01/09/2022 History Of Present Illness: Alma Rosa Odonnell is a 31-year-old female with severe anemia. The patient came into the emergency room yesterday with a toothache, was noted to have a hemoglobin of 4.8, hematocrit of about 18. She is apparently bipolar and extremely uncooperative. I was told she would be admitted and given blood transfusion. The patient was transferred up to our Labor and Delivery area, but has had no blood given and apparently has antibodies that are making it difficult for them to find a match. I have talked with Shady Guzman. I have talked with Dr. Lewis and Dr. Tarango. The patient does not need to be on Labor and Delivery area. She needs to be in ICU or down in the ER so that if she codes, they can have a crash team readily available. I have talked to the patient, extremely uncooperative patient, getting the history is very difficult, but apparently she has had no children. She says she does not do anything for control because she does not need to. She says she did start bleeding a little bit yesterday, which is totally incompatible with her clinical picture here. She is bleeding minimal at this point, but she is very pale. Family History: We cannot get. Allergies: NO ALLERGIES REPORTED. Past Surgical History: She says she has had no surgery. Physical Examination: She will not allow and is hostile and aggressive. By just looking at the patient, she is extremely pale. When told that we might need to transfer her so that we can get her to a hospital with a good blood bank, she adamantly refused. She says there is no F way that she is going to [place] because she would get stuck there. As I said, very uncooperative patient who is very ill at this point with anemia. I talked to the hospital people. We will either move her to ICU or back down to ER, which she is more appropriate until she gets blood and stable, then she can be transferred back here. FALGUNI/RICCO Voice ID: [id number] MTDD
[2022-01-09] MEDS: MORPHINE 4 MG/ML SYR IV PRN ×3 (09:43→20:45)
[2022-01-09] MEDS: BENZOCAINE 20% 5.25 GM JAR TOP PRN ×2 (09:44→18:39)
[2022-01-09] MEDS: AMOXICILLIN TRIHYDR 250 MG CAP PO SCH ×3 (10:10→20:00)
[2022-01-09] MEDS: NA CHLORIDE 0.9% 250 ML IV SCH ×2 (10:11→14:48)
--- NOTE | 2022-01-09 13:21 | RAD REPORT ---
EXAM DESCRIPTION: CT - Abdomen Pelvis W Contrast - 01/09/2022 6:35 am CLINICAL HISTORY: 31 years, Female, RLQ abdominal pain COMPARISON: 04/25/2020 TECHNIQUE: Contrast-enhanced images of the abdomen and pelvis were performed utilizing 5 mm slice th ickness at 5 mm interval reconstruction from the lung bases to the ischial tuberosities after the adm inistration IV contrast. In addition multiplanar reformats in the coronal and sagittal plane were obtained and reviewed. This exam was performed according to our departmental dose-optimization protocol, which includes auto mated exposure control, adjustment of the mA and/or kV according to patient size and/or use of iterat james reconstruction technique. FINDINGS: The lung bases demonstrate to be clear. The liver, gallbladder, pancreas, spleen and adrenal glands demonstrate to be unremarkable, no focal lesions are noted. The kidneys demonstrate normal uptake of contrast media. No evidence for nephrolithiasis and/or hydro nephrosis. Grossly the unopacified stomach, small bowel and large bowel demonstrate to be within normal limits. There is no evidence for bowel dilatation and/or free air. The appendix is normal. The urinary bladder demonstrate to be unremarkable. The uterus demonstrate to be within normal limi ts. Uterine cervix demonstrate the presence of several cystic structures corresponding most likely to a nabothian cysts. The aorta demonstrate to be normal. There is no retroperitoneal lymphadenopat hy. There is no ascites. The rest of the soft tissue and bony structures are within normal limits. IMPRESSION: No acute intra-abdominal or pelvic process. Normal appendix. Several cystic structures within the cervix of the uterus corresponding to nabothian cysts. Electronically signed by: Steve Vazquez MD 01/08/2022 11:23 PM CDT Due to temporary technical issues with the PACS/Fluency reporting system, reports are being signed by the in house radiologist without review as a courtesy to ensure prompt reporting. The interpreting r adiologist is fully responsible for the content of the report.
[2022-01-09] MEDS ORDERED: NA CHLORIDE 0.9% 250 ML ONE (14:53)
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
[2022-01-09] MEDS ORDERED: DIPHENHYDRAMINE 25 MG TAB/CAP PO ONE (19:10)
[2022-01-09] MEDS: ZIPRASIDONE 20 MG CAP PO SCH (20:00)
[2022-01-09] MEDS: TRAZODONE 50 MG TABLET PO SCH (20:00)
[2022-01-09 23:32] LABS: Hematocrit 24.5 % (36.0-45.0)
[2022-01-10] MEDS: MORPHINE 4 MG/ML SYR IV PRN ×4 (05:55→23:59)
[2022-01-10 06:16] LABS: Absolute Lymphocytes (CBC) 1.7 K/uL (0.7-4.9); Hematocrit 24.6 % (36.0-45.0); Lymphocytes % 28.7 % (15.3-44.8); MPV 8.8 fL (7.6-11.3); RBC Red Blood Cell Count 4.09 M/uL (3.86-4.86)
[2022-01-10 06:30] LABS: Potassium 3.4 mmol/L (3.5-5.1)
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
[2022-01-10 08:02] LABS: Anisocytosis 2+; Blood Morphology Comment NOTED (NOT SEEN); Platelet Estimate ADEQ; Platelets, Giant FEW
[2022-01-10 08:03] LABS: Hypochromasia 3+
--- NOTE | 2022-01-10 08:05 | PN ---
The patient has apparently had 2 units of blood. She does not even have an IV this morning. She is very again unresponsive to questions. Says she is feeling better. Apparently, she has had no bleedi ng. From ECONOMICS FACULTY MEMBER standpoint, I think she is stable. I will turn her over to the hospitalist or Dr. Jd edwards, who are trying to arrange some psychiatric care for this patient, which she desperately needs. Chai fleming has been given Depo-Provera, which might control her bleeding for a while. I doubt she will follow up, but she probably needs to be on control pills to try to prevent this further bleeding epis odes, but I do not think she will comply. Followup according to respond. FALGUNI/RICCO Voice ID: [id number] Report ID: [id number]
[2022-01-10] MEDS: AMOXICILLIN TRIHYDR 250 MG CAP PO SCH ×3 (08:51→20:40)
[2022-01-10] MEDS: ZIPRASIDONE 20 MG CAP PO SCH ×2 (08:51→20:40)
[2022-01-10] MEDS ORDERED: DIVALPROEX DR 250 MG TAB PO ONE (09:00)
[2022-01-10] MEDS ORDERED: DIVALPROEX DR 250 MG TAB PO SCH (09:00)
--- NOTE | 2022-01-10 09:41 | P.PN ---
Subjective Date of Service: 01/10/22 Primary Care Provider: None Chief Complaint: anemia Subjective: Improving Review of Systems 10-point ROS is otherwise unremarkable (patient is a bit more coperative today) Physical Examination - Vital Signs Temperature: 99.2 F Blood Pressure: 101/59 Pulse: 79 Respirations: 16 Pulse Ox (%): 96 - Physical Exam General: Alert, In no apparent distress HEENT: Atraumatic, PERRLA, EOMI Neck: Supple, JVD not distended Respiratory: Clear to auscultation bilaterally, Normal air movement Cardiovascular: Regular rate/rhythm, Normal S1 S2 Gastrointestinal: Normal bowel sounds, No tenderness Musculoskeletal: No tenderness Integumentary: No rashes Neurological: Normal speech, Normal tone, Normal affect Lymphatics: No axilla or inguinal lymphadenopathy Assessment And Plan - Current Problems (Diagnosis) (1) Anemia Current Visit: Yes Status: Chronic Plan: Patient needs a transfusion. due to her autoantibodies will need to get it from [place] [facility]. Which will take some time 01/10 She received 2 units. Now is above 7. Which is a safe area. Will start her on oral iron. We can discharge her on this. No plans for any obgyn interventions. Qualifiers: Anemia type: iron deficiency Iron deficiency anemia type: chronic blood loss Qualified Code(s): D50.0 - Iron deficiency anemia secondary to blood loss (chronic) (2) Bipolar disorder with psychotic features Current Visit: Yes Status: Acute Plan: Patient is most likely in a manic episode. Have called the mental health deputy. She most likely will need inpatient treatment. We can start with sedation and geodan,. Her tooth examination is not significant. She may be seeking pain meds. Will give benzocaine and occasional morphine. More for the sedative properties. Will await evaluation by a mental health professional 01/10 Patient was seen by Dr. Umaña. She is much more stable on depakote and trazodone Not a candidate for inpatient rehab. We can discharge her on these medications. Will await Dr. Maza follow up. Have tried to discuss follow up and compliance with her medications. The patient did not seem very motivated to follow up. Discharge Plan: Home Plan to discharge in: 24 Hours - Code Status/Comfort Care Code Status Assessed: No Physician Review: Patient Assessed, Agree with Above Assessment and Plan Critical Care: No Time Spent Managing PTS Care (In Minutes): 25
[2022-01-10 12:34] LABS: Hematocrit 24.4 % (36.0-45.0)
--- NOTE | 2022-01-10 13:34 | CON ---
Date of Consultation: 01/09/2022 Type Of Service: Consult. Reason For Consultation: Evaluate the patient for possible manic episode. History Of Present Illness: Ms. Alma Rosa Odonnell is a 31-year-old female with a psychiatric history significant for bipolar disorder, history of past admission at [facility] about 3 years ago for bipolar, depression. The patient has not been medicated. She was admitted via the ER on the Dec on account of severe anemia with hemoglobin of 4.8 and hematocrit of 18. The patient now presented to the ER by herself on account of severe tooth ache and due to subsequent examination and last investigation shows her to be severely anemia. Also during the process, the patient was noted t o be hyperverbal with pressured speech, combative and verbally aggressive. Hence, the consult. On i nterview on the unit, the patient states she was diagnosed with bipolar . She stated that she has not been on medication for a while, but has been on Depakote, citalopram, and trazodone. Sta sienna that last time she was on any medication was following her admission to [facility] 3 yea rs ago. The patient was observed loud during the interview, shows poor historian, although admits th at she has not been sleeping, but denying suicidal or homicidal ideation. She states she lives in [facility] herself, never , has 5 kids. Denies alcohol or substance abuse. She also denies psychotic symptoms. The patient currently denies depressive symptoms, stating that she has not depre ssed, rather she is frustrated, not irritable. At times, questioning to the questions. T he patient also denies delusional thoughts. She denies being , states that she did have a boy friend, but states that they are no longer together. She denies history of sexual or physical abuse. States she completed high school. Currently not working. attempt to get a collaborativ e information from . The patient's mother contacted during examination, is currently out o f service. Physical Examination: Vital Signs: Blood pressure 110/70, pulse rate is 75, respiratory rate is 18, temperature is 97.8 an d pain sensitivity is 7. Mental Status Examination: The patient dressed in a hospital attire, not in any obvious acute respir atory distress. The patient was not very cooperative. She is otherwise alert and oriented x3. Spee ch was loud. There are no preservation noted. Volume is hyper. Agitation was observed. Mood is de scribed as good. Affect is irritable, normal congruent. Thought process is linear, circumstantial. No flight of ideas noted. Thought content, no delusional thinking. No suicidal or homicidal ideati on. No rumination observed. The patient denies auditory or visual hallucination. Insight and judgm ent impulse control are limited. Suicidal ideation/homicidal ideation negative. Fund of knowledge a verage. Language skill is fair. Impression: A 31-year-old female with psychiatric history of bipolar disorder, , severely anemic with hemoglobin of 4.8, currently admitted for blood transfusion, noted to be hyperm anic. No significant psycho social support. Noncompliant with . Diagnoses: 1.Bipolar disorder, current episode, hypermanic. 2.Anxiety disorder, unspecified. Plan: 1.We will start Geodon 20 mg p.o. b.i.d. for mood stabilization. 2.Start Depakote 250 mg p.o. q.a.m. and 500 mg p.o. at bedtime for mood stabilization, aggressive be havior. 3.Start trazodone 50 mg p.o. at bedtime for sleep. 4.Change Geodon 10 mg . 5.Follow up outpatient. 6.Discussed medication with treatment team. KO/MODL Voice ID: [id number] Report ID: [id number]
[2022-01-10 15:14] VITALS: O2SAT 96
[2022-01-10] MEDS: BENZOCAINE 20% 5.25 GM JAR TOP PRN (15:36)
[2022-01-10] MEDS: FERROUS SULFATE 325 MG TAB PO SCH (20:40)
[2022-01-10] MEDS: TRAZODONE 50 MG TABLET PO SCH (20:40)
[2022-01-10] MEDS ORDERED: DIVALPROEX DR 500MG TAB PO SCH (21:00)
[2022-01-11] MEDS: MORPHINE 4 MG/ML SYR IV PRN (04:24)
[2022-01-11 05:17] VITALS: BP 123/58; TEMP 97.8
[2022-01-11 06:44] LABS: Absolute Lymphocytes (CBC) 1.9 K/uL (0.7-4.9); Hematocrit 23.8 % (36.0-45.0); Lymphocytes % 30.8 % (15.3-44.8); MPV 9.3 fL (7.6-11.3); RBC Red Blood Cell Count 3.96 M/uL (3.86-4.86)
[2022-01-11] MEDS: ZIPRASIDONE 20 MG CAP PO SCH (07:56)
[2022-01-11] MEDS: AMOXICILLIN TRIHYDR 250 MG CAP PO SCH (07:56)
[2022-01-11] MEDS: FERROUS SULFATE 325 MG TAB PO SCH (07:56)
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
== END 2022-01-11 10:47 | disposition home or self-care (01) | DRG 812 ==
LOC: ER 20:23 → ERHOLD 01-09 00:37 → 2ND-WC 01-09 02:19 → 3RD-ICU 01-09 07:45 → OBSVTOIN 01-09 07:50 → 2ND 01-09 17:20
PROVIDERS: ADMIT Internal Medicine; ATTEND Internal Medicine
PROC: 30233N1 Transfusion of Nonautologous Red Blood Cells into Peripheral Vein, Percutaneous Approach (ICD-10-PCS; principal; 2022-01-08)
DX: D50.0 Iron deficiency anemia secondary to blood loss (chronic) (principal); F31.0 Bipolar disorder, current episode hypomanic; F41.9 Anxiety disorder, unspecified; F17.210 Nicotine dependence, cigarettes, uncomplicated; Z20.822 Contact with and (suspected) exposure to COVID-19
CPT/HCPCS: 36415; 74177; 80048; 80053; 81003; 81015; 81025; 82728; 83540; 83690; 84466; 85014; 85018; 85025; 85610; 86850; 86870; 86900; 86901; 86902; 86922; 99285; G0378; J1050; J1200; J2270; J2405; J3010; J7030; J7050; P9016; Q9967; U0003

== ENCOUNTER 2022-03-11 09:06 | Emergency (ER) | payer OTHER ==
--- OUTSIDE RECORDS SUMMARY | 2022-03-11 09:09 | XMS REPORT | Continuity of Care Document ---
:1990 Author Organization [facility] t Address [address] [place] [address] Care Team Providers Name Role Phone Asked, No Pcp Primary Care Physician Unavailable Chan Carrillo Attending Clinician Unavailable Chan Carrillo Attending Clinician Unavailable Malik Sorenson MD Attending Clinician Ayesha Randall DO Attending Clinician [phone] DO AYESHA RANDALL Attending Clinician Unavailable Torres Mckinney MD Attending Clinician Vicente Perkins MD Attending Clinician Chan Carrillo MD Attending Clinician CHAN CARRILLO Attending Clinician Unavailable Doctor Unassigned, [place] Attending Clinician Unavailable Lydia Stone Attending Clinician Jenna Cook DO Attending Clinician Susan Marion Attending Clinician Lisa Quintanilla Attending Clinician Bernard Reed Attending Clinician Chan Carrillo Admitting Clinician Unavailable MD SRINI OLIVA Admitting Clinician Unavailable Payers Payer Name Policy Type Policy Number Effective Date Expiration Date S silverio [place] [place] [id number] 2020 00:00:00 Problems This patient has no known problems. Allergies, Adverse Reactions, Alerts Allergy Allergy Status Severity Reaction(s) Onset Inactive Treating Comm ents Source Name Type Date Date Clinician No Known DA Active U 2017-07 [facility] 0-04 Clear s 00:00: Alaniz 00 [facility] No Known DA Active U [facility] Allergie 2-19 Clear s 00:00: Alaniz 00 [facility] No Known Drug Active [facility] NO KNOWN Drug Active [facility] Social History Social Habit Start Date Stop Date Quantity Comments Source Sex Assigned At [birth year] [facility] 00:00:00 00:00:00 Smoking Status Start Date Stop Date Source Tobacco smoking consumption unknown [facility] Medications Ordered Filled Start Stop Current Ordering Indication Dosage Frequency Signature Comments Components Source Medication Medication Date Date Medication? Clinician (SIG) Name Name citalopram 2020-07 No 10mg QD Take 1 Meth sacha (CeleXA) 10 0- 11-15 tablet (10 s t MG tablet [...] 2 l (two) times a day. propranoloL Yes 20mg Q.5D Take 1 Meth sacha (INDERAL) 8-27 tablet (20 st 20 MG 00:00: mg total) [facility]osp[facility] tablet 00 by mouth 2 l (two) times a day. sertraline 2020- No 1/2 tab po [facility] (Zoloft) 03-[address] 100 MG 00:00: 00:00 days, then Hosp tk tablet 00 :00 1 tab po l qam sertraline 2020- No 1/2 tab po [facility] (Zoloft) 03-16 [...] kg Systolic blood 2021-05-20 23:20:54 118 mm[Hg] [facility] pressure Diastolic blood 2021-05-20 23:20:54 75 mm[Hg] [facility] pressure Heart rate 2021-05-20 23:20:54 89 /min [facility] Body temperature 2021-05-20 23:20:54 36.67 [facility] Respiratory rate 2021-05-20 23:20:54 20 /min [facility] Oxygen saturation in 2021-05-20 23:20:54 100 /min [facility] Arterial blood by Pulse oximetry Body height 2021-03-16 01:44:00 154.9 cm [facility] Body weight 2021-03-16 01:44:00 63.504 kg [facility] BMI 2021-03-16 01:44:00 26.45 kg/m2 [facility] Procedures Procedure Date / Time Performing Clinician Source Performed URINE DRUGS OF ABUSE 2021-03-16 06:14:00 [facility] SCREEN URINALYSIS SCREEN AND 2021-03-16 06:14:00 [facility] MICROSCOPY, WITH REFLEX TO CULTURE COVID-19 QUALITATIVE 2021-03-16 06:13:00 [facility] RT-PCR ECG ED PRELIMINARY 2021-03-16 06:05:54 Ayesha Randall [facility] INTERPRETATION [facility] COMPLETE BLD COUNT 2021-03-16 03:42:00 [facility] W/AUTO DIFF COMPREHENSIVE METABOLIC 2021-03-16 03:42:00 [facility] PANEL CREATINE KINASE, TOTAL 2021-03-16 03:42:00 [facility] ([facility]) THYROID STIMULATING 2021-03-16 03:42:00 [facility] Srini [facility] HORMONE T4, FREE 2021-03-16 03:42:00 Srini Oliva [facility]ital ALCOHOL LEVEL, BLOOD 2021-03-16 03:42:00 [facility] ACETAMINOPHEN LEVEL 2021-03-16 03:42:00 [facility] SALICYLATE LEVEL 2021-03-16 03:42:00 Srini [facility] ESTIMATED GFR 2021-03-16 03:42:00 Srini Oliva spital ECG 12-LEAD 2021-03-16 03:23:09 [facility] COMPLETE BLD COUNT 2021-03-15 05:54:00 Torres Mckinney [facility] W/AUTO DIFF COMPREHENSIVE METABOLIC 2021-03-15 05:54:00 Torres Mckinney [facility] PANEL CREATINE KINASE, TOTAL 2021-03-15 05:54:00 Torres Mckinney [facility] ([facility]) THYROID STIMULATING 2021-03-15 05:54:00 Torres Mckinney [facility] HORMONE T4, FREE 2021-03-15 05:54:00 Torres Mckinney [facility] ALCOHOL LEVEL, BLOOD 2021-03-15 05:54:[address] [facility] ACETAMINOPHEN LEVEL 2021-03-15 05:54:00 Torres Mckinney [facility] SALICYLATE LEVEL 2021-03-15 05:54:00 Torres Mckinney [facility] ESTIMATED GFR 2021-03-15 05:54:00 Torres Mckinney [facility] ECG ED PRELIMINARY 2021-03-15 05:39:48 Torres Mckinney [facility] INTERPRETATION ECG 12-LEAD 2021-03-15 05:12:19 [facility] Start End Encounter Admission Attending Care Care Encounter Source Date/Time Date/Time Type Type Clinicians Facility Department ID 2021-05-20 Emergency [facility] [id number] Univers 20:09:23 [facility] 2021-05-18 Emergency [facility] [id number] Univers 16:29:02 [facility] 2021-05-18 Emergency [facility] [id number] Univers 15:53:57 ity [facility] 2021-05-18 Emergency [facility] [id number] Univers 15:51:32 ity [facility] 2020-04-27 Inpatient Chan Carrillo [facility] PSY [id number] 10:43:00 Chan Carrillo -[id number] [facility] 2021-05-20 2021-05-20 Emergency Yas Malik 1.2.840.1 [id number] [facility] 18:56:00 19:37:[address] 3.430.2.7 Hospit a .3.484030 l .8 2021-05-20 2021-05-20 Travel 1.2.840.1 1.2.603.070 [id number] [facility]i 00:00:00 00:00:[address] 3.430.2.7 0.2.7.3.698 Ho spita .3.848109 084.8 l .8 2021-03-15 2021-03-16 Emergency Kendig, 1.2.840.1 [id number] Methodi 23:48:00 06:39:[address] Clint 3.430.2.7 Hosp tk .3.894506 l .8 2021-03-15 2021-03-15 Emergency Hank, 1.2.840.1 [id number] [facility]i 00:15:00 05:29:[address] Reggie 3.430.2.7 Hospit a .3.083710 l .8 2021-03-15 2021-03-15 Travel 1.2.840.1 1.2.867.306 [id number] Methodi 00:00:00 00:00:[address] 3.430.2.7 0.2.7.3.698 Ho spita .3.099682 084.8 l .8 2021-01-18 2021-01-[address] [facility] [place], EXT MSRDP 1.2.840.114 1 [id number] [place] 00:00:00 00:00:00 Vicente LOCATION 350.1.13.58 Health 9.2.7.2.686 [id number] 2021-01-18 2021-01-18 EXT [facility] OP [place], EXT MSRDP 1.2.840.114 1 [id number] [place] 00:00:00 00:00:00 Vicente LOCATION 350.1.13.58 Health 9.2.7.2.686 [id number] 2021-01-08 2021-01-08 Outpatient R [facility] [id number] Univers 12:30:00 12:30:00 [id number] [facility] 2021-01-08 2021-01-08 Outpatient R [facility] [id number] Univers 12:30:00 12:30:00 [facility] 2021-01-03 2021-01-03 Outpatient R [facility] [id number] Univers 12:45:00 12:45:00 [id number] [facility] 2020-04-27 2020-05-24 Inpatient 3 Chan Carrillo [facility] PS[facility] [id number] 10:43:00 13:30:00 Stone Chan [facility] 2020-04-27 2020-04-27 [facility] Stone, ST. 1.2.840.114 [id number] 11:31:00 23:59:00 Encounter Chan MONTALVO 350.1.13.10 [facility] 4.2.7.2.686 ANTIOCH [id number] 2020-04-27 2020-04-27 [facility] [id number] Univers 00:00:00 00:00:00 [facility] 2020-04-27 2020-04-27 Orders Doctor BYNUM 1.2.840.114 [id number] 00:00:00 00:00:00 Only Unassigned, LUIS 350.1.13.10 [place] [facility] 4.2.7.2.686 [id number] 2020-03-28 2020-03-28 Emergency Villalobos, [facility] 1.2.687.877 [id number] 20:05:00 20:52:00 Lydia Ford 350.1.13.10 [place] 4.2.7.2.686 [place] [id number] 2020-03-28 2020-03-28 Orders Doctor FLETCHER 1.2.840.114 [id number] 00:00:00 00:00:00 Only Unassigned, LUIS 350.1.13.10 [place] [facility] 4.2.7.2.686 [id number] 2020-03-24 2020-03-24 Emergency [facility] 1.2.840.114 [id number] 07:46:00 08:18:00 Jenna Ford 350.1.13.10 [place] 4.2.7.2.686 [place] [id number] 2020-03-23 2020-03-23 Emergency [facility] 1.2.836.139 [id number] 16:33:00 20:42:00 Susan Fodr 350.1.13.10 [place] 4.2.7.2.686 [place] [id number] 2020-03-23 2020-03-23 Orders Doctor FLETCHER 1.2.840.114 [id number] 00:00:00 00:00:00 Only Unassigned, LUIS 350.1.13.10 [place] [facility] 4.2.7.2.686 [id number] 2019-08-25 2019-08-25 [facility] 1.2.840.114 [id number] 16:23:00 19:17:00 Lisa Ford 350.1.13.10 [place] 4.2.7.2.686 [place] [id number] 2019-04-03 2019-04-03 Emergency [facility] 1.2.125.131 [id number] 18:43:45 19:09:00 Bernard Ford 350.1.13.10 [place] 4.2.7.2.686 [place] [id number] 084 Results Test Description Test Time Test Comments Results Result Comments Source ECG 12 lead 2021-04-24 20:37:17 Test Item Value Reference Range Interpretation Comme nts Ventricular rate (test code = 253) Atrial rate (test code = 255) RI interval (test code = 266) QRSD interval [...] of 15-MAR-2021 00:12,-No significant change was found- [facility] 12 [id number] 20:37:17 Test Item Value Reference Range Interpretation Comments Ventricular rate (test code = 253) Atrial rate (test code = 255) RI interval (test code = 266) QRSD interval [...] of 15-MAR-2021 00:12,-No significant change was found- [facility] RNA [Presence] in Respiratory specimen by SAIGE with probe [id number] 06:16:38 Test Item Value Reference Range Interpretation Comments SARS-CoV-2 (COVID-19) RNA Not detected Not-Detected [Presence] in Respiratory specimen by SAIGE with probe detection (test code = 88955-7) Whether patient is employed in a healthcare setting (test code = 99464-9) Whether the patient has symptoms related to condition of interest (test code = 70056-2) Patient was hospitalized because of this condition (test code = 91313-8) Whether the patient was admitted to intensive care unit (ICU) for condition of interest (test code = 48860-0) Whether patient resides in a congregate care setting (test code = 27567-2) [id number] 09:56:39 Test Item Value Reference Range Interpretation [...] calculation is LDL/HDL Ratio=L DL Calc/HDL Chol [id number] 09:56:39 Test Item Value Reference Range Interpretation Comments TSH (test code = TSH) 1.610 mcIU/mL 0.550-4.780 HCG Ql [id number] 09:56:39 Test Item Value Reference Range Interpretation Comments HCG, Serum Qual (test code = HCG, Negative Negative Serum Qual)
--- NOTE | 2022-03-11 09:40 | ER ---
Nurse's Notes [facility] Name: Alma Rosa Odonnell Age: 31 yrs Sex: Female : 1990 Arrival Date: 03/11/2022 Time: 09:08 Bed 12 Private MD: Diagnosis: Encounter for screening for dental disorders Presentation: 03/11 09:19 Chief complaint: Patient states: dental pain that began this morning. Coronavirus ss screen: Client denies travel out of the [place] in the last 14 days. Ebola Screen: Patient denies exposure to infectious person. Patient denies travel to an Ebola-affected area in the 21 days before illness onset. Initial Sepsis Screen: Does the patient meet any 2 criteria? No. Patient's initial sepsis screen is negative. Does the patient have a suspected source of infection? No. Patient's initial sepsis screen is negative. Risk Assessment: Do you want to hurt yourself or someone else? Patient reports no desire to harm self or others. Onset of symptoms was March 11, 2022. 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 - Social history:: Smoking status: Patient denies any tobacco usage or history of. Assessment: 09:48 Reassessment: sandwich given to patient upon request. ss Vital Signs: 09:19 BP 137 / 108; Pulse 68; Resp 16; Temp 97.1(TE); Pulse Ox 100% on R/A; Height 4 ft. 11 ss in. (149.86 cm); Pain 10/10; ED Course: 09:08 Patient arrived in ED. mr 09:12 Diaz Steve is PHCP. jl9 09:12 Ryan Lewis MD is Attending Physician. jl9 09:20 Triage completed. ss 09:20 Arm band placed on right wrist. ss 09:30 Ariella Graham, SONDRA is Primary Nurse. ss 09:49 No provider procedures requiring assistance completed. Patient did not have IV access ss during this emergency room visit. Administered Medications: 09:34 Drug: Squires (HYDROcodone-acetaminophen) 10 mg-325 mg 1 tabs Route: PO; 09:50 Follow up: Response: Medication administered at discharge. ss 09:34 Not Given (Other Intervention Used): Amoxicillin 875 mg PO once ss 09:34 Drug: Augmentin (Amoxicillin-Clavulanate) 875 mg Route: PO; 09:50 Follow up: Response: Medication administered at discharge. Outcome: 09:39 Discharge ordered by jl9 09:49 Discharged to home ambulatory. 09:49 Condition: good 09:49 Discharge instructions given to patient, Instructed on discharge instructions, follow up and referral plans. medication usage, Demonstrated understanding of instructions, follow-up care, medications, Prescriptions given X 2. 09:49 Patient left the ED. Signatures: Beatris Tse [place], RN RN Steve Davey jl9
--- NOTE | 2022-03-11 09:40 | EDPHYS ---
Physician Documentation [facility] Name: Alma Rosa Odonnell Age: 31 yrs Sex: Female : 1990 Arrival Date: 03/11/2022 Time: 09:08 Bed 12 Private MD: ED Physician Ryan Lewis HPI: 03/11 09:24 This 31 yrs old Female presents to ER via Ambulatory with complaints of jl9 Toothache. 09:24 The patient presents with broken tooth/teeth, pain, redness. The problem is located in jl9 the mouth. Onset: The symptoms/episode began/occurred this morning. Duration: The symptoms are intermittent. Modifying factors: The symptoms are alleviated by nothing, the symptoms are aggravated by chewing, cold fluids. Severity of symptoms: in the emergency department the symptoms a " 8" out of "10". 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 - Social history:: Smoking status: Patient denies any tobacco usage or history of. ROS: 09:25 Constitutional: Negative for fever, chills, and weight loss, Eyes: Negative for injury, jl9 pain, redness, and discharge. 09:25 Neck: Negative for injury, pain, and swelling, Cardiovascular: Negative for chest pain, palpitations, and edema, Respiratory: Negative for shortness of breath, cough, wheezing, and pleuritic chest pain, Abdomen/GI: Negative for abdominal pain, nausea, vomiting, diarrhea, and constipation, Back: Negative for injury and pain, MS/Extremity: Negative for injury and deformity, Skin: Negative for injury, rash, and discoloration, Neuro: Negative for headache, weakness, numbness, tingling, and seizure, Psych: Negative for depression, anxiety, suicide ideation, homicidal ideation, and hallucinations, Allergy/Immunology: Negative for hives, rash, and allergies, Endocrine: Negative for neck swelling, polydipsia, polyuria, polyphagia, and marked weight changes, Hematologic/Lymphatic: Negative for swollen nodes, abnormal bleeding, and unusual bruising. 09:25 ENT: Positive for Teeth pain Exam: 09:26 Constitutional: This is a well developed, well nourished patient who is awake, alert, jl9 and in no acute distress. 09:26 Head/Face: Normocephalic, atraumatic. Eyes: Pupils equal round and reactive to light, extra-ocular motions intact. Lids and lashes normal. Conjunctiva and sclera are non-icteric and not injected. Cornea within normal limits. Periorbital areas with no swelling, redness, or edema. 09:26 Neck: Trachea midline, no thyromegaly or masses palpated, and no cervical lymphadenopathy. Supple, full range of motion without nuchal rigidity, or vertebral point tenderness. No Meningismus. Chest/axilla: Normal chest wall appearance and motion. Nontender with no deformity. No lesions are appreciated. Cardiovascular: Regular rate and rhythm with a normal S1 and S2. No gallops, murmurs, or rubs. Normal PMI, no JVD. No pulse deficits. Respiratory: Lungs have equal breath sounds bilaterally, clear to auscultation and percussion. No rales, rhonchi or wheezes noted. No increased work of breathing, no retractions or nasal flaring. Abdomen/GI: Soft, non-tender, with normal bowel sounds. No distension or tympany. No guarding or rebound. No evidence of tenderness throughout. Back: No spinal tenderness. No costovertebral tenderness. Full range of motion. Skin: Warm, dry with normal turgor. Normal color with no rashes, no lesions, and no evidence of cellulitis. MS/ Extremity: Pulses equal, no cyanosis. Neurovascular intact. Full, normal range of motion. Neuro: Awake and alert, GCS 15, oriented to person, place, time, and situation. Cranial nerves II-XII grossly intact. Motor strength 5/5 in all extremities. Sensory grossly intact. Cerebellar exam normal. Normal gait. Psych: Awake, alert, with orientation to person, place and time. Behavior, mood, and affect are within normal limits. 09:26 Head/face: Exam is negative for Noted is 09:26 ENT: Mouth: Dental exam: dental caries, that is moderate, specifically in the upper right third molar (#1), gum swelling, that is moderate, missing teeth, diffusely. Vital Signs: 09:19 BP 137 / 108; Pulse 68; Resp 16; Temp 97.1(TE); Pulse Ox 100% on R/A; Height 4 ft. 11 ss in. (149.86 cm); Pain 10/10; MDM: 09:18 Patient medically screened. jl9 09:27 Data reviewed: vital signs, nurses notes. jl9 09:28 Counseling: I had a detailed discussion with the patient and/or guardian regarding: the jl9 historical points, exam findings, and any diagnostic results supporting the discharge/admit diagnosis, the need for outpatient follow up, a dentist, to return to the emergency department if symptoms worsen or persist or if there are any questions or concerns that arise at home. Administered Medications: 09:34 Drug: Millen (HYDROcodone-acetaminophen) 10 mg-325 mg 1 tabs Route: PO; ss 09:50 Follow up: Response: Medication administered at discharge. ss 09:34 Not Given (Other Intervention Used): Amoxicillin 875 mg PO once ss 09:34 Drug: Augmentin (Amoxicillin-Clavulanate) 875 mg Route: PO; ss 09:50 Follow up: Response: Medication administered at discharge. Disposition: 10:04 Co-signature as Attending Physician, Ryan Lewis MD. rn Disposition Summary: 03/11/22 09:39 Discharge Ordered Location: Home jl9 Condition: Stable jl9 Diagnosis - Encounter for screening for dental disorders jl9 Followup: jl9 - With: Private Physician - When: 1 - 2 days - Reason: Recheck today's complaints, Continuance of care, Re-evaluation by your physician Discharge Instructions: - Discharge Summary Sheet jl9 - Dental Pain, [id number] jl9 Forms: - Medication Reconciliation Form jl9 - Thank You Letter jl9 - Antibiotic Education jl9 - Prescription Opioid Use jl9 Prescriptions: - Amoxicillin 875 mg Oral Tablet - take 1 tablet by ORAL route every 12 hours for 10 days; 20 tablet; Refills: 0, jl9 Product Selection Permitted - Tramadol 50 mg Oral Tablet - take 1 tablet by ORAL route every 8 hours as needed; 12 tablet; Refills: 0, jl9 Product Selection Permitted Signatures: Ryan Lewis MD MD rn Smirch, Shelby, RN RN ss Linares, John jl9
[2022-03-11] MEDS ORDERED: HYDROCODONE/APAP 10/325 TAB ONE (09:41)
[2022-03-11] MEDS ORDERED: AMOX/K CLAV 875 MG TAB ONE (09:41)
[2022-03-11 09:56] VITALS: BP 137/108; TEMP 97.1; O2SAT 100
== END 2022-03-11 09:49 | disposition home or self-care (01) ==
LOC: ER 09:06
DX: K08.89 Other specified disorders of teeth and supporting structures (principal)
CPT/HCPCS: 99283

== ENCOUNTER 2022-07-07 19:51 | Emergency (ER) | payer OTHER ==
--- OUTSIDE RECORDS SUMMARY | 2022-07-07 19:56 | XMS REPORT | Continuity of Care Document ---
:1990 Author Organization [facility] t Address [address] [place] [address] Care Team Providers Name Role Phone Asked, No Pcp Primary Care Physician Unavailable Sunday Carrillo Attending Clinician Unavailable Sunday Carrillo Attending Clinician Unavailable Malik Sorenson MD Attending Clinician Ayesha Jain DO Attending Clinician [phone] DO AYESHA JAIN Attending Clinician Unavailable Torres Mckinney MD Attending Clinician Vicente Perkins MD Attending Clinician Sunday Carrillo Admitting Clinician Unavailable MD SRINI OLIVA Admitting Clinician Unavailable Payers Payer Name Policy Type Policy Number Effective Date Expiration Date S ource Problems This patient has no known problems. Allergies, Adverse Reactions, Alerts Allergy Allergy Status Severity Reaction(s) Onset Inactive Treating Comm ents Source Name Type Date Date Clinician No Known DA Active U 2017-07 [facility] 0-04 Clear s 00:00: Alaniz 00 [facility] No Known DA Active U [facility] Allergie 2- Clear s 00:00: Alaniz 00 [facility] No Known Drug Active [facility] Social History Social Habit Start Date Stop Date Quantity Comments Source Sex Assigned At [birth year] [facility] 00:00:00 00:00:00 Smoking Status Start Date Stop Date Source Tobacco smoking consumption unknown [facility] Medications Ordered Filled Start Stop Current Ordering Indication Dosage Frequency Signature Comments Components Source Medication Medication Date Date Medication? Clinician (SIG) Name Name citalopram 2020-07 No 10mg QD Take 1 Meth sacha (CeleXA) 10 11-15 tablet (10 s t MG tablet 00:00: 05:59 mg total) Ho spita 00 :00 by mouth l daily for 14 days. citalopram 2020-07 No 10mg QD Take 1 Meth sacha (CeleXA) 10 11-15 tablet (10 s t MG tablet [...] 2020- No 1/2 tab po [facility] (Zoloft) 03-16-[address] 100 MG 00:00: 00:00 days, then Hosp tk tablet 00 :00 1 tab po l qam ARIPiprazol No 2mg QD Take 1 Met [facility] e (Abilify) 03-16-27 tablet (2 st 2 MG tablet 00:00: [...] kg Systolic blood 2021-05-20 23:20:54 118 mm[Hg] [facility] pressure Diastolic blood 2021-05-20 23:20:54 75 mm[Hg] [facility] pressure Heart rate 2021-05-20 23:20:54 89 /min [facility] Body temperature 2021-05-20 23:20:54 36.67 [facility] Respiratory rate 2021-05-20 23:20:54 20 /min [facility] Oxygen saturation in 2021-05-20 23:20:54 100 /min [facility] Arterial blood by Pulse oximetry Body height 2021-03-16 01:44:00 154.9 cm [facility] Body weight 2021-03-16 01:44:00 63.504 kg [facility] BMI 2021-03-16 01:44:00 26.45 kg/m2 [facility] Procedures Procedure Date / Time Performing Clinician Source Performed URINE DRUGS OF ABUSE 2021-03-16 06:14:[address] [facility] SCREEN URINALYSIS SCREEN AND 2021-03-16 06:14:00 [facility] MICROSCOPY, WITH REFLEX TO CULTURE COVID-19 QUALITATIVE 2021-03-16 06:13:[address] [facility] RT-PCR ECG ED PRELIMINARY 2021-03-16 06:05:54 Ayesha Jain [facility] INTERPRETATION [facility] COMPLETE BLD COUNT 2021-03-16 03:42:00 [facility] W/AUTO DIFF COMPREHENSIVE METABOLIC 2021-03-16 03:42:00 [facility] PANEL CREATINE KINASE, TOTAL 2021-03-16 03:42:00 [facility] THYROID STIMULATING 2021-03-16 03:42:00 [facility] HORMONE T4, FREE 2021-03-16 03:42:00 [facility]ital ALCOHOL LEVEL, BLOOD 2021-03-16 03:42:[address] [facility] ACETAMINOPHEN LEVEL 2021-03-16 03:42:00 [facility] SALICYLATE LEVEL 2021-03-16 03:42:00 [facility] ESTIMATED GFR 2021-03-16 03:42:00 BreaSrini spital ECG 12-LEAD 2021-03-16 03:23:09 [facility] ACETAMINOPHEN LEVEL 2021-03-15 05:54:00 Torres Mckinney [facility] SALICYLATE LEVEL 2021-03-15 05:54:00 Torres Mckinney [facility] ESTIMATED GFR 2021-03-15 05:54:00 Hank Torres [facility] HC COMPLETE BLD COUNT 2021-03-15 05:54:00 Torres Mckinney [facility] W/AUTO DIFF COMPREHENSIVE METABOLIC 2021-03-15 05:54:00 [facility] CREATINE KINASE, TOTAL 2021-03-15 05:54:00 Torres Mckinney [facility] ([facility]) THYROID STIMULATING 2021-03-15 05:54:00 [facility] T4, FREE 2021-03-15 05:54:00 [facility] ALCOHOL LEVEL, BLOOD 2021-03-15 05:54:[address] [facility] ECG ED PRELIMINARY 2021-03-15 05:39:48 Torres Mckinney [facility] INTERPRETATION ECG 12-LEAD 2021-03-15 05:12:19 Torres Mckinney [facility] Encounters Start End Encounter Admission Attending Care Care Encounter Source Date/Time Date/Time Type Type Clinicians Facility Department ID 2020-04-27 Inpatient Sunday Carrillo [facility] [id number] 10:43:00 Sunday Carrillo -[id number] [facility] 2021-07-30 2021-07-[address] [facility] 00:00:00 00:00:00 [facility]-2021-07-24 2021-07-[address] [facility] 00:00:00 00:00:00 [facility] 04 2021-05-20 2021-05-20 Emergency Yas Malik 1.2.840.1 [id number] [facility] 18:56:00 19:37:[address] 3.430.2.7 Hospit a .3.003223 l .8 2021-05-20 2021-05-20 Travel 1.2.840.1 [id number] [id number] [facility] 00:00:00 00:00:[address] 3.430.2.7 0.2.7.3.698 Ho spita .3.732188 084.8 l .8 2021-03-15 2021-03-16 Emergency Kendig, 1.2.840.1 [id number] [facility] 23:48:00 06:39:[address] Clint 3.430.2.7 Hosp tk .3.772560 l .8 2021-03-15 2021-03-15 Emergency Hank, 1.2.840.1 [id number] [facility] 00:15:00 05:29:[address] Reggie 3.430.2.7 Hospit a .3.827192 l .8 2021-03-15 2021-03-15 Travel 1.2.840.1 1.2.051.560 [id number] [facility] 00:00:00 00:00:[address] 3.430.2.7 0.2.7.3.698 Ho spita .3.491070 084.8 l .8 2021-01-18 2021-01-18 EXT [facility] [place], EXT MSRDP 1.2.840.114 1 [id number] [place] 00:00:00 00:00:00 Vicente LOCATION 350.1.13.58 Health 9.2.7.2.686 [id number] 2021-01-18 2021-01-18 EXT [facility] OP [place], EXT MSRDP 1.2.840.114 1 [id number] [place] 00:00:00 00:00:00 Vicente LOCATION 350.1.13.58 Health 9.2.7.2.686 [id number] 2020-04-27 2020-05-24 Inpatient 3 Sunday Carrillo [facility] PSY [id number] 10:43:00 13:30:00 Sunday Carrillo [facility] Results Test Description Test Time Test Comments Results Result Comments Source ECG 12 lead 2021-04-24 20:37:17 Test Item Value Reference Range Interpretation Comme nts Ventricular rate (test code = 253) Atrial rate (test code = 255) ND interval (test code = 266) QRSD interval [...] of 15-MAR-2021 00:12,-No significant change was found- [facility] 12 [id number] 20:37:17 Test Item Value Reference Range Interpretation Comments Ventricular rate (test code = 253) Atrial rate (test code = 255) ND interval (test code = 266) QRSD interval [...] of 15-MAR-2021 00:12,-No significant [facility] found[facility] [Presence] in Respiratory specimen by SAIGE with probe [id number] 06:16:38 Test Item Value Reference Range Interpretation Comments SARS-CoV-2 (COVID-19) RNA Not detected Not-Detected [Presence] in Respiratory specimen by SAIGE with probe detection (test code = 75823-8) Whether patient is employed in a healthcare setting (test code = 94268-7) Whether the patient has symptoms related to condition of interest (test code = 90568-6) Patient was hospitalized because of this condition (test code = 65443-8) Whether the patient was admitted to intensive care unit (ICU) for condition of interest (test code = 43112-0) Whether patient resides in a congregate care setting (test code = 05307-0) [facility] Test Item Value Reference Range Interpretation [...] calculation is LDL/HDL Ratio=L DL Calc/HDL Chol [id number] 09:56:39 Test Item Value Reference Range Interpretation Comments TSH (test code = TSH) 1.610 mcIU/mL 0.550-4.780 HCG Ql [id number] 09:56:39 Test Item Value Reference Range Interpretation Comments HCG, Serum Qual (test code = HCG, Negative Negative Serum Qual)
[2022-07-07] MEDS ORDERED: FLUCONAZOLE 100 MG TAB ONE (20:31)
[2022-07-07] MEDS ORDERED: metroNIDAZOLE 500 MG TABLET ONE (20:31)
[2022-07-07] MEDS ORDERED: CEFTRIAXONE 250 MG/VIAL ONE (20:32)
[2022-07-07] MEDS ORDERED: LORAZEPAM 1 MG TABLET ONE (20:32)
[2022-07-07] MEDS ORDERED: AZITHROMYCIN 250 MG TAB ONE (20:32)
[2022-07-07] MEDS ORDERED: WATER FOR INJ,STERILE 10 ML ONE (20:32)
--- NOTE | 2022-07-07 23:53 | ER ---
Nurse's Notes [facility] Name: Alma Rosa Odonnell Age: 31 yrs Sex: Female : 1990 Arrival Date: 07/07/2022 Time: 19:54 Bed 13 Private MD: Diagnosis: Person with feared health complaint in whom no diagnosis is made Presentation: 07/07 19:57 Chief complaint: Pt reports being homeless, unable to sleep for the last 4 days, and hb increased vaginal disharge, concerned about STI. Coronavirus screen: At this time, the client does not indicate any symptoms associated with coronavirus-19. Ebola Screen: No symptoms or risks identified at this time. Initial Sepsis Screen: Does the patient meet any 2 criteria? No. Patient's initial sepsis screen is negative. Does the patient have a suspected source of infection? No. Patient's initial sepsis screen is negative. Risk Assessment: Do you want to hurt yourself or someone else? Patient reports no desire to harm self or others. 19:57 Method Of Arrival: Ambulatory hb 19:57 Acuity: MANDO 4 hb 20:00 Onset of symptoms was July 07, 2022. hb Historical: - Allergies: 20:00 No Known Allergies; hb - PMHx: 20:00 Anxiety; Bipolar disorder; Depression; hb - Family history:: not pertinent. - Hospitalizations: : No recent hospitalization is reported. Screenin:00 [facility] ED Fall Risk Assessment (Adult) History of falling in the last 3 months, jb4 including since admission No falls in past 3 months (0 pts) Confusion or Disorientation No (0 pts) Intoxicated or Sedated No (0 pts) Impaired Gait No (0 pts) Mobility Assist Device Used No (0 pt) Altered Elimination No (0 pt) Score/Fall Risk Level 0 - 2 = Low Risk. Abuse screen: Denies threats or abuse. Nutritional screening: No deficits noted. Tuberculosis screening: No symptoms or risk factors identified. Fall Risk No fall in past 12 months (0 pts). No secondary diagnosis (0 pts). No IV (0 pts). Ambulatory Aid- None/Bed Rest/Nurse Assist (0 pts). Gait- Normal/Bed Rest/Wheelchair (0 pts) Mental Status- Oriented to own ability (0 pts). Total Frausto Fall Scale indicates No Risk (0-24 pts). Assessment: 20:00 General: Appears in no apparent distress. comfortable, Behavior is cooperative, jb4 agitated, restless. Pain: Denies pain. Neuro: Level of Consciousness is awake, alert, obeys commands, Oriented to person, place, time, situation, Reports Auditory hallucinations.. Cardiovascular: Patient's skin is warm and dry. Respiratory: Airway is patent Respiratory effort is even, unlabored, Respiratory pattern is regular, symmetrical. GI: No signs and/or symptoms were reported involving the gastrointestinal system. : Reports discharge, from vagina that is. EENT: No signs and/or symptoms were reported regarding the EENT system. Derm: Skin is intact, Skin is pink, warm \T\ dry. 21:00 Reassessment: Patient appears in no apparent distress at this time. Patient and/or jb4 family updated on plan of care and expected duration. Pain level reassessed. Patient is alert, oriented x 3, equal unlabored respirations, skin warm/dry/pink. 22:37 Reassessment: Pt is resting in bed with eyes closed, respirations are even and jb4 unlabored with no s/s of pain or distress noted. 23:42 Reassessment: Patient appears in no apparent distress at this time. No changes from jb4 previously documented assessment. Patient and/or family updated on plan of care and expected duration. Pain level reassessed. Vital Signs: 20:02 BP 148 / 80; Pulse 87; Resp 16; Temp 98.2(TE); Pulse Ox 100% ; Weight 68.04 kg; Height hb 5 ft. 1 in. (154.94 cm); Pain 0/10; 23:44 BP 96 / 52; Pulse 100; Resp 18; Pulse Ox 100% ; kb3 20:02 Body Mass Index 28.34 (68.04 kg, 154.94 cm) hb ED Course: 19:54 Patient arrived in ED. rg4 19:55 Ryan Lewis MD is Attending Physician. rn 20:00 Triage completed. hb 20:00 Arm band placed on. hb 20:00 No provider procedures requiring assistance completed. Patient did not have IV access jb4 during this emergency room visit. 21:15 Jose Elias Taylor, RN is Primary Nurse. jb4 Administered Medications: 20:59 Drug: Ativan (LORazepam) 2 mg Route: PO; jb4 23:48 Follow up: Response: No adverse reaction; Marked relief of symptoms jb4 20:59 Drug: Rocephin (cefTRIAXone) 250 mg Route: IM; Site: left deltoid; jb4 23:48 Follow up: Response: No adverse reaction jb4 20:59 Drug: Flagyl (metroNIDAZOLE) 2 grams Route: PO; jb4 23:48 Follow up: Response: No adverse reaction jb4 23:48 Follow up: Response: No adverse reaction jb4 20:59 Drug: AZITHromycin 1 grams Route: PO; jb4 23:48 Follow up: Response: No adverse reaction jb4 20:59 Drug: Fluconazole 200 mg Route: PO; jb4 23:48 Follow up: Response: No adverse reaction jb4 Outcome: 23:53 Discharge ordered by . rn 23:57 Discharged to home ambulatory. jb4 23:57 Condition: stable 23:57 Discharge instructions given to patient, Instructed on discharge instructions, follow up and referral plans. Demonstrated understanding of instructions, follow-up care. 23:57 Patient left the ED. jb4 Signatures: Ryan Lewis MD MD rn Baxter, Heather, RN RN hb Garcia, Rubi rg4 Jose Elias Taylor RN RN jb4 Gail Jacques, RN RN kb3
--- NOTE | 2022-07-07 23:53 | EDPHYS ---
Physician Documentation [facility] Name: Alma Rosa Odonnell Age: 31 yrs Sex: Female : 1990 Arrival Date: 07/07/2022 Time: 19:54 Bed 13 Private MD: ED Physician Ryan Lewis HPI: 07/07 20:07 This 31 yrs old Female presents to ER via Ambulatory with complaints of STD rn Exposure. 20:07 The patient presents with vaginal discharge. Onset: The symptoms/episode began/occurred rn 3 month(s) ago. Modifying factors: The symptoms are alleviated by nothing, the symptoms are aggravated by nothing. Associated signs and symptoms: Pertinent negatives: dysuria, fever, hematuria, nausea, vaginal bleeding, vomiting. Severity of symptoms: At their worst the symptoms were mild, in the emergency department the symptoms are unchanged. The patient has not experienced similar symptoms in the past. The patient has not recently seen a physician. Pt reports vaginal discharge, white, for 3 months. NO fever. No abd pain. Pt reports being homeless and that this area is "not homeless friendly location", came in for rest and would like treatment for a yeast infection and possible STD. . Historical: - Allergies: 20:00 No Known Allergies; hb - PMHx: 20:00 Anxiety; Bipolar disorder; Depression; hb - Family history:: not pertinent. - Hospitalizations: : No recent hospitalization is reported. ROS: 20:07 Constitutional: Negative for fever, chills, and weight loss, Eyes: Negative for injury, rn pain, redness, and discharge, ENT: Negative for injury, pain, and discharge, Neck: Negative for injury, pain, and swelling, Cardiovascular: Negative for chest pain, palpitations, and edema, Respiratory: Negative for shortness of breath, cough, wheezing, and pleuritic chest pain, Abdomen/GI: Negative for abdominal pain, nausea, vomiting, diarrhea, and constipation, Back: Negative for injury and pain, : + vaginal discharge MS/Extremity: Negative for injury and deformity, Skin: Negative for injury, rash, and discoloration, Neuro: Negative for headache, weakness, numbness, tingling, and seizure, Psych: Negative for suicide ideation, homicidal ideation Exam: 20:07 Constitutional: This is a well developed, well nourished patient who is awake, alert, rn pushing a shopping cart with her in lobby Head/Face: Normocephalic, atraumatic. Cardiovascular: Regular rate and rhythm. No pulse deficits. Respiratory: No increased work of breathing, no retractions or nasal flaring. Abdomen/GI: soft, non-tender, no peritoneal signs Skin: Warm, dry MS/ Extremity: Pulses equal, no cyanosis. Neuro: Awake and alert, GCS 15 Vital Signs: 20:02 BP 148 / 80; Pulse 87; Resp 16; Temp 98.2(TE); Pulse Ox 100% ; Weight 68.04 kg; Height hb 5 ft. 1 in. (154.94 cm); Pain 0/10; 23:44 BP 96 / 52; Pulse 100; Resp 18; Pulse Ox 100% ; kb3 20:02 Body Mass Index 28.34 (68.04 kg, 154.94 cm) hb MDM: 19:55 Patient medically screened. rn 23:49 Differential diagnosis: STI. Data reviewed: vital signs, nurses notes, and as a result, rn I will discharge patient. Counseling: I had a detailed discussion with the patient and/or guardian regarding: the historical points, exam findings, and any diagnostic results supporting the discharge/admit diagnosis, the need for outpatient follow up, to return to the emergency department if symptoms worsen or persist or if there are any questions or concerns that arise at home. Special discussion: I discussed with the patient/guardian in detail that at this point there is no indication for admission to the hospital. It is understood, however, that if the symptoms persist or worsen the patient needs to return immediately for re-evaluation. 23:49 Refusal of service: The patient/guardian displays adequate decision making capability rn and despite a detailed discussion of alternatives, benefits, risks, and consequences refuses: all lab tests. Administered Medications: 20:59 Drug: Ativan (LORazepam) 2 mg Route: PO; jb4 23:48 Follow up: Response: No adverse reaction; Marked relief of symptoms jb4 20:59 Drug: Rocephin (cefTRIAXone) 250 mg Route: IM; Site: left deltoid; jb4 23:48 Follow up: Response: No adverse reaction jb4 20:59 Drug: Flagyl (metroNIDAZOLE) 2 grams Route: PO; jb4 23:48 Follow up: Response: No adverse reaction jb4 23:48 Follow up: Response: No adverse reaction jb4 20:59 Drug: AZITHromycin 1 grams Route: PO; jb4 23:48 Follow up: Response: No adverse reaction jb4 20:59 Drug: Fluconazole 200 mg Route: PO; jb4 23:48 Follow up: Response: No adverse reaction jb4 Disposition Summary: 07/07/22 23:53 Discharge Ordered Location: Home rn Problem: new rn Symptoms: have improved rn Condition: Stable rn Diagnosis - Person with feared health complaint in whom no diagnosis is made rn Followup: rn - With: Private Physician - When: As needed - Reason: Recheck today's complaints, Re-evaluation by your physician Forms: - Medication Reconciliation Form rn - Thank You Letter rn - Antibiotic rn resource nurse - Prescription Opioid Use rn Signatures: Dispatcher [employer] EDMS Ryan Lewis MD MD rn Baxter, Heather, RN RN hb Bryson, James RN SONDRA jb4 Corrections: (The following items were deleted from the chart) 20:09 20:07 Constitutional: Negative for fever, chills, and weight loss, Eyes: Negative for rn injury, pain, redness, and discharge, ENT: Negative for injury, pain, and discharge, Neck: Negative for injury, pain, and swelling, Cardiovascular: Negative for chest pain, palpitations, and edema, Respiratory: Negative for shortness of breath, cough, wheezing, and pleuritic chest pain, Abdomen/GI: Negative for abdominal pain, nausea, vomiting, diarrhea, and constipation, Back: Negative for injury and pain, : + vaginal discharge MS/Extremity: Negative for injury and deformity, Skin: Negative for injury, rash, and discoloration, Neuro: Negative for headache, weakness, numbness, tingling, and seizure, rn 23:49 20:06 Urine Dipstick-Ancillary ordered. rn jbMaki 23:49 20:06 Urine Test ordered. rn jb4
[2022-07-08 00:17] VITALS: TEMP 98.2; O2SAT 100
[2022-07-08 00:18] VITALS: BP 96/52
== END 2022-07-07 23:57 | disposition home or self-care (01) ==
LOC: ER 19:51
DX: Z71.1 Person with feared health complaint in whom no diagnosis is made (principal); Z59.00 Homelessness unspecified
CPT/HCPCS: 96372; 99283; Q0144; J0696

== ENCOUNTER 2022-08-14 10:52 | Emergency (ER) | payer OTHER ==
--- OUTSIDE RECORDS SUMMARY | 2022-08-14 10:57 | XMS REPORT | Continuity of Care Document ---
:1990 Author Organization [facility] t Address [address] [place] [address] Care Team Providers Name Role Phone Asked, No Pcp Primary Care Physician Unavailable Chan Carrillo Attending Clinician Unavailable Chan Carrillo Attending Clinician Unavailable JENNA CATALAN Attending Clinician Unavailable Jnena Catalan DO Attending Clinician BRYANNA YEAGER Attending Clinician Unavailable Bryanna Yeager MD Attending Clinician Malik Sorenson MD Attending Clinician Ayesha Randall DO Attending Clinician [phone] DO AYESHA RANDALL Attending Clinician Unavailable Torres Mckinney MD Attending Clinician Vicente Perkins MD Attending Clinician Chan Carrillo MD Attending Clinician CHAN CARRILLO Attending Clinician Unavailable Doctor Unassigned, [place] Attending Clinician Unavailable Lydia Stone Attending Clinician Dinorah WALTON Susan R Attending Clinician Lisa Quintanilla Attending Clinician Bernard Reed Attending Clinician Chan Carrillo Admitting Clinician Unavailable MD SRINI OLIVA Admitting Clinician Unavailable Payers Payer Name Policy Type Policy Number Effective Date Expiration Date Jean sawyer [facility] [id number] 2022 00:00:00 [place] [id number] 2020 00:00:00 Problems Condition Condition Condition Status Onset Resolution Last Treating Co mments Source Name Details Category Date Date Treatment Clinician Date Anemia, Anemia, Disease Active 2017-07 Univers 2-15 it y of 00:00: [place] 00 Medical Branch Headache Headache Disease Active 2017-07 Unive rs in in 0-30 [place] , [place] ante[place] antepartum 00 Me dical , third , third Branch trimester trimester HSV-1 HSV-1 Disease Active Univers (herpes (herpes 6-07 ity of simplex simplex 00:00: [place] virus 1) virus 1) 00 Medica l infection infection Bran ch HSV-2 HSV-2 Disease Active Univers (herpes (herpes 6-07 ity of simplex simplex 00:00: [place] virus 2) virus 2) 00 Medica l infection infection Bran ch Supervisio Supervisio Disease Active U nivers n of n of 3-13 ity of high-risk high[place] [facility] Branch Multiparit Multiparit Disease Active U nivers y y 3-13 ity of 00:00: [place] 00 Medical Branch Morbid Morbid Disease Active Univers obesity obesity 3-13 ity of 00:00: [place] 00 Medical Branch Drug abuse Drug abuse Disease Active U nivers and and 6-29 [place]y of dependence [place] Rh Rh Disease Active Univers negative negative 1-23 ity of state in state in 00:00: [place] antepartum antepartum 00 Me dical period period Branch History of History of Disease Active U nivers depression depression 1-20 it y of 00:00: [place] [facility] Bipolar 1 Bipolar 1 Disease Active Overview: Univers disorder disorder 1-20 Formattin ity of 00:00: g of this [place] note Medical might be Branch different from the original. Not currently on medicatio n, establish ed with [facility] Allergies, Adverse Reactions, Alerts Allergy Allergy Status Severity Reaction(s) Onset Inactive Treating Comm ents Source Name Type Date Date Clinician No Known DA Active U 2017-07 [facility] All[facility]ie 0-04 Clear s 00:00: [place] 00 [facility] No Known DA Active U [facility] Allergie 2-19 Clear s 00:00: [place] 00 [facility] NO KNOWN Drug Active Univers ALLERGIE Class ity of S [facility] No Known Drug Active [facility] Social History Social Habit Start Date Stop Date Quantity Comments Source Exposure to 2022-03-27 2022-04-06 Not sure [facility] SARS-CoV-2 00:00:00 04:13:00 [facility] (event) Branch Alcohol intake 2022-04-06 2022-04-06 0 /d University of 00:00:00 00:00:00 [facility] Tobacco use and 2016-12-27 2016-12-27 Smokeless tobacco Un iversity of exposure 00:00:00 00:00:00 non-user [facility] History of 2004-07-21 2016-11-27 Cigarette Smoker Universi ty of tobacco use 00:00:00 00:00:00 [facility] Tobacco Comment 2016-08-09 2016-08-09 smokes 1 x per Unive rsity of 00:00:00 00:00:00 week [facility] Sex Assigned At [birth year] [facility] 00:00:00 00:00:00 Smoking Status Start Date Stop Date Source Tobacco smoking [facility] consumption unknown Ex-smoker 2016-12-27 00:00:00 2016-12-27 [place] [facility] [place] 00:00:00 [facility] Medications Ordered Filled Start Stop Current Ordering Indication Dosage Frequency Signature Comments Components Source Medication Medication Date Date Medication? Clinician (SIG) Name Name ibuprofen 800mg 800 mg, Uni vers (IBU) 04-06 Oral, ity of tablet 800 09:45: 09:45 ONCE, 1 Leonardo as mg 00 :00 dose, On Medical Sat Branch 04/06/22 at 0445, MARY GRACE hydrOXYzine No 25mg 25 mg, Uni vers (ATARAX) 04-06 Oral, ity of tablet 25 09:45: 09:45 [place]CE[place] mg [place] :[place] dose, On Medical Sat Branch 04/06/22 at 0445, MARY GRACE hydrOXYzine Yes [id number] 25mg Take 1 Univers 25 mg 9-17 tablet by ity of tablet 00:00: mouth [place] 00 every 6 Medical (six) Branch hours as needed for Itching. ibuprofen Yes [id number] 800mg Take 1 U nivers 800 mg 9-17 tablet by ity of tablet 00:00: mouth [place] 00 every 8 Medical (eight) Branch hours as needed (pain). hydrOXYzine Yes [id number] 25mg Take 1 Univers 25 mg 9-17 tablet by ity of tablet 00:00: mouth [place] 00 every 6 Medical (six) Branch hours as needed for Itching. ibuprofen Yes [id number] 800mg Take 1 U nivers 800 mg 9-17 tablet by ity of tablet 00:00: mouth [place] 00 every 8 Medical (eight) Branch hours as needed (pain). citalopram 2020-07- No 10mg QD Take 1 Meth sacha [...] sertraline No 1/2 tab po [facility] (Zoloft) 03-16- qam x 4 st 100 MG 00:00: [...] mouth l daily for 30 days. doxepin 2020- No 25mg QD Take 1 [facility] (SINEquan) 03-[address] 25 MG 00:00: 04:59 (25 mg [facility]osp[facility] capsule 00 :00 total) by l mouth nightly for 30 days. Immunizations Ordered Filled Immunization Date Status Comments [facility] e Immunization Name Name Rho (d) Immune 2018-07-03 Completed University of Globulin 00:00:00 [facility] Rho (d) Immune 2018-07-03 Completed University of Globulin 00:00:00 [facility] TDAP 2018-05-19 Completed University of 00:00:00 [facility] TDAP 2018-05-19 Completed University of 00:00:00 [facility] Rho (d) Immune 2018-04-28 Completed University of Globulin 00:00:00 [facility] Rho (d) Immune 2018-04-28 Completed University of Globulin 00:00:00 [facility] Varicella 2016-11-02 Completed University of (varivax)(chicken 00:00:00 [facility] edical pox) Branch Varicella 2016-11-02 Completed University of (varivax)(chicken 00:00:00 [facility] edical pox) Branch TDAP 2016-08-26 Completed University of 00:00:00 [facility] 2016-08-26 Completed University of 00:00:00 [facility] Vital Signs Vital Name Observation Time Observation Value Comments Source Height/Length Dosing 2020-04-27 10:46:44 Systolic blood 2022-04-06 09:16:00 136 mm[Hg] Univer sity of pressure [facility] Diastolic blood 2022-04-06 09:16:00 99 mm[Hg] Unive rsity of pressure [facility] Heart rate 2022-04-06 09:16:00 93 /min [facility] Body temperature 2022-04-06 09:16:00 36.56 Makenna [facility] Respiratory rate 2022-04-06 09:16:00 19 /min [facility] Body height 2022-04-06 09:16:00 149.9 cm [facility] Body weight 2022-04-06 09:16:00 58.968 kg [facility] BMI 2022-04-06 09:16:00 26.26 kg/m2 [facility] Oxygen saturation in 2022-04-06 09:16:00 100 /min [facility] Arterial blood by [facility] Pulse oximetry Branch Height/Length 2021-08-07 13:15:25 152 cm Measured Height/Length [...] kg Systolic blood 2021-05-20 23:20:54 118 mm[Hg] [facility] pressure Diastolic blood 2021-05-20 23:20:54 75 mm[Hg] [facility] pressure Heart rate 2021-05-20 23:20:54 89 /min [facility] Body temperature 2021-05-20 23:20:54 36.67 Makenna [facility] Respiratory rate 2021-05-20 23:20:54 20 /min [facility] Oxygen saturation in 2021-05-20 23:20:54 100 /min [facility] Arterial blood by Pulse oximetry Body height 2021-03-16 01:44:00 154.9 cm [facility] Body weight 2021-03-16 01:44:00 63.504 kg [facility] BMI 2021-03-16 01:44:00 26.45 kg/m2 [facility] Procedures Procedure Date / Time Performing Clinician Source Performed NOTICE OF PRIVACY 2022-04-06 09:11:05 Doctor Unassigned, [facility] PRACTICES [place] [facility] CONSENT/REFUSAL FOR 2022-04-06 09:09:57 Doctor Unassigned, [facility] DIAGNOSIS AND TREATMENT [place] [facility] URINE DRUGS OF ABUSE 2021-03-16 06:14:00 [facility] SCREEN URINALYSIS SCREEN AND 2021-03-16 06:14:00 [facility] MICROSCOPY, WITH REFLEX TO CULTURE COVID-19 QUALITATIVE 2021-03-16 06:13:00 [facility] RT-PCR ECG ED PRELIMINARY 2021-03-16 06:05:54 Ayesha Randall [facility] INTERPRETATION [facility] COMPLETE BLD COUNT 2021-03-16 03:42:00 [facility] W/AUTO DIFF COMPREHENSIVE METABOLIC 2021-03-16 03:42:00 [facility] PANEL CREATINE KINASE, TOTAL 2021-03-16 03:42:00 [facility] [place] ([facility]) THYROID STIMULATING 2021-03-16 03:42:00 [facility] HORMONE T4, FREE 2021-03-16 03:42:00 [facility] spital ALCOHOL LEVEL, BLOOD 2021-03-16 03:42:00 [facility] ACETAMINOPHEN LEVEL 2021-03-16 03:42:00 [facility] SALICYLATE LEVEL 2021-03-16 03:42:00 [facility] H ospital ESTIMATED GFR 2021-03-16 03:42:00 [facility] spital ECG 12-LEAD 2021-03-16 03:23:09 [facility] spital HC COMPLETE BLD COUNT 2021-03-15 05:54:00 Torres Mckinney [facility] W/AUTO DIFF COMPREHENSIVE METABOLIC 2021-03-15 05:54:00 Torres Mckinney [facility] PANEL CREATINE KINASE, TOTAL 2021-03-15 05:54:00 Torres Mckinney [facility] ([facility]) THYROID STIMULATING 2021-03-15 05:54:00 Torres Mckinney [facility] HORMONE T4, FREE 2021-03-15 05:54:00 Torres Mckinney [facility] ALCOHOL LEVEL, BLOOD 2021-03-15 05:54:00 Torres Mckinney [facility] ACETAMINOPHEN LEVEL 2021-03-15 05:54:00 Torres Mckinney [facility] SALICYLATE LEVEL 2021-03-15 05:54:00 Torres Mckinney [facility] ESTIMATED GFR 2021-03-15 05:54:00 Torres Mckinney [facility] ECG ED PRELIMINARY 2021-03-15 05:39:48 Torres Mckinney [facility] INTERPRETATION ECG 12-LEAD 2021-03-15 05:12:19 Torres Mckinney [facility] Encounters Start End Encounter Admission Attending Care Care Encounter Source Date/Time Date/Time Type Type Clinicians Facility Department ID 2021-05-20 Emergency [facility] [id number] Univers 20:09:23 ity of [facility] 2021-05-18 Emergency [facility] [id number] Univers 16:29:02 ity of [facility] 2021-05-18 Emergency [facility] [id number] Univers 15:53:57 ity of [facility] 2021-05-18 Emergency [facility] [id number] Univers 15:51:32 ity [facility] 2020-04-27 Inpatient Chan Carrillo [facility] PSY [id number] 10:43:00 Chan Carrilol -[id number] [facility] 2022-04-06 2022-04-06 Emergency [facility] [id number] Univers 17:51:00 17:56:00 JENNA dinero [facility] 2022-04-06 2022-04-06 Emergency [facility] [id number] Univers 17:51:00 17:56:00 Jenna FIELD [id number] ity of [place] 4.2.7.2.686 [facility] [id number] [address] 2022-04-06 2022-04-06 [facility] [id number] Univers 17:39:25 17:40:00 JENNA dinero [facility] 2022-04-06 2022-04-06 Emergency Willy [facility] ERT [id number] Univers 04:20:00 05:36:00 BRYNANA bar [facility] 2022-04-06 2022-04-06 Emergency [facility] [id number] Univers 04:20:00 05:36:00 Bryanna FIELD 350.1.13.10 ity of [place] 4.2.7.2.686 [facility] [id number] [address] 2021-07-30 2021-07-30 Outpatient [facility] 00:00:00 00:00:00 2021-07-24 2021-07-24 Outpatient [facility] 00:00:00 00:00:00 2021-05-20 2021-05-20 Emergency Ling, Malik 1.2.840.1 [id number] [facility] 18:56:00 19:37:[address] 3.430.2.7 Hospit a .3.280988 l .8 2021-05-20 2021-05-20 Travel 1.2.840.1 [id number] [id number] [facility] 00:00:00 00:00:[address] 3.430.2.7 0.2.7.3.698 Ho spita .3.257468 084.8 l .8 2021-03-15 2021-03-16 Emergency Kendig, 1.2.840.1 [id number] [facility] 23:48:00 06:39:[address] [place] 3.430.2.7 Hosp tk .3.055444 l .8 2021-03-15 2021-03-15 Emergency Hank, 1.2.840.1 [id number] [facility] 00:15:00 05:29:[address] Reggie 3.430.2.7 Hospit a .3.841123 l .8 2021-03-15 2021-03-15 Travel 1.2.840.1 1.2.792.014 [id number] [facility] 00:00:00 00:00:[address] 3.430.2.7 0.2.7.3.698 Ho spita .3.992679 084.8 l .8 2021-01-18 2021-01-18 EXT [facility] OP [place], EXT MSRDP 1.2.840.114 1 [id number] [place] 00:00:00 00:00:00 Vicente LOCATION 350.1.13.58 Health 9.2.7.2.686 [id number] 2021-01-18 2021-01-18 EXT [facility] OP [place], EXT MSRDP 1.2.840.114 1 [id number] [place] 00:00:00 00:00:00 Vicente LOCATION 350.1.13.58 Health 9.2.7.2.686 [id number] 2021-01-08 2021-01-08 Outpatient R [facility] [id number] Univers 12:30:00 12:30:00 [facility] 2020-04-27 2020-05-24 Inpatient 3 Chan Carrillo [facility] PSY [id number] 10:43:00 13:30:00 [facility] 2020-04-27 2020-04-27 [facility] 1.2.840.114 [id number] 11:31:00 23:59:00 Encounter Chan MONTALVO 350.1.13.10 [facility] 4.2.7.2.686 [place] [id number] 2020-04-27 2020-04-27 Outpatient [facility] NUT [id number] Univers 00:00:00 00:00:00 [facility] 2020-04-27 2020-04-27 Orders Doctor BYNUM 1.2.840.114 [id number] 00:00:00 00:00:00 Only Unassigned, LUIS 350.1.13.10 [place] [facility] 4.2.7.2.686 [id number] 2020-03-28 2020-03-28 Emergency [facility] [id number] [id number] 20:05:00 20:52:00 Lydia Field 350.1.13.10 [place] 4.2.7.2.686 [place] [id number] 2020-03-28 2020-03-28 Orders Doctor BYNUM 1.2.840.114 [id number] 00:00:00 00:00:00 Only Unassigned, LUIS 350.1.13.10 [place] [facility] 4.2.7.2.686 [id number] [id number] 2020-03-24 2020-03-24 Emergency [facility] 1.2.840.114 [id number] 07:46:00 08:18:00 Jenna Cheek Liliana 350.1.13.10 [place] 4.2.7.2.686 [place] [address] [id number] 2020-03-23 2020-03-23 Emergency [facility] 1.2.878.342 [id number] 16:33:00 20:42:00 Susan Field 350.1.13.10 [place] 4.2.7.2.686 [place] [address] [id number] 2020-03-23 2020-03-23 Orders Doctor FLETCHER 1.2.840.114 [id number] 00:00:00 00:00:00 Only Unassigned, LUIS 350.1.13.10 [place] [address].2.7.2.686 [id number] 2019-08-25 2019-08-25 [facility] 1.2.840.114 [id number] 16:23:00 19:17:00 Lisa Field 350.1.13.10 [place] 4.2.7.2.686 [place] [id number] 084 2019-04-03 2019-04-03 [facility] 1.2.906.348 [id number] 18:43:45 19:09:00 Bernard Field 350.1.13.10 [place] 4.2.7.2.686 [place] [address] [id number] [id number] Results Test Description Test Time Test Comments Results Result Comments Source ECG 12 lead 2021-04-24 20:37:17 Test Item Value Reference Range Interpretation Comme nts Ventricular rate (test code = 253) Atrial rate (test code = 255) DE interval (test code = 266) QRSD interval [...] of 15-MAR-2021 00:12,-No significant change was found- [facility] 12 [id number] 20:37:17 Test Item Value Reference Range Interpretation Comments Ventricular rate (test code = 253) Atrial rate (test code = 255) DE interval (test code = 266) QRSD interval [...] of 15-MAR-2021 00:12,-No [facility] [Presence] in Respiratory specimen by SAIGE with probe [id number] 06:16:38 Test Item Value Reference Range Interpretation Comments SARS-CoV-2 (COVID-19) RNA Not detected Not-Detected [Presence] in Respiratory specimen by SAIGE with probe detection (test code = 46803-4) Whether patient is employed in a healthcare setting (test code = 61549-5) Whether the patient has symptoms related to condition of interest (test code = 91682-5) Patient was hospitalized because of this condition (test code = 03967-0) Whether the patient was admitted to intensive care unit (ICU) for condition of interest (test code = 13197-4) Whether patient resides in a congregate care setting (test code = 79685-4) [facility]-23 09:56:39 Test Item Value Reference Range Interpretation [...] calculation is LDL/HDL Ratio=L DL Calc/HDL Chol [id number] 09:56:39 Test Item Value Reference Range Interpretation Comments TSH (test code = TSH) 1.610 mcIU/mL 0.550-4.780 HCG Ql [id number] 09:56:39 Test Item Value Reference Range Interpretation Comments HCG, Serum Qual (test code = HCG, Negative Negative Serum Qual)
[2022-08-14] MEDS ORDERED: ZIPRASIDONE MESYLA 20 MG/VIAL IM ONE (11:11)
[2022-08-14 11:34] LABS: Absolute Lymphocytes (CBC) 1.9 K/uL (0.7-4.9); Hematocrit 25.6 % (36.0-45.0); Lymphocytes % 35.5 % (15.3-44.8)
[2022-08-14 11:57] LABS: Anisocytosis 1+; Blood Morphology Comment NOTED (NOT SEEN); Hypochromasia 2+; Ovalocytes 1+; Platelet Estimate ADEQ
[2022-08-14 11:58] LABS: Hypersegmented Neutrophils PRESENT
[2022-08-14 12:08] LABS: ALT/SGPT 15 U/L (13-56); AST/SGOT 8 U/L (15-37); Albumin 3.5 g/dL (3.4-5.0); Alkaline Phosphatase 70 U/L (45-117); BUN Blood Urea Nitrogen 9 mg/dL (7-18); Bicarbonate 27 mmol/L (21-32); Bilirubin Total 0.2 mg/dL (0.2-1.0); Glomerular Filtration Rate 100 ml/min (=/>90); Glucose Level 103 mg/dL (74-106); Potassium 3.6 mmol/L (3.5-5.1); Sodium Level 145 mmol/L (136-145)
[2022-08-14 14:05] LABS: Urine Blood Negative (Negative); Urine Glucose Negative (Negative); Urine Protein Negative (Negative); Urine Specific Gravity 1.015 (1.005-1.030)
[2022-08-14 15:22] LABS: Barbiturates NEGATIVE (NEGATIVE); Benzodiazepines NEGATIVE (NEGATIVE); Cocaine POSITIVE (NEGATIVE); METHAMPHETAM POSITIVE (NEGATIVE); Methadone NEGATIVE (NEGATIVE); Opiates NEGATIVE (NEGATIVE); Phencyclidine NEGATIVE (NEGATIVE); THC Cannibis NEGATIVE (NEGATIVE)
[2022-08-14 16:31] LABS: SARS-CoV-2 Antigen Rapid Res Negative (Negative)
--- NOTE | 2022-08-14 17:58 | ER ---
Nurse's Notes [facility] Name: Alma Rosa Odonnell Age: 31 yrs Sex: Female : 1990 Arrival Date: 08/14/2022 Time: 10:54 Bed 20 Private MD: Diagnosis: Schizophrenia, unspecified;UTI/ Urinary tract infection, site not specified Presentation: 08/14 11:00 Chief complaint: Patient states: I have been off of my meds for 3-4 months. Pt denies ld1 pain. States "I just want to get help and feel better.". Coronavirus screen: At this time, the client does not indicate any symptoms associated with coronavirus-19. Ebola Screen: No symptoms or risks identified at this time. Initial Sepsis Screen: Does the patient meet any 2 criteria? No. Patient's initial sepsis screen is negative. Does the patient have a suspected source of infection? No. Patient's initial sepsis screen is negative. Risk Assessment: Do you want to hurt yourself or someone else? Patient reports no desire to harm self or others. Onset of symptoms was August 14, 2022 at 12:08. 12:03 Method Of Arrival: Ambulatory ld1 12:03 Acuity: MANDO 2 ld1 Triage Assessment: 12:08 General: Appears in no apparent distress. unkempt, Behavior is cooperative, anxious, ld1 inappropriate for age. Pain: Denies pain. EENT: No signs and/or symptoms were reported regarding the EENT system. Neuro: Level of Consciousness is awake, alert, obeys commands, Oriented to person, place, time, situation. Cardiovascular: Capillary refill < 3 seconds Patient's skin is warm and dry. Respiratory: Airway is patent Respiratory effort is even, unlabored. GI: Abdomen is flat, non-distended. : No signs and/or symptoms were reported regarding the genitourinary system. Derm: No signs and/or symptoms reported regarding the dermatologic system. Musculoskeletal: No signs and/or symptoms reported regarding the musculoskeletal system. 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 - Social history:: Smoking status: Patient denies any tobacco usage or history of. Patient/guardian denies using alcohol. Screenin:10 [facility] ED Fall Risk Assessment (Adult) History of falling in the last 3 months, ld1 including since admission No falls in past 3 months (0 pts). Abuse screen: Denies threats or abuse. Denies injuries from another. Nutritional screening: No deficits noted. Tuberculosis screening: No symptoms or risk factors identified. Assessment: 12:10 Reassessment: See triage assessment. ld1 14:26 Reassessment: Patient appears in no apparent distress at this time. Patient and/or ld1 family updated on plan of care and expected duration. Pain level reassessed. Sleeping in bed. RR 18. Denies pain at this time. 16:16 Reassessment: Patient appears in no apparent distress at this time. Pt alert in bed, ld1 eating a sandwich. Denies pain at this time. 17:30 Reassessment: Pt reporting increase in anxiety - [facility] at bedside evaluating ld1 patient. Notified ERP, See [facility] for orders. 19:10 Reassessment: Patient and/or family updated on plan of care and expected duration. Pain ha1 level reassessed. Patient is alert, oriented x 3, equal unlabored respirations, skin warm/dry/pink. Patient denies pain at this time. 19:10 General: Appears comfortable, Behavior is calm, uncooperative. Pain: Denies pain. ha1 Neuro: Level of Consciousness is awake, lethargic, Oriented to person, place, time. Cardiovascular: Patient's skin is warm and dry. Respiratory: Airway is patent Respiratory effort is even, unlabored, Respiratory pattern is regular, symmetrical. Psych: 19:10 Subjective: Patient's mood is angry. Objective: Patient is cooperative. Interventions: ha1 Removed personal items and placed in bag. Patient placed in hospital gown. Urine collected and sent for urine drug test. Belonging list filled out. Safety Checks: Personal items have been removed. Door is open. 19:35 [place] Suicide Severity Screening: In the past month, have you wished you were ha1 or wished you could go to sleep and not wake up? Patient responds "No." "In the past month, have you actually had any thoughts of killing yourself?" Patient responds "no." "In your lifetime, have you ever done anything, started to do anything, or prepared to do anything to end your life?" Patient responds "no.". Vital Signs: 11:49 BP 118 / 70; Pulse 79; Resp 18; Temp 97.6(O); Pulse Ox 100% on R/A; Weight 74.84 kg; ld1 Height 5 ft. 4 in. (162.56 cm); Pain 0/10; 13:01 BP 104 / 62; Pulse 61; Resp 18; Pulse Ox 97% on R/A; ld1 14:26 BP 92 / 59; Pulse 65; Resp 18; Pulse Ox 97% on R/A; ld1 15:17 BP 102 / 70; Pulse 62; Resp 16; Pulse Ox 100% on R/A; ld1 16:16 BP 95 / 54; Pulse 71; Resp 16; Pulse Ox 100% on R/A; Pain 0/10; ld1 17:43 BP 110 / 63; Pulse 76; Resp 18; Pulse Ox 99% on R/A; Pain 0/10; ld1 19:10 BP 118 / 71; Pulse 64; Resp 18 S; Pulse Ox 100% on R/A; ha1 11:49 Body Mass Index 28.32 (74.84 kg, 162.56 cm) ld1 ED Course: 10:54 Patient arrived in ED. mr 10:58 Matt Coker MD is Attending Physician. rt 11:00 Aimee Anderson, SONDRA is Primary Nurse. ld1 11:31 Inserted saline lock: 20 gauge in right antecubital area, using aseptic technique. ld1 Blood collected. 12:08 Triage completed. ld1 12:08 Arm band placed on right wrist. ld1 12:10 No provider procedures requiring assistance completed. ld1 12:10 Patient has correct armband on for positive identification. Placed in gown. Bed in low ld1 position. Call light in reach. Side rails up X2. school lunch monitor on. Pulse ox on. NIBP on. Noise minimized. Warm blanket given. 14:23 Urine collected: clean catch specimen. bc6 15:39 contacted [facility] to have a screener evaluate pt. bd 15:45 spoke with [facility] patient service representative, all screeners are out on calls at this time, but bd one will be here MARY GRACE. 19:11 Primary Nurse role handed off by Aimee Anderson, RN mw2 19:36 IV discontinued, intact, bleeding controlled, No redness/swelling at site. Pressure ha1 dressing applied. Administered Medications: 11:11 Drug: Geodon (ziprasidone) 10 mg Route: IM; Site: right deltoid; ld1 12:00 Follow up: Response: No adverse reaction ld1 17:42 Drug: Geodon (ziprasidone) 10 mg Route: IM; Site: left deltoid; ld1 17:42 Follow up: Response: No adverse reaction; Anxiety decreased ld1 Medication: 12:10 VIS not applicable for this client. ld1 Outcome: 17:57 Discharge ordered by . rt 19:36 Discharged to home ambulatory. ha1 19:36 Condition: stable 19:36 Discharge instructions given to patient, Instructed on discharge instructions, follow up and referral plans. medication usage, Demonstrated understanding of instructions, follow-up care, medications. 19:37 Patient left the ED. ha1 Signatures: Corinne Croft Dedrick, Beatris Alarcon, Josh mw2 Aimee Anderson, RN RN ld1 Caity Eisenberg RN RN ha1 Matt Coker MD MD rt Yasemin Loza 6
--- NOTE | 2022-08-14 17:58 | EDPHYS ---
Physician Documentation [facility] Name: Alma Rosa Odonnell Age: 31 yrs Sex: Female : 1990 Arrival Date: 08/14/2022 Time: 10:54 Bed 20 Private MD: ED Physician Matt Coker HPI: 08/14 11:48 This 31 yrs old Female presents to ER via Unassigned with complaints of Psych rt Problem. 11:48 Patient with reported history of schizophrenia presents to the ED with bizarre rt behavior. Patient states that she is off of her medications. Denies any suicidal thoughts, homicidal thoughts. The patient is acting bizarrely, limiting history taking. No further history could be obtained, symptoms are moderate in severity, no other aggravating alleviating factors.. 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 - Social history:: Smoking status: Patient denies any tobacco usage or history of. Patient/guardian denies using alcohol. ROS: 11:48 Unable to obtain ROS due to Psychiatric disturbance, clearly psychotic. rt Exam: 11:48 Constitutional: This is a well developed, well nourished patient who is awake, alert, rt and in no acute distress. Head/Face: Normocephalic, atraumatic. ENT: Nares patent. No nasal discharge, no septal abnormalities noted. Tympanic membranes are normal and external auditory canals are clear. Oropharynx with no redness, swelling, or masses, exudates, or evidence of obstruction, uvula midline. Mucous membranes moist. Neck: Trachea midline, no thyromegaly or masses palpated, and no cervical lymphadenopathy. Supple, full range of motion without nuchal rigidity, or vertebral point tenderness. No Meningismus. Chest/axilla: Normal chest wall appearance and motion. Nontender with no deformity. No lesions are appreciated. Cardiovascular: Regular rate and rhythm with a normal S1 and S2. No gallops, murmurs, or rubs. Normal PMI, no JVD. No pulse deficits. Respiratory: Lungs have equal breath sounds bilaterally, clear to auscultation and percussion. No rales, rhonchi or wheezes noted. No increased work of breathing, no retractions or nasal flaring. Abdomen/GI: Soft, non-tender, with normal bowel sounds. No distension or tympany. No guarding or rebound. No evidence of tenderness throughout. Skin: Warm, dry with normal turgor. Normal color with no rashes, no lesions, and no evidence of cellulitis. MS/ Extremity: Pulses equal, no cyanosis. Neurovascular intact. Full, normal range of motion. Neuro: Awake and alert, GCS 15, oriented to person, place, time, and situation. Cranial nerves II-XII grossly intact. Motor strength 5/5 in all extremities. Sensory grossly intact. Cerebellar exam normal. Normal gait. 11:48 Psych: Clear psychosis noted, acting bizarrely, no si . Vital Signs: 11:49 BP 118 / 70; Pulse 79; Resp 18; Temp 97.6(O); Pulse Ox 100% on R/A; Weight 74.84 kg; ld1 Height 5 ft. 4 in. (162.56 cm); Pain 0/10; 13:01 BP 104 / 62; Pulse 61; Resp 18; Pulse Ox 97% on R/A; ld1 14:26 BP 92 / 59; Pulse 65; Resp 18; Pulse Ox 97% on R/A; ld1 15:17 BP 102 / 70; Pulse 62; Resp 16; Pulse Ox 100% on R/A; ld1 16:16 BP 95 / 54; Pulse 71; Resp 16; Pulse Ox 100% on R/A; Pain 0/10; ld1 17:43 BP 110 / 63; Pulse 76; Resp 18; Pulse Ox 99% on R/A; Pain 0/10; ld1 19:10 BP 118 / 71; Pulse 64; Resp 18 S; Pulse Ox 100% on R/A; ha1 11:49 Body Mass Index 28.32 (74.84 kg, 162.56 cm) ld1 MDM: 11:01 Patient medically screened. rt 18:07 Differential diagnosis: depression, psychosis secondary to non-compliance. Data rt reviewed: vital signs, nurses notes, old medical records, lab test result(s). Management of patient was discussed with the following: Behavioral Health Provider: Recommends outpatient management.. I considered the following discharge prescriptions or medication management in the emergency department Medications were administered in the Emergency Department. See MAR. Test considered but Not performed: CT: No evidence of trauma. Counseling: I had a detailed discussion with the patient and/or guardian regarding: the need for outpatient follow up. 08/14 11:07 Order name: CBC with Diff; Complete Time: 13:24 rt 08/14 11:07 Order name: CMP; Complete Time: 13:24 rt 08/14 11:07 Order name: Test, Serum; Complete Time: 13:24 rt 08/14 11:07 Order name: UDS; Complete Time: 15:33 rt 08/14 11:07 Order name: Alcohol Level; Complete Time: 13:24 rt 08/14 11:07 Order name: Acetaminophen; Complete Time: 13:24 rt 08/14 11:07 Order name: Urine Dipstick-Ancillary (obtain specimen); Complete Time: 14:23 rt 08/14 11:07 Order name: Salicylate; Complete Time: 13:24 rt 08/14 11:58 Order name: Manual Differential; Complete Time: 13:24 EDMS 08/14 14:05 Order name: Urine Dipstick-Ancillary; Complete Time: 14:26 EDMS 08/14 15:48 Order name: SARS-COV-2 Antigen Rapid; Complete Time: 16:31 bd 08/14 17:33 Order name: Urine Microscopic Only; Complete Time: 18:06 bd Administered Medications: 11:11 Drug: Geodon (ziprasidone) 10 mg Route: IM; Site: right deltoid; ld1 12:00 Follow up: Response: No adverse reaction ld1 17:42 Drug: Geodon (ziprasidone) 10 mg Route: IM; Site: left deltoid; ld1 17:42 Follow up: Response: No adverse reaction; Anxiety decreased ld1 Disposition Summary: 08/14/22 17:57 Discharge Ordered Location: Home rt Problem: an acute exacerbation rt Symptoms: have improved rt Condition: Stable rt Diagnosis - Schizophrenia, unspecified rt - UTI/ Urinary tract infection, site not specified rt Followup: rt - With: Private Physician - When: 2 - 3 days - Reason: Discharge Instructions: - Discharge Summary Sheet rt - Schizophrenia rt - Urinary Tract Infection, Adult rt Forms: - Medication Reconciliation Form rt - Thank You Letter rt - Antibiotic Education rt - Prescription Opioid Use rt Prescriptions: - Macrobid 100 mg Oral Capsule - take 1 capsule by ORAL route every 12 hours for 7 days; 14 capsule; Refills: 0, rt Product Selection Permitted - Fluconazole 200 mg Oral Tablet - take 1 tablet by ORAL route one time; 1 tablet; Refills: 0, Product Selection rt Permitted Signatures: Dispatcher [employer] Aimee Woo RN RN ld1 Matt Coker MD MD rt
[2022-08-14 18:02] LABS: Urine Bacteria <20 /HPF (<20); Urine RBC <5 /HPF (None Seen); Urine WBC Clump Rare /HPF (None Seen)
[2022-08-14 19:56] VITALS: TEMP 97.6
[2022-08-14 20:03] VITALS: BP 118/71; O2SAT 100
== END 2022-08-14 19:37 | disposition home or self-care (01) ==
LOC: ER 10:52
DX: F20.9 Schizophrenia, unspecified (principal); N39.0 Urinary tract infection, site not specified; Z20.822 Contact with and (suspected) exposure to COVID-19
CPT/HCPCS: 85025; 36415; 84703; 80053; 80307; 87811; J3486; G0480 ×3; 81003; 81015

== ENCOUNTER 2022-12-05 13:20 | Emergency (ER) | payer OTHER ==
--- OUTSIDE RECORDS SUMMARY | 2022-12-05 13:23 | XMS REPORT | Continuity of Care Document ---
:1990 Author Organization [facility] t Address [address] [place] [address] Care Team Providers Name Role Phone Asked, No Pcp Primary Care Physician Unavailable hCan Carrillo Attending Clinician Unavailable Chan Carrillo Attending Clinician Unavailable JENNA CATALAN Attending Clinician Unavailable Jenna Catalan DO Attending Clinician BRYANNA YEAGER Attending Clinician Unavailable Bryanna Yeager MD Attending Clinician Malik Sorenson MD Attending Clinician Ayesha Randall DO Attending Clinician [phone] DO AYESHA RANDALL Attending Clinician Unavailable Torres Mckinney MD Attending Clinician Vicente Perkins MD Attending Clinician Chan Carrillo MD Attending Clinician CHAN CARRILLO Attending Clinician Unavailable Doctor Unassigned, [place] Attending Clinician Unavailable Lydia Stone Attending Clinician Susan Marion R Attending Clinician Lisa Quintanilla Attending Clinician Bernard Reed Attending Clinician Chan Carrillo Admitting Clinician Unavailable MD SRINI OLIVA Admitting Clinician Unavailable Payers Payer Name Policy Type Policy Number Effective Date Expiration Date Jean sawyer [facility] [id number] 2022 00:00:00 [place] [id number] 2020 00:00:00 Problems Condition Condition Condition Status Onset Resolution Last Treating Co mments Source Name Details Category Date Date Treatment Clinician Date Anemia, Anemia, Disease Active 2017-07 Univers 2-15 it y of 00:00: [place] [facility] Headache Headache Disease Active 2017-07 Unive rs in in 0-30 [place] ante[place] antepartum 00 Me dical , third , third Branch trimester trimester HSV-1 HSV-1 Disease Active Univers (herpes (herpes 6-07 ity of simplex simplex 00:00: [place] virus 1) virus 1) 00 Medica l infection infection Bran ch HSV-2 HSV-2 Disease Active Univers (herpes (herpes 6-07 ity of simplex simplex 00:00: [place] virus 2) virus 2) 00 Medica l infection infection Bran ch Supervisio Supervisio Disease Active U nivers n of n of 3-13 ity of high-risk [place] [facility] Multiparit Multiparit Disease Active U nivers y y 3-13 ity of 00:00: [place] 00 Medical [facility] Morbid Morbid Disease Active Univers obesity obesity 3-13 ity of 00:00: [place] 00 Medical [facility] Drug abuse Drug abuse Disease Active U nivers and and 6-29 [place] of dependence [place] Rh Rh Disease Active Univers negative negative 1-23 ity of state in state in 00:00: [place] antepartum antepartum 00 Me dical period period Branch History of History of Disease Active U nivers depression depression 1-20 it y of 00:00: 00 [facility] Branch Bipolar 1 Bipolar 1 Disease Active Overview: Univers disorder disorder 1-20 Formattin ity of 00:00: g of this [place] note Medical might be Branch different from the original. Not currently on medicatio n, establish ed with [facility] Allergies, Adverse Reactions, Alerts Allergy Allergy Status Severity Reaction(s) Onset Inactive Treating Comm ents Source Name Type Date Date Clinician No Known DA Active U 2017-07 [facility] Allergie 0-04 Clear s 00:00: Alaniz 00 [facility] No Known DA Active U [facility] Allergie 2-19 Clear s 00:00: Alaniz 00 [facility] No Known Drug Active [facility] NO KNOWN Drug Active [facility] Social History Social Habit Start Date Stop Date Quantity Comments Source Gender identity [facility] Sexual orientation [facility] Exposure to 2022-03-27 2022-04-06 Not sure [facility] SARS-CoV-2 (event) 00:00:00 04:13:00 [facility] Alcohol intake 2022-04-06 2022-04-06 0 /d University of 00:00:00 00:00:00 [facility] History of Social 2021-05-20 2021-05-[address] function 00:00:00 00:00:00 Hospital Tobacco use and 2016-12-27 2016-12-27 Smokeless Universit y of exposure 00:00:00 00:00:00 tobacco [facility]-user [facility] History of tobacco 2004-07-21 2016-11-27 Cigarette Smoker University of use 00:00:00 00:00:00 [facility] Tobacco Comment 2016-08-09 2016-08-09 smokes 1 x per Unive rsity of 00:00:00 00:00:00 week [facility] Sex Ass[birth year] [facility] 00:00:00 00:00:00 Hospital Smoking Status Start Date Stop Date Source Tobacco smoking [facility] consumption unknown Ex-smoker 2016-12-27 00:00:00 2016-12-27 [place] [facility] [place] 00:00:00 [facility] Medications Ordered Filled Start Stop Current Ordering Indication Dosage Frequency Signature Comments Components Source Medication Medication Date Date Medication? Clinician (SIG) Name Name ibuprofen No 800mg 800 mg, Uni vers (IBU) 04-06 [...] 04/06/22 at 0445, MARY GRACE hydrOXYzine Yes [id number] 25mg Take 1 Univers 25 mg 9-17 tablet by ity of tablet 00:00: mouth [place] 00 every 6 Medical (six) Branch hours as needed for Itching. ibuprofen Yes [id number] 800mg Take 1 U nivers 800 mg 9-17 tablet by ity of tablet 00:00: mouth [place] 00 every 8 Medical (eight) Branch hours as needed (pain). hydrOXYzine Yes [id number] 25mg Take 1 Univers 25 mg 9-17 tablet by ity of tablet 00:00: mouth [place] 00 every 6 Medical (six) Branch hours as needed for Itching. ibuprofen Yes [id number] 800mg Take 1 U nivers 800 mg 9-17 tablet by ity of tablet 00:00: mouth [place] 00 every 8 Medical (eight) Branch hours as needed (pain). citalopram 2020-07 No 10mg QD Take 1 Meth sacha (CeleXA) 10 0-31 11-15 tablet (10 s t MG tablet 00:00: 05:59 mg total) Ho spita 00 :00 by mouth l daily for 14 days. citalopram 2020-07- No 10mg QD Take 1 [...] 2 l (two) times a day. propranoloL 2020-0 Yes 20mg Q.5D Take 1 Meth [facility] (INDERAL) 8-27 tablet (20 st 20 MG 00:00: mg total) Hospita tablet 00 by mouth 2 l (two) times a day. propranoloL 2020-0 Yes 20mg Q.5D Take 1 Meth sacha (INDERAL) 8-27 tablet (20 st 20 MG 00:00: mg total) Hospita tablet 00 by mouth 2 l (two) times a day. propranoloL 2020-0 Yes 20mg Q.5D Take 1 Meth sacha (INDERAL) 8-27 tablet (20 st 20 MG 00:00: mg total) Hospita tablet 00 by mouth 2 l (two) times a day. propranoloL 2020-0 Yes 20mg Q.5D Take 1 Meth sacha (INDERAL) 8-27 tablet (20 st 20 MG 00:00: mg total) Hospita tablet 00 by mouth 2 l (two) times a day. sertraline 2020- No 1/2 tab po Methodi (Zoloft) 03-[address] q[address] 100 MG 00:00: 00:00 days, then Hosp tk tablet 00 :00 1 tab po l qam sertraline 2020- No 1/2 tab po [facility] (Zoloft) 03-16 10-[address] 100 MG [...] l mouth nightly for 30 days. ARIPiprazol 2020- No 2mg QD Take 1 [...] Immunizations Ordered Filled Immunization Date Status Comments Sour e Immunization Name Name Rho (d) Immune 2018-07-03 Completed University of Globulin 00:00:00 [facility] Rho (d) Immune 2018-07-03 Completed University of Globulin 00:00:00 [facility] TDAP 2018-05-19 Completed University of 00:00:00 [facility] TDAP 2018-05-19 Completed University of 00:00:00 [facility] Rho (d) Immune 2018-04-28 Completed University of Globulin 00:00:00 [facility] Rho (d) Immune 2018-04-28 Completed University of Globulin 00:00:00 [facility] Varicella 2016-11-02 Completed University of (varivax)(chicken 00:00:00 [facility] edical pox) Branch Varicella 2016-11-02 Completed University of (varivax)(chicken 00:00:00 [place] M edical pox) Branch TDAP 2016-08-26 Completed University of 00:00:00 [facility] 2016-08-26 Completed University of 00:00:00 [facility] Vital Signs Vital Name Observation Time Observation Value Comments Source Height/Length Dosing 2020-04-27 10:46:44 Systolic blood 2022-04-06 09:16:00 136 mm[Hg] Univer sity of pressure [facility] Diastolic blood 2022-04-06 09:16:00 99 mm[Hg] Unive [facility] Heart rate 2022-04-06 09:16:00 93 /min [facility] Body temperature 2022-04-06 09:16:00 36.56 Makenna [facility] Respiratory rate 2022-04-06 09:16:00 19 /min [facility] Body height 2022-04-06 09:16:00 149.9 cm [facility] Body weight 2022-04-06 09:16:00 58.968 kg [facility] BMI 2022-04-06 09:16:00 26.26 kg/m2 Universi ty [facility] Oxygen saturation in 2022-04-06 09:16:00 100 /min University [facility] blood by [facility] Pulse oximetry Branch Height/Length 2021-08-07 13:15:25 152 [...] Systolic blood 2021-05-20 23:20:54 118 mm[Hg] Method [facility] pressure Diastolic blood 2021-05-20 23:20:54 75 mm[Hg] [facility] pressure Heart rate 2021-05-20 23:20:54 89 /min [facility] Body temperature 2021-05-20 23:20:54 36.67 Makenna [facility] Respiratory rate 2021-05-20 23:20:54 20 /min [facility] Oxygen saturation in 2021-05-20 23:20:54 100 /min [facility] Arterial blood by Pulse oximetry Body height 2021-03-16 01:44:00 154.9 cm [facility] Body weight 2021-03-16 01:44:00 63.504 kg [facility] BMI 2021-03-16 01:44:00 26.45 kg/m2 [facility] Procedures Procedure Date / Time Performing Clinician Source Performed NOTICE OF PRIVACY 2022-04-06 09:11:05 Doctor Unassigned, [facility] PRACTICES [place] [facility] CONSENT/REFUSAL FOR 2022-04-06 09:09:57 Doctor Unassigned, [facility] DIAGNOSIS AND TREATMENT [place] [facility] URINE DRUGS OF ABUSE 2021-03-16 06:14:00 [facility] SCREEN URINALYSIS SCREEN AND 2021-03-16 06:14:00 [facility] MICROSCOPY, WITH REFLEX TO CULTURE COVID-19 QUALITATIVE 2021-03-16 06:13:00 [facility] RT-PCR ECG ED PRELIMINARY 2021-03-16 06:05:54 Ayesha Randall [facility] INTERPRETATION [facility] COMPLETE BLD COUNT 2021-03-16 03:42:00 [facility] W/AUTO DIFF COMPREHENSIVE METABOLIC 2021-03-16 03:42:00 [facility] PANEL CREATINE KINASE, TOTAL 2021-03-16 03:42:00 [facility] ([facility]) THYROID STIMULATING 2021-03-16 03:42:00 [facility] HORMONE T4, FREE 2021-03-16 03:42:00 [place] [facility] ALCOHOL LEVEL, BLOOD 2021-03-16 03:42:00 [facility] ACETAMINOPHEN LEVEL 2021-03-16 03:42:00 [facility] SALICYLATE LEVEL 2021-03-16 03:42:00 [facility] ESTIMATED GFR 2021-03-16 03:42:00 [facility] ECG 12-LEAD 2021-03-16 03:23:09 [place] [facility] HC COMPLETE BLD COUNT 2021-03-15 05:54:00 Torres Mckinney [facility] W/AUTO DIFF COMPREHENSIVE METABOLIC 2021-03-15 05:54:00 Torres Mckinney [facility] PANEL CREATINE KINASE, TOTAL 2021-03-15 05:54:00 Torres Mckinney [facility] ([facility]) THYROID STIMULATING 2021-03-15 05:54:00 Torres Mckinney [facility] HORMONE T4, FREE 2021-03-15 05:54:00 Torres Mckinney [facility] ALCOHOL LEVEL, BLOOD 2021-03-15 05:54:00 Torres Mckinney [facility] ACETAMINOPHEN LEVEL 2021-03-15 05:54:00 Torres Mckinney [facility] SALICYLATE LEVEL 2021-03-15 05:54:00 [facility] 2021-03-15 05:54:00 [facility] 2021-03-15 05:39:48 Torres Mckinney [facility] INTERPRETATION ECG 12-LEAD 2021-03-15 05:12:19 [facility] En[facility] Start End Encounter Admission Attending Care Care Encounter Source Date/Time Date/Time Type Type Clinicians Facility Department ID 2021-05-20 Emergency [facility] [id number] Univers 20:09:[address] [facility] 2021-05-18 Emergency [facility] [id number] Univers 16:29:[address] [facility] 2021-05-18 Emergency [facility] [id number] Univers 15:53:[address] [facility] 2021-05-18 Emergency [facility] [id number] [facility]:51[facility] 2020-04-27 Inpatient Chan Carrillo [facility] PSY [id number] 10:43:00 Chan Carrillo -[id number] [facility] 2022-04-06 2022-04-06 [facility] [id number] Univers 17:51:00 17:56:00 [facility] 2022-04-06 2022-04-06 [facility] [id number] Univers 17:51:00 17:56:00 Jenna FIELD [id number] ity [facility] 4.2.7.2.686 [facility] [id number] [facility] 084 Branch 2022-04-06 2022-04-06 [facility] [id number] Univers 17:39:25 17:40:00 [facility] 2022-04-06 2022-04-06 Emergency [facility] [id number] Univers 04:20:00 05:36:00 BRYANNA itmingo of [facility] 2022-04-06 2022-04-06 Emergency Suzette, [facility] [id number] Univers 04:20:00 05:36:00 Bryanna FIELD [id number] ity [facility] 4.2.7.2.686 [facility] [id number] [address] 2021-07-30 2021-07-30 Outpatient [facility] PBUERAA RJU COH 00:00:00 00:00:00 2021-07-24 2021-07-24 Outpatient [facility]H CO[facility] PBUERAA RJU COH 00:00:00 00:00:00 2021-05-20 2021-05-20 Emergency Malik Sorenson 1.2.840.1 [id number] Methodi 18:56:00 19:37:[address] 3.430.2.7 Hospit a .3.893454 l .8 2021-05-20 2021-05-20 Travel 1.2.840.1 [id number] [id number] Methodi 00:00:00 00:00:[address] 3.430.2.7 0.2.7.3.698 Ho spita .3.448771 084.8 l .8 2021-03-15 2021-03-16 Emergency Prakash, 1.2.840.1 [id number] Methodi 23:48:00 06:39:[address] Clint 3.430.2.7 Hosp tk .3.465830 l .8 2021-03-15 2021-03-15 Emergency Hank, 1.2.840.1 [id number] Methodi 00:15:00 05:29:[address] Reggie 3.430.2.7 Hospit a .3.629641 l .8 2021-03-15 2021-03-15 Travel 1.2.840.1 1.2.491.047 [id number] Methodi 00:00:00 00:00:[address] 3.430.2.7 0.2.7.3.698 Ho spita .3.176795 084.8 l .8 2021-01-18 2021-01-18 EXT [facility] OP [place], EXT MSRDP 1.2.840.114 [id number] [place] 00:00:00 00:00:00 Vicente LOCATION 350.1.13.58 Health 9.2.7.2.686 [id number] 2021-01-18 2021-01-18 EXT [facility] OP [place], EXT MSRDP 1.2.840.114 1 [id number] [place] 00:00:00 00:00:00 Vicente LOCATION 350.1.13.58 Health 9.2.7.2.686 [id number] 2021-01-08 2021-01-08 Outpatient R [facility] [id number] Univers 12:30:00 12:30:00 [facility] 2020-04-27 2020-05-24 Inpatient 3 Chan Carrillo [facility] PSY [id number] 10:43:00 13:30:00 GerardoChan [facility] 2020-04-27 2020-04-27 [facility] 1.2.840.114 [id number] 11:31:00 23:59:00 Encounter Chan MONTALVO [id number] MEDICAL 4.2.7.2.686 [place] [id number] 2020-04-27 2020-04-27 Outpatient R [facility] NUT [id number] Univers 00:00:00 00:00:[address] [facility] 2020-04-27 2020-04-27 Orders Doctor FLETCHER 1.2.840.114 [id number] 00:00:00 00:00:00 Only Unassigned, LUIS 350.1.13.10 [place] [facility] 4.2.7.2.686 [id number] 2020-03-28 2020-03-28 Emergency [place], [facility] 1.2.605.037 [id number] 20:05:00 20:52:00 Lydia Field 350.1.13.10 [place] 4.2.7.2.686 [place] [id number] 2020-03-28 2020-03-28 Orders Doctor FLETCHER 1.2.840.114 [id number] 00:00:00 00:00:00 Only Unassigned, LUIS 350.1.13.10 [place] [facility] 4.2.7.2.686 [id number] 2020-03-24 2020-03-24 Emergency [facility] 1.2.840.114 [id number] 07:46:00 08:18:00 Jenna Field 350.1.13.10 [place] 4.2.7.2.686 [place] [id number] 2020-03-23 2020-03-23 Emergency [facility] 1.2.720.300 [id number] 16:33:00 20:42:00 Susan Field 350.1.13.10 [place] 4.2.7.2.686 [place] [id number] 084 2020-03-23 2020-03-23 Orders Doctor FLETCHER 1.2.840.114 [id number] 00:00:00 00:00:00 Only Unassigned, [place] 350.1.13.10 [place] [facility] 4.2.7.2.686 [id number] 2019-08-25 2019-08-25 Emergency [facility] 1.2.840.114 [id number] 16:23:00 19:17:00 Lisa Field 350.1.13.10 [place] 4.2.7.2.686 [place] [id number] 2019-04-03 2019-04-03 Emergency [facility] 1.2.137.391 [id number] 18:43:45 19:09:00 Bernard Field 350.1.13.10 [place] 4.2.7.2.686 [place] [id number] 084 Results Test Description Test Time Test [...] of 15-MAR-2021 00:12,-No significant change was found- [facility] 12 [id number] 20:37:17 Test Item Value Reference Range Interpretation [...] of 15-MAR-2021 00:12,-No significant [facility] [Presence] in Respiratory specimen by SAIGE with probe [id number] 06:16:38 Test Item Value Reference Range Interpretation Comments SARS-CoV-2 (COVID-19) RNA Not detected Not-Detected [Presence] in Respiratory specimen by SAIGE with probe detection (test code = 37926-8) Whether patient is employed in a healthcare setting (test code = 42214-7) Whether the patient has symptoms related to condition of interest (test code = 80386-4) Patient was hospitalized because of this condition (test code = 23718-1) Whether the patient was admitted to intensive care unit (ICU) for condition of interest (test code = 45215-9) Whether patient resides in a congregate care setting (test code = 92176-3) [facility] 09:56:39 Test Item Value Reference Range Interpretation [...] calculation is LDL/HDL Ratio=L DL Calc/HDL Chol [id number] 09:56:39 Test Item Value Reference Range Interpretation Comments TSH (test code = TSH) 1.610 mcIU/mL 0.550-4.780 HCG Ql [id number] 09:56:39 Test Item Value Reference Range Interpretation Comments HCG, Serum Qual (test code = HCG, Negative Negative Serum Qual)
[2022-12-05] MEDS ORDERED: LORAZEPAM 1 MG TABLET ONE (15:05)
[2022-12-05 15:06] LABS: Absolute Lymphocytes (CBC) 2.1 K/uL (0.7-4.9); Hematocrit 25.1 % (36.0-45.0); Lymphocytes % 24.1 % (15.3-44.8); MCV 61.9 fL (80-100); RBC Red Blood Cell Count 4.06 M/uL (3.86-4.86)
[2022-12-05 15:07] LABS: Anisocytosis 1+; Blood Morphology Comment NOTED (NOT SEEN); Platelet Estimate ADEQ; White Blood Cell Scan OK (OK)
[2022-12-05 15:08] LABS: Hypochromasia 2+
[2022-12-05 15:13] LABS: Protime INR 1.17
[2022-12-05 15:27] LABS: Specific Gravity 1.015 (1.005-1.030); Urine Bacteria <20 /HPF (<20); Urine Bilirubin NEGATIVE (Negative); Urine Blood 1+ (Negative); Urine Clarity Extremely Turbid (Clear); Urine Color Light-Orange (Yellow); Urine Glucose NEGATIVE (Negative); Urine Mucus Slight /HPF (None Seen); Urine Protein 1+ (Negative); Urine RBC >50 /HPF (None Seen); Urine Urobilinogen Normal (Normal); Urine WBC Clump Few /HPF (None Seen); Urine pH 5.5 (5.0-7.0)
[2022-12-05 15:29] LABS: Barbiturates NEGATIVE (NEGATIVE); Benzodiazepines NEGATIVE (NEGATIVE); Cocaine NEGATIVE (NEGATIVE); METHAMPHETAM POSITIVE (NEGATIVE); Methadone NEGATIVE (NEGATIVE); Opiates NEGATIVE (NEGATIVE); Phencyclidine NEGATIVE (NEGATIVE); THC Cannibis NEGATIVE (NEGATIVE)
[2022-12-05 15:55] LABS: ALT/SGPT 13 U/L (13-56); AST/SGOT 10 U/L (15-37); Albumin 3.5 g/dL (3.4-5.0); Alkaline Phosphatase 72 U/L (45-117); BUN Blood Urea Nitrogen 12 mg/dL (7-18); Bicarbonate 25 mEq/L (21-32); Bilirubin Total 0.1 mg/dL (0.2-1.0); Glomerular Filtration Rate 98 ml/min (=/>90); Glucose Level 89 mg/dL (74-106); Potassium 3.2 mEq/L (3.5-5.1); Protein, Total 6.7 g/dL (6.4-8.2); Sodium Level 138 mEq/L (136-145)
[2022-12-05 15:56] LABS: Bilirubin Direct < 0.1 mg/dL (0-0.2); Bilirubin Indirect, Calculated ND mg/dL (0.2-0.8)
--- NOTE | 2022-12-05 16:52 | ER ---
Nurse's Notes [facility] Name: Alma Rosa Odonnell Age: 32 yrs Sex: Female : 1990 Arrival Date: 12/05/2022 Time: 13:20 Bed 3 Private MD: Diagnosis: Acute Psychosis Presentation: 12/05 13:44 Chief complaint: Patient states: "Im Schizophrenic and homeless and I have not been on vg1 my meds" Pt states for about 2 months, stated "I just need to get back on my pills please" Denies HI/SI. Coronavirus screen: Vaccine status: Patient reports being unvaccinated. Client denies travel out of the [place] in the last 14 days. Ebola Screen: Patient negative for fever greater than or equal to 101.5 degrees Fahrenheit, and additional compatible Ebola Virus Disease symptoms Patient denies exposure to infectious person. Patient denies travel to an Ebola-affected area in the 21 days before illness onset. Initial Sepsis Screen: Does the patient meet any 2 criteria? No. Patient's initial sepsis screen is negative. Does the patient have a suspected source of infection? No. Patient's initial sepsis screen is negative. Risk Assessment: Do you want to hurt yourself or someone else? Patient reports no desire to harm self or others. Onset of symptoms was December 05, 2022. 13:44 Method Of Arrival: Ambulatory vg1 13:44 Acuity: MANDO 3 vg1 Triage Assessment: 13:46 General: Appears uncomfortable, Behavior is anxious. Pain: Denies pain. Neuro: Level of vg1 Consciousness is awake, alert, obeys commands, Oriented to person, place, time, situation. 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 - Social history:: Smoking status: unknown. - Family history:: not pertinent. Screenin:53 [facility] ED Fall Risk Assessment (Adult) History of falling in the last 3 months, ph including since admission No falls in past 3 months (0 pts) Confusion or Disorientation No (0 pts) Intoxicated or Sedated No (0 pts) Impaired Gait No (0 pts) Mobility Assist Device Used No (0 pt) Altered Elimination No (0 pt) Score/Fall Risk Level 0 - 2 = Low Risk Oriented to surroundings, Maintained a safe environment, Hourly rounding (assess needs \\T\\ fall precautionary measures) done. Abuse screen: Denies threats or abuse. Denies injuries from another. Nutritional screening: No deficits noted. Tuberculosis screening: No symptoms or risk factors identified. Assessment: 14:51 General: Appears in no apparent distress. unkempt, Behavior is cooperative, anxious, ph restless. Pain: Denies pain. Neuro: Level of Consciousness is awake, alert, obeys commands, Oriented to person, place, time, situation. Cardiovascular: Capillary refill < 3 seconds in bilateral fingers Patient's skin is warm and dry. Respiratory: Airway is patent Respiratory effort is even, unlabored, Respiratory pattern is regular, symmetrical. Derm: Skin is pink, warm \\T\\ dry. Musculoskeletal: Circulation, motion, and sensation intact. Range of motion: intact in all extremities. 18:53 Reassessment: PT TRANSFERRED VIA EMS. bp 19:04 Reassessment: Patient appears in no apparent distress at this time. Patient and/or ph family updated on plan of care and expected duration. Pain level reassessed. Vital Signs: 13:44 BP 97 / 54; Pulse 83; Resp 16; Temp 98.3(TE); Pulse Ox 97% on R/A; vg1 17:24 BP 102 / 78; Pulse 89; Resp 18; Temp 97.9; Pulse Ox 98% on R/A; ph ED Course: 13:21 Patient arrived in ED. mr 13:46 Triage completed. vg1 13:46 Arm band placed on. vg1 13:57 Matt Coker MD is Attending Physician. rt 14:09 Susana Albright RN is Primary Nurse. ph 14:51 Initial lab(s) drawn, by me, sent to lab. Urine collected: clean catch specimen, ph cloudy. Inserted saline lock: 22 gauge in right antecubital area, using aseptic technique. Blood collected. 14:52 Patient has correct armband on for positive identification. Bed in low position. Call light in reach. 16:20 degree clerk called the [facility] to arrange for a screener to see this pt, [address] advised they would send information to see pt on an outpatient basis as well as sending a screener. 16:30 Pt clinical information faxed to [facility], [facility], [facility] [place] [facility], and [facility]. 16:50 [facility]. em1 17:23 [facility] calls for nurse to nurse report. em1 17:25 Administrative acceptance given by [facility]. em1 18:53 No provider procedures requiring assistance completed. IV discontinued. bp Administered Medications: 15:07 Drug: LORazepam PO 1 mg Route: PO; ph 18:53 Follow up: Response: No adverse reaction bp 17:20 Drug: Macrobid PO 100 mg Route: PO; ph 18:53 Follow up: Response: No adverse reaction bp Medication: 14:53 VIS not applicable for this client. ph Outcome: 16:51 ER care complete, transfer ordered by MD. rt 18:53 Transferred by ground EMS Transfer form completed. bp 18:53 Condition: stable 18:53 Instructed on the need for transfer. 19:05 Patient left the ED. ph Signatures: Beatris Tse Eric em1 Susana Albright, RN RN ph Michael Boyd, RN RN bp Tiffanie Singh, RN RN vg1 Matt Coker MD MD rt Corrections: (The following items were deleted from the chart) 13:53 13:44 Chief complaint: Patient states: "Im Schizophrenic and homeless and I have not vg1 been on my meds" Pt states for about 2 months. vg1 16:36 16:20 degree clerk called the [facility] to arrange for a screener to see this pt, em1 [facility] advised they would send information to see pt on an outpatient basis. em1
--- NOTE | 2022-12-05 16:52 | EDPHYS ---
Physician Documentation [facility] Name: Alma Rosa Odonnell Age: 32 yrs Sex: Female : 1990 Arrival Date: 12/05/2022 Time: 13:20 Bed 3 Private MD: ED Physician Matt Coker HPI: 12/05 15:19 This 32 yrs old Female presents to ER via Ambulatory with complaints of rt Anxiety. 15:19 History limited due to patient with psychiatric disturbance. Patient reported has been rt off of her schizophrenia medication for some time. Appears to be very disorganized, stating that she wishes to have help, to go to psychiatric hospital. Denies SI, HI. Denies other acute complaints at this time. Symptoms are moderate severity, no other aggravating alleviating factors.. 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 - Social history:: Smoking status: unknown. - Family history:: not pertinent. ROS: 15:19 Unable to obtain ROS due to Psychiatric disturbance. rt Exam: 15:19 Constitutional: This is a well developed, well nourished patient who is awake, alert, rt and in no acute distress. Chest/axilla: Normal chest wall appearance and motion. Nontender with no deformity. No lesions are appreciated. Cardiovascular: Regular rate and rhythm with a normal S1 and S2. No gallops, murmurs, or rubs. Normal PMI, no JVD. No pulse deficits. Respiratory: Lungs have equal breath sounds bilaterally, clear to auscultation and percussion. No rales, rhonchi or wheezes noted. No increased work of breathing, no retractions or nasal flaring. Abdomen/GI: Soft, non-tender, with normal bowel sounds. No distension or tympany. No guarding or rebound. No evidence of tenderness throughout. Skin: Warm, dry with normal turgor. Normal color with no rashes, no lesions, and no evidence of cellulitis. MS/ Extremity: Pulses equal, no cyanosis. Neurovascular intact. Full, normal range of motion. 15:19 Psych: Denies SI, HI, appears to be grossly disorganized, responding to internal stimuli, laughing inappropriately with occasional bouts of crying that are not in relation to the conversation.. Vital Signs: 13:44 BP 97 / 54; Pulse 83; Resp 16; Temp 98.3(TE); Pulse Ox 97% on R/A; vg1 17:24 BP 102 / 78; Pulse 89; Resp 18; Temp 97.9; Pulse Ox 98% on R/A; ph MDM: 13:57 Patient medically screened. rt 16:35 Differential diagnosis: drug withdrawal. acute psychotic break, depression, psychosis rt secondary to non-compliance. Data reviewed: vital signs, nurses notes, old medical records, lab test result(s), EKG. Care significantly affected by the following chronic conditions: Schizophrenia. Care significantly affected by the following Social Determinants of Health: Inadequate housing, Misuse of alcohol and/or drugs. ED course: Patient presents to the ED with an apparent psychosis. She is disorganized, responding to internal stimuli. No believe that patient has capacity at this time. Believe that she is gravely disabled. The patient's labs do reveal an anemia, this is consistent with her prior hemoglobin levels, therefore, do not suspect an acute anemia and does not require transfusion. Mild hypokalemia does not require treatment. We will start patient on antibiotics for UTI. We will work on getting patient transferred for psychiatric care.. 12/05 14:01 Order name: Acetaminophen; Complete Time: 16:06 rt 12/05 14:01 Order name: Basic Metabolic Panel; Complete Time: 16:06 rt 12/05 14:01 Order name: CBC with Diff; Complete Time: 15:37 rt 12/05 14:01 Order name: ETOH Level; Complete Time: 16:06 rt 12/05 14:01 Order name: Hepatic Function; Complete Time: 16:06 rt 12/05 14:01 Order name: PT-INR; Complete Time: 15:37 rt 12/05 14:01 Order name: Test, Urine; Complete Time: 16:06 rt 12/05 14:01 Order name: Ptt, Activated; Complete Time: 15:37 rt 12/05 14:01 Order name: Salicylate; Complete Time: 16:06 rt 12/05 14:01 Order name: Urinalysis w/ reflexes; Complete Time: 15:37 rt 12/05 14:01 Order name: Urine Drug Screen; Complete Time: 15:37 rt 12/05 15:08 Order name: CBC Smear Scan; Complete Time: 15:37 EDMS 12/05 14:01 Order name: IV Saline Lock; Complete Time: 14:54 rt 12/05 14:01 Order name: Labs collected and sent; Complete Time: 14:54 rt 12/05 14:01 Order name: Suicide Screening ([place]); Complete Time: 14:34 rt Administered Medications: 15:07 Drug: LORazepam PO 1 mg Route: PO; ph 18:53 Follow up: Response: No adverse reaction bp 17:20 Drug: Macrobid PO 100 mg Route: PO; ph 18:53 Follow up: Response: No adverse reaction bp Disposition Summary: 12/05/22 16:51 Transfer Ordered Transfer Location: Psych Facility rt Reason: Higher level of care rt Condition: Stable rt Problem: an acute exacerbation rt Symptoms: have improved rt Accepting Physician: (12/05/22 19:05) ph Diagnosis - Acute Psychosis rt Forms: - Medication Reconciliation Form rt - SBAR form rt Signatures: Dispatcher [employer] Susana Arrington RN RN ph Tiffanie Singh RN RN vg1 Matt Coker MD MD rt Michael Boyd RN bp Corrections: (The following items were deleted from the chart) 19: 16:51 rt ph
[2022-12-05 19:26] VITALS: BP 102/78; TEMP 97.9; O2SAT 98
== END 2022-12-05 19:05 ==
LOC: ER 13:20
DX: F23 Brief psychotic disorder (principal)
CPT/HCPCS: 85025; 81001; 80048; 36415; 81025; 85610; 80076; 85730; 80307; 99285; G0480 ×3

== ENCOUNTER 2023-01-06 13:05 | Emergency (ER) | payer OTHER ==
--- OUTSIDE RECORDS SUMMARY | 2023-01-06 13:09 | XMS REPORT | Continuity of Care Document ---
:1990 Author Organization [facility] t Address [address] [facility] [address] [place] [address] Care Team Providers Name Role Phone Asked, No Pcp Primary Care Physician Unavailable Chan Carrillo Attending Clinician Unavailable Chan Carrillo Attending Clinician Unavailable NESTOR SAMANO Attending Clinician Unavailable Nestor Samano MD Attending Clinician JENNA CATALAN Attending Clinician Unavailable Jenna Catalan DO Attending Clinician BRYANNA YEAGER Attending Clinician Unavailable Bryanna Yeager MD Attending Clinician Malik Sorenson MD Attending Clinician Ayesha Randall DO Attending Clinician [phone] DO AYESHA RANDALL Attending Clinician Unavailable Torres Mckinney MD Attending Clinician Vicente Perkins MD Attending Clinician Chan Carrillo MD Attending Clinician CHAN CARRILLO Attending Clinician Unavailable Doctor Unassigned, Hiko Attending Clinician Unavailable Griselda TRISTENLydia Attending Clinician Susan Marion Attending Clinician Betsy NAJERA Lisa Sandra Attending Clinician Bernard Reed Attending Clinician Chan Carrillo Admitting Clinician Unavailable MD SRINI OLIVA Admitting Clinician Unavailable Payers Payer Name Policy Type Policy Number Effective Date Expiration Date S silverio [facility] [id number] 2022 00:00:00 [place] OF [place] [id number] 2020 00:00:00 Problems Condition Condition Condition Status Onset Resolution Last Treating Co mments Source Name Details Category Date Date Treatment Clinician Date Anemia, Anemia, Disease Active 2017-07 Univers 2-15 it y of 00:00: [place] [facility] Headache Headache Disease Active 2017-07 Unive rs in in 0-30 [place] , [place] ante[place] antepartum 00 Me dical , third , third Branch trimester trimester HSV-1 HSV-1 Disease Active Univers (herpes (herpes 6-07 ity of simplex simplex 00:00: [place] virus 1) virus 1) 00 Medica l infection infection Bran ch HSV-2 HSV-2 Disease Active Univers (herpes (herpes 6-07 ity of simplex simplex 00:00: [place] virus 2) virus 2) 00 Medica l infection infection Bran ch Supervisio Supervisio Disease Active U nivers n of n of 3-13 ity of high-risk high-[place] 00 [facility] Multiparit Multiparit Disease Active U nivers y y 3-13 ity of 00:00: [place] 00 Medical [facility] Morbid Morbid Disease Active Univers obesity obesity 3-13 ity of 00:00: [place] 00 [facility] Drug abuse Drug abuse Disease Active U nivers and and 6-29 ity of dependence dependence [place] Rh Rh Disease Active Univers negative negative 1-23 ity of state in state in 00:00: [place] antepartum antepartum 00 Me dical period period Branch History of History of Disease Active U nivers depression depression 1-20 it y of 00:00: [place] 00 Medical Branch Bipolar 1 Bipolar 1 Disease Active Overview: Univers disorder disorder 1-20 Formattin ity of 00:00: g of this 00 note Medical might be Branch different from the original. Not currently on medicatio n, establish ed with [facility] Allergies, Adverse Reactions, Alerts Allergy Allergy Status Severity Reaction(s) Onset Inactive Treating Comm ents Source Name Type Date Date Clinician No Known DA Active U 2017-07 [facility] Allergie 0-04 Clear s 00:00: Alaniz 00 [facility] No Known DA Active U [facility] Allergie 2-19 Clear s 00:00: Alaniz 00 [facility] No Known Drug Active [facility] NO KNOWN Drug Active [facility] of S [facility] Social History Social Habit Start Date Stop Date Quantity Comments Source Gender identity [facility] Sexual orientation [facility] Exposure to 2022-03-27 2022-04-06 Not sure [facility] SARS-CoV-2 (event) 00:00:00 04:13:00 [facility] Alcohol intake 2022-04-06 2022-04-06 0 /d University of 00:00:00 00:00:00 [facility] History of Social 2021-05-20 2021-05-[address] function 00:00:00 00:00:00 Hospital Tobacco use and 2016-12-27 2016-12-27 Smokeless Universit y of exposure 00:00:00 00:00:00 tobacco non-user Formerly [facility] dical Branch History of tobacco 2004-07-21 2016-11-27 Cigarette Smoker University of use 00:00:00 00:00:00 [facility] Tobacco Comment 2016-08-09 2016-08-09 smokes 1 x per Unive rsity of 00:00:00 00:00:00 week [facility] Sex Ass[birth year] At [birth year] [facility] 00:[facility]00 [facility] Smoking Status Start Date Stop Date Source Tobacco smoking [facility] consumption unknown Ex-smoker 2016-12-27 00:00:00 2016-12-27 [place] [facility] [place] 00:00:00 Medical Branch Medications Ordered Filled Start Stop Current Ordering Indication Dosage Frequency Signature Comments Components Source Medication Medication Date Date Medication? Clinician (SIG) Name Name SERTraline No 50mg 50 mg, [facility] ers (ZOLOFT) 12-22- Oral, ONCE ity of tablet 50 03:45: 03:25 NOW, 1 [place] mg 00 :00 dose, On Medical 12/21/22 Branch at 2245, Routine risperiDONE 2022- No 3mg 3 mg, [facility] ers (RISPERDAL 12-22 Oral, ity of M-TAB) 3 mg 03:00: 03:21 [place]CE, 1 [place] :[place] dose, On Medical 12/21/22 Branch at 2200, MARY GRACE SERTraline Yes [id number] 50mg Take 1 Un monty (ZOLOFT) 50 12-21 tablet by ity of mg tablet 00:00: mouth [place] 00 every Medical morning. Branch risperiDONE Yes [id number] 2mg Take 1 U nivers (RISPERDAL) -03 tablet by ity of 2 mg tablet 00:[place] bedtime. Medical Branch ibuprofen 2021- No 800mg 800 mg, Uni vers (IBU) 04-06 Oral, ity of tablet 800 09:45: 09:45 ONCE, 1 [place] as mg 00 :00 dose, On Medical Sat Branch 04/06/22 at 0445, MARY GRACE hydrOXYzine 2021- No 25mg 25 mg, Uni vers (ATARAX) 04-06 Oral, ity of tablet 25 09:45: 09:45 ONCE, 1 [place] mg [place] :[place] dose, On Medical Sat Branch 04/06/22 at 0445, MARY GRACE hydrOXYzine 2021- Yes [id number] 25mg Take 1 Univers 25 mg 9-17 tablet by ity of tablet 00:00: mouth [place] 00 every 6 Medical (six) Branch hours as needed for Itching. ibuprofen 2021- Yes [id number] 800mg Take 1 U nivers 800 mg 9-17 tablet by ity of tablet 00:00: mouth [place] 00 every 8 Medical (eight) Branch hours as needed (pain). hydrOXYzine 2021-0 Yes [id number] 25mg Take 1 Univers 25 mg 9-17 tablet by ity of tablet 00:00: mouth [place] 00 every 6 Medical (six) Branch hours as needed for Itching. ibuprofen 2021-0 Yes [id number] 800mg Take 1 U nivers 800 mg 9-17 tablet by ity of tablet 00:00: mouth [place] 00 every 8 Medical (eight) Branch hours as needed (pain). hydrOXYzine 2021-0 Yes [id number] 25mg Take 1 Univers 25 mg 9-17 tablet by ity of tablet 00:00: mouth [place] 00 every 6 Medical (six) Branch hours as needed for Itching. ibuprofen 2021-0 Yes [id number] 800mg Take 1 U nivers 800 mg [...] mouth l daily for 14 days. propranoloL 2020-0 Yes 20mg Q.5D Take 1 [facility] (INDERAL) 8-27 tablet (20 st 20 MG 00:00: mg total) [facility]ospita tablet 00 by mouth 2 l (two) times a day. propranoloL 2020-0 Yes 20mg Q.5D Take 1 Meth sacha (INDERAL) 8-27 tablet (20 st 20 MG 00:00: mg total) Hospita tablet 00 by mouth 2 l (two) times a day. propranoloL 1-0 Yes 20mg Q.5D Take 1 Meth sacha [...] Immunizations Ordered Filled Immunization Date Status Comments [facility] e Immunization Name Name Rho (d) Immune 2018-07-03 Completed University of Globulin 00:00:00 [facility] Rho (d) Immune 2018-07-03 Completed University of Globulin 00:00:00 [facility] Rho (d) Immune 2018-07-03 Completed University of Globulin 00:00:00 [facility] TDAP 2018-05-19 Completed University of 00:00:00 [facility] TDAP 2018-05-19 Completed University of 00:00:00 [facility] TDAP 2018-05-19 Completed University of 00:00:00 [facility] Rho (d) Immune 2018-04-28 Completed University of Globulin 00:00:00 [facility] Rho (d) Immune 2018-04-28 Completed University of Globulin 00:00:00 [facility] Rho (d) Immune 2018-04-28 Completed University of Globulin 00:00:00 [facility] Varicella 2016-11-02 Completed University of (varivax)(chicken 00:00:00 [facility] edical pox) Branch Varicella 2016-11-02 Completed University of (varivax)(chicken 00:00:00 [facility] edical pox) Branch Varicella 2016-11-02 Completed University of (varivax)(chicken 00:00:00 [facility] edical pox) Branch TDAP 2016-08-26 Completed University of 00:00:00 [facility] TDAP 2016-08-26 Completed University of 00:00:00 [facility] 2016-08-26 Completed University of 00:00:00 [facility] Vital Signs Vital Name Observation Time Observation Value Comments Source Height/Length Dosing 2020-04-27 10:46:44 Systolic blood 2022-12-22 03:15:00 106 mm[Hg] Univer sity of pressure [facility] Diastolic blood 2022-12-22 03:15:00 64 mm[Hg] Unive rsity of pressure [facility] Heart rate 2022-12-22 03:15:00 89 /min [facility] Respiratory rate 2022-12-22 03:15:00 16 /min [facility] Oxygen saturation in 2022-12-22 03:15:00 100 /min [facility] Arterial blood by [facility] Pulse oximetry Branch Body temperature 2022-12-22 01:16:00 36.67 Makenna [facility] Body weight 2022-12-22 01:16:00 58.968 kg Universi ty of [place] [facility] [place] BMI 2022-12-22 01:16:00 26.26 kg/m2 Universi ty of [facility] Branch Systolic blood 2022-04-06 09:16:00 136 mm[Hg] Univer sity of pressure [facility] Diastolic blood 2022-04-06 09:16:00 99 mm[Hg] Unive rsity of pressure [facility] Heart rate 2022-04-06 09:16:00 93 /min Universi ty of [facility] Body temperature 2022-04-06 09:16:00 36.56 Makenna Univ [facility] Respiratory rate 2022-04-06 09:16:00 19 /min Univ [facility] Body height 2022-04-06 09:16:00 149.9 cm Universi ty of [facility] Body weight 2022-04-06 09:16:00 58.968 kg Universi ty of [place] [facility] BMI 2022-04-06 09:16:00 26.26 kg/m2 Universi ty of [place] [facility] Oxygen saturation in 2022-04-06 09:16:00 100 /min [facility] Arterial blood by [facility] Pulse oximetry Branch Height/Length 2021-08-07 [...] pressure Diastolic blood 2021-05-20 23:20:54 75 mm[Hg] [facility] pressure Heart rate 2021-05-20 23:20:54 89 /min [facility] Body temperature 2021-05-20 23:20:54 36.67 Makenna [facility] Respiratory rate 2021-05-20 23:20:54 20 /min [facility] Oxygen saturation in 2021-05-20 23:20:54 100 /min [facility] Arterial blood by Pulse oximetry Body height 2021-03-16 01:44:00 154.9 cm [facility] Body weight 2021-03-16 01:44:00 63.504 kg [facility] BMI 2021-03-16 01:44:00 26.45 kg/m2 [facility] Procedures Procedure Date / Time Performing Clinician Source Performed NOTICE OF PRIVACY 2022-04-06 09:11:05 Doctor Unassigned, [facility] PRACTICES Hiko Medical Branch CONSENT/REFUSAL FOR 2022-04-06 09:09:57 Doctor Unassigned, [facility] DIAGNOSIS AND TREATMENT [facility] URINE DRUGS OF ABUSE 2021-03-16 06:14:00 [facility] SCREEN URINALYSIS SCREEN AND 2021-03-16 06:14:00 [facility] MICROSCOPY, WITH REFLEX TO CULTURE COVID-19 QUALITATIVE 2021-03-16 06:13:00 [facility] RT-PCR ECG ED PRELIMINARY 2021-03-16 06:05:54 Ayesha Randall [facility] INTERPRETATION Clint [facility] COMPLETE BLD COUNT 2021-03-16 03:42:00 [facility] W/AUTO DIFF COMPREHENSIVE METABOLIC 2021-03-16 03:42:00 [facility] [place] [facility] PANEL CREATINE KINASE, TOTAL 2021-03-16 03:42:00 [facility] ([facility]K) THYROID STIMULATING 2021-03-16 03:42:00 [facility] HORMONE T4, FREE 2021-03-16 03:42:00 [facility] spital ALCOHOL LEVEL, BLOOD 2021-03-16 03:42:00 [facility] ACETAMINOPHEN LEVEL 2021-03-16 03:42:00 [facility] 2021-03-16 03:42:00 Srini Oliva H ospital ESTIMATED GFR 2021-03-16 03:42:00 Srini Oliva Ho spital ECG 12-LEAD 2021-03-16 03:23:09 Srini Oliva spital THYROID STIMULATING 2021-03-15 05:54:00 Torres Mckinney [facility] HORMONE T4, FREE 2021-03-15 05:54:00 Torres Mckinney [facility] ALCOHOL LEVEL, BLOOD 2021-03-15 05:54:00 Torres Mckinney [facility] ACETAMINOPHEN LEVEL 2021-03-15 05:54:00 Torres Mckinney [facility] SALICYLATE LEVEL 2021-03-15 05:54:00 Torres Mckinney [facility] ESTIMATED GFR 2021-03-15 05:54:00 Torres Mckinney [facility] HC COMPLETE BLD COUNT 2021-03-15 05:54:00 Torres Mckinney [facility] W/AUTO DIFF COMPREHENSIVE METABOLIC 2021-03-15 05:54:00 Torres Mckinney [facility] PANEL CREATINE KINASE, TOTAL 2021-03-15 05:54:00 Torres Mckinney [facility] ([facility]K) ECG ED PRELIMINARY 2021-03-15 05:39:48 Torres Mckinney [facility] INTERPRETATION ECG 12-LEAD 2021-03-15 05:12:19 Torres Mckinney [facility] Encounters Start End Encounter Admission Attending Care Care Encounter Source Date/Time Date/Time Type Type Clinicians Facility Department ID 2021-05-20 Emergency [facility] [id number] Univers 20:09:23 ity [facility] 2021-05-18 Emergency [facility] [id number] Univers 16:29:02 ity [facility] 2021-05-18 Emergency [facility] [id number] Univers 15:53:57 ity [facility] 2021-05-18 Emergency [facility] [id number] Univers 15:51:32 [facility] 2020-04-27 Inpatient Chan Carrillo [facility] PS[facility] [id number] 10:43:00 Chan Carrillo [id number] [facility] 2022-12-21 2022-12-21 Emergency X SELWYN [facility] ERT [id number] Univers 20:17:00 22:51:00 NESTOR dinero [facility] 2022-12-21 2022-12-21 [facility] [id number] Univers 20:17:00 22:51:00 Nestor [facility] [id number] it y of [facility] 4.2.7.2.686 [facility] [id number] [address] ([facility]) 2022-04-06 2022-04-06 Emergency [facility] [id number] Univers 17:51:00 17:56:00 JENNA dinero [facility] 2022-04-06 2022-04-06 [facility] [id number] Univers 17:51:00 17:56:00 Jenna FIELD [id number] ity of [facility] 4.2.7.2.6 [facility] [id number] [address] 2022-04-06 2022-04-06 Emergency [facility] [id number] Univers 17:39:25 17:40:00 JENNA dinero [facility] 2022-04-06 2022-04-06 Emergency Willy [facility] [id number] Univers 04:20:00 05:36:00 BRYANNA dinero [facility] 2022-04-06 2022-04-06 [facility] [id number] [id number] Univers 04:20:00 05:36:00 Bryanna FIELD [id number] ity of [place] 4.2.7.[address] [place] [id number] 2021-07-30 2021-07-30 Outpatient [facility] P[facility]ER[facility] 00:00:00 00:00:00 [id number] 2021-07-24 2021-07-24 Outpatient [facility] 00:00:00 00:00:00 DWA- 04 2021-05-20 2021-05-20 Emergency Ling, Malik 1.2.840.1 [id number] Methodi 18:56:00 19:37:[address] 3.430.2.7 Hospit a .3.100975 l .8 2021-05-20 2021-05-20 Travel 1.2.840.1 1.2.566.064 [id number] Methodi 00:00:00 00:00:[address] 3.430.2.7 0.2.7.3.698 Ho spita .3.567577 084.8 l .8 2021-03-15 2021-03-16 Emergency Kendig, 1.2.840.1 [id number] Methodi 23:48:00 06:39:[address] Clint 3.430.2.7 Hosp tk .3.825506 l .8 2021-03-15 2021-03-15 Emergency Hank, 1.2.840.1 [id number] Methodi 00:15:00 05:29:[address] Reggie 3.430.2.7 Hospit a .3.531498 l .8 2021-03-15 2021-03-15 Travel 1.2.840.1 1.2.104.755 [id number] Methodi 00:00:00 00:00:[address] 3.430.2.7 0.2.7.3.698 Ho spita .3.478489 084.8 l .8 2021-01-18 2021-01-18 EXT M[facility] OP Maddie, EXT MSRDP 1.2.840.114 1 [id number] [place] 00:00:00 00:00:00 [facility] LOCATION 350.1.13.58 Health 9.2.7.2.686 [id number] 2021-01-18 2021-01-18 EXT MHH OP D[place]am, EXT MSRDP 1.2.840.114 1 [id number] [place] 00:00:00 00:00:00 [facility] LOCATION 350.1.13.58 [facility] 9.2.7.2.686 [id number] 2021-01-08 2021-01-08 Outpatient R [facility] [id number] Univers 12:30:00 12:30:00 [facility] 2020-04-27 2020-05-24 Inpatient 3 Chan Carrillo [facility] PSY [id number] 10:43:00 13:30:00 Chan Carrillo [facility] 2020-04-27 2020-04-27 [facility] Gerardo [facility] 1.2.840.114 [id number] 11:31:00 23:59:00 Encounter Chan MONTALVO [id number] MEDICAL 4.2.7.2.686 [place] [id number] 2020-04-27 2020-04-27 Outpatient R [facility] [id number] Univers 00:00:00 00:00:00 CHAN [facility] 2020-04-27 2020-04-27 Orders Doctor BYNUM 1.2.840.114 [id number] 00:00:00 00:00:00 Only Unassigned, LUIS 350.1.13.10 Hiko [facility] 4.2.7.2.686 [id number] 2020-03-28 2020-03-28 Emergency [facility] 1.2.211.350 [id number] 20:05:00 20:52:00 Lydia Field 350.1.13.10 [place] 4.2.7.2.686 [place] [id number] 2020-03-28 2020-03-28 Orders Doctor BYNUM 1.2.840.114 [id number] 00:00:00 00:00:00 Only Unassigned, LUIS 350.1.13.10 Hiko [facility] 4.2.7.2.686 [id number] 2020-03-24 2020-03-24 Emergency [facility] 1.2.840.114 [id number] 07:46:00 08:18:00 Jenna Cheek Liliana 350.1.13.10 [place] 4.2.7.2.686 [place] [id number] 2020-03-23 2020-03-23 Emergency Friona, [facility] 1.2.033.226 [id number] 16:33:00 20:42:00 Susan Nicol Liliana 350.1.13.10 [place] 4.2.7.2.686 [place] [id number] 2020-03-23 2020-03-23 Orders Doctor FLETCHER 1.2.840.114 [id number] 00:00:00 00:00:00 Only Unassigned, LUIS 350.1.13.10 Hiko [facility] 4.2.7.2.686 [id number] 2019-08-25 2019-08-25 Emergency [facility] 1.2.840.114 [id number] 16:23:00 19:17:00 Lisa Flores Liliana 350.1.13.10 [place] 4.2.7.2.686 [place] [id number] 2019-04-03 2019-04-03 Emergency [facility] 1.2.701.451 [id number] 18:43:45 19:09:00 Bernard Field [id number] [place] 4.2.7.2.686 [place] [id number] Results Test Description Test Time Test Comments Results Result Comments Source ECG 12 lead 2021-04-24 20:37:17 Test Item Value Reference Range Interpretation Comme nts Ventricular rate (test code = 253) Atrial rate (test code = 255) NE interval (test code = 266) QRSD interval [...] of 15-MAR-2021 00:12,-No significant change was found- [facility] 12 [id number] 20:37:17 Test Item Value Reference Range Interpretation Comments Ventricular rate (test code = 253) Atrial rate (test code = 255) NE interval (test code = 266) QRSD interval [...] of 15-MAR-2021 00:12,-No significant change was found- [facility] RNA [Presence] in Respiratory specimen by SAIGE with probe [id number] 06:16:38 Test Item Value Reference Range Interpretation Comments SARS-CoV-2 (COVID-19) RNA Not detected Not-Detected [Presence] in Respiratory specimen by SAIGE with probe detection (test code = 77972-5) Whether patient is employed in a healthcare setting (test code = 34604-5) Whether the patient has symptoms related to condition of interest (test code = 46977-2) Patient was hospitalized because of this condition (test code = 44673-0) Whether the patient was admitted to intensive care unit (ICU) for condition of interest (test code = 51035-0) Whether patient resides in a congregate care setting (test code = 43642-0) [facility] 09:56:39 Test Item Value Reference Range Interpretation [...] calculation is LDL/HDL Ratio=L DL Calc/HDL Chol [id number] 09:56:39 Test Item Value Reference Range Interpretation Comments TSH (test code = TSH) 1.610 mcIU/mL 0.550-4.780 HCG Ql [id number] 09:56:39 Test Item Value Reference Range Interpretation Comments HCG, Serum Qual (test code = HCG, Negative Negative Serum Qual)
[2023-01-06] MEDS ORDERED: LORazepam 2 MG/ML VIAL ONE (13:32)
[2023-01-06] MEDS ORDERED: NA CHLORIDE 0.9% 1,000 ML ONE (13:32)
[2023-01-06 13:34] LABS: Absolute Lymphocytes (CBC) 1.9 K/uL (0.7-4.9); Hematocrit 25.4 % (36.0-45.0); Lymphocytes % 23.2 % (15.3-44.8); MPV 9.3 fL (7.6-11.3); RBC Red Blood Cell Count 4.17 M/uL (3.86-4.86)
[2023-01-06 13:49] LABS: Anisocytosis 1+; Blood Morphology Comment NOTED (NOT SEEN); Hypochromasia 3+; Platelet Estimate ADEQ; White Blood Cell Scan OK (OK)
[2023-01-06 13:59] LABS: Potassium 3.7 mEq/L (3.5-5.1)
[2023-01-06 14:44] LABS: Specific Gravity 1.028 (1.005-1.030)
[2023-01-06 14:47] LABS: Specific Gravity 1.029 (1.005-1.030); Urine Bacteria <20 /HPF (<20); Urine Bilirubin NEGATIVE (Negative); Urine Blood Negative (Negative); Urine Clarity Clear (Clear); Urine Color Light-Yellow (Yellow); Urine Glucose NEGATIVE (Negative); Urine Mucus Slight /HPF (None Seen); Urine Protein TRACE (Negative); Urine Urobilinogen Normal (Normal)
--- NOTE | 2023-01-06 15:25 | EDPHYS ---
Physician Documentation [facility] Name: Alma Rosa Odonnell Age: 32 yrs Sex: Female : 1990 Arrival Date: 01/06/2023 Time: 13:05 Bed 12 Private MD: ED Physician Zachariah Hayden HPI: 01/06 13:28 This 32 yrs old Female presents to ER via Unassigned with complaints of kb Dizziness. 13:28 The patient presents to the emergency department with abnormal behavior/outburst. kb Patient's baseline: Neuro: alert and fully oriented, Motor: no deficits, Ambulation: walks without assistance, Speech: normal. Severity of symptoms: At their worst the symptoms were moderate in the emergency department the symptoms are unchanged. The patient has experienced similar episodes in the past, chronically. The patient has not recently seen a physician. Pt reports she has been out of her medications for about one month and her schizophrenia symptoms (abnormal behavior/outbursts) have been getting worse. Came to get her medication. 13:30 Onset: The symptoms/episode began/occurred couple of weeks. Past psychiatric history: kb Prior diagnosis: schizophrenia, Psychiatric medications include: Ativan, depakote, risperidone. Associated signs and symptoms: The patient has no apparent associated signs or symptoms. Historical: - Allergies: 13:31 No Known Allergies; mb9 - PMHx: 13:31 Anxiety; Bipolar disorder; Depression; mb9 - PSHx: 13:31 None; mb9 - Immunization history:: Adult Immunizations up to date. - Social history:: Smoking status: Patient denies any tobacco usage or history of. ROS: 13:32 Constitutional: Negative for fever, chills, and weight loss. kb 13:32 Psych: Positive for abnormal behavior/outbursts. 13:32 All other systems are negative. Exam: 13:32 Constitutional: This is a well developed, well nourished patient who is awake, alert, kb and in no acute distress. Head/Face: Normocephalic, atraumatic. ENT: Moist Mucous membranes Cardiovascular: Regular rate and rhythm with a normal S1 and S2. No gallops, murmurs, or rubs. No pulse deficits. Respiratory: Respirations even and unlabored. No increased work of breathing. Talking in full sentences Skin: Warm, dry with normal turgor. Normal color. MS/ Extremity: Pulses equal, no cyanosis. Neurovascular intact. Full, normal range of motion. Neuro: Awake and alert, GCS 15, oriented to person, place, time, and situation. Moves all extremities. Normal gait. 13:32 Psych: Behavior/mood is cooperative, Affect is animated, Oriented to person, place, time, Patient has no thoughts/intents to harm self or others. Judgement / Insight is normal. Memory is normal. Delusions/hallucinations are not present. Pt is having outbursts during exam (growling, making sounds like a monkey, laughing/crying), but is able to answer questions appropriately. Pt states she is here to get her normal medications so that these outbursts can be controlled. Vital Signs: 13:29 BP 120 / 83; Pulse 98; Resp 18; Temp 98.2(O); Pulse Ox 100% on R/A; Weight 65.77 kg; mb9 Height 5 ft. 3 in. ; 14:05 BP 112 / 52; Pulse 78; Resp 16; Pulse Ox 99% on R/A; mb9 15:25 BP 118 / 59; Pulse 88; Resp 16; Pulse Ox 100% ; mb9 13:29 Body Mass Index 25.69 (65.77 kg, 160.02 cm) mb9 MDM: 13:10 Patient medically screened. kb 13:35 Data reviewed: vital signs, nurses notes. kb 15:12 ED course: [facility] record of [facility] medications the pt reports she normally takes. Pt kb states she was given the reported medications at an inpatient psych facility and did not receive prescriptions. Pt educated that she needs to follow up with psychologist for initial prescriptions. Pt states she will follow up with [facility] for those. Now reports she has had vaginal discharge, similar to previous yeast infections, and would like to be treated for that. Urine obtained. Pt informed that urine did not show a UTI, but that I would be happy to give her a dose of diflucan and treat possible STI with doxycycline. I offered to do a pelvic exam and obtain a wet prep and GC test. Pt states she just wants to see a dr. . 15:30 Counseling: I had a detailed discussion with the patient and/or guardian regarding: the kb historical points, exam findings, and any diagnostic results supporting the discharge/admit diagnosis, lab results, the need for outpatient follow up, a family practitioner, a psychiatrist, to return to the emergency department if symptoms worsen or persist or if there are any questions or concerns that arise at home. ED course: Dr Fox went and spoke with pt (RN accompanied him). Agrees with plan of care. Recommends rocephin now and doxycycline for home. 01/06 13:16 Order name: CBC with Diff; Complete Time: 13:52 kb 01/06 13:16 Order name: Basic Metabolic Panel; Complete Time: 14:00 kb 01/06 13:16 Order name: Depakote; Complete Time: 14:00 kb 01/06 13:49 Order name: CBC Smear Scan; Complete Time: 13:52 EDMS 01/06 14:14 Order name: Urinalysis w/ reflexes; Complete Time: 15:01 kb 01/06 14:14 Order name: Test, Urine; Complete Time: 15:01 kb 01/06 13:16 Order name: IV Start; Complete Time: 13:29 kb 01/06 13:32 Order name: Misc. Order: call [facility] to find out pt's home med doses please; Complete kb Time: 14:19 Administered Medications: 13:24 Drug: NS 0.9% IV 1000 ml Route: IV; Rate: 1000 ml; Site: right antecubital; mb9 15:24 Follow up: Response: No adverse reaction; IV Status: Completed infusion mb9 13:24 Drug: Ativan IVP 1 mg Route: IVP; Site: right antecubital; mb9 13:48 Follow up: Response: No adverse reaction mb9 15:20 Drug: Fluconazole PO 150 mg Route: PO; mb9 15:24 Follow up: Response: No adverse reaction mb9 15:25 Drug: Rocephin IV 1 grams Route: IV; Rate: calculated rate; Site: right antecubital; mb9 15:34 Follow up: Response: No adverse reaction; IV Status: Completed infusion mb9 Disposition Summary: 01/06/23 15:25 Discharge Ordered Location: Home kb Condition: Stable kb Diagnosis - Schizophrenia, unspecified kb Followup: kb - With: Emergency Department - When: As needed - Reason: Worsening of condition Followup: kb - With: Private Physician - When: 2 - 3 days - Reason: Recheck today's complaints, Continuance of care, Re-evaluation by your physician Discharge Instructions: - Discharge Summary Sheet kb - Schizophrenia kb - Managing Schizophrenia kb Forms: - Medication Reconciliation Form kb - Thank You Letter kb - Antibiotic Education kb - Prescription Opioid Use kb Prescriptions: - Doxycycline Hyclate 100 mg Oral Tablet - take 1 tablet by ORAL route every 12 hours; 20 tablet; Refills: 0, Product kb Selection Permitted Signatures: Dispatcher [employer] Anai Wheeler, REINALDO-C Beatris Carballo, RN RN mb9
--- NOTE | 2023-01-06 15:25 | ER ---
Nurse's Notes [facility] Name: Alma Rosa Odonnell Age: 32 yrs Sex: Female : 1990 Arrival Date: 01/06/2023 Time: 13:05 Bed 12 Private MD: Diagnosis: Schizophrenia, unspecified Presentation: 01/06 13:29 Chief complaint: Patient states: "I've been out of my Depakote, Ativan, and Risperdal mb9 for a while now. It's making me feel dizzy and I need a refill". Coronavirus screen: Vaccine status: Patient reports being unvaccinated. Ebola Screen: No symptoms or risks identified at this time. Initial Sepsis Screen: Does the patient meet any 2 criteria? No. Patient's initial sepsis screen is negative. Does the patient have a suspected source of infection? No. Patient's initial sepsis screen is negative. Risk Assessment: Do you want to hurt yourself or someone else? Patient reports no desire to harm self or others. Onset of symptoms was January 06, 2023. 13:29 Method Of Arrival: Ambulatory mb9 13:29 Acuity: MANDO 3 mb9 Triage Assessment: 13:31 General: Appears uncomfortable, Behavior is cooperative, anxious, crying. Pain: Denies mb9 pain. Neuro: Duncan Agitation-Sedation Scale (RASS): 0 - Alert and Calm Level of Consciousness is awake, alert, obeys commands, Oriented to person, place, time, situation, Appropriate for age. Neuro: Reports dizziness. Cardiovascular: Patient's skin is warm and dry. Respiratory: Airway is patent Respiratory effort is even, unlabored, Respiratory pattern is regular, symmetrical. Derm: Skin is pink, warm \\T\\ dry. Musculoskeletal: Range of motion: intact in all extremities. Historical: - Allergies: 13:31 No Known Allergies; mb9 - PMHx: 13:31 Anxiety; Bipolar disorder; Depression; mb9 - PSHx: 13:31 None; mb9 - Immunization history:: Adult Immunizations up to date. - Social history:: Smoking status: Patient denies any tobacco usage or history of. Screenin:32 [facility] ED Fall Risk Assessment (Adult) History of falling in the last 3 months, mb9 including since admission No falls in past 3 months (0 pts) Confusion or Disorientation No (0 pts) Intoxicated or Sedated No (0 pts) Impaired Gait No (0 pts) Mobility Assist Device Used No (0 pt) Altered Elimination No (0 pt) Score/Fall Risk Level 0 - 2 = Low Risk Oriented to surroundings, Maintained a safe environment, Educated pt \\T\\ family on fall prevention, incl call for assistance when getting out of bed. Abuse screen: Denies threats or abuse. Nutritional screening: No deficits noted. Tuberculosis screening: No symptoms or risk factors identified. Assessment: 14:15 Reassessment: No changes from previously documented assessment. Patient and/or family mb9 updated on plan of care and expected duration. Pain level reassessed. Patient is alert, oriented x 3, equal unlabored respirations, skin warm/dry/pink. 15:25 Reassessment: Patient and/or family updated on plan of care and expected duration. Pain mb9 level reassessed. Patient is alert, oriented x 3, equal unlabored respirations, skin warm/dry/pink. Patient states feeling better. Patient states symptoms have improved. Vital Signs: 13:29 BP 120 / 83; Pulse 98; Resp 18; Temp 98.2(O); Pulse Ox 100% on R/A; Weight 65.77 kg; mb9 Height 5 ft. 3 in. ; 14:05 BP 112 / 52; Pulse 78; Resp 16; Pulse Ox 99% on R/A; mb9 15:25 BP 118 / 59; Pulse 88; Resp 16; Pulse Ox 100% ; mb9 13:29 Body Mass Index 25.69 (65.77 kg, 160.02 cm) mb9 ED Course: 13:06 Patient arrived in ED. im 13:10 Anai King FNP-C is PHCP. kb 13:10 Zachariah Hayden MD is Attending Physician. kb 13:20 Inserted saline lock: 20 gauge in right antecubital area, using aseptic technique. mb9 13:22 Beatris Segura, SONDRA is Primary Nurse. mb9 13:29 Depakote Sent. mb9 13:29 Basic Metabolic Panel Sent. mb9 13:29 CBC with Diff Sent. mb9 13:31 Triage completed. mb9 13:32 Arm band placed on. mb9 13:33 Bed in low position. Call light in reach. Side rails up X 1. Client placed on mb9 continuous cardiac and pulse oximetry monitoring. NIBP monitoring applied. 15:35 No provider procedures requiring assistance completed. IV discontinued, intact, mb9 bleeding controlled, No redness/swelling at site. Pressure dressing applied. Administered Medications: 13:24 Drug: NS 0.9% IV 1000 ml Route: IV; Rate: 1000 ml; Site: right antecubital; mb9 15:24 Follow up: Response: No adverse reaction; IV Status: Completed infusion mb9 13:24 Drug: Ativan IVP 1 mg Route: IVP; Site: right antecubital; mb9 13:48 Follow up: Response: No adverse reaction mb9 15:20 Drug: Fluconazole PO 150 mg Route: PO; mb9 15:24 Follow up: Response: No adverse reaction mb9 15:25 Drug: Rocephin IV 1 grams Route: IV; Rate: calculated rate; Site: right antecubital; mb9 15:34 Follow up: Response: No adverse reaction; IV Status: Completed infusion mb9 Medication: 15:35 VIS not applicable for this client. mb9 Outcome: 15:25 Discharge ordered by . gudelia 15:36 Discharged to home ambulatory. mb9 15:36 Condition: stable 15:36 Discharge instructions given to patient, Instructed on discharge instructions, follow up and referral plans. Demonstrated understanding of instructions, follow-up care, medications, Prescriptions given X 1. 15:36 Patient left the ED. mb9 Signatures: Anai King, HOE WORKER-C HOE WORKER-Beatris Lomas RN RN mb9 Christine Messer Corrections: (The following items were deleted from the chart) 13:48 13:42 Reassessment: No changes from previously documented assessment. Patient and/or mb9 family updated on plan of care and expected duration. Pain level reassessed. Patient is alert, oriented x 3, equal unlabored respirations, skin warm/dry/pink. mb9
[2023-01-06] MEDS ORDERED: FLUCONAZOLE 100 MG TAB ONE (15:26)
[2023-01-06] MEDS ORDERED: CEFTRIAXONE 1000 MG/VIAL ONE (15:35)
[2023-01-06 15:44] VITALS: TEMP 98.2
[2023-01-06 15:46] VITALS: BP 118/59; O2SAT 100
== END 2023-01-06 15:36 | disposition home or self-care (01) ==
LOC: ER 13:05
DX: F20.9 Schizophrenia, unspecified (principal); Z76.0 Encounter for issue of repeat prescription
CPT/HCPCS: 96361; 85025; 81001; 80048; 36415; 81025; 80164; 96375; 96374; 99284; J7030; J0696

== ENCOUNTER 2023-02-25 14:31 | Emergency (ER) | payer OTHER ==
--- OUTSIDE RECORDS SUMMARY | 2023-02-25 14:34 | XMS REPORT | Continuity of Care Document ---
:1990 Author Organization [facility] t Address [address] [place] [address] Care Team Providers Name Role Phone Asked, No Pcp Primary Care Physician Unavailable Chan Carrillo Attending Clinician Unavailable Chan Carirllo Attending Clinician Unavailable NESTOR SAMANO Attending Clinician Unavailable Nestor Samano MD Attending Clinician JENNA CATALAN Attending Clinician Unavailable Jenna Catalan DO Attending Clinician BRYANNA YEAGER Attending Clinician Unavailable Bryanna Yeager MD Attending Clinician Malik Sorenson MD Attending Clinician Ayesha Randall DO Attending Clinician [phone] DO AYESHA RANDALL Attending Clinician Unavailable Torres Mckinney MD Attending Clinician Vicente Perkins MD Attending Clinician Chan Carrillo MD Attending Clinician CHAN CARRILLO Attending Clinician Unavailable Doctor Unassigned, [place] Attending Clinician Unavailable Griselda TRISTENLydia S Attending Clinician Susan Marion Attending Clinician Betsy NAJERA Lisa Flores Attending Clinician Bernard Reed Attending Clinician Chan Carrillo Admitting Clinician Unavailable MD SRINI OLIVA Admitting Clinician Unavailable Payers Payer Name Policy Type Policy Number Effective Date Expiration Date S silverio [facility] [id number] 2022 00:00:00 [place] [id number] 2020 00:00:00 Problems Condition Condition Condition Status Onset Resolution Last Treating Co mments Source Name Details Category Date Date Treatment Clinician Date Anemia, Anemia, Disease Active 2017-07 Univers 2-15 it y of 00:00: [place] [facility] Headache Headache Disease Active 2017-07 Unive rs in in 0-30 [place] , [place] ante[place] antepartum 00 Me dical , third , third Branch trimester trimester HSV-1 HSV-1 Disease Active Univers (herpes (herpes 6-07 ity of simplex simplex 00:00: [place] virus 1) virus 1) 00 Medica l infection infection Bran ch HSV-2 HSV-2 Disease Active Univers (herpes (herpes 6-07 ity of simplex simplex 00:00: [place] virus 2) virus 2) 00 Medica l infection infection Bran ch Supervisio Supervisio Disease Active U nivers n of n of 3-13 ity of high-risk high[place] 00 [facility] Branch Multiparit Multiparit Disease Active U nivers y y 3-13 ity of 00:00: [place] 00 Medical [facility] Morbid Morbid Disease Active Univers obesity obesity 3-13 ity of 00:00: [place] 00 [facility] Drug abuse Drug abuse Disease Active U nivers and and 6-29 ity of dependence [place] Rh Rh Disease Active Univers negative negative 1-23 ity of state in state in 00:00: [place] antepartum antepartum 00 Me dical period period Branch History of History of Disease Active U nivers depression depression 1-20 it y of 00:00: [place] 00 Medical Branch Bipolar 1 Bipolar 1 Disease Active Overview: Univers disorder disorder 1-20 Formattin ity of 00:00: g of this 00 note Medical might be Branch different from the original. Not currently on medicatio n, establish ed with [facility] Allergies, Adverse Reactions, Alerts Allergy Allergy Status Severity Reaction(s) Onset Inactive Treating Comm ents Source Name Type Date Date Clinician No Known DA Active U 2017-07 [facility] Allergie 0-04 Clear s 00:00: Alaniz 00 [facility] No Known DA Active U [facility] Allergie 2-19 Clear s 00:00: Alaniz 00 [facility] No Known Drug [facility] NO KNOWN Drug Active Univers ALLERGIE [facility] ity of S [facility] Social History Social Habit Start Date Stop Date Quantity Comments Source [facility] identity [facility] Sexual orientation [facility] Exposure to 2022-03-27 2022-04-06 Not sure [facility] SARS-CoV-2 (event) 00:00:00 04:13:00 [facility] Alcohol intake 2022-04-06 2022-04-06 0 /d University of 00:00:00 00:00:00 [facility] History of Social 2021-05-20 2021-05-[address] function 00:00:00 00:00:00 Hospital Tobacco use and 2016-12-27 2016-12-27 Smokeless Universit y of exposure 00:00:00 00:00:00 tobacco non-user [facility] dical Branch History of tobacco 2004-07-21 2016-11-27 Cigarette Smoker University of use 00:00:00 00:00:00 [facility] Tobacco Comment 2016-08-09 2016-08-09 smokes 1 x per Unive rsity of 00:00:00 00:00:00 week [facility] Sex Assigned At [birth year] [facility] 00:00:00 00:00:00 Hospital Smoking Status Start Date Stop Date Source Tobacco smoking [facility] consumption unknown Ex-smoker 2016-12-27 00:00:00 2016-12-27 [place] [facility] [place] 00:00:00 Medical Branch Medications Ordered Filled Start Stop Current Ordering Indication Dosage Frequency Signature Comments Components Source Medication Medication Date Date Medication? Clinician (SIG) Name Name SERTraline No 50mg 50 mg, [facility] ers (ZOLOFT) 12-22- Oral, ONCE ity of tablet 50 03:45: 03:25 NOW, 1 [place] mg 00 :00 dose, On Medical 12/21/22 Branch at 2245, Routine risperiDONE No 3mg 3 mg, [facility] ers (RISPERDAL 12-22 Oral, ity of M-TAB) 3 mg 03:00: 03:21 ONCE, 1 [place] dose, On Medical 12/21/22 Branch at 2200, MARY GRACE SERTraline Yes [id number] 50mg Take 1 Un monty (ZOLOFT) 50 - tablet by ity of mg tablet 00:00: mouth [place] 00 every Medical morning. Branch risperiDONE Yes [id number] 2mg Take 1 U nivers (RISPERDAL) -03 [...] at 0445, MARY GRACE hydrOXYzine 2021- Yes [id number] 25mg Take 1 Univers 25 mg 9-17 tablet by ity of tablet 00:00: mouth [place] 00 every 6 Medical (six) Branch hours as needed for Itching. ibuprofen Yes [id number] 800mg Take 1 U nivers 800 mg 9-17 tablet by ity of tablet 00:00: mouth [place] 00 every 8 Medical (eight) Branch hours as needed (pain). hydrOXYzine 2021-0 Yes [id number] 25mg Take 1 Univers 25 mg 9-17 tablet by ity of tablet 00:00: mouth [place] 00 every 6 Medical (six) Branch hours as needed for Itching. ibuprofen 2021-0 Yes [id number] 800mg Take 1 U nivers 800 mg 9-17 tablet by ity of tablet 00:00: mouth [place] 00 every 8 Medical (eight) Branch hours as needed (pain). hydrOXYzine 2021-0 Yes [id number] 25mg Take 1 Univers 25 mg 9-17 tablet by ity of tablet 00:00: mouth [place] 00 every 6 Medical (six) Branch hours as needed for Itching. ibuprofen 2021-0 Yes [id number] 800mg Take 1 U nivers 800 mg [...] 2 l (two) times a day. propranoloL 2021-0 Yes 20mg Q.5D Take 1 Meth sacha [...] 2020-0 Yes 20mg Q.5D Take 1 Meth [place] (INDERAL) 8-27 tablet (20 st 20 MG [...] Immunizations Ordered Filled Immunization Date Status Comments [facility] e Immunization Name Name Rho (d) Immune 2018-07-03 Completed University of Globulin 00:00:00 [facility] Rho (d) Immune 2018-07-03 Completed University of Globulin 00:00:00 [facility] Rho (d) Immune 2018-07-03 Completed University of Globulin 00:00:00 [facility] TDAP 2018-05-19 Completed University of 00:00:00 [facility] TDAP 2018-05-19 Completed University of 00:00:00 [facility] TDAP 2018-05-19 Completed University of 00:00:00 [facility] Rho (d) Immune 2018-04-28 Completed University of Globulin 00:00:00 [facility] Rho (d) Immune 2018-04-28 Completed University of Globulin 00:00:00 [facility] Rho (d) Immune 2018-04-28 Completed University of Globulin 00:00:00 [facility] Varicella 2016-11-02 Completed University of (varivax)(chicken 00:00:00 [facility] edical pox) Branch Varicella 2016-11-02 Completed University of (varivax)(chicken 00:00:00 [facility] edical pox) Branch Varicella 2016-11-02 Completed University of (varivax)(chicken 00:00:00 [facility] edical pox) Branch TDAP 2016-08-26 Completed University of 00:00:00 [facility] TDAP 2016-08-26 Completed University of 00:00:00 [facility] TDAP 2016-08-26 Completed University of 00:00:00 [facility] Vital Signs Vital Name Observation Time Observation Value Comments Source Height/Length Dosing 2020-04-27 10:46:44 Systolic blood 2022-12-22 03:15:00 106 mm[Hg] Univer sity of pressure [facility] Diastolic blood 2022-12-22 03:15:00 64 mm[Hg] Unive rsity of pressure [facility] Heart rate 2022-12-22 03:15:00 89 /min Universi [facility] Respiratory rate 2022-12-22 03:15:00 16 /min [facility] saturation in 2022-12-22 03:15:00 100 /min University of Arterial blood by [facility] marvin Pulse oximetry Branch Body temperature 2022-12-22 01:16:00 36.67 Makenna Univ [facility] [place] [facility] Body weight 2022-12-22 01:16:00 58.968 kg [facility]i ty [facility] [place] [facility] [place] BMI 2022-12-22 01:16:00 26.26 kg/m2 Universi ty [facility] [place] [facility] Systolic blood 2022-04-06 09:16:00 136 mm[Hg] Univer sity of pressure [place] [facility] Diastolic blood 2022-04-06 09:16:00 99 mm[Hg] Unive rsity of pressure [place] [facility] Heart rate 2022-04-06 09:16:00 93 /min [facility]i [facility] [place] [facility] [place] Body temperature 2022-04-06 09:16:00 36.56 Makenna [facility] Respiratory rate 2022-04-06 09:16:00 19 /min [facility] ersity of [place] [facility] [place] Body height 2022-04-06 09:16:00 149.9 cm Universi ty [facility] [place] [facility] Body weight 2022-04-06 09:16:00 58.968 kg Universi ty [facility] [place] [facility] BMI 2022-04-06 09:16:00 26.26 kg/m2 [facility] [place] [facility] [place] Oxygen saturation in 2022-04-06 09:16:00 100 /min University of Arterial blood by [facility] Pulse oximetry Branch Height/Length 2021-08-07 13:15:25 152 [...] kg Systolic blood 2021-05-20 23:20:54 118 mm[Hg] [facility] pressure Diastolic blood 2021-05-20 23:20:54 75 mm[Hg] [facility] pressure Heart rate 2021-05-20 23:20:54 89 /min [facility] Body temperature 2021-05-20 23:20:54 36.67 Makenna [facility] Respiratory rate 2021-05-20 23:20:54 20 /min [facility] Oxygen saturation in 2021-05-20 23:20:54 100 /min [facility] Arterial blood by Pulse oximetry Body height 2021-03-16 01:44:[address] [facility] Body weight 2021-03-16 01:44:[address] [facility] BMI 2021-03-16 01:44:00 26.45 kg/m2 [facility] Procedures Procedure Date / Time Performing Clinician Source Performed NOTICE OF PRIVACY 2022-04-06 09:11:05 Doctor Unassigned, [facility] PRACTICES [place] [facility] CONSENT/REFUSAL FOR 2022-04-06 09:09:57 Doctor Unassigned, [facility] DIAGNOSIS AND TREATMENT [place] [facility] URINE DRUGS OF ABUSE 2021-03-16 06:14:00 [facility] SCREEN URINALYSIS SCREEN AND 2021-03-16 06:14:00 [facility] MICROSCOPY, WITH REFLEX TO CULTURE COVID-19 QUALITATIVE 2021-03-16 06:13:00 [facility] RT-PCR ECG ED PRELIMINARY 2021-03-16 06:05:54 Ayesha Randall [facility] INTERPRETATION Clint HC COMPLETE BLD COUNT 2021-03-16 03:42:00 [facility] W/AUTO DIFF COMPREHENSIVE METABOLIC 2021-03-16 03:42:00 [facility] PANEL CREATINE KINASE, TOTAL 2021-03-16 03:42:00 [facility] ([facility]) THYROID STIMULATING 2021-03-16 03:42:00 [facility] HORMONE T4, FREE 2021-03-16 03:42:00 [facility] ALCOHOL LEV[facility], BLOOD 2021-03-16 03:42:00 [facility] ACETAMINOPHEN LEVEL 2021-03-16 03:42:00 [facility] SALICYLATE LEVEL 2021-03-16 03:42:00 Srini Oliva H ospital ESTIMATED GFR 2021-03-16 03:42:00 [facility] 12-LEAD 2021-03-16 03:23:[facility] sp[facility] T4, FREE 2021-03-15 05:54:[address] [facility] ALCOHOL LEVEL, BLOOD 2021-03-15 05:54:00 Torres Mckinney [facility] ACETAMINOPHEN LEVEL 2021-03-15 05:54:00 Torres Mckinney [facility] SALICYLATE LEVEL 2021-03-15 05:54:00 Torres Mckinney [facility] ESTIMATED GFR 2021-03-15 05:54:[address] [facility] HC COMPLETE BLD COUNT 2021-03-15 05:54:00 Torres Mckinney [facility] W/AUTO DIFF COMPREHENSIVE METABOLIC 2021-03-15 05:54:00 Torres Mckinney [facility] PANEL CREATINE KINASE, TOTAL 2021-03-15 05:54:00 [facility] ([facility] THYROID STIMULATING 2021-03-15 05:54:00 Torres Mckinney [facility] HORMONE ECG ED PRELIMINARY 2021-03-15 05:39:48 Torres Mckinney [facility] INTERPRETATION ECG 12-LEAD 2021-03-15 05:12:[address] [facility] Encounters Start End Encounter Admission Attending Care Care Encounter Source Date/Time Date/Time Type Type Clinicians Facility Department ID 2021-05-20 Emergency [facility] [id number] Univers 20:09:23 [facility] 2021-05-18 Emergency [facility] [id number] Univers 16:29:02 [facility] 2021-05-18 Emergency [facility] [id number] Univers 15:53:57 ity of [facility] 2021-05-18 Emergency [facility] [id number] Univers 15:51:32 ity of [facility] 2020-04-27 Inpatient Chan Carrillo [facility] PSY [id number] 10:43:00 Chan Carrillo -[id number] [facility] 2022-12-21 2022-12-21 Emergency X SELWYN [facility] ERT [id number] Univers 20:17:00 22:51:00 NESTOR ity [facility] 2022-12-21 2022-12-21 Emergency [facility] [id number] Univers 20:17:00 22:51:[address] [facility] [id number] it y of [facility] 4.2.7.[address] [place] [id number] ([facility]) 2022-04-06 2022-04-06 Emergency X [facility] ERT [id number] Univers 17:51:00 17:56:00 JENNA dinero [facility] 2022-04-06 2022-04-06 Emergency [facility] 1.2.840.114 [id number] Univers 17:51:00 17:56:00 Jenna FIELD [id number] ity of [facility] 4.2.7.2.[address] [place] [id number] 2022-04-06 2022-04-06 [facility] [id number] Univers 17:39:25 17:40:00 JENNA easony [facility] 2022-04-06 2022-04-06 Emergency Willy [facility] ERT [id number] Univers 04:20:00 05:36:00 BRYANNA bar [facility] 2022-04-06 2022-04-06 Emergency [facility] [id number] Univers 04:20:00 05:36:00 Bryanna FIELD [id number] ity of [place] 4.2.7.[address] [place] [id number] 2021-07-30 2021-07-30 Outpatient [facility] PBUERAA RJU COH 00:00:00 00:00:00 2021-07-24 2021-07-24 Outpatient [facility] PBUERAA RJU COH 00:00:00 00:00:00 04 2021-05-20 2021-05-20 Emergency Ling, Malik 1.2.840.1 [id number] Methodi 18:56:00 19:37:[address] 3.430.2.7 Hospit a .3.607389 l .8 2021-05-20 2021-05-20 Travel 1.2.840.1 [id number] [id number] Methodi 00:00:00 00:00:[address] 3.430.2.7 0.2.7.3.698 Ho spita .3.083401 084.8 l .8 2021-03-15 2021-03-16 Emergency Kendig, 1.2.840.1 [id number] Methodi 23:48:00 06:39:[address] Clint 3.430.2.7 Hosp tk .3.274776 l .8 2021-03-15 2021-03-15 Emergency Hank, 1.2.840.1 [id number] Methodi 00:15:00 05:29:[address] Reggie 3.430.2.7 Hospit a .3.131293 l .8 2021-03-15 2021-03-15 Travel 1.2.840.1 1.2.833.642 [id number] Methodi 00:00:00 00:00:[address] 3.430.2.7 0.2.7.3.698 Ho spita .3.618297 084.8 l .8 2021-01-18 2021-01-18 EXT MHH OP [place], EXT MSRDP 1.2.840.114 1 [id number] [place] 00:00:00 00:00:00 Vicente LOCATION 350.1.13.58 Health 9.2.7.2.686 [id number] 2021-01-18 2021-01-18 EXT MHH OP [place], EXT MSRDP 1.2.840.114 1 [id number] [place] 00:00:00 00:00:00 Vicente LOCATION 350.1.13.58 Health 9.2.7.2.686 [id number] 2021-01-08 2021-01-08 Outpatient R [facility] [id number] Univers 12:30:00 12:30:00 [facility] 2020-04-27 2020-05-24 Inpatient 3 Chan Carrillo [facility] PSY [id number] 10:43:00 13:30:00 [facility] 2020-04-27 2020-04-27 [facility] 1.2.840.114 [id number] 11:31:00 23:59:00 Encounter Chan MONTALVO 350.1.13.10 [facility] 4.2.7.2.686 [place] [id number] 2020-04-27 2020-04-27 Outpatient R [facility] NUT [id number] Univers 00:00:00 00:00:00 CHAN [facility] 2020-04-27 2020-04-27 Orders Doctor BYNUM 1.2.840.114 [id number] 00:00:00 00:00:00 Only Unassigned, LUIS [id number] [place] [facility] 4.2.7.2.686 [id number] 2020-03-28 2020-03-28 Emergency [facility] 1.2.975.468 [id number] 20:05:00 20:52:00 Lydia Field 350.1.13.10 [place] 4.2.7.2.686 [place] [id number] 2020-03-28 2020-03-28 Orders Doctor BYNUM 1.2.840.114 [id number] 00:00:00 00:00:00 Only Unassigned, LUIS 350.1.13.10 [place] [facility] 4.2.7.2.686 [id number] [id number] 2020-03-24 2020-03-24 Emergency [facility] 1.2.840.114 [id number] 07:46:00 08:18:00 Jenna Cheek Liliana 350.1.13.10 [place] 4.2.7.2.686 [place] [address] [id number] 2020-03-23 2020-03-23 [facility] 1.2.786.337 [id number] 16:33:00 20:42:00 Susan Field 350.1.13.10 [place] 4.2.7.2.686 [place] [address] [id number] 2020-03-23 2020-03-23 Orders Doctor FLETCHER 1.2.840.114 [id number] 00:00:00 00:00:00 Only Unassigned, LUIS [id number] [place] [facility] 4.2.7.2.686 [id number] 2019-08-25 2019-08-25 [facility] 1.2.840.114 [id number] 16:23:00 19:17:00 Lisa Field 350.1.13.10 [place] 4.2.7.2.686 [place] [id number] 2019-04-03 2019-04-03 [facility] 1.2.611.111 [id number] 18:43:45 19:09:00 Bernard Field 350.1.13.10 [place] 4.2.7.2.686 [place] [address] [id number] Results Test Description Test Time Test Comments Results Result Comments Source ECG 12 lead 2021-04-24 20:37:17 Test Item Value Reference Range Interpretation Comme nts Ventricular rate (test code = 253) Atrial rate (test code = 255) SC interval (test code = 266) QRSD interval [...] of 15-MAR-2021 00:12,-No significant change was found- [facility] 12 [id number] 20:37:17 Test Item Value Reference Range Interpretation Comments Ventricular rate (test code = 253) Atrial rate (test code = 255) SC interval (test code = 266) QRSD interval [...] of 15-MAR-2021 00:12,-No significant change was found[facility] RNA [Presence] in Respiratory specimen by SAIGE with probe [id number] 06:16:38 Test Item Value Reference Range Interpretation Comments SARS-CoV-2 (COVID-19) RNA Not detected Not-Detected [Presence] in Respiratory specimen by SAIGE with probe detection (test code = 52508-5) Whether patient is employed in a healthcare setting (test code = 64736-6) Whether the patient has symptoms related to condition of interest (test code = 77820-6) Patient was hospitalized because of this condition (test code = 47238-1) Whether the patient was admitted to intensive care unit (ICU) for condition of interest (test code = 82139-9) Whether patient resides in a congregate care setting (test code = 12102-4) [facility]-10-[facility] 09:56:39 Test Item Value Reference Range Interpretation [...] calculation is LDL/HDL Ratio=L DL Calc/HDL Chol [id number] 09:56:39 Test Item Value Reference Range Interpretation Comments TSH (test code = TSH) 1.610 mcIU/mL 0.550-4.780 HCG Ql [id number] 09:56:39 Test Item Value Reference Range Interpretation Comments HCG, Serum Qual (test code = HCG, Negative Negative Serum Qual)
[2023-02-25 17:22] LABS: Specific Gravity 1.023 (1.005-1.030)
[2023-02-25 17:42] LABS: Specific Gravity 1.023 (1.005-1.030); Urine Bacteria None Seen /HPF (<20); Urine Bilirubin NEGATIVE (Negative); Urine Blood Negative (Negative); Urine Clarity Turbid (Clear); Urine Color Light-Yellow (Yellow); Urine Glucose NEGATIVE (Negative); Urine Mucus Slight /HPF (None Seen); Urine Protein TRACE (Negative); Urine Urobilinogen Normal (Normal); Urine WBC Clump Rare /HPF (None Seen); Urine pH 6.5 (5.0-7.0)
--- NOTE | 2023-02-25 18:04 | ER ---
Nurse's Notes [facility] Name: Alma Rosa Odonnell Age: 32 yrs Sex: Female : 1990 Arrival Date: 02/25/2023 Time: 14:31 Bed 20 Private MD: Diagnosis: Dysuria;Candidiasis, unspecified Presentation: 02/25 15:12 Chief complaint: Patient states: Vaginal discharge for a few days, states it is white nj1 in color and she also has vaginal itchiness. 15:12 Coronavirus screen: Vaccine status: Patient reports being unvaccinated. Ebola Screen: nj Patient denies travel to an Ebola-affected area in the 21 days before illness onset. Initial Sepsis Screen: Does the patient meet any 2 criteria? HR > 90 bpm. No. Patient's initial sepsis screen is negative. Does the patient have a suspected source of infection? No. Patient's initial sepsis screen is negative. Risk Assessment: Do you want to hurt yourself or someone else? Patient reports no desire to harm self or others. Onset of symptoms was February 2023. 15:12 Method Of Arrival: Ambulatory [facility] 15:12 Acuity: MANDO 3 [facility] Triage Assessment: 16:00 General: Appears in no apparent distress. comfortable, Behavior is calm, cooperative. 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 - Social history:: Smoking status: Patient denies any tobacco usage or history of. Screenin:04 [facility] ED Fall Risk Assessment (Adult) History of falling in the last 3 months, db including since admission No falls in past 3 months (0 pts) Confusion or Disorientation No (0 pts) Intoxicated or Sedated No (0 pts) Impaired Gait No (0 pts) Mobility Assist Device Used No (0 pt) Altered Elimination No (0 pt) Score/Fall Risk Level 0 - 2 = Low Risk Oriented to surroundings, Maintained a safe environment. Abuse screen: Denies threats or abuse. Denies injuries from another. Nutritional screening: No deficits noted. Tuberculosis screening: No symptoms or risk factors identified. Assessment: 15:53 Reassessment: Patient appears in no apparent distress at this time. Patient and/or db family updated on plan of care and expected duration. Pain level reassessed. ASKED PATIENT REASON FOR VISIT. PATIENT STATES "I DON'T KNOW". INSTRUCTED PATIENT TO URINATE IN CUP. PATIENT VERBALIZED UNDERSTANDING AND STATES DOES NOT NEED TO USE RESTROOM. PATIENT MAKING RANDOM NOISES AND SINGING DURING ASSESSMENT. General: Appears in no apparent distress. comfortable, Behavior is agitated. Pain: Unable to use pain scale. PATIENT WOULD NOT ANSWER QUESTION. Neuro: Level of Consciousness is awake, alert, obeys commands. Respiratory: Airway is patent Respiratory effort is even, unlabored, Respiratory pattern is regular, symmetrical. 17:00 Reassessment: Patient appears in no apparent distress at this time. Patient and/or db family updated on plan of care and expected duration. Pain level reassessed. Patient is alert, oriented x 3, equal unlabored respirations, skin warm/dry/pink. 17:53 Reassessment: CALLED LAB FOR UA RESULTS. STATES MACHINE WENT DOWN BUT IS NOW WORKING db AGAIN. WILL RESULT SOON. 18:16 Reassessment: Patient appears in no apparent distress at this time. Patient and/or db family updated on plan of care and expected duration. Pain level reassessed. Patient is alert, oriented x 3, equal unlabored respirations, skin warm/dry/pink. Vital Signs: 15:12 BP 138 / 74; Pulse 98; Resp 17; Temp 98(O); Pulse Ox 100% on R/A; Weight 63.5 kg; nj1 Height 4 ft. 11 in. ; 17:53 BP 136 / 72; Pulse 92; Resp 16; Pulse Ox 100% on R/A; db 15:12 Body Mass Index 28.28 (63.50 kg, 149.86 cm) [facility] ED Course: 14:35 Patient arrived in ED. im 14:46 Lina Scott FNP-C is PHCP. snw 14:46 Ryan Lewis MD is Attending Physician. snw 15:12 Arm band placed on right wrist. ia1 15:15 Leonor Lassiter, SONDRA is Primary Nurse. db 15:40 Triage completed. nj1 16:55 Urinalysis w/ reflexes Sent. 8 16:55 Test, Urine Sent. [facility] 18:16 Patient has correct armband on for positive identification. Bed in low position. Call db light in reach. Side rails up X 1. Provided Education on: DISCHARGE. 18:16 No provider procedures requiring assistance completed. Patient did not have IV access db during this emergency room visit. Administered Medications: 18:10 Drug: Macrobid PO 100 mg Route: PO; db 18:17 Follow up: Response: No adverse reaction db 18:10 Drug: Fluconazole PO 200 mg Route: PO; db 18:17 Follow up: Response: No adverse reaction db Medication: 18:17 VIS not applicable for this client. db Outcome: 18:03 Discharge ordered by MD. lawton 18:16 Discharged to home ambulatory. db 18:16 Condition: stable 18:16 Discharge instructions given to patient, Instructed on discharge instructions, follow up and referral plans. Prescriptions given X 1. 18:25 Patient left the ED. db Signatures: Lina Scott FNP-C LIFE SCIENCES TEACHER-Csnw Leonor Lassiter RN RN Liz Dubon RN RN nj1 Christine Messer Scarlett 8
--- NOTE | 2023-02-25 18:04 | EDPHYS ---
Physician Documentation [facility] Name: Alma Rosa Odonnell Age: 32 yrs Sex: Female : 1990 Arrival Date: 02/25/2023 Time: 14:31 Bed 20 Private MD: ED Physician Ryan Lewis HPI: 02/25 15:35 This 32 yrs old Female presents to ER via Unassigned with complaints of snw Vaginal Discharge, Vaginal Itching, Vaginal Pain. 15:35 The patient presents with vaginal pain, itching, white discharge, denies recent snw unprotected intercourse. Onset: The symptoms/episode began/occurred gradually. The patient's method of control includes unknown. It is unknown whether or not the patient has recently seen a physician. 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 - Social history:: Smoking status: Patient denies any tobacco usage or history of. ROS: 15:34 Constitutional: Negative for fever, chills, and weight loss, Eyes: Negative for injury, snw pain, redness, and discharge, ENT: Negative for injury, pain, and discharge, Neck: Negative for injury, pain, and swelling, Cardiovascular: Negative for chest pain, palpitations, and edema, Respiratory: Negative for shortness of breath, cough, wheezing, and pleuritic chest pain, Abdomen/GI: Negative for abdominal pain, nausea, vomiting, diarrhea, and constipation, Back: Negative for injury and pain, MS/Extremity: Negative for injury and deformity, Skin: Negative for injury, rash, and discoloration, Neuro: Negative for headache, weakness, numbness, tingling, and seizure, Psych: Negative for depression, anxiety, suicide ideation, homicidal ideation, and hallucinations. 15:34 : Positive for burning with urination, cheese curd like, white discharge, denies recent abx use. Exam: 15:29 Head/Face: Normocephalic, atraumatic. Eyes: Pupils equal round and reactive to light, snw extra-ocular motions intact. Lids and lashes normal. Conjunctiva and sclera are non-icteric and not injected. Cornea within normal limits. Periorbital areas with no swelling, redness, or edema. ENT: Nares patent. No nasal discharge, no septal abnormalities noted. Tympanic membranes are normal and external auditory canals are clear. Oropharynx with no redness, swelling, or masses, exudates, or evidence of obstruction, uvula midline. Mucous membranes moist. Neck: Trachea midline, no thyromegaly or masses palpated, and no cervical lymphadenopathy. Supple, full range of motion without nuchal rigidity, or vertebral point tenderness. No Meningismus. Chest/axilla: Normal chest wall appearance and motion. Nontender with no deformity. No lesions are appreciated. Cardiovascular: Regular rate and rhythm with a normal S1 and S2. No gallops, murmurs, or rubs. Normal PMI, no JVD. No pulse deficits. Respiratory: Lungs have equal breath sounds bilaterally, clear to auscultation and percussion. No rales, rhonchi or wheezes noted. No increased work of breathing, no retractions or nasal flaring. Abdomen/GI: Soft, non-tender, with normal bowel sounds. No distension or tympany. No guarding or rebound. No evidence of tenderness throughout. Back: No spinal tenderness. No costovertebral tenderness. Full range of motion. Skin: Warm, dry with normal turgor. Normal color with no rashes, no lesions, and no evidence of cellulitis. MS/ Extremity: Pulses equal, no cyanosis. Neurovascular intact. Full, normal range of motion. 15:29 Constitutional: The patient appears awake, agitated, restless. 15:29 Neuro: Abnormal movements: present, pt vocalized clicks, growls, screams out random nonsense, but answers questions appropriately. 15:29 Psych: Behavior/mood is inappropriate for age, Affect is animated, Oriented to person, place, time, Judgement / Insight is impaired. Vital Signs: 15:12 BP 138 / 74; Pulse 98; Resp 17; Temp 98(O); Pulse Ox 100% on R/A; Weight 63.5 kg; nj1 Height 4 ft. 11 in. ; 17:53 BP 136 / 72; Pulse 92; Resp 16; Pulse Ox 100% on R/A; db 15:12 Body Mass Index 28.28 (63.50 kg, 149.86 cm) nj1 MDM: 14:52 Patient medically screened. snw 15:36 Differential diagnosis: urinary tract infection, vaginosis, isaac. Data reviewed: snw vital signs, nurses notes. 02/25 16:45 Order name: Urinalysis w/ reflexes; Complete Time: 18:01 bp 02/25 16:45 Order name: Test, Urine; Complete Time: 18:01 bp 02/25 17:57 Order name: Urine Culture EDMS Administered Medications: 18:10 Drug: Macrobid PO 100 mg Route: PO; db 18:17 Follow up: Response: No adverse reaction db 18:10 Drug: Fluconazole PO 200 mg Route: PO; db 18:17 Follow up: Response: No adverse reaction db Disposition Summary: 02/25/23 18:03 Discharge Ordered Location: Home snw Condition: Stable snw Diagnosis - Dysuria snw - Candidiasis, unspecified snw Followup: snw - With: Emergency Department - When: As needed - Reason: Worsening of condition Followup: snw - With: Private Physician - When: 2 - 3 days - Reason: Recheck today's complaints, Continuance of care, Re-evaluation by your physician Discharge Instructions: - Discharge Summary Sheet snw - Dysuria snw - Vaginal Yeast Infection, Adult snw Forms: - Medication Reconciliation Form snw - Thank You Letter snw - Antibiotic Education snw - Prescription Opioid Use snw - Patient Portal Instructions snw Prescriptions: - Macrobid 100 mg Oral Capsule - take 1 capsule by ORAL route every 12 hours for 7 days; 14 capsule; Refills: 0, snw Product Selection Permitted Signatures: 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
[2023-02-25] MEDS ORDERED: NITROFURAN MACRO 100 MG CAP PO ONE (18:21)
[2023-02-25] MEDS ORDERED: FLUCONAZOLE 100 MG TAB ONE (18:22)
[2023-02-25 18:35] VITALS: TEMP 98; O2SAT 100
[2023-02-25 18:36] VITALS: BP 136/72
== END 2023-02-25 18:25 | disposition home or self-care (01) ==
LOC: ER 14:31
DX: R30.0 Dysuria (principal); B37.9 Candidiasis, unspecified; N89.8 Other specified noninflammatory disorders of vagina
CPT/HCPCS: 81001; 81025; 87086; 87088